=== PATIENT | female | born 1930 | race Caucasian/White ===

== ENCOUNTER 2018-06-27 10:29 | Inpatient (IN) | payer MEDICARE, OTHER ==
[2018-06-27] MEDS ORDERED: Sodium Chloride 0.9% 1,000 ML IV SCH ×3 (11:00→17:10)
[2018-06-27] MEDS ORDERED: Diltiazem 25 MG/5 ML SDV IVPUSH ONE ×2 (11:01→13:24)
--- NOTE | 2018-06-27 11:06 | EDM.PDOC ---
ED HPI GENERAL MEDICAL PROBLEM - General Chief Complaint: Cardiovascular Problem Stated Complaint: [facility] Time Seen by Provider: 06/27/18 10:52 Source of Information: Reports: Patient, RN Notes Reviewed History Limitations: Reports: No Limitations - History of Present Illness INITIAL COMMENTS - FREE TEXT/NARRATIVE: 88-year-old female presents to the emergency department today complaint of palpitations, she has a known history of paroxysmal atrial fibrillation is on anticoagulation of Coumadin. Reported to the Coumadin clinic for an INR check she reported palpitations at that time clinic called the EMS services for transport to the ED for further evaluation. She states she initially had some chest pressure but that now has resolved no shortness of breath she does feel the palpitations it is worse with exertion. She does have a pacemaker she reports that her pacemaker check did admit to bouts of atrial fibrillation throughout the last cycle. - Related Data Allergies Allergy/AdvReac Type Severity Reaction Status Date / Time levofloxacin [From Levaquin] Allergy Rash Verified 06/27/18 10:37 Penicillins Allergy Rash Verified 06/27/18 10:37 propoxyphene napsylate Allergy Rash Verified 06/27/18 10:37 [From Darvocet-N] Home Meds: Home Meds Aspirin [Children's Aspirin] 81 mg PO DAILY 02/14/15 [History] Morphine Sulfate 15 mg PO Q4H PRN 02/14/15 [History] Sertraline [Zoloft] 100 mg PO DAILY 02/14/15 [History] Simvastatin [Zocor] 40 mg PO BEDTIME 02/14/15 [History] Morphine Sulfate [Ms Contin] 15 mg PO Q12HR 11/29/15 [History] Warfarin [Coumadin] 1.5 mg PO ASDIRECTED 11/29/15 [History] amLODIPine [Norvasc] 5 mg PO DAILY 10/20/17 [History] Metoprolol Tartrate [Lopressor] 50 mg PO BID 03/30/18 [History] Acetaminophen [Tylenol Extra Strength] 1,000 mg PO Q4H PRN 06/22/18 [History] Past Medical History Cardiovascular History: Reports: Afib, High Cholesterol, Hypertension Social & Family History - Tobacco Use Smoking Status *Q: Never Smoker - Recreational Drug Use Recreational Drug Use: No ED ROS GENERAL - Review of Systems Review Of Systems: See Below Constitutional: Reports: No Symptoms Respiratory: Reports: Shortness of Breath Cardiovascular: Reports: Chest Pain, Dyspnea on Exertion GI/Abdominal: Reports: No Symptoms : Reports: No Symptoms Musculoskeletal: Reports: No Symptoms ED EXAM, GENERAL - Physical Exam Exam: See Below Exam Limited By: No Limitations General Appearance: Alert, WD/WN, No Apparent Distress Neck: Normal Inspection, Supple, Non-Tender, Full Range of Motion Respiratory/Chest: No Respiratory Distress, Lungs Clear, Normal Breath Sounds, No Accessory Muscle Use, Chest Non-Tender Cardiovascular: Tachycardia GI/Abdominal: Soft, Non-Tender ED CARDIOLOGY PROCEDURES - Cardioversion Time of Cardioversion: 13:27 Indication: Atrial Fibrillation with RVR Patient Counseled: Yes Informed Consent Obtained: Yes Preparation: IV Access, Airway Management Equipment, Supplemental Oxygen, Monitor, Reversal Agents Available Pre-Procedure Sedation: Propofol Cardioversion Energy: Other (200, 250, 300) Mode: Monophasic Successful: No Number of Attempts: Other: (3 attempts) Patient Condition Post Cardioversion: Unchanged Post Cardioversion EKG Reviewed: No Course - Vital Signs Last Recorded V/S: Last Vital Signs Temp 97.3 F 06/28/18 02:50 Pulse 115 H 06/28/18 01:37 Resp 19 06/28/18 06:00 BP 118/58 L 06/28/18 06:00 Pulse Ox 97 06/28/18 06:00 - Orders/Labs/Meds Orders: Active Orders 24 hr Category Date Time Status Cardiac Monitoring [RC] .As Directed Care 06/27/18 11:00 Inactive EKG Documentation Completion [RC] ASDIRECTED Care 06/27/18 11:01 Inactive Chest 1V Frontal [CR] Urgent Exams 06/27/18 15:27 Taken Amiodarone [Cordarone] 450 mg Med 06/27/18 16:45 Active Dextrose 5% in Water 241 ml IV ASDIRECTED EKG 12 Lead [EK] Stat Ther 06/27/18 11:01 Stop Req Medication Orders Acetaminophen (Tylenol) 650 mg PO Q4H PRN PRN Reason: Pain (Mild 1-3)/fever Last Admin: 06/28/18 00:27 Dose: 650 mg Aspirin (Aspirin) 81 mg PO DAILY MUKUL Amiodarone HCl 450 mg/ (Dextrose/Water) 250 mls @ 33.33 mls/hr IV ASDIRECTED MUKUL; Protocol Last Admin: 06/28/18 01:37 Dose: 0.5 mg/min, 16.66 mls/hr Titration: 06/28/18 01:37 Dose: 0.5 mg/min, 16.66 mls/hr Titration: 06/27/18 23:24 Dose: 0.5 mg/min, 16.66 mls/hr Admin: 06/27/18 17:11 Dose: 1 mg/min, 33.33 mls/hr Sodium Chloride (Normal Saline) 1,000 mls @ 50 mls/hr IV ASDIRECTED [facility] Last Admin: 06/27/18 19:55 Dose: 50 mls/hr Magnesium Hydroxide (Milk Of Magnesia) 30 ml PO Q12H PRN PRN Reason: Constipation Melatonin (Melatonin) 9 mg PO BEDTIME PRN PRN Reason: Insomnia Last Admin: 06/27/18 21:35 Dose: 9 mg Metoprolol Tartrate (Lopressor) 50 mg PO BID [facility] Last Admin: 06/27/18 21:29 Dose: 50 mg Morphine Sulfate (Ms Contin) 15 mg PO Q12H [facility] Last Admin: 06/27/18 21:28 Dose: 15 mg Morphine Sulfate (Morphine) 15 mg PO Q4H PRN PRN Reason: Pain Last Admin: 06/28/18 00:27 Dose: 15 mg Ondansetron HCl (Zofran) 4 mg IV Q4H PRN PRN Reason: Nausea/Vomiting Polyethylene Glycol (Miralax) 17 gm PO DAILY PRN PRN Reason: Constipation Senna/Docusate Sodium (Senna Plus) 1 tab PO BID PRN PRN Reason: Constipation Sertraline HCl (Zoloft) 100 mg PO DAILY [facility] Simvastatin (Zocor) 40 mg PO BEDTIME [facility] Last Admin: 06/27/18 21:29 Dose: 40 mg Sodium Chloride (Saline Flush) 10 ml FLUSH ASDIRECTED PRN PRN Reason: Keep Vein Open Warfarin Sodium (Coumadin) 1.5 mg PO DAILY [facility] Labs: Laboratory Tests 06/27/18 06/27/18 06/27/18 Range/Units 11:16 11:16 16:19 WBC 10.3 (4.5-11.0) K/uL RBC 4.58 (3.30-5.50) M/uL Hgb 13.6 D (12.0-15.0) g/dL Hct 43.6 (36.0-48.0) % MCV 95 (80-98) fL MCH 30 (27-31) pg MCHC 31 L (32-36) % Plt Count 213 (150-400) K/uL Neut % (Auto) 79 H (36-66) % Lymph % (Auto) 10 L (24-44) % [place] % (Auto) 10 H (2-6) % Eos % (Auto) 0 L (2-4) % Baso % (Auto) 0 (0-1) % Sodium 141 (140-148) mmol/L Potassium 4.0 (3.6-5.2) mmol/L Chloride 105 (100-108) mmol/L Carbon Dioxide 30 (21-32) mmol/L Anion Gap 6.2 (5.0-14.0) mmol/L BUN 11 (7-18) mg/dL Creatinine 0.7 (0.6-1.0) mg/dL Est Cr Clr Drug Dosing 50.95 mL/min Estimated GFR (MDRD) > 60 (>60) Glucose 111 H (74-106) mg/dL Calcium 8.9 (8.5-10.1) mg/dL Magnesium 1.8 (1.8-2.4) mg/dL Total Bilirubin 0.6 (0.2-1.0) mg/dL AST 13 L (15-37) U/L ALT 14 (12-78) U/L Alkaline Phosphatase 78 (46-116) U/L CK-MB (CK-2) 0.6 (0-3.6) mg/mL Troponin I < 0.017 (0.000-0.056) ng/mL Total Protein 6.5 (6.4-8.2) g/dL Albumin 3.1 L (3.4-5.0) g/dL Globulin 3.4 (2.3-3.5) g/dL Albumin/Globulin Ratio 0.9 L (1.2-2.2) TSH, Ultra Sensitive 1.270 (0.358-3.740) uIU/mL Meds: Medications Generic Name Dose Route Start Last Admin Trade Name Freq PRN Reason Stop Dose Admin Acetaminophen 650 mg 06/27/18 17:10 06/28/18 00:27 Tylenol PO 650 mg Q4H PRN Administration Pain (Mild 1-3)/fever Aspirin 81 mg 06/28/18 09:00 Aspirin PO DAILY [facility] Amiodarone HCl 450 mg/ 250 mls @ 33.33 mls/hr 06/27/18 16:45 06/28/18 01:37 Dextrose/Water IV 0.5 mg/min ASDIRECTED MUKUL 16.66 mls/hr Administration Protocol 1 MG/MIN Sodium Chloride 1,000 mls @ 50 mls/hr 06/27/18 17:10 06/27/18 19:55 Normal Saline IV 50 mls/hr ASDIRECTED [facility] Administration Magnesium Hydroxide 30 ml 06/27/18 17:10 Milk Of Magnesia PO Q12H PRN Constipation Melatonin 9 mg 06/27/18 21:13 06/27/18 21:35 Melatonin PO 9 mg BEDTIME PRN Administration Insomnia Metoprolol Tartrate 50 mg 06/27/18 21:00 06/27/18 21:29 Lopressor PO 50 mg BID [facility] Administration Morphine Sulfate 15 mg 06/27/18 21:00 06/27/18 21:28 Ms Contin PO 15 mg Q12H [facility] Administration Morphine Sulfate 15 mg 06/27/18 17:10 06/28/18 00:27 Morphine PO 15 mg Q4H PRN Administration Pain Ondansetron HCl 4 mg 06/27/18 17:10 Zofran IV Q4H PRN Nausea/Vomiting Polyethylene Glycol 17 gm 06/27/18 17:10 Miralax PO DAILY PRN Constipation Senna/Docusate Sodium 1 tab 06/27/18 17:10 Senna Plus PO BID PRN Constipation Sertraline HCl 100 mg 06/28/18 09:00 Zoloft PO DAILY [facility] Simvastatin 40 mg 06/27/18 21:00 06/27/18 21:29 Zocor PO 40 mg BEDTIME [facility] Administration Sodium Chloride 10 ml 06/27/18 17:10 Saline Flush FLUSH ASDIRECTED PRN Keep Vein Open Warfarin Sodium 1.5 mg 06/28/18 09:00 Coumadin PO DAILY [facility] Discontinued Medications Generic Name Dose Route Start Last Admin Trade Name Freq PRN Reason Stop Dose Admin Diltiazem HCl 20 mg 06/27/18 11:01 06/27/18 11:24 Diltiazem IVPUSH 06/27/18 11:02 20 mg ONETIME ONE Administration Diltiazem HCl 20 mg 06/27/18 13:24 06/27/18 13:40 Diltiazem IVPUSH 06/27/18 13:25 20 mg ONETIME ONE Administration Sodium Chloride 1,000 mls @ 125 mls/hr 06/27/18 11:00 06/27/18 11:29 Normal Saline IV 125 mls/hr ASDIRECTED MUKUL Administration Sodium Chloride 1,000 mls @ 75 mls/hr 06/27/18 12:15 Normal Saline IV ASDIRECTED MUKUL Diltiazem HCl 100 mg/ Sodium 100 mls @ 5 mls/hr 06/27/18 13:45 06/27/18 15:48 Chloride IV 20 mg/hr TITRATE MUKUL 20 mls/hr Titration Protocol 5 MG/HR Amiodarone HCl 150 mg/ 103 mls @ 618 mls/hr 06/27/18 16:45 06/27/18 16:44 Dextrose/Water IV 06/27/18 16:54 618 mls/hr ONETIME ONE Administration Magnesium Sulfate 2 gm/ Premix 50 mls @ 12.5 mls/hr 06/27/18 21:12 06/27/18 21:29 IV 06/28/18 01:11 12.5 mls/hr ONETIME ONE Administration Naloxone HCl Confirm 06/27/18 13:08 Narcan Administered 06/27/18 13:09 Dose 0.4 mg .ROUTE .STK-MED ONE Warfarin Sodium 1 mg 06/27/18 11:00 06/27/18 11:30 Coumadin PO 06/27/18 11:01 1 mg ONETIME ONE Administration Departure - Departure Time of Disposition: 06:57 Disposition: Admitted As Inpatient 67 Condition: Fair Clinical Impression: Atrial fibrillation with RVR - My Orders Last 24 Hours: My Active Orders 06/27/18 11:00 Cardiac Monitoring [RC] .As Directed 06/27/18 11:01 EKG Documentation Completion [RC] ASDIRECTED EKG 12 Lead [EK] Stat 06/27/18 15:27 Chest 1V Frontal [CR] Urgent - Assessment/Plan Last 24 Hours: My Active Orders 06/27/18 11:00 Cardiac Monitoring [RC] .As Directed 06/27/18 11:01 EKG Documentation Completion [RC] ASDIRECTED EKG 12 Lead [EK] Stat 06/27/18 15:27 Chest 1V Frontal [CR] Urgent Plan: Assessment Acuity = acute Site and laterality = atrial fibrillation with rapid ventricular response Etiology = unknown etiology Manifestations = palpitations Location of injury = Home Lab values = CBC, CMP, troponin, magnesium, thyroid all within normal limits EKG demonstrates atrial fibrillation, INR from clinic is 2.15 Plan After unsuccessful cardioversion as well as Cardizem bolus and Cardizem drip called discussed case hospitalist team agreed to come and evaluate the patient emergency department for admission This note was dictated using [employer] voice recognition software please call with any questions on syntax or grammar.
[2018-06-27] MEDS ORDERED: Naloxone 0.4 MG/ML SDV ONE (13:08)
[2018-06-27] MEDS ORDERED: DEXTROSE 5% IV SCH ×2 (13:45)
[2018-06-27] MEDS ORDERED: Diltiazem 100 MG in Sodium Chloride 0.9% 100 ML IV SCH (13:45)
[2018-06-27] MEDS ORDERED: DILTIAZEM IV SCH ×2 (13:45)
[2018-06-27] MEDS ORDERED: WATER IV SCH ×2 (13:45)
[2018-06-27] MEDS ORDERED: Propofol 200 MG/20 ML SDV ONE (14:00)
[2018-06-27] MEDS ORDERED: Amiodarone 150 MG/3 ML SDV IVPUSH ONE (16:23)
[2018-06-27] MEDS ORDERED: Amiodarone 150 MG in Dextrose 5% in Water 100 ML IV ONE ×4 (16:30→16:45)
--- NOTE | 2018-06-27 16:39 | PCM.HP ---
H&P History of Present Illness - General Date of Service: 06/27/18 Admit Problem/Dx: Admission Diagnosis/Problem Admission Diagnosis/Problem Atrial fibrillation Source of Information: Patient, Provider, RN Notes Reviewed History Limitations: Reports: No Limitations - History of Present Illness Initial Comments - Free Text/Narative: Ms. Gr is an 88-year-old woman who was admitted through the emergency department with lightheadedness and weakness secondary to atrial fibrillation with rapid ventricular response. She is status post permanent pacemaker placement for symptomatic bradycardia. She has had previous history of versus small atrial fibrillation and on her last pacemaker check was told that she'd had intermittent episodes of atrial fibrillation with rapid heart rate. Over the past few months she has had intermittent episodes of weakness and lightheadedness that she is not necessarily associated with a rapid heart rate. She went into the clinic today for Coumadin check and reported that she was not feeling well with weakness and lightheadedness. Heart rate was noted to be elevated and she was referred to the emergency department for further evaluation. Laboratory studies are unremarkable, EKG documented atrial fibrillation with rapid ventricular response. She was given a bolus dose of diltiazem with no significant improvement in rate. She was then given IV sedation and cardioversion was attempted 3 times with no successful conversion to sinus rhythm. Since then she has been re-bolused with diltiazem and started on a continuous infusion of diltiazem, despite this heart rates remained in the 130 to 140 range. She denies any symptoms of chest pain or pressure and her troponin level is within normal range. - Related Data Allergies/Adverse Reactions: Allergies Allergy/AdvReac Type Severity Reaction Status Date / Time levofloxacin [From Levaquin] Allergy Rash Verified 06/27/18 10:37 Penicillins Allergy Rash Verified 06/27/18 10:37 propoxyphene napsylate Allergy Rash Verified 06/27/18 10:37 [From Darvocet-N] Home Medications: Home Meds Aspirin [Children's Aspirin] 81 mg PO DAILY 02/14/15 [History] Morphine Sulfate 15 mg PO Q4H PRN 02/14/15 [History] Sertraline [Zoloft] 100 mg PO DAILY 02/14/15 [History] Simvastatin [Zocor] 40 mg PO BEDTIME 02/14/15 [History] Morphine Sulfate [Ms Contin] 15 mg PO Q12HR 11/29/15 [History] Warfarin [Coumadin] 1.5 mg PO ASDIRECTED 11/29/15 [History] amLODIPine [Norvasc] 5 mg PO DAILY 10/20/17 [History] Metoprolol Tartrate [Lopressor] 50 mg PO BID 03/30/18 [History] Acetaminophen [Tylenol Extra Strength] 1,000 mg PO Q4H PRN 06/22/18 [History] Past Medical History HEENT History: Reports: Hard of Hearing Cardiovascular History: Reports: Afib, High Cholesterol, Hypertension Respiratory History: Reports: Bronchitis, Recurrent, Pneumonia, Recurrent Gastrointestinal History: Reports: Diverticulosis Genitourinary History: Reports: Other (See Below) Other Genitourinary History: growth on the end of meatus Musculoskeletal History: Reports: Back Pain, Chronic, Other (See Below) Other Musculoskeletal History: epicdural injections Psychiatric History: Reports: Anxiety, Depression Hematologic History: Reports: Anemia Dermatologic History: Reports: Other (See Below) Other Dermatologic History: neuro dermatitis, shingles - Past Surgical History HEENT Surgical History: Reports: Tonsillectomy Cardiovascular Surgical History: Reports: Carotid Stents, Pacer GI Surgical History: Reports: Appendectomy, Colon Female Surgical History: Reports: Hysterectomy, Salpingo-Oophorectomy Social & Family History - Tobacco Use Smoking Status *Q: Never Smoker - Recreational Drug Use Recreational Drug Use: No H&P Review of Systems - Review of Systems: Review Of Systems: See Below General: Reports: Weakness, Night Sweats. Denies: Fever, Chills HEENT: Reports: No Symptoms Pulmonary: Reports: No Symptoms Cardiovascular: Reports: Palpitations, Lightheadedness. Denies: Chest Pain, Dyspnea on Exertion, Orthopnea, PND, Syncope Gastrointestinal: Reports: No Symptoms Genitourinary: Reports: No Symptoms Musculoskeletal: Reports: No Symptoms Skin: Reports: No Symptoms Psychiatric: Reports: No Symptoms Neurological: Reports: No Symptoms Hematologic/Lymphatic: Reports: No Symptoms Immunologic: Reports: No Symptoms Exam - Exam Exam: See Below - Vital Signs Vital Signs: Last Vital Signs Temp 96.5 F 06/27/18 10:34 Pulse 153 H 06/27/18 16:18 Resp 12 06/27/18 16:18 BP 109/51 L 06/27/18 16:18 Pulse Ox 94 L 06/27/18 16:18 Weight: 200 lb - Exam Quality Assessment: Supplemental Oxygen, DVT Prophylaxis General: Alert, Oriented, Cooperative, Mild Distress HEENT: Conjunctiva Clear, Hearing Intact, Mucosa Moist & [place], Normal Nasal Septum, Posterior Pharynx Clear, Pupils Equal Neck: Supple, Trachea Midline, +2 Carotid Pulse wo Bruit Lungs: Clear to Auscultation, Normal Respiratory Effort Cardiovascular: Normal S1, Normal S2, Irregular Rhythm, Tachycardia. No: Systolic Murmur, Diastolic Murmur GI/Abdominal Exam: Soft, Non-Tender, No Organomegaly, No Distention Back Exam: Normal Inspection, Full Range of Motion Extremities: Non-Tender, No Pedal Edema Skin: Warm, Dry Neurological: Cranial Nerves Intact, Strength Equal Bilateral, Normal Speech, Normal Tone, Sensation Intact. No: Focal Deficit Neuro Extensive - Mental Status: Alert, Oriented x3, Normal Mood/Affect, Normal Cognition, Memory Intact - Patient Data Lab Results Last 24 hrs: Laboratory Results - last 24 hr 06/27/18 06/27/18 Range/Units 11:16 11:16 WBC 10.3 (4.5-11.0) K/uL RBC 4.58 (3.30-5.50) M/uL Hgb 13.6 D (12.0-15.0) g/dL Hct 43.6 (36.0-48.0) % MCV 95 (80-98) fL MCH 30 (27-31) pg MCHC 31 L (32-36) % Plt Count 213 (150-400) K/uL Neut % (Auto) 79 H (36-66) % Lymph % (Auto) 10 L (24-44) % [place] % (Auto) 10 H (2-6) % Eos % (Auto) 0 L (2-4) % Baso % (Auto) 0 (0-1) % Sodium 141 (140-148) mmol/L Potassium 4.0 (3.6-5.2) mmol/L Chloride 105 (100-108) mmol/L Carbon Dioxide 30 (21-32) mmol/L Anion Gap 6.2 (5.0-14.0) mmol/L BUN 11 (7-18) mg/dL Creatinine 0.7 (0.6-1.0) mg/dL Est Cr Clr Drug Dosing 50.95 mL/min Estimated GFR (MDRD) > 60 (>60) Glucose 111 H (74-106) mg/dL Calcium 8.9 (8.5-10.1) mg/dL Total Bilirubin 0.6 (0.2-1.0) mg/dL AST 13 L (15-37) U/L ALT 14 (12-78) U/L Alkaline Phosphatase 78 (46-116) U/L CK-MB (CK-2) 0.6 (0-3.6) mg/mL Troponin I < 0.017 (0.000-0.056) ng/mL Total Protein 6.5 (6.4-8.2) g/dL Albumin 3.1 L (3.4-5.0) g/dL Globulin 3.4 (2.3-3.5) g/dL Albumin/Globulin Ratio 0.9 L (1.2-2.2) Result Diagrams: 06/27/18 11:16 06/27/18 11:16 *Q Meaningful Use (ADM) - VTE *Q VTE Pharmacological Contraindications *Q: High INR Value - VTE Risk Assess *Q Each Risk Factor Represents 1 Point: None, Obesity ( BMI > 25 kg/m2) Total Score 1 Point Risk Factors: 1 Each Risk Factor Represents 2 Points: None Total Score 2 Point Risk Factors: 0 Each Risk Factor Represents 3 Points: Age 75 Years or Greater Total Score 3 Point Risk Factors: 3 Each Risk Factor Represents 5 Points: None Total Score 5 Point Risk Factors: 0 Venous Thromboembolism Risk Factor Score *Q: 4 Problem List Initiated/Reviewed/Updated: Yes Orders Last 24hrs: Active Orders 24 hr Category Date Time Status Patient Status Manage Transfer [TRANSFER] Routine ADT 06/27/18 16:25 Active Cardiac Monitoring [RC] .As Directed Care 06/27/18 11:00 Active EKG Documentation Completion [RC] ASDIRECTED Care 06/27/18 11:01 Active Chest 1V Frontal [CR] Urgent Exams 06/27/18 15:27 Taken MAGNESIUM [CHEM] Stat Lab 06/27/18 16:19 Received TSH ULTRASENSITIVE [CHEM] Stat Lab 06/27/18 16:19 Received Amiodarone [Cordarone] 150 mg Med 06/27/18 16:30 Active Dextrose 5% in Water 100 ml IV .BOLUS Amiodarone [Cordarone] 450 mg Med 06/27/18 16:30 Ordered Dextrose 5% in Water 241 ml IV ASDIRECTED Sodium Chloride 0.9% [Normal Saline] 1,000 ml Med 06/27/18 11:00 Active IV ASDIRECTED Sodium Chloride 0.9% [Normal Saline] 1,000 ml Med 06/27/18 12:15 Active IV ASDIRECTED Resuscitation Status Routine Resus Stat 06/27/18 16:27 Ordered EKG 12 Lead [EK] Stat Ther 06/27/18 11:01 Ordered Medication Orders Sodium Chloride (Normal Saline) 1,000 mls @ 125 mls/hr IV ASDIRECTED MUKUL Last Admin: 06/27/18 11:29 Dose: 125 mls/hr Sodium Chloride (Normal Saline) 1,000 mls @ 75 mls/hr IV ASDIRECTED MUKUL Amiodarone HCl 450 mg/ (Dextrose/Water) 250 mls @ 33.33 mls/hr IV ASDIRECTED MUKUL; Protocol Amiodarone HCl 150 mg/ (Dextrose/Water) 103 mls @ 618 mls/hr IV .BOLUS ONE Stop: 06/27/18 16:39 Assessment/Plan Comment:: ASSESSMENT AND PLAN ATRIAL FIBRILLATION WITH RAPID VENTRICULAR RESPONSE-history of paroxysmal A. fib in the past. This morning experience symptoms of weakness and lightheadedness and was found to be in atrial fibrillation with rapid ventricular response. Attempted cardioversion in the emergency department has been unsuccessful, heart rate has remained elevated despite IV diltiazem. Will admit to ICU for bolus dose and continuous infusion of amiodarone, risks and goals of amiodarone therapy including potential side effects reviewed with the patient and she has given informed consent to proceed. -Admit to ICU for cardiac monitoring -Amiodarone bolus and 24 hour continuous infusion per protocol -TSH in a.m. -Continue oral anticoagulation with warfarin MAINTENANCE ISSUES -DVT prophylaxis; current therapy with warfarin should provide adequate DVT prophylaxis -GI prophylaxis; not indicated -Álvarez catheter; not indicated -Nutrition; 2 g sodium diet -Nicotine dependence; not required CODE STATUS-FULL CODE ADMISSION STATUS-patient will be admitted to inpatient status, expect at least a 2 night hospital stay for evaluation and management of problems as outlined above. At the time of this admission I do not reasonably expected evaluation and management of this problem will require more than a 96 hour hospital stay. DISPOSITION-anticipate discharge to home after the hospital stay. PRIMARY CARE PROVIDER-Dr. Rogel
[2018-06-27] MEDS ORDERED: Sodium Chloride 0.9% 10 ML Syringe FLUSH PRN (17:10)
[2018-06-27] MEDS ORDERED: Magnesium Hydroxide 400 MG/5 ML Susp 30 ML Cup PO PRN (17:10)
[2018-06-27] MEDS ORDERED: Polyethylene Glycol 3350 Powder 17 GM Packet PO PRN (17:10)
[2018-06-27] MEDS ORDERED: Ondansetron 4 MG/2 ML SDV IV PRN (17:10)
[2018-06-27] MEDS ORDERED: Non-Formulary Medication 1 Each (Simvastatin [Zocor] 40 MG) PO SCH (21:00)
[2018-06-27] MEDS ORDERED: Magnesium Sulfate/Water 2 GM in Premix Bag 1 BAG IV ONE (21:12)
[2018-06-27] MEDS ORDERED: Melatonin 3 MG Tab PO PRN (21:13)
[2018-06-27] MEDS: Morphine 15 MG Tab.ER PO SCH (21:28)
[2018-06-27] MEDS: Simvastatin 20 MG Tab PO SCH (21:29)
[2018-06-27] MEDS: Metoprolol Tartrate 50 MG Tab PO SCH (21:29)
[2018-06-28] MEDS: Acetaminophen 325 MG Tab PO PRN ×2 (00:27→10:04)
[2018-06-28] MEDS: Morphine 15 MG Tab PO PRN ×2 (00:27→18:13)
[2018-06-28] MEDS: Metoprolol Tartrate 50 MG Tab PO SCH ×2 (08:06→20:47)
[2018-06-28] MEDS: Sertraline 50 MG Tab PO SCH (08:07)
[2018-06-28] MEDS: Aspirin 81 MG Tab.Chew PO SCH (08:07)
[2018-06-28] MEDS: Morphine 15 MG Tab.ER PO SCH ×2 (08:11→20:48)
--- NOTE | 2018-06-28 08:37 | CR ---
CHEST: Portable CLINICAL HISTORY:Palpitations COMPARISON:2014 FINDINGS: Patient has a permanent cardiac pacer with sequential leads in the right atrium and right ventricle. Prevascular appears normal. There are patchy densities throughout both lung sarmiento. The th donovan are likely chronic. IMPRESSION: Limited study Permanent cardiac pacer Changes of COPD. Two-view chest recommended when patient's condition allows.
[2018-06-28] MEDS ORDERED: Non-Formulary Medication 1 Each (Sertraline [Zoloft] 100 MG) PO SCH (09:00)
--- NOTE | 2018-06-28 10:57 | PCM.PN ---
- General Info Date of Service: 06/28/18 Subjective Update: This patient has improved since admission and did convert to sinus rhythm earlier this morning with continuous infusion of amiodarone. She still feels mildly weak and shaky but denies significant lightheadedness, chest pain, or shortness of breath. Functional Status: Reports: Tolerating Diet - Review of Systems General: Reports: Weakness. Denies: Fever, Chills Pulmonary: Reports: No Symptoms Cardiovascular: Reports: No Symptoms Gastrointestinal: Reports: No Symptoms - Patient Data Vitals - Most Recent: Last Vital Signs Temp 98.6 F 06/28/18 09:00 Pulse 65 06/28/18 10:00 Resp 16 06/28/18 10:00 BP 135/75 06/28/18 10:00 Pulse Ox 99 06/28/18 10:00 Weight - Most Recent: 182 lb 0.006 oz I&O - Last 24 Hours: Intake & Output 06/27/18 06/28/18 06/28/18 22:59 06:59 14:59 Intake Total 240 Output Total 500 875 Balance -260 -875 Lab Results Last 24 Hours: Laboratory Results - last 24 hr 06/27/18 06/27/18 06/27/18 Range/Units 11:16 11:16 16:19 WBC 10.3 (4.5-11.0) K/uL RBC 4.58 (3.30-5.50) M/uL Hgb 13.6 D (12.0-15.0) g/dL Hct 43.6 (36.0-48.0) % MCV 95 (80-98) fL MCH 30 (27-31) pg MCHC 31 L (32-36) % Plt Count 213 (150-400) K/uL Neut % (Auto) 79 H (36-66) % Lymph % (Auto) 10 L (24-44) % Baxter % (Auto) 10 H (2-6) % Eos % (Auto) 0 L (2-4) % Baso % (Auto) 0 (0-1) % PT (9.5-12.0) sec INR (0.80-1.20) Sodium 141 (140-148) mmol/L Potassium 4.0 (3.6-5.2) mmol/L Chloride 105 (100-108) mmol/L Carbon Dioxide 30 (21-32) mmol/L Anion Gap 6.2 (5.0-14.0) mmol/L BUN 11 (7-18) mg/dL Creatinine 0.7 (0.6-1.0) mg/dL Est Cr Clr Drug Dosing 50.95 mL/min Estimated GFR (MDRD) > 60 (>60) Glucose 111 H (74-106) mg/dL Calcium 8.9 (8.5-10.1) mg/dL Magnesium 1.8 (1.8-2.4) mg/dL Total Bilirubin 0.6 (0.2-1.0) mg/dL AST 13 L (15-37) U/L ALT 14 (12-78) U/L Alkaline Phosphatase 78 (46-116) U/L CK-MB (CK-2) 0.6 (0-3.6) mg/mL Troponin I < 0.017 (0.000-0.056) ng/mL Total Protein 6.5 (6.4-8.2) g/dL Albumin 3.1 L (3.4-5.0) g/dL Globulin 3.4 (2.3-3.5) g/dL Albumin/Globulin Ratio 0.9 L (1.2-2.2) TSH, Ultra Sensitive 1.270 (0.358-3.740) uIU/mL 06/28/18 06/28/18 06/28/18 Range/Units 04:45 04:45 04:45 WBC 9.5 (4.5-11.0) K/uL RBC 4.02 (3.30-5.50) M/uL Hgb 12.3 (12.0-15.0) g/dL Hct 38.7 (36.0-48.0) % MCV 96 (80-98) fL MCH 31 (27-31) pg MCHC 32 (32-36) % Plt Count 198 (150-400) K/uL Neut % (Auto) 74 H (36-66) % Lymph % (Auto) 13 L (24-44) % Baxter % (Auto) 13 H (2-6) % Eos % (Auto) 0 L (2-4) % Baso % (Auto) 0 (0-1) % PT 20.3 H (9.5-12.0) sec INR 1.91 H (0.80-1.20) Sodium 143 (140-148) mmol/L Potassium 3.7 (3.6-5.2) mmol/L Chloride 107 (100-108) mmol/L Carbon Dioxide 30 (21-32) mmol/L Anion Gap 6.3 (5.0-14.0) mmol/L BUN 12 (7-18) mg/dL Creatinine 0.6 (0.6-1.0) mg/dL Est Cr Clr Drug Dosing 59.44 mL/min Estimated GFR (MDRD) > 60 (>60) Glucose 113 H (74-106) mg/dL Calcium 7.9 L (8.5-10.1) mg/dL Magnesium 2.1 (1.8-2.4) mg/dL Total Bilirubin (0.2-1.0) mg/dL AST (15-37) U/L ALT (12-78) U/L Alkaline Phosphatase (46-116) U/L CK-MB (CK-2) (0-3.6) mg/mL Troponin I (0.000-0.056) ng/mL Total Protein (6.4-8.2) g/dL Albumin (3.4-5.0) g/dL Globulin (2.3-3.5) g/dL Albumin/Globulin Ratio (1.2-2.2) TSH, Ultra Sensitive (0.358-3.740) uIU/mL Med Orders - Current: Current Medications Acetaminophen (Tylenol) 650 mg PO Q4H PRN PRN Reason: Pain (Mild 1-3)/fever Last Admin: 06/28/18 10:04 Dose: 650 mg Aspirin (Aspirin) 81 mg PO DAILY [facility] Last Admin: 06/28/18 08:07 Dose: 81 mg Amiodarone HCl 450 mg/ (Dextrose/Water) 250 mls @ 33.33 mls/hr IV ASDIRECTED [facility]; Protocol Last Admin: 06/28/18 01:37 Dose: 0.5 mg/min, 16.66 mls/hr Magnesium Hydroxide (Milk Of Magnesia) 30 ml PO Q12H PRN PRN Reason: Constipation Melatonin (Melatonin) 9 mg PO BEDTIME PRN PRN Reason: Insomnia Last Admin: 06/27/18 21:35 Dose: 9 mg Metoprolol Tartrate (Lopressor) 50 mg PO BID [facility] Last Admin: 06/28/18 08:06 Dose: 50 mg Morphine Sulfate (Ms Contin) 15 mg PO Q12H [facility] Last Admin: 06/28/18 08:11 Dose: 15 mg Morphine Sulfate (Morphine) 15 mg PO Q4H PRN PRN Reason: Pain Last Admin: 06/28/18 00:27 Dose: 15 mg Ondansetron HCl (Zofran) 4 mg IV Q4H PRN PRN Reason: Nausea/Vomiting Polyethylene Glycol (Miralax) 17 gm PO DAILY PRN PRN Reason: Constipation Senna/Docusate Sodium (Senna Plus) 1 tab PO BID PRN PRN Reason: Constipation Sertraline HCl (Zoloft) 100 mg PO DAILY [facility] Last Admin: 06/28/18 08:07 Dose: 100 mg Simvastatin (Zocor) 40 mg PO BEDTIME [facility] Last Admin: 06/27/18 21:29 Dose: 40 mg Sodium Chloride (Saline Flush) 10 ml FLUSH ASDIRECTED PRN PRN Reason: Keep Vein Open Warfarin Sodium (Coumadin) 1.5 mg PO DAILY@1300 [facility] Discontinued Medications Diltiazem HCl (Diltiazem) 20 mg IVPUSH ONETIME ONE Stop: 06/27/18 11:02 Last Admin: 06/27/18 11:24 Dose: 20 mg Diltiazem HCl (Diltiazem) 20 mg IVPUSH ONETIME ONE Stop: 06/27/18 13:25 Last Admin: 06/27/18 13:40 Dose: 20 mg Sodium Chloride (Normal Saline) 1,000 mls @ 125 mls/hr IV ASDIRECTED [facility] Last Admin: 06/27/18 11:29 Dose: 125 mls/hr Sodium Chloride (Normal Saline) 1,000 mls @ 75 mls/hr IV ASDIRECTED [facility] Diltiazem HCl 100 mg/ Sodium (Chloride) 100 mls @ 5 mls/hr IV TITRATE [facility]; Protocol Last Titration: 06/27/18 15:48 Dose: 20 mg/hr, 20 mls/hr Amiodarone HCl 150 mg/ (Dextrose/Water) 103 mls @ 618 mls/hr IV ONETIME ONE Stop: 06/27/18 16:54 Last Admin: 06/27/18 16:44 Dose: 618 mls/hr Sodium Chloride (Normal Saline) 1,000 mls @ 50 mls/hr IV ASDIRECTED [facility] Last Admin: 06/27/18 19:55 Dose: 50 mls/hr Magnesium Sulfate 2 gm/ Premix 50 mls @ 12.5 mls/hr IV ONETIME ONE Stop: 06/28/18 01:11 Last Admin: 06/27/18 21:29 Dose: 12.5 mls/hr Naloxone HCl (Narcan) Confirm Administered Dose 0.4 mg .ROUTE .STK-MED ONE Stop: 06/27/18 13:09 Warfarin Sodium (Coumadin) 1 mg PO ONETIME ONE Stop: 06/27/18 11:01 Last Admin: 06/27/18 11:30 Dose: 1 mg - Exam General: Alert, Oriented, No Acute Distress Lungs: Clear to Auscultation, Normal Respiratory Effort Cardiovascular: Regular Rate, Regular Rhythm, No Murmurs GI/Abdominal Exam: Soft, Non-Tender, No Organomegaly, No Distention Extremities: Non-Tender, No Pedal Edema Skin: Warm, Dry, Intact - Problem List Review Problem List Initiated/Reviewed/Updated: Yes - My Orders Last 24 Hours: My Active Orders 06/27/18 16:27 Resuscitation Status Routine 06/27/18 16:45 Amiodarone [Cordarone] 450 mg Dextrose 5% in Water 241 ml IV ASDIRECTED 06/27/18 17:10 Patient Status [ADT] Routine Ambulate [RC] QID Cardiac Monitoring [RC] Q6H Height and Weight [RC] DAILY Intake and Output [RC] QSHIFT Notify Provider Vital Signs [RC] ASDIRECTED Oxygen Therapy [RC] PRN Peripheral IV Care [RC] Q12H Up With Assistance [RC] ASDIRECTED Up to Chair [RC] QID VTE/DVT Education [RC] Per Unit Routine Vital Signs [RC] Q2H Acetaminophen [Tylenol] 650 mg PO Q4H PRN Docusate Sodium/Sennosides [Senna Plus] 1 tab PO BID PRN Magnesium Hydroxide [Milk of Magnesia] 30 ml PO Q12H PRN Morphine 15 mg PO Q4H PRN Ondansetron [Zofran] 4 mg IV Q4H PRN Polyethylene Glycol 3350 [MiraLAX] 17 gm PO DAILY PRN Sodium Chloride 0.9% [Saline Flush] 10 ml FLUSH ASDIRECTED PRN Peripheral IV Insertion Adult [OM.PC] Routine VTE Pharmacological Contraindications [AST] Per Unit Routine 06/27/18 21:00 Metoprolol Tartrate [Lopressor] 50 mg PO BID Morphine [MS Contin] 15 mg PO Q12H Simvastatin [Zocor] 40 mg PO BEDTIME 06/27/18 21:13 Melatonin 9 mg PO BEDTIME PRN 06/27/18 Lunch 2 Gram Sodium Diet [DIET] 06/28/18 05:35 EKG 12 Lead [EK] Routine 06/28/18 06:12 EKG Documentation Completion [RC] ASDIRECTED 06/28/18 09:00 Aspirin 81 mg PO DAILY Sertraline [Zoloft] 100 mg PO DAILY 06/28/18 13:00 Warfarin [Coumadin] 1.5 mg PO DAILY@1300 06/28/18 17:00 Amiodarone [Cordarone] 400 mg PO DAILY 06/29/18 05:00 INR,PT,PROTHROMBIN TIME [COAG] Timed - Plan Plan:: ASSESSMENT AND PLAN ATRIAL FIBRILLATION WITH RAPID VENTRICULAR RESPONSE-converted to sinus rhythm earlier this morning -Complete amiodarone infusion -Amiodarone 400 mg by mouth daily -Continue oral anticoagulation with warfarin MAINTENANCE ISSUES -DVT prophylaxis; current therapy with warfarin should provide adequate DVT prophylaxis -GI prophylaxis; not indicated -Álvarez catheter; not indicated -Nutrition; 2 g sodium diet -Nicotine dependence; not required CODE STATUS-FULL CODE ADMISSION STATUS-patient will be admitted to inpatient status, expect at least a 2 night hospital stay for evaluation and management of problems as outlined above. At the time of this admission I do not reasonably expected evaluation and management of this problem will require more than a 96 hour hospital stay. DISPOSITION-anticipate discharge to home tomorrow PRIMARY CARE PROVIDER-Dr. Rogel
[2018-06-28] MEDS: Amiodarone 200 MG Tab PO SCH (16:01)
[2018-06-28] MEDS: Simvastatin 20 MG Tab PO SCH (20:48)
[2018-06-29] MEDS: Morphine 15 MG Tab PO PRN (03:32)
[2018-06-29] MEDS: Acetaminophen 325 MG Tab PO PRN (03:33)
[2018-06-29] MEDS: Amiodarone 200 MG Tab PO SCH (08:05)
[2018-06-29] MEDS: Metoprolol Tartrate 50 MG Tab PO SCH (08:05)
[2018-06-29] MEDS: Morphine 15 MG Tab.ER PO SCH (08:05)
[2018-06-29] MEDS: Sertraline 50 MG Tab PO SCH (08:05)
[2018-06-29] MEDS: Aspirin 81 MG Tab.Chew PO SCH (08:06)
[2018-06-29 08:16] VITALS: BP 121/71
--- NOTE | 2018-06-29 09:51 | PCM.DCSUM1 ---
Discharge Summary - Hospital Course Brief History: This patient is an 88-year-old woman who is admitted through the emergency department with weakness and lightheadedness secondary to atrial fibrillation with rapid ventricular response. - Discharge Data Discharge Date: 06/29/18 Discharge Disposition: Home, Self-Care 01 Condition: Fair - Discharge Diagnosis/Problem(s) (1) Atrial fibrillation with RVR SNOMED Code(s): 594212483606399 ICD Code: I48.91 - UNSPECIFIED ATRIAL FIBRILLATION Status: Acute Current Visit: Yes (2) Benign essential hypertension SNOMED Code(s): 7834554 ICD Code: I10 - ESSENTIAL (PRIMARY) HYPERTENSION Status: Chronic Current Visit: No (3) Pacemaker SNOMED Code(s): 255384695 ICD Code: Z95.0 - PRESENCE OF CARDIAC PACEMAKER Status: Chronic Current Visit: No - Patient Summary/Data Consults: Consultations 06/28/18 10:57 Consult to Physical Therapy [PT Evaluation and Treatment] [CONS] Routine Please Evaluate and Treat. PT Reason for Consult: Weakness This query below is only for informational purposes and is not editable. Admission Diagnosis/Problem: Atrial fibrillation Hospital Course: Ms. Gr is an 88-year-old woman who was admitted through the emergency department with lightheadedness and weakness secondary to atrial fibrillation with rapid ventricular response. She is status post permanent pacemaker placement for symptomatic bradycardia. She has had previous history of paroxysmal atrial fibrillation and on her last pacemaker check was told that she 'd had intermittent episodes of atrial fibrillation with rapid heart rate. Over the past few months she has had intermittent episodes of weakness and lightheadedness that she is not necessarily associated with a rapid heart rate. She went into the clinic on the day of admission for Coumadin check and reported that she was not feeling well with weakness and lightheadedness. Heart rate was noted to be elevated and she was referred to the emergency department for further evaluation. Laboratory studies are unremarkable, EKG documented atrial fibrillation with rapid ventricular response. She was given a bolus dose of diltiazem with no significant improvement in rate. She was then given IV sedation and cardioversion was attempted 3 times with no successful conversion to sinus rhythm. Since then she has been re-bolused with diltiazem and started on a continuous infusion of diltiazem, despite this heart rates remained in the 130 to 140 range. She denies any symptoms of chest pain or pressure and her troponin level is within normal range. On admission the IV diltiazem was discontinued and she was started on loading protocol for amiodarone. She received a 150 mg bolus dose and then continuous infusion over the next 24 hours per protocol. She was given some IV fluids for hydration. Early in the morning after admission she converted to sinus rhythm and remained in sinus rhythm throughout the duration of her hospital stay. After she had completed the 24 hour infusion of amiodarone she was converted to an oral dose at 400 mg by mouth daily. She tolerated this well and had no evidence of untoward effect from the amiodarone, there was no evidence of QT prolongation. She will be discharged home on amiodarone 400 mg by mouth daily for 3 weeks and then to decrease dose to 200 mg daily thereafter. I did review with her potential side effects of amiodarone therapy. INR will need to be monitored closely because of potential interaction between amiodarone and warfarin. Follow-up INR level will be scheduled in 2 days at the [facility]. Follow-up appointment with Dr. Rogel will be scheduled within one week. Activity will be as tolerated and she will resume her usual diet. - Patient Instructions Diet: Heart Healthy Diet Activity: As Tolerated Other/Special Instructions: Please schedule follow-up INR at the [facility] for July 01. Please schedule follow-up appointment with Dr. Rogel within one week. - Discharge Plan *PRESCRIPTION DRUG MONITORING PROGRAM REVIEWED*: Not Applicable *COPY OF PRESCRIPTION DRUG MONITORING REPORT IN PATIENT CONNOR: Not Applicable Prescriptions/Med Rec: Amiodarone [Cordarone] 200 mg PO DAILY #30 tablet Home Medications: Home Meds Aspirin [Children's Aspirin] 81 mg PO DAILY 02/14/15 [History] Morphine Sulfate 15 mg PO Q4H PRN 02/14/15 [History] Sertraline [Zoloft] 100 mg PO DAILY 02/14/15 [History] Simvastatin [Zocor] 40 mg PO BEDTIME 02/14/15 [History] Morphine Sulfate [Ms Contin] 15 mg PO Q12HR 11/29/15 [History] Warfarin [Coumadin] 1.5 mg PO ASDIRECTED 11/29/15 [History] amLODIPine [Norvasc] 5 mg PO DAILY 10/20/17 [History] Metoprolol Tartrate [Lopressor] 50 mg PO BID 03/30/18 [History] Acetaminophen [Tylenol Extra Strength] 1,000 mg PO Q4H PRN 06/22/18 [History] Amiodarone [Cordarone] 200 mg PO DAILY #30 tablet 06/29/18 [Rx] Referrals: Jose Rogel MD [Primary Care Provider] - - Discharge Summary/Plan Comment DC Time >30 min.: No - Patient Data Vitals - Most Recent: Last Vital Signs Temp 97.6 F 06/29/18 08:00 Pulse 68 06/29/18 08:05 Resp 18 06/29/18 08:00 BP 148/87 H 06/29/18 08:05 Pulse Ox 97 06/29/18 08:00 Weight - Most Recent: 182 lb I&O - Last 24 hours: Intake & Output 06/28/18 06/29/18 06/29/18 22:59 06:59 14:59 Intake Total 420 240 240 Output Total 200 200 Balance 220 40 240 Lab Results - Last 24 hrs: Laboratory Results - last 24 hr 06/29/18 Range/Units 05:58 PT 24.1 H (9.5-12.0) sec INR 2.30 H (0.80-1.20) Med Orders - Current: Current Medications Acetaminophen (Tylenol) 650 mg PO Q4H PRN PRN Reason: Pain (Mild 1-3)/fever Last Admin: 06/29/18 03:33 Dose: 650 mg Amiodarone HCl (Cordarone) 400 mg PO DAILY [facility] Last Admin: 06/29/18 08:05 Dose: 400 mg Aspirin (Aspirin) 81 mg PO DAILY [facility] Last Admin: 06/29/18 08:06 Dose: 81 mg Magnesium Hydroxide (Milk Of Magnesia) 30 ml PO Q12H PRN PRN Reason: Constipation Melatonin (Melatonin) 9 mg PO BEDTIME PRN PRN Reason: Insomnia Last Admin: 06/27/18 21:35 Dose: 9 mg Metoprolol Tartrate (Lopressor) 50 mg PO BID [facility] Last Admin: 06/29/18 08:05 Dose: 50 mg Morphine Sulfate (Ms Contin) 15 mg PO Q12H [facility] Last Admin: 06/29/18 08:05 Dose: 15 mg Morphine Sulfate (Morphine) 15 mg PO Q4H PRN PRN Reason: Pain Last Admin: 06/29/18 03:32 Dose: 15 mg Ondansetron HCl (Zofran) 4 mg IV Q4H PRN PRN Reason: Nausea/Vomiting Polyethylene Glycol (Miralax) 17 gm PO DAILY PRN PRN Reason: Constipation Senna/Docusate Sodium (Senna Plus) 1 tab PO BID PRN PRN Reason: Constipation Sertraline HCl (Zoloft) 100 mg PO DAILY [facility] Last Admin: 06/29/18 08:05 Dose: 100 mg Simvastatin (Zocor) 40 mg PO BEDTIME [facility] Last Admin: 06/28/18 20:48 Dose: 40 mg Sodium Chloride (Saline Flush) 10 ml FLUSH ASDIRECTED PRN PRN Reason: Keep Vein Open Warfarin Sodium (Coumadin) 1.5 mg PO DAILY@1300 [facility] Last Admin: 06/28/18 13:19 Dose: 1.5 mg Discontinued Medications Diltiazem HCl (Diltiazem) 20 mg IVPUSH ONETIME ONE Stop: 06/27/18 11:02 Last Admin: 06/27/18 11:24 Dose: 20 mg Diltiazem HCl (Diltiazem) 20 mg IVPUSH ONETIME ONE Stop: 06/27/18 13:25 Last Admin: 06/27/18 13:40 Dose: 20 mg Sodium Chloride (Normal Saline) 1,000 mls @ 125 mls/hr IV ASDIRECTED [facility] Last Admin: 06/27/18 11:29 Dose: 125 mls/hr Sodium Chloride (Normal Saline) 1,000 mls @ 75 mls/hr IV ASDIRECTED [facility] Diltiazem HCl 100 mg/ Sodium (Chloride) 100 mls @ 5 mls/hr IV TITRATE [facility]; Protocol Last Titration: 06/27/18 15:48 Dose: 20 mg/hr, 20 mls/hr Amiodarone HCl 450 mg/ (Dextrose/Water) 250 mls @ 33.33 mls/hr IV ASDIRECTED [facility]; Protocol Stop: 06/28/18 16:00 Last Admin: 06/28/18 01:37 Dose: 0.5 mg/min, 16.66 mls/hr Amiodarone HCl 150 mg/ (Dextrose/Water) 103 mls @ 618 mls/hr IV ONETIME ONE Stop: 09/17/18 16:54 Last Admin: 06/27/18 16:44 Dose: 618 mls/hr Sodium Chloride (Normal Saline) 1,000 mls @ 50 mls/hr IV ASDIRECTED [facility] Last Admin: 06/27/18 19:55 Dose: 50 mls/hr Magnesium Sulfate 2 gm/ Premix 50 mls @ 12.5 mls/hr IV ONETIME ONE Stop: 06/28/18 01:11 Last Admin: 06/27/18 21:29 Dose: 12.5 mls/hr Naloxone HCl (Narcan) Confirm Administered Dose 0.4 mg .ROUTE .STK-MED ONE Stop: 06/27/18 13:09 Propofol (Diprivan 20 Ml) 200 mg .ROUTE .STK-MED ONE Stop: 06/27/18 14:01 Warfarin Sodium (Coumadin) 1 mg PO ONETIME ONE Stop: 06/27/18 11:01 Last Admin: 06/27/18 11:30 Dose: 1 mg - Exam Quality Assessment: Reports: DVT Prophylaxis General: Reports: Alert, Oriented, Cooperative, No Acute Distress Lungs: Reports: Clear to Auscultation, Normal Respiratory Effort Cardiovascular: Reports: Regular Rate, Regular Rhythm, No Murmurs GI/Abdominal Exam: Soft, Non-Tender, No Organomegaly, No Distention *Q Meaningful Use (DIS) - VTE *Q VTE Pharmacological Contraindications *Q: High INR Value
== END 2018-06-29 11:35 | disposition home or self-care (01) | DRG 310 ==
LOC: JP.ED 10:29 → JP.ICU 16:25
PROVIDERS: ADMIT Hospitalist; ATTEND Hospitalist
PROC: 5A2204Z Restoration of Cardiac Rhythm, Single (ICD-10-PCS; principal; 2018-06-27)
DX: I48.0 Paroxysmal atrial fibrillation (principal); I10 Essential (primary) hypertension; Z79.01 Long term (current) use of anticoagulants; R51 Headache; R42 Dizziness and giddiness; R00.2 Palpitations; Z95.0 Presence of cardiac pacemaker; E78.00 Pure hypercholesterolemia, unspecified; F41.9 Anxiety disorder, unspecified; F32.9 Major depressive disorder, single episode, unspecified; M54.9 Dorsalgia, unspecified; G89.29 Other chronic pain; Z87.01 Personal history of pneumonia (recurrent); H91.90 Unspecified hearing loss, unspecified ear; Z79.82 Long term (current) use of aspirin; Z88.1 Allergy status to other antibiotic agents; Z88.5 Allergy status to narcotic agent; Z88.0 Allergy status to penicillin
CPT/HCPCS: 36415; 71045 ×2; 80053; 82553; 83735; 84443; 84484; 85025; 92960 ×3; 96361; 96365; 96366; 96376; 99285; A9270; J2310; J2704; J3490 ×3; J7030 ×2; 80048; 85610; 93005; 97161-GP; J0282; J3475; J7060

== ENCOUNTER 2018-07-03 14:09 | Inpatient (IN) | payer MEDICARE, OTHER ==
[2018-07-03] MEDS ORDERED: Sodium Chloride 0.9% 10 ML Syringe FLUSH PRN ×2 (14:23→17:04)
--- NOTE | 2018-07-03 14:52 | EDM.PDOC ---
ED HPI GENERAL MEDICAL PROBLEM - General Chief Complaint: Cardiovascular Problem Stated Complaint: MEDICAL Time Seen by Provider: 07/03/18 14:22 Source of Information: Reports: Patient, RN Notes Reviewed History Limitations: Reports: No Limitations - History of Present Illness INITIAL COMMENTS - FREE TEXT/NARRATIVE: 88-year-old female presents to emergency department today with complaint of not feeling well. She has known history of atrial fibrillation with RVR was recently admitted the hospital for this underwent cardioversion 3 unsuccessful was admitted to hospital changed to amiodarone drip were she's converted. Was discharged home on amiodarone has taken a total of 5 doses she returns today stating last night she started feeling poorly with palpitations some chest pressure. - Related Data Allergies Allergy/AdvReac Type Severity Reaction Status Date / Time levofloxacin [From Levaquin] Allergy Rash Verified 06/27/18 10:37 Penicillins Allergy Rash Verified 06/27/18 10:37 propoxyphene napsylate Allergy Rash Verified 06/27/18 10:37 [From Iris-Lj] Home Meds: Home Meds Aspirin [Children's Aspirin] 81 mg PO DAILY 02/14/15 [History] Morphine Sulfate 15 mg PO Q4H PRN 02/14/15 [History] Sertraline [Zoloft] 100 mg PO DAILY 02/14/15 [History] Simvastatin [Zocor] 40 mg PO BEDTIME 02/14/15 [History] Morphine Sulfate [Ms Contin] 15 mg PO Q12HR 11/29/15 [History] Warfarin [Coumadin] 1.5 mg PO ASDIRECTED 11/29/15 [History] amLODIPine [Norvasc] 5 mg PO DAILY 10/20/17 [History] Metoprolol Tartrate [Lopressor] 50 mg PO BID 03/30/18 [History] Acetaminophen [Tylenol Extra Strength] 1,000 mg PO Q4H PRN 06/22/18 [History] Amiodarone [Cordarone] 200 mg PO DAILY #30 tablet 06/29/18 [Rx] Past Medical History HEENT History: Reports: Hard of Hearing Cardiovascular History: Reports: Afib, High Cholesterol, Hypertension Respiratory History: Reports: Bronchitis, Recurrent, Pneumonia, Recurrent Gastrointestinal History: Reports: Diverticulosis Genitourinary History: Reports: Other (See Below) Other Genitourinary History: growth on the end of meatus Musculoskeletal History: Reports: Back Pain, Chronic, Other (See Below) Other Musculoskeletal History: epicdural injections Psychiatric History: Reports: Anxiety, Depression Hematologic History: Reports: Anemia Dermatologic History: Reports: Other (See Below) Other Dermatologic History: neuro dermatitis, shingles - Infectious Disease History Infectious Disease History: Reports: Chicken Pox, Measles, Mumps - Past Surgical History HEENT Surgical History: Reports: Tonsillectomy GI Surgical History: Reports: Appendectomy, Colon Female Surgical History: Reports: Hysterectomy, Salpingo-Oophorectomy Social & Family History - Tobacco Use Smoking Status *Q: Never Smoker - Caffeine Use Caffeine Use: Reports: Tea ED ROS GENERAL - Review of Systems Review Of Systems: See Below Constitutional: Reports: No Symptoms HEENT: Reports: No Symptoms Respiratory: Reports: No Symptoms Cardiovascular: Reports: Chest Pain, Palpitations GI/Abdominal: Reports: No Symptoms : Reports: No Symptoms Musculoskeletal: Reports: No Symptoms Skin: Reports: No Symptoms ED EXAM, GENERAL - Physical Exam Exam: See Below Exam Limited By: No Limitations General Appearance: Alert, WD/WN, No Apparent Distress Respiratory/Chest: No Respiratory Distress, Lungs Clear, Normal Breath Sounds, No Accessory Muscle Use Cardiovascular: Tachycardia GI/Abdominal: Soft, Non-Tender ED CARDIOLOGY PROCEDURES - Cardioversion Time of Cardioversion: 16:04 Indication: Atrial Fibrillation with RVR Patient Counseled: Yes Informed Consent Obtained: Yes Preparation: IV Access, Airway Management Equipment, Supplemental Oxygen, Monitor, Reversal Agents Available Pre-Procedure Sedation: Propofol Cardioversion Energy: 200J Sync Successful: No Number of Attempts: 2 Patient Condition Post Cardioversion: Unchanged Post Cardioversion EKG Reviewed: No Course - Vital Signs Last Recorded V/S: Last Vital Signs Temp Pulse 124 H 07/03/18 15:56 Resp 15 07/03/18 15:56 BP 160/66 H 07/03/18 15:56 Pulse Ox 90 L 07/03/18 15:56 - Orders/Labs/Meds Orders: Active Orders 24 hr Category Date Time Status Cardiac Monitoring [RC] .As Directed Care 07/03/18 14:23 Active EKG Documentation Completion [RC] ASDIRECTED Care 07/03/18 14:24 Active Peripheral IV Care [RC] . DIRECTED Care 07/03/18 14:24 Active TROPONIN I [CHEM] Stat Lab 07/03/18 15:53 Ordered Diltiazem 125 mg Med 07/03/18 16:15 Active Dextrose 5% in Water 100 ml IV TITRATE Sodium Chloride 0.9% [Saline Flush] Med 07/03/18 14:23 Active 10 ml FLUSH ASDIRECTED PRN Peripheral IV Insertion Adult [OM.PC] Stat Oth 07/03/18 14:23 Ordered Saline Lock Insert [OM.PC] Stat Oth 07/03/18 14:23 Ordered EKG 12 Lead [EK] Stat Ther 07/03/18 14:24 Ordered Medication Orders Diltiazem HCl 125 mg/ Dextrose (/Water) 125 mls @ 5 mls/hr IV TITRATE MUKUL; Protocol Sodium Chloride (Saline Flush) 10 ml FLUSH ASDIRECTED PRN PRN Reason: Keep Vein Open Labs: Laboratory Tests 07/03/18 07/03/18 07/03/18 Range/Units 14:41 14:41 14:41 WBC 12.1 H (4.5-11.0) K/uL RBC 3.83 (3.30-5.50) M/uL Hgb 11.6 L (12.0-15.0) g/dL Hct 37.0 (36.0-48.0) % MCV 97 (80-98) fL MCH 30 (27-31) pg MCHC 31 L (32-36) % Plt Count 209 (150-400) K/uL Neut % (Auto) 84 H (36-66) % Lymph % (Auto) 6 L (24-44) % Bartholomew % (Auto) 10 H (2-6) % Eos % (Auto) 0 L (2-4) % Baso % (Auto) 0 (0-1) % PT 27.9 H (9.5-12.0) sec INR 2.68 H (0.80-1.20) Sodium 140 (140-148) mmol/L Potassium 3.9 (3.6-5.2) mmol/L Chloride 102 (100-108) mmol/L Carbon Dioxide 32 (21-32) mmol/L Anion Gap 6.3 (5.0-14.0) mmol/L BUN 10 (7-18) mg/dL Creatinine 0.6 (0.6-1.0) mg/dL Est Cr Clr Drug Dosing 59.44 mL/min Estimated GFR (MDRD) > 60 (>60) Glucose 132 H (74-106) mg/dL Calcium 8.2 L (8.5-10.1) mg/dL Total Bilirubin 1.0 D (0.2-1.0) mg/dL AST 13 L (15-37) U/L ALT 13 (12-78) U/L Alkaline Phosphatase 67 (46-116) U/L Creatine Kinase 19 L (26-192) U/L CK-MB (CK-2) 0.3 (0-3.6) mg/mL Total Protein 5.9 L (6.4-8.2) g/dL Albumin 2.5 L (3.4-5.0) g/dL Globulin 3.4 (2.3-3.5) g/dL Albumin/Globulin Ratio 0.7 L (1.2-2.2) Meds: Medications Generic Name Dose Route Start Last Admin Trade Name Freq PRN Reason Stop Dose Admin Diltiazem HCl 125 mg/ Dextrose 125 mls @ 5 mls/hr 07/03/18 16:15 /Water IV TITRATE MUKUL Protocol 5 MG/HR Sodium Chloride 10 ml 07/03/18 14:23 Saline Flush FLUSH ASDIRECTED PRN Keep Vein Open Discontinued Medications Generic Name Dose Route Start Last Admin Trade Name Freq PRN Reason Stop Dose Admin Diltiazem HCl 20 mg 07/03/18 14:57 07/03/18 15:03 Diltiazem IVPUSH 07/03/18 14:58 20 mg ONETIME ONE Administration Diltiazem HCl 10 mg 07/03/18 16:02 Diltiazem IVPUSH 07/03/18 16:03 ONETIME ONE Propofol Confirm 07/03/18 15:39 Diprivan 20 Ml Administered 07/03/18 15:40 Dose 200 mg .ROUTE .STK-MED ONE Departure - Departure Time of Disposition: 16:07 Disposition: Admitted As Inpatient 67 Condition: Fair Clinical Impression: Atrial fibrillation with RVR Referrals: Jose Rogel MD [Primary Care Provider] - Forms: ED Department Discharge - My Orders Last 24 Hours: My Active Orders 07/03/18 14:23 Cardiac Monitoring [RC] .As Directed Sodium Chloride 0.9% [Saline Flush] 10 ml FLUSH ASDIRECTED PRN Peripheral IV Insertion Adult [OM.PC] Stat Saline Lock Insert [OM.PC] Stat 07/03/18 14:24 EKG Documentation Completion [RC] ASDIRECTED Peripheral IV Care [RC] . DIRECTED EKG 12 Lead [EK] Stat 07/03/18 15:53 TROPONIN I [CHEM] Stat - Assessment/Plan Last 24 Hours: My Active Orders 07/03/18 14:23 Cardiac Monitoring [RC] .As Directed Sodium Chloride 0.9% [Saline Flush] 10 ml FLUSH ASDIRECTED PRN Peripheral IV Insertion Adult [OM.PC] Stat Saline Lock Insert [OM.PC] Stat 07/03/18 14:24 EKG Documentation Completion [RC] ASDIRECTED Peripheral IV Care [RC] . DIRECTED EKG 12 Lead [EK] Stat 07/03/18 15:53 TROPONIN I [CHEM] Stat Plan: Assessment Acuity = acute Site and laterality = atrial fibrillation with rapid ventricular response complicated patient with known history of hypertension and dyslipidemia on anticoagulation Etiology = unknown etiology Manifestations = shortness of breath and weakness Location of injury = Home Lab values = WBC elevated 12.1 consistent with a leukocytosis, hemoglobin low 11.6 consistent normochromic anemia INR therapeutic at 2.68 CK-MB is 0.3 EKG demonstrates atrial fibrillation Plan Called discussed case with hospitalist polymerization oven tender he agreed to come and evaluate the patient emergency department for admission she received 20 mg Cardizem prior to cardioversion without success This note was dictated using [employer] voice recognition software please call with any questions on syntax or grammar.
[2018-07-03] MEDS ORDERED: Diltiazem 25 MG/5 ML SDV IVPUSH ONE ×4 (14:57→19:46)
[2018-07-03] MEDS ORDERED: Propofol 200 MG/20 ML SDV ONE (15:39)
[2018-07-03] MEDS ORDERED: Diltiazem 100 MG AdvVial ONE ×2 (16:17→23:23)
[2018-07-03] MEDS ORDERED: Sodium Chloride 0.9% 100 ML ONE ×2 (16:18→23:24)
--- NOTE | 2018-07-03 16:26 | PCM.HP ---
H&P History of Present Illness - General Date of Service: 07/03/18 Admit Problem/Dx: Admission Diagnosis/Problem Admission Diagnosis/Problem Atrial fibrillation with rapid ventricular response Source of Information: Patient, Family, Old Records, Provider, RN Notes Reviewed History Limitations: Reports: No Limitations - History of Present Illness Initial Comments - Free Text/Narative: Ms. Gr is an 88-year-old woman who is admitted through the emergency department with recurrent atrial fibrillation and rapid ventricular response. She was hospitalized earlier this last week with similar findings and was treated with IV amiodarone infusion, during which she spontaneously converted to sinus rhythm. She was discharged home on oral amiodarone and last night noted recurrent rapid irregular heart rate. Over the last 4 days since discharge she has not felt well and had progressive symptoms of weakness lightheadedness, shakiness, and anorexia. On evaluation in the emergency department today was found to be again in atrial fibrillation with rapid ventricular response. No significant laboratory abnormalities were found to explain the recurrent atrial fibrillation. Electrical cardioversion was performed twice, and was unsuccessful with no conversion to sinus rhythm. We discussed options for management and she will be admitted for rate control. She remains on oral anticoagulation with warfarin and INR today is within therapeutic range. - Related Data Allergies/Adverse Reactions: Allergies Allergy/AdvReac Type Severity Reaction Status Date / Time levofloxacin [From Levaquin] Allergy Rash Verified 06/27/18 10:37 Penicillins Allergy Rash Verified 06/27/18 10:37 propoxyphene napsylate Allergy Rash Verified 06/27/18 10:37 [From Darvocet-N] Home Medications: Home Meds Aspirin [Children's Aspirin] 81 mg PO DAILY 02/14/15 [History] Morphine Sulfate 15 mg PO Q4H PRN 02/14/15 [History] Sertraline [Zoloft] 100 mg PO DAILY 02/14/15 [History] Simvastatin [Zocor] 40 mg PO BEDTIME 02/14/15 [History] Morphine Sulfate [Ms Contin] 15 mg PO Q12HR 11/29/15 [History] Warfarin [Coumadin] 1.5 mg PO ASDIRECTED 11/29/15 [History] amLODIPine [Norvasc] 5 mg PO DAILY 10/20/17 [History] Metoprolol Tartrate [Lopressor] 50 mg PO BID 03/30/18 [History] Acetaminophen [Tylenol Extra Strength] 1,000 mg PO Q4H PRN 06/22/18 [History] Amiodarone [Cordarone] 200 mg PO DAILY #30 tablet 06/29/18 [Rx] Past Medical History HEENT History: Reports: Hard of Hearing Cardiovascular History: Reports: Afib, High Cholesterol, Hypertension Respiratory History: Reports: Bronchitis, Recurrent, Pneumonia, Recurrent Gastrointestinal History: Reports: Diverticulosis Genitourinary History: Reports: Other (See Below) Other Genitourinary History: growth on the end of meatus Musculoskeletal History: Reports: Back Pain, Chronic, Other (See Below) Other Musculoskeletal History: epicdural injections Psychiatric History: Reports: Anxiety, Depression Hematologic History: Reports: Anemia Dermatologic History: Reports: Other (See Below) Other Dermatologic History: neuro dermatitis, shingles - Infectious Disease History Infectious Disease History: Reports: Chicken Pox, Measles, Mumps - Past Surgical History HEENT Surgical History: Reports: Tonsillectomy GI Surgical History: Reports: Appendectomy, Colon Female Surgical History: Reports: Hysterectomy, Salpingo-Oophorectomy Social & Family History - Tobacco Use Smoking Status *Q: Never Smoker - Caffeine Use Caffeine Use: Reports: Tea H&P Review of Systems - Review of Systems: Review Of Systems: See Below General: Reports: Weakness, Decreased Appetite. Denies: Fever, Chills HEENT: Reports: No Symptoms Pulmonary: Reports: No Symptoms Cardiovascular: Reports: Palpitations, Lightheadedness. Denies: Chest Pain, Dyspnea on Exertion, Orthopnea, PND, Edema Gastrointestinal: Reports: No Symptoms Genitourinary: Reports: No Symptoms Musculoskeletal: Reports: No Symptoms Skin: Reports: No Symptoms Psychiatric: Reports: No Symptoms Neurological: Reports: No Symptoms Hematologic/Lymphatic: Reports: No Symptoms Immunologic: Reports: No Symptoms Exam - Exam Exam: See Below - Vital Signs Vital Signs: Last Vital Signs Temp Pulse 124 H 07/03/18 15:56 Resp 15 07/03/18 15:56 BP 160/66 H 07/03/18 15:56 Pulse Ox 90 L 07/03/18 15:56 Weight: 182 lb - Exam Quality Assessment: DVT Prophylaxis General: Alert, Oriented, Cooperative, Mild Distress HEENT: Conjunctiva Clear, Hearing Intact, Mucosa Moist & [place], Normal Nasal Septum, Posterior Pharynx Clear, Pupils Equal Neck: Supple, Trachea Midline, +2 Carotid Pulse wo Bruit Lungs: Clear to Auscultation, Normal Respiratory Effort Cardiovascular: Normal S1, Normal S2, Irregular Rhythm, Tachycardia. No: Systolic Murmur, Diastolic Murmur GI/Abdominal Exam: Soft, Non-Tender, No Organomegaly, No Distention Extremities: Non-Tender, No Pedal Edema Skin: Warm, Dry, Intact Neurological: Cranial Nerves Intact, Strength Equal Bilateral, Normal Speech, Normal Tone, Sensation Intact. No: Focal Deficit Neuro Extensive - Mental Status: Alert, Oriented x3, Normal Mood/Affect, Normal Cognition, Memory Intact - Patient Data Lab Results Last 24 hrs: Laboratory Results - last 24 hr 07/03/18 07/03/18 07/03/18 Range/Units 14:41 14:41 14:41 WBC 12.1 H (4.5-11.0) K/uL RBC 3.83 (3.30-5.50) M/uL Hgb 11.6 L (12.0-15.0) g/dL Hct 37.0 (36.0-48.0) % MCV 97 (80-98) fL MCH 30 (27-31) pg MCHC 31 L (32-36) % Plt Count 209 (150-400) K/uL Neut % (Auto) 84 H (36-66) % Lymph % (Auto) 6 L (24-44) % [place] % (Auto) 10 H (2-6) % Eos % (Auto) 0 L (2-4) % Baso % (Auto) 0 (0-1) % PT 27.9 H (9.5-12.0) sec INR 2.68 H (0.80-1.20) Sodium 140 (140-148) mmol/L Potassium 3.9 (3.6-5.2) mmol/L Chloride 102 (100-108) mmol/L Carbon Dioxide 32 (21-32) mmol/L Anion Gap 6.3 (5.0-14.0) mmol/L BUN 10 (7-18) mg/dL Creatinine 0.6 (0.6-1.0) mg/dL Est Cr Clr Drug Dosing 59.44 mL/min Estimated GFR (MDRD) > 60 (>60) Glucose 132 H (74-106) mg/dL Calcium 8.2 L (8.5-10.1) mg/dL Total Bilirubin 1.0 D (0.2-1.0) mg/dL AST 13 L (15-37) U/L ALT 13 (12-78) U/L Alkaline Phosphatase 67 (46-116) U/L Creatine Kinase 19 L (26-192) U/L CK-MB (CK-2) 0.3 (0-3.6) mg/mL Total Protein 5.9 L (6.4-8.2) g/dL Albumin 2.5 L (3.4-5.0) g/dL Globulin 3.4 (2.3-3.5) g/dL Albumin/Globulin Ratio 0.7 L (1.2-2.2) Result Diagrams: 07/03/18 14:41 07/03/18 14:41 *Q Meaningful Use (ADM) - VTE Risk Assess *Q Each Risk Factor Represents 1 Point: Obesity ( BMI > 25 kg/m2) Total Score 1 Point Risk Factors: 1 Each Risk Factor Represents 2 Points: None Total Score 2 Point Risk Factors: 0 Each Risk Factor Represents 3 Points: Age 75 Years or Greater Total Score 3 Point Risk Factors: 3 Each Risk Factor Represents 5 Points: None Total Score 5 Point Risk Factors: 0 Venous Thromboembolism Risk Factor Score *Q: 4 Problem List Initiated/Reviewed/Updated: Yes Orders Last 24hrs: Active Orders 24 hr Category Date Time Status Patient Status Manage Transfer [TRANSFER] Routine ADT 07/03/18 16:08 Active Cardiac Monitoring [RC] .As Directed Care 07/03/18 14:23 Active EKG Documentation Completion [RC] ASDIRECTED Care 07/03/18 14:24 Active Peripheral IV Care [RC] . DIRECTED Care 07/03/18 14:24 Active TROPONIN I [CHEM] Stat Lab 07/03/18 15:53 Ordered Diltiazem 125 mg Med 07/03/18 16:15 Active Dextrose 5% in Water 100 ml IV TITRATE Sodium Chloride 0.9% [Saline Flush] Med 07/03/18 14:23 Active 10 ml FLUSH ASDIRECTED PRN Peripheral IV Insertion Adult [OM.PC] Stat Oth 07/03/18 14:23 Ordered Saline Lock Insert [OM.PC] Stat Oth 07/03/18 14:23 Ordered Resuscitation Status Routine Resus Stat 07/03/18 16:12 Ordered EKG 12 Lead [EK] Stat Ther 07/03/18 14:24 Ordered Medication Orders Diltiazem HCl 125 mg/ Dextrose (/Water) 125 mls @ 5 mls/hr IV TITRATE MUKUL; Protocol Sodium Chloride (Saline Flush) 10 ml FLUSH ASDIRECTED PRN PRN Reason: Keep Vein Open Assessment/Plan Comment:: ASSESSMENT AND PLAN PAROXYSMAL ATRIAL FIBRILLATION WITH RAPID VENTRICULAR RESPONSE-history of paroxysmal A. fib in the past. Last night experience symptoms of weakness, palpitation, and lightheadedness and was found to be in atrial fibrillation with rapid ventricular response. Recently admitted with similar symptoms and findings during that assessment and evaluation cardioversion was attempted and was unsuccessful. Rate was not well controlled with use of diltiazem IV. She was given continuous infusion of amiodarone and converted spontaneously during the infusion and remained in sinus rhythm through the rest of her hospital stay. After completion of the amiodarone infusion she was transitioned to oral amiodarone. -Admit to ICU for cardiac monitoring -Continuous infusion of IV diltiazem -Echocardiogram in a.m. -Continue current beta criss therapy -Consider use of digoxin if rate control is not achieved with diltiazem -Continue oral anticoagulation with warfarin AMIODARONE INTOLERANCE-agent and family report that she has experienced symptoms of progressive weakness, lightheadedness, shakiness, and anorexia over the past 5 days with initiation of amiodarone therapy. -Discontinue amiodarone MAINTENANCE ISSUES -DVT prophylaxis; current therapy with warfarin should provide adequate DVT prophylaxis -GI prophylaxis; not indicated -Álvarez catheter; not indicated -Nutrition; 2 g sodium diet -Nicotine dependence; not required CODE STATUS-FULL CODE ADMISSION STATUS-patient will be admitted to inpatient status, expect at least a 2 night hospital stay for evaluation and management of problems as outlined above. At the time of this admission I do not reasonably expect that evaluation and management of this problem will require more than a 96 hour hospital stay. DISPOSITION-anticipate discharge to home after the hospital stay. PRIMARY CARE PROVIDER-Dr. Rogel
[2018-07-03] MEDS ORDERED: Polyethylene Glycol 3350 Powder 17 GM Packet PO PRN (17:04)
[2018-07-03] MEDS ORDERED: Ondansetron 4 MG/2 ML SDV IV PRN (17:04)
[2018-07-03] MEDS ORDERED: Magnesium Hydroxide 400 MG/5 ML Susp 30 ML Cup PO PRN (17:04)
[2018-07-03] MEDS: Acetaminophen 325 MG Tab PO PRN ×2 (17:28→21:50)
[2018-07-03] MEDS: Morphine 15 MG Tab.ER PO SCH (21:04)
[2018-07-03] MEDS: Metoprolol Tartrate 50 MG Tab PO SCH (21:05)
[2018-07-03] MEDS ORDERED: Digoxin 500 MCG/2 ML Amp IVPUSH ONE (21:25)
[2018-07-04] MEDS ORDERED: Digoxin 500 MCG/2 ML Amp IVPUSH ONE (01:30)
[2018-07-04] MEDS ORDERED: Diltiazem 100 MG AdvVial ONE (04:59)
[2018-07-04] MEDS ORDERED: Sodium Chloride 0.9% 100 ML ONE (05:00)
[2018-07-04] MEDS ORDERED: Diltiazem 100 MG in Sodium Chloride 0.9% 100 ML IV SCH (07:30)
[2018-07-04] MEDS: Sertraline 50 MG Tab PO SCH (08:49)
[2018-07-04] MEDS: Metoprolol Tartrate 50 MG Tab PO SCH ×2 (08:49→21:03)
[2018-07-04] MEDS: Morphine 15 MG Tab.ER PO SCH ×2 (08:49→21:03)
[2018-07-04] MEDS: Aspirin 81 MG Tab.Chew PO SCH (08:49)
[2018-07-04] MEDS: cefTRIAXone 1 GM in Sodium Chloride 0.9% 50 ML IV SCH (09:30)
--- NOTE | 2018-07-04 10:36 | PCM.PN ---
- General Info Date of Service: 07/04/18 Functional Status: Reports: Pain Controlled, Tolerating Diet - Review of Systems General: Reports: Weakness Cardiovascular: Reports: Palpitations Genitourinary: Reports: Dysuria Systems Review Comment:: There were no acute events overnight. The patient did remain in atrial fibrillation and had a rapid ventricular rate much of the night. She reported some chest tightness last night but does not have that this morning. She did convert to a normal sinus rhythm around 9 AM today. She is complaining of some dysuria and has noticed a pink tinge to her urine. She has not had any fevers. Echocardiogram showed good left ventricular function and only minor valve abnormalities. Study was limited by atrial fibrillation with rapid rate. - Patient Data Vitals - Most Recent: Last Vital Signs Temp 36.4 C 07/04/18 08:00 Pulse 150 H 07/04/18 08:49 Resp 15 07/04/18 10:00 BP 150/69 H 07/04/18 10:00 Pulse Ox 96 07/04/18 10:00 Weight - Most Recent: 82.55 kg I&O - Last 24 Hours: Intake & Output 07/03/18 07/04/18 07/04/18 22:59 06:59 14:59 Intake Total 240 362 240 Output Total 575 950 250 Balance -915 -260 -03 Lab Results Last 24 Hours: Laboratory Results - last 24 hr 07/03/18 07/03/18 07/03/18 Range/Units 14:41 14:41 14:41 WBC 12.1 H (4.5-11.0) K/uL RBC 3.83 (3.30-5.50) M/uL Hgb 11.6 L (12.0-15.0) g/dL Hct 37.0 (36.0-48.0) % MCV 97 (80-98) fL MCH 30 (27-31) pg MCHC 31 L (32-36) % Plt Count 209 (150-400) K/uL Neut % (Auto) 84 H (36-66) % Lymph % (Auto) 6 L (24-44) % Warren % (Auto) 10 H (2-6) % Eos % (Auto) 0 L (2-4) % Baso % (Auto) 0 (0-1) % PT 27.9 H (9.5-12.0) sec INR 2.68 H (0.80-1.20) Sodium 140 (140-148) mmol/L Potassium 3.9 (3.6-5.2) mmol/L Chloride 102 (100-108) mmol/L Carbon Dioxide 32 (21-32) mmol/L Anion Gap 6.3 (5.0-14.0) mmol/L BUN 10 (7-18) mg/dL Creatinine 0.6 (0.6-1.0) mg/dL Est Cr Clr Drug Dosing 59.44 mL/min Estimated GFR (MDRD) > 60 (>60) Glucose 132 H (74-106) mg/dL Calcium 8.2 L (8.5-10.1) mg/dL Magnesium (1.8-2.4) mg/dL Total Bilirubin 1.0 D (0.2-1.0) mg/dL AST 13 L (15-37) U/L ALT 13 (12-78) U/L Alkaline Phosphatase 67 (46-116) U/L Creatine Kinase 19 L (26-192) U/L CK-MB (CK-2) 0.3 (0-3.6) mg/mL Troponin I (0.000-0.056) ng/mL Total Protein 5.9 L (6.4-8.2) g/dL Albumin 2.5 L (3.4-5.0) g/dL Globulin 3.4 (2.3-3.5) g/dL Albumin/Globulin Ratio 0.7 L (1.2-2.2) Digoxin (0.90-2.00) ng/mL 07/03/18 07/04/18 07/04/18 Range/Units 15:53 05:51 05:51 WBC (4.5-11.0) K/uL RBC (3.30-5.50) M/uL Hgb (12.0-15.0) g/dL Hct (36.0-48.0) % MCV (80-98) fL MCH (27-31) pg MCHC (32-36) % Plt Count (150-400) K/uL Neut % (Auto) (36-66) % Lymph % (Auto) (24-44) % Warren % (Auto) (2-6) % Eos % (Auto) (2-4) % Baso % (Auto) (0-1) % PT 28.6 H (9.5-12.0) sec INR 2.75 H (0.80-1.20) Sodium 145 (140-148) mmol/L Potassium 3.6 (3.6-5.2) mmol/L Chloride 107 (100-108) mmol/L Carbon Dioxide 30 (21-32) mmol/L Anion Gap 7.8 (5.0-14.0) mmol/L BUN 9 (7-18) mg/dL Creatinine 0.6 (0.6-1.0) mg/dL Est Cr Clr Drug Dosing 59.44 mL/min Estimated GFR (MDRD) > 60 (>60) Glucose 114 H (74-106) mg/dL Calcium 8.3 L (8.5-10.1) mg/dL Magnesium 1.7 L (1.8-2.4) mg/dL Total Bilirubin (0.2-1.0) mg/dL AST (15-37) U/L ALT (12-78) U/L Alkaline Phosphatase (46-116) U/L Creatine Kinase (26-192) U/L CK-MB (CK-2) (0-3.6) mg/mL Troponin I < 0.017 (0.000-0.056) ng/mL Total Protein (6.4-8.2) g/dL Albumin (3.4-5.0) g/dL Globulin (2.3-3.5) g/dL Albumin/Globulin Ratio (1.2-2.2) Digoxin 1.01 (0.90-2.00) ng/mL Med Orders - Current: Current Medications Acetaminophen (Tylenol) 650 mg PO Q4H PRN PRN Reason: Pain (Mild 1-3)/fever Last Admin: 07/03/18 21:50 Dose: 650 mg Aspirin (Aspirin) 81 mg PO DAILY [facility] Last Admin: 07/04/18 08:49 Dose: 81 mg Diltiazem HCl 125 mg/ Dextrose (/Water) 125 mls @ 5 mls/hr IV TITRATE [facility]; Protocol Stop: 07/04/18 11:00 Last Admin: 07/04/18 05:02 Dose: 15 mg/hr, 15 mls/hr Diltiazem HCl 100 mg/ Sodium (Chloride) 100 mls @ 5 mls/hr IV TITRATE [facility]; Protocol Ceftriaxone Sodium 1 gm/ (Sodium Chloride) 50 mls @ 100 mls/hr IV Q24H [facility] Last Admin: 07/04/18 09:30 Dose: 100 mls/hr Magnesium Hydroxide (Milk Of Magnesia) 30 ml PO Q12H PRN PRN Reason: Constipation Metoprolol Tartrate (Lopressor) 50 mg PO BID [facility] Last Admin: 07/04/18 08:49 Dose: 50 mg Morphine Sulfate (Morphine) 15 mg PO Q4H PRN PRN Reason: Pain Morphine Sulfate (Ms Contin) 15 mg PO Q12H [facility] Last Admin: 07/04/18 08:49 Dose: 15 mg Ondansetron HCl (Zofran) 4 mg IV Q4H PRN PRN Reason: Nausea/Vomiting Polyethylene Glycol (Miralax) 17 gm PO DAILY PRN PRN Reason: Constipation Senna/Docusate Sodium (Senna Plus) 1 tab PO BID PRN PRN Reason: Constipation Sertraline HCl (Zoloft) 100 mg PO DAILY [facility] Last Admin: 07/04/18 08:49 Dose: 100 mg Sodium Chloride (Saline Flush) 10 ml FLUSH ASDIRECTED PRN PRN Reason: Keep Vein Open Warfarin Sodium (Coumadin) 1.5 mg PO DAILY@1300 [facility] Discontinued Medications Digoxin (Lanoxin) 250 mcg IVPUSH ONETIME ONE Stop: 07/03/18 21:26 Last Admin: 07/03/18 21:41 Dose: 250 mcg Digoxin (Lanoxin) 250 mcg IVPUSH ONETIME ONE Stop: 07/04/18 01:31 Last Admin: 07/04/18 01:33 Dose: 250 mcg Diltiazem HCl (Diltiazem) 20 mg IVPUSH ONETIME ONE Stop: 07/03/18 14:58 Last Admin: 07/03/18 15:03 Dose: 20 mg Diltiazem HCl (Diltiazem) 10 mg IVPUSH ONETIME ONE Stop: 07/03/18 16:03 Last Admin: 07/03/18 16:20 Dose: 10 mg Diltiazem HCl (Cardizem) Confirm Administered Dose 100 mg .ROUTE .STK-MED ONE Stop: 07/03/18 16:18 Last Admin: 07/03/18 16:27 Dose: Not Given Diltiazem HCl (Diltiazem) 5 mg IVPUSH ONETIME ONE Stop: 07/03/18 17:47 Last Admin: 07/03/18 18:10 Dose: 5 mg Diltiazem HCl (Diltiazem) 5 mg IVPUSH ONETIME ONE Stop: 07/03/18 19:47 Last Admin: 07/03/18 19:58 Dose: 5 mg Diltiazem HCl (Cardizem) Confirm Administered Dose 100 mg .ROUTE .STK-MED ONE Stop: 07/03/18 23:24 Last Admin: 07/03/18 23:42 Dose: Not Given Diltiazem HCl (Cardizem) Confirm Administered Dose 100 mg .ROUTE .STK-MED ONE Stop: 07/04/18 05:00 Last Admin: 07/04/18 05:05 Dose: Not Given Sodium Chloride (Normal Saline) Confirm Administered Dose 100 mls @ as directed .ROUTE .STK-MED ONE Stop: 07/03/18 16:19 Last Admin: 07/03/18 16:27 Dose: Not Given Sodium Chloride (Normal Saline) Confirm Administered Dose 100 mls @ as directed .ROUTE .STK-MED ONE Stop: 07/03/18 23:25 Last Admin: 07/03/18 23:42 Dose: Not Given Sodium Chloride (Normal Saline) Confirm Administered Dose 100 mls @ as directed .ROUTE .STK-MED ONE Stop: 07/04/18 05:01 Last Admin: 07/04/18 05:06 Dose: Not Given Propofol (Diprivan 20 Ml) Confirm Administered Dose 200 mg .ROUTE .STK-MED ONE Stop: 07/03/18 15:40 Sodium Chloride (Saline Flush) 10 ml FLUSH ASDIRECTED PRN PRN Reason: Keep Vein Open - Exam Quality Assessment: Supplemental Oxygen General: Alert, Oriented, Cooperative, No Acute Distress Lungs: Clear to Auscultation, Normal Respiratory Effort Cardiovascular: Regular Rate, Regular Rhythm, No Murmurs GI/Abdominal Exam: Soft, No Distention Extremities: No Pedal Edema Skin: Warm, Dry Psy/Mental Status: Alert, Normal Affect - Problem List Review Problem List Initiated/Reviewed/Updated: Yes - My Orders Last 24 Hours: My Active Orders 07/04/18 08:56 UA W/MICROSCOPIC [URIN] Routine 07/04/18 09:00 cefTRIAXone [Rocephin] 1 gm Sodium Chloride 0.9% [Normal Saline] 50 ml IV Q24H 07/04/18 10:35 Potassium Chloride [Klor-Con M20] 40 meq PO ONETIME ONE 07/04/18 10:45 Magnesium Sulfate/Water [Magnesium Sulfate 2 GM in Water 50 ML] 2 gm Premix Bag 1 bag IV Q6H 07/05/18 05:00 BASIC METABOLIC PANEL,BMP [CHEM] Timed CBC W/O DIFF,HEMOGRAM [HEME] Timed (1) INR,PT,PROTHROMBIN TIME [COAG] Timed - Plan Plan:: ASSESSMENT AND PLAN PAROXYSMAL ATRIAL FIBRILLATION WITH RAPID VENTRICULAR RESPONSE - difficulty with rate control overnight but she has converted to normal sinus rhythm this morning. 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 Has been tolerating the diltiazem and my plan is to slowly wean this medication off throughout the day while the antibiotics or kicking in. -Continuous infusion of IV diltiazem until this afternoon then transition to oral diltiazem -Plan to discontinue diltiazem in the morning -Continue current beta criss therapy -Continue oral anticoagulation with warfarin Acute cystitis - patient has symptoms and urine strongly suggestive of infection. -Ceftriaxone -Urine culture AMIODARONE INTOLERANCE - agent and family report that she has experienced symptoms of progressive weakness, lightheadedness, shakiness, and anorexia over the past 5 days with initiation of amiodarone therapy. May have been reaction to the infection rather than the medication. -Discontinue amiodarone MAINTENANCE ISSUES -DVT prophylaxis; warfarin -GI prophylaxis; not indicated -Álvarez catheter; not indicated -Nutrition; 2 g sodium diet -Nicotine dependence; not required CODE STATUS - advance directive reviewed and discussed with patient, she wishes to be DO NOT RESUSCITATE and DO NOT INTUBATE DISPOSITION - anticipate discharge to home with home care after the hospital stay. PRIMARY CARE PROVIDER-Dr. Rogel
[2018-07-04] MEDS: Magnesium Sulfate/Water 2 GM in Premix Bag 1 BAG IV SCH ×2 (11:20→16:22)
[2018-07-04] MEDS ORDERED: Potassium Chloride 20 MEQ Tab.ER PO ONE (12:00)
[2018-07-04] MEDS: Diltiazem IR 30 MG Tab PO SCH ×2 (16:24→21:03)
[2018-07-04] MEDS ORDERED: Furosemide 40 MG/4 ML VIAL IVPUSH ONE (19:53)
[2018-07-04] MEDS: Acetaminophen 325 MG Tab PO PRN (21:02)
[2018-07-05] MEDS: Diltiazem IR 30 MG Tab PO SCH ×2 (04:27→17:39)
[2018-07-05] MEDS: Morphine 15 MG Tab PO PRN (04:38)
[2018-07-05] MEDS: Morphine 15 MG Tab.ER PO SCH ×2 (08:28→20:54)
[2018-07-05] MEDS: Metoprolol Tartrate 50 MG Tab PO SCH ×2 (08:28→20:52)
[2018-07-05] MEDS: Aspirin 81 MG Tab.Chew PO SCH (08:28)
[2018-07-05] MEDS: Sertraline 50 MG Tab PO SCH (08:29)
[2018-07-05] MEDS: cefTRIAXone 1 GM in Sodium Chloride 0.9% 50 ML IV SCH (08:29)
--- NOTE | 2018-07-05 10:56 | PCM.PN ---
- General Info Date of Service: 07/05/18 Functional Status: Reports: Pain Controlled, Tolerating Diet - Review of Systems General: Reports: Weakness Pulmonary: Reports: Shortness of Breath Systems Review Comment:: Overnight the patient had difficulty with shortness of breath that started around 8 PM. She received a dose of furosemide with improvement in her respiratory status. She still feels a little short of breath this morning but in general feels a fair amount better. She feels weak. Appetite is not great but seems a little better. She has remained in normal sinus rhythm. Urine culture is growing a gram-negative rods with identification pending. She's not having fevers. Dysuria has improved. - Patient Data Vitals - Most Recent: Last Vital Signs Temp 36.6 C 07/05/18 08:00 Pulse 76 07/05/18 08:28 Resp 12 07/05/18 10:00 BP 173/55 H 07/05/18 10:00 Pulse Ox 93 L 07/05/18 10:00 Weight - Most Recent: 82.55 kg I&O - Last 24 Hours: Intake & Output 07/04/18 07/05/18 07/05/18 22:59 06:59 14:59 Intake Total 685 316 Balance 685 316 Lab Results Last 24 Hours: Laboratory Results - last 24 hr 07/04/18 07/05/18 07/05/18 Range/Units 08:56 04:50 04:50 WBC 11.8 H (4.5-11.0) K/uL RBC 3.89 (3.30-5.50) M/uL Hgb 11.5 L (12.0-15.0) g/dL Hct 37.5 (36.0-48.0) % MCV 96 (80-98) fL MCH 30 (27-31) pg MCHC 31 L (32-36) % Plt Count 240 (150-400) K/uL PT 31.9 H (9.5-12.0) sec INR 3.09 H (0.80-1.20) Sodium (140-148) mmol/L Potassium (3.6-5.2) mmol/L Chloride (100-108) mmol/L Carbon Dioxide (21-32) mmol/L Anion Gap (5.0-14.0) mmol/L BUN (7-18) mg/dL Creatinine (0.6-1.0) mg/dL Est Cr Clr Drug Dosing mL/min Estimated GFR (MDRD) (>60) Glucose (74-106) mg/dL Calcium (8.5-10.1) mg/dL Urine Color Brown Urine Appearance Turbid Urine pH 6.5 (4.5-8.0) Ur Specific [place] 1.010 (1.008-1.030) Urine Protein 100 H (NEGATIVE) mg/dL Urine Glucose (UA) Normal (NEGATIVE) mg/dL Urine Ketones 15 H (NEGATIVE) mg/dL Urine Occult Blood Large (NEGATIVE) Urine Nitrite Positive H (NEGATIVE) Urine Bilirubin Small (NEGATIVE) Urine Urobilinogen 4 (NORMAL) mg/dL Ur Leukocyte Esterase Large (NEGATIVE) Urine RBC 75-100 H (0-5) Urine WBC 50-75 H (0-5) Ur Epithelial Cells Few Amorphous Sediment Not seen Urine Bacteria Moderate Urine Mucus Not seen 07/05/18 Range/Units 04:50 WBC (4.5-11.0) K/uL RBC (3.30-5.50) M/uL Hgb (12.0-15.0) g/dL Hct (36.0-48.0) % MCV (80-98) fL MCH (27-31) pg MCHC (32-36) % Plt Count (150-400) K/uL PT (9.5-12.0) sec INR (0.80-1.20) Sodium 141 (140-148) mmol/L Potassium 4.2 (3.6-5.2) mmol/L Chloride 103 (100-108) mmol/L Carbon Dioxide 33 H (21-32) mmol/L Anion Gap 9.2 (5.0-14.0) mmol/L BUN 9 (7-18) mg/dL Creatinine 0.6 (0.6-1.0) mg/dL Est Cr Clr Drug Dosing 59.34 mL/min Estimated GFR (MDRD) > 60 (>60) Glucose 127 H (74-106) mg/dL Calcium 8.2 L (8.5-10.1) mg/dL Urine Color Urine Appearance Urine pH (4.5-8.0) Ur Specific [place] (1.008-1.030) Urine Protein (NEGATIVE) mg/dL Urine Glucose (UA) (NEGATIVE) mg/dL Urine Ketones (NEGATIVE) mg/dL Urine Occult Blood (NEGATIVE) Urine Nitrite (NEGATIVE) Urine Bilirubin (NEGATIVE) Urine Urobilinogen (NORMAL) mg/dL Ur Leukocyte Esterase (NEGATIVE) Urine RBC (0-5) Urine WBC (0-5) Ur Epithelial Cells Amorphous Sediment Urine Bacteria Urine Mucus Mark Results Last 24 Hours: Microbiology 07/04/18 13:23 Urine Culture - Preliminary Urine, Clean Catch Med Orders - Current: Current Medications Acetaminophen (Tylenol) 650 mg PO Q4H PRN PRN Reason: Pain (Mild 1-3)/fever Last Admin: 07/04/18 21:02 Dose: 650 mg Aspirin (Aspirin) 81 mg PO DAILY [facility] Last Admin: 07/05/18 08:28 Dose: 81 mg Ceftriaxone Sodium 1 gm/ (Sodium Chloride) 50 mls @ 100 mls/hr IV Q24H [facility] Last Admin: 07/05/18 08:29 Dose: 100 mls/hr Magnesium Hydroxide (Milk Of Magnesia) 30 ml PO Q12H PRN PRN Reason: Constipation Metoprolol Tartrate (Lopressor) 50 mg PO BID [facility] Last Admin: 07/05/18 08:28 Dose: 50 mg Morphine Sulfate (Morphine) 15 mg PO Q4H PRN PRN Reason: Pain Last Admin: 07/05/18 04:38 Dose: 15 mg Morphine Sulfate (Ms Contin) 15 mg PO Q12H [facility] Last Admin: 07/05/18 08:28 Dose: 15 mg Ondansetron HCl (Zofran) 4 mg IV Q4H PRN PRN Reason: Nausea/Vomiting Polyethylene Glycol (Miralax) 17 gm PO DAILY PRN PRN Reason: Constipation Senna/Docusate Sodium (Senna Plus) 1 tab PO BID PRN PRN Reason: Constipation Sertraline HCl (Zoloft) 100 mg PO DAILY [facility] Last Admin: 07/05/18 08:29 Dose: 100 mg Sodium Chloride (Saline Flush) 10 ml FLUSH ASDIRECTED PRN PRN Reason: Keep Vein Open Warfarin Sodium (Coumadin) 1.5 mg PO DAILY@1300 [facility] Discontinued Medications Digoxin (Lanoxin) 250 mcg IVPUSH ONETIME ONE Stop: 07/03/18 21:26 Last Admin: 07/03/18 21:41 Dose: 250 mcg Digoxin (Lanoxin) 250 mcg IVPUSH ONETIME ONE Stop: 07/04/18 01:31 Last Admin: 07/04/18 01:33 Dose: 250 mcg Diltiazem HCl (Diltiazem) 20 mg IVPUSH ONETIME ONE Stop: 07/03/18 14:58 Last Admin: 07/03/18 15:03 Dose: 20 mg Diltiazem HCl (Diltiazem) 10 mg IVPUSH ONETIME ONE Stop: 07/03/18 16:03 Last Admin: 07/03/18 16:20 Dose: 10 mg Diltiazem HCl (Cardizem) Confirm Administered Dose 100 mg .ROUTE .STK-MED ONE Stop: 07/03/18 16:18 Last Admin: 07/03/18 16:27 Dose: Not Given Diltiazem HCl (Diltiazem) 5 mg IVPUSH ONETIME ONE Stop: 07/03/18 17:47 Last Admin: 07/03/18 18:10 Dose: 5 mg Diltiazem HCl (Diltiazem) 5 mg IVPUSH ONETIME ONE Stop: 07/03/18 19:47 Last Admin: 07/03/18 19:58 Dose: 5 mg Diltiazem HCl (Cardizem) Confirm Administered Dose 100 mg .ROUTE .STK-MED ONE Stop: 07/03/18 23:24 Last Admin: 07/03/18 23:42 Dose: Not Given Diltiazem HCl (Cardizem) Confirm Administered Dose 100 mg .ROUTE .STK-MED ONE Stop: 07/04/18 05:00 Last Admin: 07/04/18 05:05 Dose: Not Given Diltiazem HCl (Cardizem) 30 mg PO Q6HR [facility] Last Admin: 07/05/18 04:27 Dose: 30 mg Furosemide (Lasix) 40 mg IVPUSH ONETIME ONE Stop: 07/04/18 19:54 Last Admin: 07/04/18 20:14 Dose: 40 mg Diltiazem HCl 125 mg/ Dextrose (/Water) 125 mls @ 5 mls/hr IV TITRATE [facility]; Protocol Stop: 07/04/18 11:00 Last Titration: 07/04/18 18:18 Dose: 0 mg/hr, 0 mls/hr Sodium Chloride (Normal Saline) Confirm Administered Dose 100 mls @ as directed .ROUTE .STK-MED ONE Stop: 07/03/18 16:19 Last Admin: 07/03/18 16:27 Dose: Not Given Sodium Chloride (Normal Saline) Confirm Administered Dose 100 mls @ as directed .ROUTE .STK-MED ONE Stop: 07/03/18 23:25 Last Admin: 07/03/18 23:42 Dose: Not Given Sodium Chloride (Normal Saline) Confirm Administered Dose 100 mls @ as directed .ROUTE .STK-MED ONE Stop: 07/04/18 05:01 Last Admin: 07/04/18 05:06 Dose: Not Given Diltiazem HCl 100 mg/ Sodium (Chloride) 100 mls @ 5 mls/hr IV TITRATE [facility]; Protocol Magnesium Sulfate 2 gm/ Premix 50 mls @ 12.5 mls/hr IV Q6H [facility] Stop: 07/04/18 20:59 Last Admin: 07/04/18 16:22 Dose: 12.5 mls/hr Potassium Chloride (Klor-Con M20) 40 meq PO ONETIME ONE Stop: 07/04/18 12:01 Last Admin: 07/04/18 14:47 Dose: 40 meq Propofol (Diprivan 20 Ml) Confirm Administered Dose 200 mg .ROUTE .STK-MED ONE Stop: 07/03/18 15:40 Sodium Chloride (Saline Flush) 10 ml FLUSH ASDIRECTED PRN PRN Reason: Keep Vein Open Warfarin Sodium (Coumadin) 1.5 mg PO DAILY@1300 [facility] Last Admin: 07/04/18 14:47 Dose: 1.5 mg - Exam Quality Assessment: Supplemental Oxygen General: Alert, Oriented, Cooperative, No Acute Distress Lungs: Normal Respiratory Effort, Crackles (both bases) Cardiovascular: Regular Rate, Regular Rhythm, No Murmurs. No: Gallops GI/Abdominal Exam: Normal Bowel Sounds, Soft, No Distention Extremities: Pedal Edema (trace bilateral ankle edema). No: Increased Warmth Skin: Warm, Dry Psy/Mental Status: Alert, Normal Affect - Problem List Review Problem List Initiated/Reviewed/Updated: Yes - My Orders Last 24 Hours: My Active Orders 07/04/18 13:23 CULTURE URINE [RM] Routine 07/05/18 10:51 Transfer Patient (Change bed) [ADT] Routine 07/05/18 10:54 Vital Signs [RC] Q4H 07/05/18 10:55 Furosemide [Lasix] 40 mg IVPUSH NOW ONE 07/05/18 11:00 Diltiazem [Cardizem CD] 120 mg PO DAILY 07/06/18 05:00 CBC W/O DIFF,HEMOGRAM [HEME] Timed (1) INR,PT,PROTHROMBIN TIME [COAG] Timed 07/06/18 13:00 Warfarin [Coumadin] 1.5 mg PO DAILY@1300 - Plan Plan:: ASSESSMENT AND PLAN PAROXYSMAL ATRIAL FIBRILLATION WITH RAPID VENTRICULAR RESPONSE - still in sinus rhythm. Tolerating transition to oral medications. -Transition to long-acting diltiazem -Continue current beta criss therapy -Continue oral anticoagulation with warfarin Acute on chronic hypoxic respiratory failure - mild volume overload probably related to recent tachycardia. Still some evidence for volume overload today and she would benefit from additional diuresis. I don't expect any issues moving forward as her atrial fibrillation has resolved for now. -Additional dose of furosemide this morning Acute cystitis - urine culture growing gram-negative dana, identification pending. Symptoms improving. -Ceftriaxone -Urine culture MAINTENANCE ISSUES -DVT prophylaxis; warfarin -GI prophylaxis; not indicated -Álvarez catheter; not indicated -Nutrition; 2 g sodium diet -Nicotine dependence; not required CODE STATUS - advance directive reviewed and discussed with patient, she wishes to be DO NOT RESUSCITATE and DO NOT INTUBATE DISPOSITION - anticipate discharge to [facility] for subacute rehabilitation after the hospital stay. Miquel Prabhakar M.D.
[2018-07-05] MEDS ORDERED: Diltiazem 120 MG Cap.CD PO SCH (11:00)
[2018-07-05] MEDS ORDERED: Furosemide 40 MG/4 ML VIAL IVPUSH ONE (11:15)
[2018-07-06] MEDS: Acetaminophen 325 MG Tab PO PRN ×2 (00:01→21:22)
[2018-07-06] MEDS ORDERED: Diltiazem IR 30 MG Tab PO ONE (01:23)
--- NOTE | 2018-07-06 01:28 | PCM.SN ---
- Free Text/Narrative Note: Time: 01:20 call from 2 [facility] S/O: Mrs. Gr got up to go to the bathroom. became short of breath, denies chest pain telemetry shows Afib with rate 104 to 130's, blood pressure 140/80 A: Afib P: order Diltiazem ER 60 mg po now continue Telemetry, monitor for rate reduction continue present plan of care.
[2018-07-06] MEDS: Metoprolol Tartrate 50 MG Tab PO SCH ×3 (05:51→21:23)
[2018-07-06] MEDS: Diltiazem 100 MG in Sodium Chloride 0.9% 100 ML IV SCH ×3 (09:15→22:39)
[2018-07-06] MEDS ORDERED: Diltiazem 25 MG/5 ML SDV IVPUSH ONE (09:30)
[2018-07-06] MEDS: Sertraline 50 MG Tab PO SCH (09:50)
[2018-07-06] MEDS: Aspirin 81 MG Tab.Chew PO SCH (09:50)
[2018-07-06] MEDS ORDERED: Furosemide 40 MG/4 ML VIAL IVPUSH ONE ×2 (10:00→17:00)
[2018-07-06] MEDS: cefTRIAXone 1 GM in Sodium Chloride 0.9% 50 ML IV SCH (10:15)
[2018-07-06] MEDS: Morphine 15 MG Tab.ER PO SCH ×2 (10:15→21:21)
--- NOTE | 2018-07-06 10:25 | CR ---
CHEST: Portal CLINICAL HISTORY:Hypoxia COMPARISON:06/27/2018 FINDINGS: Heart is enlarged. Patient has a permanent cardiac pacer. Pulmonary vascular is normal. Th ere are atherosclerotic changes in the aorta. There is diffuse right upper lobe infiltrate. Impression: New right upper lobe pneumonic infiltrate Cardiomegaly Permanent cardiac pacer Findings were called to the ICU at the time of this dictation at 10:20 AM
[2018-07-06] MEDS: Azithromycin 250 MG Tab PO SCH (11:12)
--- NOTE | 2018-07-06 14:41 | PCM.PN ---
- General Info Date of Service: 07/06/18 Functional Status: Reports: Pain Controlled, Tolerating Diet - Review of Systems General: Reports: Weakness Pulmonary: Reports: Shortness of Breath Cardiovascular: Reports: Palpitations Systems Review Comment:: Overnight the patient went back into atrial fibrillation with a rapid ventricular response. She received a dose of oral diltiazem without improvement and did receive her metoprolol early but did not have significant improvement. When I saw her this morning she is reporting shortness of breath as well as some tightness across her chest and up dictations. She does not report cough and she has not had any fevers. No lower extremity edema. She had been feeling well throughout the day yesterday before onset of symptoms. - Patient Data Vitals - Most Recent: Last Vital Signs Temp 36.1 C 07/06/18 08:30 Pulse 129 H 07/06/18 11:00 Resp 16 07/06/18 11:00 BP 127/74 07/06/18 11:00 Pulse Ox 95 07/06/18 11:00 Weight - Most Recent: 172.4 kg I&O - Last 24 Hours: Intake & Output 07/05/18 07/06/18 07/06/18 22:59 06:59 14:59 Intake Total 90 Balance 90 Lab Results Last 24 Hours: Laboratory Results - last 24 hr 07/06/18 07/06/18 07/06/18 Range/Units 05:41 05:41 08:13 WBC 9.3 (4.5-11.0) K/uL RBC 3.97 (3.30-5.50) M/uL Hgb 11.9 L (12.0-15.0) g/dL Hct 38.4 (36.0-48.0) % MCV 97 (80-98) fL MCH 30 (27-31) pg MCHC 31 L (32-36) % Plt Count 248 (150-400) K/uL PT 23.1 H (9.5-12.0) sec INR 2.20 H (0.80-1.20) Sodium 142 (140-148) mmol/L Potassium 4.1 (3.6-5.2) mmol/L Chloride 105 (100-108) mmol/L Carbon Dioxide 33 H (21-32) mmol/L Anion Gap 8.1 (5.0-14.0) mmol/L BUN 11 (7-18) mg/dL Creatinine 0.6 (0.6-1.0) mg/dL Est Cr Clr Drug Dosing 59.34 mL/min Estimated GFR (MDRD) > 60 (>60) Glucose 113 H (74-106) mg/dL Calcium 8.4 L (8.5-10.1) mg/dL Magnesium 2.2 (1.8-2.4) mg/dL Troponin I (0.000-0.056) ng/mL TSH, Ultra Sensitive 2.330 (0.358-3.740) uIU/mL 07/06/18 Range/Units 08:14 WBC (4.5-11.0) K/uL RBC (3.30-5.50) M/uL Hgb (12.0-15.0) g/dL Hct (36.0-48.0) % MCV (80-98) fL MCH (27-31) pg MCHC (32-36) % Plt Count (150-400) K/uL PT (9.5-12.0) sec INR (0.80-1.20) Sodium (140-148) mmol/L Potassium (3.6-5.2) mmol/L Chloride (100-108) mmol/L Carbon Dioxide (21-32) mmol/L Anion Gap (5.0-14.0) mmol/L BUN (7-18) mg/dL Creatinine (0.6-1.0) mg/dL Est Cr Clr Drug Dosing mL/min Estimated GFR (MDRD) (>60) Glucose (74-106) mg/dL Calcium (8.5-10.1) mg/dL Magnesium (1.8-2.4) mg/dL Troponin I < 0.017 (0.000-0.056) ng/mL TSH, Ultra Sensitive (0.358-3.740) uIU/mL Mark Results Last 24 Hours: Microbiology 07/04/18 13:23 Urine Culture - Final Urine, Clean Catch Escherichia Coli Med Orders - Current: Current Medications Acetaminophen (Tylenol) 650 mg PO Q4H PRN PRN Reason: Pain (Mild 1-3)/fever Last Admin: 07/06/18 00:01 Dose: 650 mg Aspirin (Aspirin) 81 mg PO DAILY [facility] Last Admin: 07/06/18 09:50 Dose: 81 mg Azithromycin (Zithromax) 500 mg PO DAILY [facility] Last Admin: 07/06/18 11:12 Dose: 500 mg Ceftriaxone Sodium 1 gm/ (Sodium Chloride) 50 mls @ 100 mls/hr IV Q24H [facility] Last Admin: 07/06/18 10:15 Dose: 100 mls/hr Diltiazem HCl 100 mg/ Sodium (Chloride) 100 mls @ 5 mls/hr IV TITRATE [facility]; Protocol Last Titration: 07/06/18 11:49 Dose: 15 mg/hr, 15 mls/hr Magnesium Hydroxide (Milk Of Magnesia) 30 ml PO Q12H PRN PRN Reason: Constipation Metoprolol Tartrate (Lopressor) 50 mg PO BID [facility] Last Admin: 07/06/18 10:47 Dose: Not Given Morphine Sulfate (Morphine) 15 mg PO Q4H PRN PRN Reason: Pain Last Admin: 07/05/18 04:38 Dose: 15 mg Morphine Sulfate (Ms Contin) 15 mg PO Q12H [facility] Last Admin: 07/06/18 10:15 Dose: 15 mg Ondansetron HCl (Zofran) 4 mg IV Q4H PRN PRN Reason: Nausea/Vomiting Polyethylene Glycol (Miralax) 17 gm PO DAILY PRN PRN Reason: Constipation Senna/Docusate Sodium (Senna Plus) 1 tab PO BID PRN PRN Reason: Constipation Sertraline HCl (Zoloft) 100 mg PO DAILY [facility] Last Admin: 07/06/18 09:50 Dose: 100 mg Sodium Chloride (Saline Flush) 10 ml FLUSH ASDIRECTED PRN PRN Reason: Keep Vein Open Warfarin Sodium (Coumadin) 1.5 mg PO DAILY@1300 [facility] Last Admin: 07/06/18 13:55 Dose: 1.5 mg Discontinued Medications Digoxin (Lanoxin) 250 mcg IVPUSH ONETIME ONE Stop: 07/03/18 21:26 Last Admin: 07/03/18 21:41 Dose: 250 mcg Digoxin (Lanoxin) 250 mcg IVPUSH ONETIME ONE Stop: 07/04/18 01:31 Last Admin: 07/04/18 01:33 Dose: 250 mcg Diltiazem HCl (Diltiazem) 20 mg IVPUSH ONETIME ONE Stop: 07/03/18 14:58 Last Admin: 07/03/18 15:03 Dose: 20 mg Diltiazem HCl (Diltiazem) 10 mg IVPUSH ONETIME ONE Stop: 07/03/18 16:03 Last Admin: 07/03/18 16:20 Dose: 10 mg Diltiazem HCl (Cardizem) Confirm Administered Dose 100 mg .ROUTE .STK-MED ONE Stop: 07/03/18 16:18 Last Admin: 07/03/18 16:27 Dose: Not Given Diltiazem HCl (Diltiazem) 5 mg IVPUSH ONETIME ONE Stop: 07/03/18 17:47 Last Admin: 07/03/18 18:10 Dose: 5 mg Diltiazem HCl (Diltiazem) 5 mg IVPUSH ONETIME ONE Stop: 07/03/18 19:47 Last Admin: 07/03/18 19:58 Dose: 5 mg Diltiazem HCl (Cardizem) Confirm Administered Dose 100 mg .ROUTE .STK-MED ONE Stop: 07/03/18 23:24 Last Admin: 07/03/18 23:42 Dose: Not Given Diltiazem HCl (Cardizem) Confirm Administered Dose 100 mg .ROUTE .STK-MED ONE Stop: 07/04/18 05:00 Last Admin: 07/04/18 05:05 Dose: Not Given Diltiazem HCl (Cardizem) 30 mg PO Q6HR [facility] Last Admin: 07/05/18 17:39 Dose: Not Given Diltiazem HCl (Cardizem Cd) 120 mg PO DAILY [facility] Last Admin: 07/05/18 11:13 Dose: 120 mg Diltiazem HCl (Cardizem) 60 mg PO ONETIME ONE Stop: 07/06/18 01:24 Last Admin: 07/06/18 01:36 Dose: 60 mg Diltiazem HCl (Diltiazem) 20 mg IVPUSH ONETIME ONE Stop: 07/06/18 09:31 Last Admin: 07/06/18 10:04 Dose: 20 mg Furosemide (Lasix) 40 mg IVPUSH ONETIME ONE Stop: 07/04/18 19:54 Last Admin: 07/04/18 20:14 Dose: 40 mg Furosemide (Lasix) 40 mg IVPUSH NOW ONE Stop: 07/05/18 11:16 Last Admin: 07/05/18 11:15 Dose: 40 mg Furosemide (Lasix) 40 mg IVPUSH ONETIME ONE Stop: 07/06/18 10:01 Last Admin: 07/06/18 10:10 Dose: 40 mg Diltiazem HCl 125 mg/ Dextrose (/Water) 125 mls @ 5 mls/hr IV TITRATE [facility]; Protocol Stop: 07/04/18 11:00 Last Titration: 07/04/18 18:18 Dose: 0 mg/hr, 0 mls/hr Sodium Chloride (Normal Saline) Confirm Administered Dose 100 mls @ as directed .ROUTE .STK-MED ONE Stop: 07/03/18 16:19 Last Admin: 07/03/18 16:27 Dose: Not Given Sodium Chloride (Normal Saline) Confirm Administered Dose 100 mls @ as directed .ROUTE .STK-MED ONE Stop: 07/03/18 23:25 Last Admin: 07/03/18 23:42 Dose: Not Given Sodium Chloride (Normal Saline) Confirm Administered Dose 100 mls @ as directed .ROUTE .ST-MED ONE Stop: 07/04/18 05:01 Last Admin: 07/04/18 05:06 Dose: Not Given Diltiazem HCl 100 mg/ Sodium (Chloride) 100 mls @ 5 mls/hr IV TITRATE [facility]; Protocol Magnesium Sulfate 2 gm/ Premix 50 mls @ 12.5 mls/hr IV Q6H [facility] Stop: 07/04/18 20:59 Last Admin: 07/04/18 16:22 Dose: 12.5 mls/hr Potassium Chloride (Klor-Con M20) 40 meq PO ONETIME ONE Stop: 07/04/18 12:01 Last Admin: 07/04/18 14:47 Dose: 40 meq Propofol (Diprivan 20 Ml) Confirm Administered Dose 200 mg .ROUTE .STK-MED ONE Stop: 07/03/18 15:40 Sodium Chloride (Saline Flush) 10 ml FLUSH ASDIRECTED PRN PRN Reason: Keep Vein Open Warfarin Sodium (Coumadin) 1.5 mg PO DAILY@1300 [facility] Last Admin: 07/04/18 14:47 Dose: 1.5 mg - Exam Quality Assessment: Supplemental Oxygen General: Alert, Oriented, Cooperative, No Acute Distress Lungs: Normal Respiratory Effort, Crackles (Both lung bases) Cardiovascular: Irregular Rhythm, Tachycardia GI/Abdominal Exam: Soft, No Distention Extremities: No Pedal Edema Skin: Warm, Dry Psy/Mental Status: Alert, Normal Affect - Problem List Review Problem List Initiated/Reviewed/Updated: Yes - My Orders Last 24 Hours: My Active Orders 07/06/18 08:12 Transfer Patient (Change bed) [ADT] Routine 07/06/18 08:15 Diltiazem [Cardizem] 100 mg Sodium Chloride 0.9% [Normal Saline] 100 ml IV TITRATE 07/06/18 10:30 Azithromycin [Zithromax] 500 mg PO DAILY 07/06/18 13:00 Warfarin [Coumadin] 1.5 mg PO DAILY@1300 07/07/18 05:00 BASIC METABOLIC PANEL,BMP [CHEM] Timed CBC W/O DIFF,HEMOGRAM [HEME] Timed (1) INR,PT,PROTHROMBIN TIME [COAG] Timed - Plan Plan:: ASSESSMENT AND PLAN PAROXYSMAL ATRIAL FIBRILLATION WITH RAPID VENTRICULAR RESPONSE - patient went back and atrial fibrillation overnight. Bedside examination and bedside ultrasound suggest volume overload. Chest x-ray seems most suggestive of volume overload though the radiologist thought there was a superimposed pneumonia. Patient has not been coughing and has not had fevers and night have a low suspicion for pneumonia. Her INR is therapeutic. -Transfer to the intensive care unit -Cardiac monitoring -Diltiazem infusion -Continue current beta criss therapy -Continue oral anticoagulation with warfarin Acute on chronic hypoxic respiratory failure - mild volume overload +/- pneumonia contributing to additional hypoxia beyond baseline. -Additional dose of furosemide this morning Acute cystitis - urine culture grew pansensitive Escherichia coli. -Ceftriaxone -Urine culture MAINTENANCE ISSUES -DVT prophylaxis; warfarin -GI prophylaxis; not indicated -Álvarez catheter; not indicated -Nutrition; 2 g sodium diet -Nicotine dependence; not required CODE STATUS - advance directive reviewed and discussed with patient, she wishes to be DO NOT RESUSCITATE and DO NOT INTUBATE DISPOSITION - [facility] after the hospital stay. Miquel Prabhakar M.D.
[2018-07-07] MEDS: Diltiazem 100 MG in Sodium Chloride 0.9% 100 ML IV SCH (04:19)
--- NOTE | 2018-07-07 09:01 | PCM.PN ---
- General Info Date of Service: 07/07/18 Subjective Update: There were no acute events overnight. Patient did remain in atrial fibrillation much of the night but did convert to sinus rhythm this morning. She feels better today with less shortness of breath and improved energy. She thinks her strength is a little better today as well. No complaints of chest pain. She has not had any fevers. Functional Status: Reports: Pain Controlled, Tolerating Diet - Review of Systems General: Reports: Weakness Pulmonary: Denies: Shortness of Breath Cardiovascular: Denies: Chest Pain - Patient Data Vitals - Most Recent: Last Vital Signs Temp 36.0 C 07/07/18 08:00 Pulse 61 07/07/18 08:52 Resp 16 07/07/18 08:52 BP 128/60 07/07/18 08:52 Pulse Ox 94 L 07/07/18 08:52 Weight - Most Recent: 172.4 kg I&O - Last 24 Hours: Intake & Output 07/06/18 07/07/18 07/07/18 22:59 06:59 14:59 Intake Total 446 145 Balance 446 145 Lab Results Last 24 Hours: Laboratory Results - last 24 hr 07/07/18 07/07/18 07/07/18 Range/Units 05:10 05:10 05:10 WBC 11.1 H (4.5-11.0) K/uL RBC 4.15 (3.30-5.50) M/uL Hgb 12.0 (12.0-15.0) g/dL Hct 40.1 (36.0-48.0) % MCV 97 (80-98) fL MCH 29 (27-31) pg MCHC 30 L (32-36) % Plt Count 274 (150-400) K/uL PT 22.1 H (9.5-12.0) sec INR 2.09 H (0.80-1.20) Sodium 142 (140-148) mmol/L Potassium 3.9 (3.6-5.2) mmol/L Chloride 105 (100-108) mmol/L Carbon Dioxide 31 (21-32) mmol/L Anion Gap 6.2 (5.0-14.0) mmol/L BUN 20 H D (7-18) mg/dL Creatinine 0.7 (0.6-1.0) mg/dL Est Cr Clr Drug Dosing 50.87 mL/min Estimated GFR (MDRD) > 60 (>60) Glucose 120 H (74-106) mg/dL Calcium 8.3 L (8.5-10.1) mg/dL Mark Results Last 24 Hours: Microbiology 07/04/18 13:23 Urine Culture - Final Urine, Clean Catch Escherichia Coli Med Orders - Current: Current Medications Acetaminophen (Tylenol) 650 mg PO Q4H PRN PRN Reason: Pain (Mild 1-3)/fever Last Admin: 07/06/18 21:22 Dose: 650 mg Aspirin (Aspirin) 81 mg PO DAILY [facility] Last Admin: 07/06/18 09:50 Dose: 81 mg Azithromycin (Zithromax) 500 mg PO DAILY [facility] Last Admin: 07/06/18 11:12 Dose: 500 mg Diltiazem HCl (Cardizem) 60 mg PO Q6HR [facility] Ceftriaxone Sodium 1 gm/ (Sodium Chloride) 50 mls @ 100 mls/hr IV Q24H [facility] Last Admin: 07/06/18 10:15 Dose: 100 mls/hr Diltiazem HCl 100 mg/ Sodium (Chloride) 100 mls @ 5 mls/hr IV TITRATE [facility]; Protocol Stop: 07/07/18 11:00 Last Titration: 07/07/18 06:54 Dose: 10 mg/hr, 10 mls/hr Magnesium Hydroxide (Milk Of Magnesia) 30 ml PO Q12H PRN PRN Reason: Constipation Metoprolol Tartrate (Lopressor) 50 mg PO BID [facility] Last Admin: 07/06/18 21:23 Dose: 50 mg Morphine Sulfate (Morphine) 15 mg PO Q4H PRN PRN Reason: Pain Last Admin: 07/05/18 04:38 Dose: 15 mg Morphine Sulfate (Ms Contin) 15 mg PO Q12H [facility] Last Admin: 07/06/18 21:21 Dose: 15 mg Ondansetron HCl (Zofran) 4 mg IV Q4H PRN PRN Reason: Nausea/Vomiting Polyethylene Glycol (Miralax) 17 gm PO DAILY PRN PRN Reason: Constipation Senna/Docusate Sodium (Senna Plus) 1 tab PO BID PRN PRN Reason: Constipation Sertraline HCl (Zoloft) 100 mg PO DAILY [facility] Last Admin: 07/06/18 09:50 Dose: 100 mg Sodium Chloride (Saline Flush) 10 ml FLUSH ASDIRECTED PRN PRN Reason: Keep Vein Open Warfarin Sodium (Coumadin) 1.5 mg PO DAILY@1300 [facility] Last Admin: 07/06/18 13:55 Dose: 1.5 mg Discontinued Medications Digoxin (Lanoxin) 250 mcg IVPUSH ONETIME ONE Stop: 07/03/18 21:26 Last Admin: 07/03/18 21:41 Dose: 250 mcg Digoxin (Lanoxin) 250 mcg IVPUSH ONETIME ONE Stop: 07/04/18 01:31 Last Admin: 07/04/18 01:33 Dose: 250 mcg Diltiazem HCl (Diltiazem) 20 mg IVPUSH ONETIME ONE Stop: 07/03/18 14:58 Last Admin: 07/03/18 15:03 Dose: 20 mg Diltiazem HCl (Diltiazem) 10 mg IVPUSH ONETIME ONE Stop: 07/03/18 16:03 Last Admin: 07/03/18 16:20 Dose: 10 mg Diltiazem HCl (Cardizem) Confirm Administered Dose 100 mg .ROUTE .STK-MED ONE Stop: 07/03/18 16:18 Last Admin: 07/03/18 16:27 Dose: Not Given Diltiazem HCl (Diltiazem) 5 mg IVPUSH ONETIME ONE Stop: 07/03/18 17:47 Last Admin: 07/03/18 18:10 Dose: 5 mg Diltiazem HCl (Diltiazem) 5 mg IVPUSH ONETIME ONE Stop: 07/03/18 19:47 Last Admin: 07/03/18 19:58 Dose: 5 mg Diltiazem HCl (Cardizem) Confirm Administered Dose 100 mg .ROUTE .STK-MED ONE Stop: 07/03/18 23:24 Last Admin: 07/03/18 23:42 Dose: Not Given Diltiazem HCl (Cardizem) Confirm Administered Dose 100 mg .ROUTE .STK-MED ONE Stop: 07/04/18 05:00 Last Admin: 07/04/18 05:05 Dose: Not Given Diltiazem HCl (Cardizem) 30 mg PO Q6HR [facility] Last Admin: 07/05/18 17:39 Dose: Not Given Diltiazem HCl (Cardizem Cd) 120 mg PO DAILY [facility] Last Admin: 07/05/18 11:13 Dose: 120 mg Diltiazem HCl (Cardizem) 60 mg PO ONETIME ONE Stop: 07/06/18 01:24 Last Admin: 07/06/18 01:36 Dose: 60 mg Diltiazem HCl (Diltiazem) 20 mg IVPUSH ONETIME ONE Stop: 07/06/18 09:31 Last Admin: 07/06/18 10:04 Dose: 20 mg Furosemide (Lasix) 40 mg IVPUSH ONETIME ONE Stop: 07/04/18 19:54 Last Admin: 07/04/18 20:14 Dose: 40 mg Furosemide (Lasix) 40 mg IVPUSH NOW ONE Stop: 07/05/18 11:16 Last Admin: 07/05/18 11:15 Dose: 40 mg Furosemide (Lasix) 40 mg IVPUSH ONETIME ONE Stop: 07/06/18 10:01 Last Admin: 07/06/18 10:10 Dose: 40 mg Furosemide (Lasix) 40 mg IVPUSH ONETIME ONE Stop: 07/06/18 17:01 Last Admin: 07/06/18 17:30 Dose: 40 mg Diltiazem HCl 125 mg/ Dextrose (/Water) 125 mls @ 5 mls/hr IV TITRATE [facility]; Protocol Stop: 07/04/18 11:00 Last Titration: 07/04/18 18:18 Dose: 0 mg/hr, 0 mls/hr Sodium Chloride (Normal Saline) Confirm Administered Dose 100 mls @ as directed .ROUTE .STK-MED ONE Stop: 07/03/18 16:19 Last Admin: 07/03/18 16:27 Dose: Not Given Sodium Chloride (Normal Saline) Confirm Administered Dose 100 mls @ as directed .ROUTE .STK-MED ONE Stop: 07/03/18 23:25 Last Admin: 07/03/18 23:42 Dose: Not Given Sodium Chloride (Normal Saline) Confirm Administered Dose 100 mls @ as directed .ROUTE .STK-MED ONE Stop: 07/04/18 05:01 Last Admin: 07/04/18 05:06 Dose: Not Given Diltiazem HCl 100 mg/ Sodium (Chloride) 100 mls @ 5 mls/hr IV TITRATE [facility]; Protocol Magnesium Sulfate 2 gm/ Premix 50 mls @ 12.5 mls/hr IV Q6H [facility] Stop: 07/04/18 20:59 Last Admin: 07/04/18 16:22 Dose: 12.5 mls/hr Potassium Chloride (Klor-Con M20) 40 meq PO ONETIME ONE Stop: 07/04/18 12:01 Last Admin: 07/04/18 14:47 Dose: 40 meq Propofol (Diprivan 20 Ml) Confirm Administered Dose 200 mg .ROUTE .STK-MED ONE Stop: 07/03/18 15:40 Sodium Chloride (Saline Flush) 10 ml FLUSH ASDIRECTED PRN PRN Reason: Keep Vein Open Warfarin Sodium (Coumadin) 1.5 mg PO DAILY@1300 [facility] Last Admin: 07/04/18 14:47 Dose: 1.5 mg - Exam Quality Assessment: Supplemental Oxygen General: Alert, Oriented, Cooperative, No Acute Distress Lungs: Normal Respiratory Effort, Crackles (few left lung base) Cardiovascular: Regular Rate, Regular Rhythm, No Murmurs GI/Abdominal Exam: Soft, No Distention Extremities: No Pedal Edema. No: Increased Warmth Skin: Warm, Dry Psy/Mental Status: Alert, Normal Affect - Problem List Review Problem List Initiated/Reviewed/Updated: Yes - My Orders Last 24 Hours: My Active Orders 07/06/18 08:12 Transfer Patient (Change bed) [ADT] Routine 07/06/18 08:15 Diltiazem [Cardizem] 100 mg Sodium Chloride 0.9% [Normal Saline] 100 ml IV TITRATE 07/06/18 10:30 Azithromycin [Zithromax] 500 mg PO DAILY 07/06/18 13:00 Warfarin [Coumadin] 1.5 mg PO DAILY@1300 07/07/18 07:00 EKG 12 Lead [EK] Routine 07/07/18 10:00 Diltiazem IR [Cardizem] 60 mg PO Q6HR 07/08/18 05:00 BASIC METABOLIC PANEL,BMP [CHEM] Timed CBC W/O DIFF,HEMOGRAM [HEME] Timed (1) INR,PT,PROTHROMBIN TIME [COAG] Timed - Plan Plan:: ASSESSMENT AND PLAN PAROXYSMAL ATRIAL FIBRILLATION WITH RAPID VENTRICULAR RESPONSE - patient now back in sinus rhythm, suspect volume and infection is the likely stage driver's for the arrhythmia. -Cardiac monitoring -Transition to short acting diltiazem and then long-acting tonight if she tolerates it -Continue current beta criss therapy -Continue oral anticoagulation with warfarin Acute on chronic hypoxic respiratory failure - mild volume overload +/- pneumonia contributing to additional hypoxia beyond baseline but she is nearly back to her baseline supplemental oxygen requirement. Volume status nearing euvolemic at this time. -Additional dose of furosemide this morning Acute cystitis - urine culture grew pansensitive Escherichia coli. -Ceftriaxone today, transition to oral medications tomorrow -Urine culture MAINTENANCE ISSUES -DVT prophylaxis; warfarin -GI prophylaxis; not indicated -Álvarez catheter; not indicated -Nutrition; 2 g sodium diet -Nicotine dependence; not required CODE STATUS - advance directive reviewed and discussed with patient, she wishes to be DO NOT RESUSCITATE and DO NOT INTUBATE DISPOSITION - anticipate discharge to [facility] for subacute rehabilitation after the hospital stay, likely tomorrow if stable overnight Miquel Prabhakar M.D.
[2018-07-07] MEDS: Metoprolol Tartrate 50 MG Tab PO SCH ×2 (09:12→21:03)
[2018-07-07] MEDS: Azithromycin 250 MG Tab PO SCH (09:13)
[2018-07-07] MEDS: Sertraline 50 MG Tab PO SCH (09:14)
[2018-07-07] MEDS: Aspirin 81 MG Tab.Chew PO SCH (09:14)
[2018-07-07] MEDS: Morphine 15 MG Tab.ER PO SCH ×2 (09:17→21:03)
[2018-07-07] MEDS: cefTRIAXone 1 GM in Sodium Chloride 0.9% 50 ML IV SCH (09:21)
[2018-07-07] MEDS ORDERED: Furosemide 40 MG/4 ML VIAL IVPUSH ONE (09:30)
[2018-07-07] MEDS: Diltiazem IR 30 MG Tab PO SCH ×3 (09:55→21:03)
[2018-07-07] MEDS: Acetaminophen 325 MG Tab PO PRN (21:03)
[2018-07-08] MEDS: Morphine 15 MG Tab PO PRN (00:58)
[2018-07-08] MEDS: Diltiazem IR 30 MG Tab PO SCH (03:53)
[2018-07-08] MEDS: Aspirin 81 MG Tab.Chew PO SCH (08:51)
[2018-07-08] MEDS: Morphine 15 MG Tab.ER PO SCH (08:51)
[2018-07-08] MEDS: Metoprolol Tartrate 50 MG Tab PO SCH (08:51)
[2018-07-08] MEDS: Sertraline 50 MG Tab PO SCH (08:55)
[2018-07-08] MEDS: Azithromycin 250 MG Tab PO SCH (08:55)
[2018-07-08] MEDS ORDERED: Cefdinir 300 MG Cap PO SCH (09:00)
--- NOTE | 2018-07-08 09:14 | PCM.DCSUM1 ---
Discharge Summary - Hospital Course Brief History: -year-old female with recent admission for paroxysmal atrial fibrillation who presented with weakness, chest tightness and palpitations. She was admitted for management of recurrent atrial fibrillation with a rapid ventricular [id number] Diagnosis: Stroke: No - Discharge Data Discharge Date: 07/08/18 Discharge Disposition: DC/Tfer to SNF 03 Condition: Good - Discharge Diagnosis/Problem(s) (1) Atrial fibrillation with RVR SNOMED Code(s): 516850792840782 ICD Code: I48.91 - UNSPECIFIED ATRIAL FIBRILLATION Status: Acute Current Visit: Yes (2) Pneumonia SNOMED Code(s): 534676232 ICD Code: J18.9 - PNEUMONIA, UNSPECIFIED ORGANISM Status: Acute Current Visit: Yes Qualifiers: Pneumonia type: due to unspecified organism Laterality: right Lung location: unspecified part of lung Qualified Code(s): J18.9 - Pneumonia, unspecified organism (3) Acute cystitis with positive culture SNOMED Code(s): 175105843 ICD Code: N30.00 - ACUTE CYSTITIS WITHOUT HEMATURIA Status: Acute Current Visit: Yes (4) CKD (chronic kidney disease), stage III SNOMED Code(s): 021342802 ICD Code: N18.3 - CHRONIC KIDNEY DISEASE, STAGE 3 (MODERATE) Status: Chronic Current Visit: Yes (5) Dependence on nocturnal oxygen therapy SNOMED Code(s): 97921015809365 ICD Code: Z99.81 - DEPENDENCE ON SUPPLEMENTAL OXYGEN Status: Chronic Current Visit: No - Patient Summary/Data Consults: Consultations 07/05/18 10:56 PT Evaluation and Treatment [CONS] Routine Please Evaluate and Treat. PT Reason for Consult: Strengthening This query below is only for informational purposes and is not editable. Admission Diagnosis/Problem: Atrial fibrillation with rapid ventricular response Hospital Course: Calli presented to the emergency room with weakness, chest tightness and palpitations. Workup in the emergency room was suggestive of recurrent atrial fibrillation with a rapid ventricular response. There was some concern that she may be experiencing an adverse reaction to amiodarone so this was discontinued. She was started on a diltiazem infusion and admitted to the intensive care unit. Overnight there was not much improvement in the way of her heart rate and she remained significantly tachycardic. We did complete an echocardiogram on the day of admission that showed good left ventricular function but some diastolic dysfunction. No major valve abnormalities were noted. The morning after admission she was reporting dysuria so we collected a urine sample that was suggestive of infection. A culture was set up an empiric ceftriaxone was initiated. Around this time she converted to normal sinus rhythm. We slowed the diltiazem infusion and then transitioned to oral diltiazem. She tolerated this well overnight and was transitioned to long-acting diltiazem the next morning. She was transferred to the second floor because she had improved and had remained stable for approximately 24 hours. Unfortunately the night that she transferred to the second floor she went back and atrial fibrillation with a rapid ventricular response. Several attempts to manage this with oral medications were entertained but she remained in atrial fibrillation. The next morning she was transferred back to the intensive care unit and started on a diltiazem infusion again. We did repeat a chest x-ray which was suggestive of some mild volume overload as was her examination. The chest x-ray also suggested a possible right upper lobe pneumonia. This was not impressive infiltrate and I think it was more fluid than infection because she was not having any fevers. We did add azithromycin empirically to the ceftriaxone. Diuresis was provided over the next 2 days. The morning after she was transferred to the intensive care unit she did convert back into a normal sinus rhythm. She has remained there throughout the remainder of the hospital stay. We did transition her from IV to short acting oral diltiazem and then to long- acting again. She remains on antibiotics for the possible pneumonia as well as urinary tract infection that was noted at the time of admission. She will need 5 additional days of antibiotic therapy with cefdinir and 2 additional days of azithromycin. I have chosen to discontinue her amlodipine and start her on diltiazem so we have better atrial fibrillation coverage. Her blood pressure has been very well controlled. Kidney function has been stable. At this point she is safe for outpatient management but does need some rehabilitation and [facility] - Patient Instructions Diet: Regular Diet as Tolerated Activity: As Tolerated Showering/Bathing: May Shower Notify Provider of: Fever, Increased Pain, Nausea and/or Vomiting Other/Special Instructions: 1. You were in the hospital for management of atrial fibrillation with a rapid ventricular response. I suspect the abnormal heart rhythm was caused by a combination of a urinary tract infection and a right lung pneumonia. Your heart has returned to a normal rhythm utilizing diltiazem. I recommend that we continue this medication on an outpatient basis. This medication will replace your amlodipine (stopped taking). Regarding the infections, I recommend 2 additional daily doses azithromycin with your next dose being tomorrow morning. I also recommend 11 additional doses of cefdinir taken twice daily with your next dose due tonight. 2. Code status - DNR/DNI. 3. Referral to physical and occupational therapy for strengthening with generalized weakness resulting from acute infections. 4. INR per Coumadin clinic. 5. Oxygen at 2-3 L/min to keep saturations between 90 and 96%. 6. Seek medical attention if you have fever greater than 101, severe shortness of breath or chest pain. - Discharge Plan *PRESCRIPTION DRUG MONITORING PROGRAM REVIEWED*: Yes *COPY OF PRESCRIPTION DRUG MONITORING REPORT IN PATIENT CONNOR: Yes Prescriptions/Med Rec: Acetaminophen [Tylenol] 650 mg PO Q4H PRN #200 tablet PRN Reason: Pain (Mild 1-3)/fever Azithromycin 500 mg PO DAILY #2 tablet Cefdinir [Omnicef] 300 mg PO BID #11 cap Diltiazem HCl [Diltiazem 24Hr Cd] 240 mg PO DAILY #30 cap.er.24h Morphine [MS Contin] 15 mg PO Q12H #60 tab.er Morphine Sulfate 15 mg PO Q4H PRN #90 tablet PRN Reason: Pain Home Medications: Home Meds Aspirin [Children's Aspirin] 81 mg PO DAILY 02/14/15 [History] Sertraline [Zoloft] 100 mg PO DAILY 02/14/15 [History] Simvastatin [Zocor] 40 mg PO BEDTIME 02/14/15 [History] Warfarin [Coumadin] 1.5 mg PO ASDIRECTED 11/29/15 [History] Metoprolol Tartrate [Lopressor] 50 mg PO BID 03/30/18 [History] Acetaminophen [Tylenol] 650 mg PO Q4H PRN #200 tablet 07/08/18 [Rx] Azithromycin 500 mg PO DAILY #2 tablet 07/08/18 [Rx] Cefdinir [Omnicef] 300 mg PO BID #11 cap 07/08/18 [Rx] Diltiazem HCl [Diltiazem 24Hr Cd] 240 mg PO DAILY #30 cap.er.24h 07/08/18 [Rx] Morphine Sulfate 15 mg PO Q4H PRN #90 tablet 07/08/18 [Rx] Morphine [MS Contin] 15 mg PO Q12H #60 tab.er 07/08/18 [Rx] Patient Handouts: Community-Acquired Pneumonia, Adult, Cefdinir capsules Referrals: Jose Rogel MD [Primary Care Provider] - (1-2 weeks - f/u hospital stay for UTI, PNA and afib) - Discharge Summary/Plan Comment DC Time >30 min.: Yes (45 - new [facility] discharge ) - Patient Data Vitals - Most Recent: Last Vital Signs Temp 36.6 C 07/08/18 09:00 Pulse 88 07/08/18 09:00 Resp 16 07/08/18 09:00 BP 146/66 H 07/08/18 09:00 Pulse Ox 92 L 07/08/18 09:00 Weight - Most Recent: 172.4 kg I&O - Last 24 hours: Intake & Output 07/07/18 07/08/18 07/08/18 22:59 06:59 14:59 Intake Total 570 300 Balance 570 300 Lab Results - Last 24 hrs: Laboratory Results - last 24 hr 07/08/18 07/08/18 07/08/18 Range/Units 05:48 05:48 05:48 WBC 8.4 (4.5-11.0) K/uL RBC 3.74 (3.30-5.50) M/uL Hgb 11.0 L (12.0-15.0) g/dL Hct 36.2 (36.0-48.0) % MCV 97 (80-98) fL MCH 29 (27-31) pg MCHC 30 L (32-36) % Plt Count 254 (150-400) K/uL PT 27.5 H (9.5-12.0) sec INR 2.64 H (0.80-1.20) Sodium 142 (140-148) mmol/L Potassium 4.0 (3.6-5.2) mmol/L Chloride 103 (100-108) mmol/L Carbon Dioxide 34 H (21-32) mmol/L Anion Gap 9.0 (5.0-14.0) mmol/L BUN 21 H (7-18) mg/dL Creatinine 0.7 (0.6-1.0) mg/dL Est Cr Clr Drug Dosing 50.87 mL/min Estimated GFR (MDRD) > 60 (>60) Glucose 112 H (74-106) mg/dL Calcium 8.1 L (8.5-10.1) mg/dL Med Orders - Current: Current Medications Acetaminophen (Tylenol) 650 mg PO Q4H PRN PRN Reason: Pain (Mild 1-3)/fever Last Admin: 07/07/18 21:03 Dose: 650 mg Aspirin (Aspirin) 81 mg PO DAILY [facility] Last Admin: 07/08/18 08:51 Dose: 81 mg Azithromycin (Zithromax) 500 mg PO DAILY [facility] Last Admin: 07/08/18 08:55 Dose: 500 mg Cefdinir (Omnicef) 300 mg PO BID [facility] Last Admin: 07/08/18 08:55 Dose: 300 mg Diltiazem HCl (Cardizem Cd) 240 mg PO ONETIME ONE Stop: 07/08/18 09:16 Magnesium Hydroxide (Milk Of Magnesia) 30 ml PO Q12H PRN PRN Reason: Constipation Metoprolol Tartrate (Lopressor) 50 mg PO BID [facility] Last Admin: 07/08/18 08:51 Dose: 50 mg Morphine Sulfate (Morphine) 15 mg PO Q4H PRN PRN Reason: Pain Last Admin: 07/08/18 00:58 Dose: 15 mg Morphine Sulfate (Ms Contin) 15 mg PO Q12H [facility] Last Admin: 07/08/18 08:51 Dose: 15 mg Ondansetron HCl (Zofran) 4 mg IV Q4H PRN PRN Reason: Nausea/Vomiting Polyethylene Glycol (Miralax) 17 gm PO DAILY PRN PRN Reason: Constipation Senna/Docusate Sodium (Senna Plus) 1 tab PO BID PRN PRN Reason: Constipation Last Admin: 07/08/18 08:55 Dose: 1 tab Sertraline HCl (Zoloft) 100 mg PO DAILY [facility] Last Admin: 07/08/18 08:55 Dose: 100 mg Sodium Chloride (Saline Flush) 10 ml FLUSH ASDIRECTED PRN PRN Reason: Keep Vein Open Warfarin Sodium (Coumadin) 1.5 mg PO DAILY@1300 [facility] Last Admin: 07/07/18 13:07 Dose: 1.5 mg Discontinued Medications Digoxin (Lanoxin) 250 mcg IVPUSH ONETIME ONE Stop: 07/03/18 21:26 Last Admin: 07/03/18 21:41 Dose: 250 mcg Digoxin (Lanoxin) 250 mcg IVPUSH ONETIME ONE Stop: 07/04/18 01:31 Last Admin: 07/04/18 01:33 Dose: 250 mcg Diltiazem HCl (Diltiazem) 20 mg IVPUSH ONETIME ONE Stop: 07/03/18 14:58 Last Admin: 07/03/18 15:03 Dose: 20 mg Diltiazem HCl (Diltiazem) 10 mg IVPUSH ONETIME ONE Stop: 07/03/18 16:03 Last Admin: 07/03/18 16:20 Dose: 10 mg Diltiazem HCl (Cardizem) Confirm Administered Dose 100 mg .ROUTE .STK-MED ONE Stop: 07/03/18 16:18 Last Admin: 07/03/18 16:27 Dose: Not Given Diltiazem HCl (Diltiazem) 5 mg IVPUSH ONETIME ONE Stop: 07/03/18 17:47 Last Admin: 07/03/18 18:10 Dose: 5 mg Diltiazem HCl (Diltiazem) 5 mg IVPUSH ONETIME ONE Stop: 07/03/18 19:47 Last Admin: 07/03/18 19:58 Dose: 5 mg Diltiazem HCl (Cardizem) Confirm Administered Dose 100 mg .ROUTE .STK-MED ONE Stop: 07/03/18 23:24 Last Admin: 07/03/18 23:42 Dose: Not Given Diltiazem HCl (Cardizem) Confirm Administered Dose 100 mg .ROUTE .STK-MED ONE Stop: 07/04/18 05:00 Last Admin: 07/04/18 05:05 Dose: Not Given Diltiazem HCl (Cardizem) 30 mg PO Q6HR [facility] Last Admin: 07/05/18 17:39 Dose: Not Given Diltiazem HCl (Cardizem Cd) 120 mg PO DAILY [facility] Last Admin: 07/05/18 11:13 Dose: 120 mg Diltiazem HCl (Cardizem) 60 mg PO ONETIME ONE Stop: 07/06/18 01:24 Last Admin: 07/06/18 01:36 Dose: 60 mg Diltiazem HCl (Diltiazem) 20 mg IVPUSH ONETIME ONE Stop: 07/06/18 09:31 Last Admin: 07/06/18 10:04 Dose: 20 mg Diltiazem HCl (Cardizem) 60 mg PO Q6HR [facility] Last Admin: 07/08/18 03:53 Dose: 60 mg Furosemide (Lasix) 40 mg IVPUSH ONETIME ONE Stop: 07/04/18 19:54 Last Admin: 07/04/18 20:14 Dose: 40 mg Furosemide (Lasix) 40 mg IVPUSH NOW ONE Stop: 07/05/18 11:16 Last Admin: 07/05/18 11:15 Dose: 40 mg Furosemide (Lasix) 40 mg IVPUSH ONETIME ONE Stop: 07/06/18 10:01 Last Admin: 07/06/18 10:10 Dose: 40 mg Furosemide (Lasix) 40 mg IVPUSH ONETIME ONE Stop: 07/06/18 17:01 Last Admin: 07/06/18 17:30 Dose: 40 mg Furosemide (Lasix) 40 mg IVPUSH ONETIME ONE Stop: 07/07/18 09:31 Last Admin: 07/07/18 09:55 Dose: 40 mg Diltiazem HCl 125 mg/ Dextrose (/Water) 125 mls @ 5 mls/hr IV TITRATE [facility]; Protocol Stop: 07/04/18 11:00 Last Titration: 07/04/18 18:18 Dose: 0 mg/hr, 0 mls/hr Sodium Chloride (Normal Saline) Confirm Administered Dose 100 mls @ as directed .ROUTE .ST-MED ONE Stop: 07/03/18 16:19 Last Admin: 07/03/18 16:27 Dose: Not Given Sodium Chloride (Normal Saline) Confirm Administered Dose 100 mls @ as directed .ROUTE .STK-MED ONE Stop: 07/03/18 23:25 Last Admin: 07/03/18 23:42 Dose: Not Given Sodium Chloride (Normal Saline) Confirm Administered Dose 100 mls @ as directed .ROUTE .STK-MED ONE Stop: 07/04/18 05:01 Last Admin: 07/04/18 05:06 Dose: Not Given Diltiazem HCl 100 mg/ Sodium (Chloride) 100 mls @ 5 mls/hr IV TITRATE M[facility]; Protocol Ceftriaxone Sodium 1 gm/ (Sodium Chloride) 50 mls @ 100 mls/hr IV Q24H [facility] Last Admin: 07/07/18 09:21 Dose: 100 mls/hr Magnesium Sulfate 2 gm/ Premix 50 mls @ 12.5 mls/hr IV Q6H [facility] Stop: 07/04/18 20:59 Last Admin: 07/04/18 16:22 Dose: 12.5 mls/hr Diltiazem HCl 100 mg/ Sodium (Chloride) 100 mls @ 5 mls/hr IV TITRATE [facility]; Protocol Stop: 07/07/18 11:00 Last Titration: 07/07/18 06:54 Dose: 10 mg/hr, 10 mls/hr Potassium Chloride (Klor-Con M20) 40 meq PO ONETIME ONE Stop: 07/04/18 12:01 Last Admin: 07/04/18 14:47 Dose: 40 meq Propofol (Diprivan 20 Ml) Confirm Administered Dose 200 mg .ROUTE .STK-MED ONE Stop: 07/03/18 15:40 Sodium Chloride (Saline Flush) 10 ml FLUSH ASDIRECTED PRN PRN Reason: Keep Vein Open Warfarin Sodium (Coumadin) 1.5 mg PO DAILY@1300 [facility] Last Admin: 07/04/18 14:47 Dose: 1.5 mg - Exam Quality Assessment: Reports: Supplemental Oxygen General: Reports: Alert, Oriented, Cooperative, No Acute Distress Lungs: Reports: Normal Respiratory Effort, Crackles (rare right lung base) Cardiovascular: Reports: Regular Rate, Regular Rhythm, No Murmurs GI/Abdominal Exam: Soft, No Distention Extremities: No Pedal Edema Skin: Reports: Warm, Dry Psy/Mental Status: Reports: Alert, Normal Affect *Q Meaningful Use (DIS) - VTE *Q VTE Pharmacological Contraindications *Q: High INR Value
[2018-07-08] MEDS ORDERED: Diltiazem 120 MG Cap.CD PO ONE (09:15)
[2018-07-08 10:14] VITALS: BP 131/53
== END 2018-07-08 10:20 | DRG 308 ==
LOC: JP.ED 14:09 → JP.ICU 16:08 → JP.MS 07-05 16:44 → JP.ICU 07-06 08:30
PROVIDERS: ADMIT Hospitalist; ATTEND Internal Medicine
PROC: 5A2204Z Restoration of Cardiac Rhythm, Single (ICD-10-PCS; principal; 2018-07-03)
DX: I48.0 Paroxysmal atrial fibrillation (principal); J18.9 Pneumonia, unspecified organism; R00.2 Palpitations; R42 Dizziness and giddiness; N30.00 Acute cystitis without hematuria; Z79.01 Long term (current) use of anticoagulants; Z66 Do not resuscitate; B96.20 Unspecified Escherichia coli [E. coli] as the cause of diseases classified elsewhere; N18.3 Chronic kidney disease, stage 3 (moderate); Z99.81 Dependence on supplemental oxygen; E87.70 Fluid overload, unspecified; E78.5 Hyperlipidemia, unspecified; F32.9 Major depressive disorder, single episode, unspecified; F41.9 Anxiety disorder, unspecified; M54.9 Dorsalgia, unspecified; G89.29 Other chronic pain; Z87.01 Personal history of pneumonia (recurrent); H91.90 Unspecified hearing loss, unspecified ear; Z88.1 Allergy status to other antibiotic agents; Z88.5 Allergy status to narcotic agent; Z88.0 Allergy status to penicillin; Z79.82 Long term (current) use of aspirin; T46.2X5A Adverse effect of other antidysrhythmic drugs, initial encounter; Y92.230 Patient room in hospital as the place of occurrence of the external cause
CPT/HCPCS: 36415; 80053; 82550; 82553 ×2; 84484; 85025; 85610; 92960 ×2; 93005; 96374; 99285 ×2; J2704; J3490; 71045; 71045-26; 80048; 80162; 81001; 83735; 84443; 85027; 87086; 87088; 87186; 93306; 96376; 97110-GP; 97116-GP; 97162-GP; 97535-GP; A9270-GY; J0696; J1160; J1940; J3475; J7030; J7050; J7060

== ENCOUNTER 2019-11-19 19:50 | Inpatient (IN) | payer MEDICARE, OTHER ==
[2019-11-19] MEDS ORDERED: Lactated Ringers 1,000 ML IV ONE (20:47)
[2019-11-19] MEDS ORDERED: Metoclopramide 10 MG/2 ML SDV IVPUSH ONE (20:48)
--- NOTE | 2019-11-19 20:52 | EDM.PDOC ---
ED HPI GENERAL MEDICAL PROBLEM - General Chief Complaint: General Stated Complaint: MEDICAL VIA [facility] Time Seen by Provider: 11/19/19 20:40 Source of Information: Reports: Patient, Old Records History Limitations: Reports: No Limitations - History of Present Illness INITIAL COMMENTS - FREE TEXT/NARRATIVE: 89 yo female resident of a local assisted living facility presents with weakness , anorexia, a cough, and some minimal wheezing. Was seen in the clinic at the onset of these sx's and was dx with bronchitis and given a z-pack. - Related Data Allergies Allergy/AdvReac Type Severity Reaction Status Date / Time amiodarone Allergy Cannot Verified 11/19/19 21:20 Remember levofloxacin [From Levaquin] Allergy Rash Verified 11/19/19 21:20 Penicillins Allergy Rash Verified 11/19/19 21:20 propoxyphene napsylate Allergy Rash Verified 11/19/19 21:20 [From Darvocet-N] Home Meds: Home Meds Aspirin [Children's Aspirin] 81 mg PO DAILY 02/14/15 [History] Metoprolol Tartrate [Lopressor] 50 mg PO BID 03/30/18 [History] Diltiazem HCl [Diltiazem 24Hr Cd] 240 mg PO DAILY #30 cap.er.24h 07/08/18 [Rx] Albuterol [Proventil HFA] 2 puff INH Q4H PRN #1 inhaler 09/09/18 [Rx] Magnesium Oxide 400 mg PO BID #60 tablet 09/09/18 [Rx] Potassium Chloride [Klor-Con M20] 20 meq PO DAILY #30 tab.er 09/09/18 [Rx] Sotalol [Betapace] 80 mg PO BID #60 tablet 09/09/18 [Rx] Sertraline [Zoloft] 100 mg PO DAILY 10/11/18 [History] Acetaminophen [Tylenol Extra Strength] 1,000 mg PO TID #180 tablet 10/14/18 [Rx] Furosemide [Lasix] 40 mg PO BIDDIURETIC #60 tablet 10/14/18 [Rx] LORazepam [Ativan] 0.5 mg PO Q6H PRN #90 tablet 10/14/18 [Rx] Morphine Sulfate 15 mg PO Q4H PRN #90 tablet 10/14/18 [Rx] Warfarin [Coumadin] 1 mg PO ASDIRECTED 12/07/18 [History] Warfarin [Coumadin] 1.5 mg PO MOWEFR 12/07/18 [History] Morphine [MS Contin] 15 mg PO BID 11/19/19 [History] Past Medical History HEENT History: Reports: Hard of Hearing Cardiovascular History: Reports: Afib, CAD, High Cholesterol, Hypertension, Pacemaker Respiratory History: Reports: Bronchitis, Recurrent, Pneumonia, Recurrent, Sleep Apnea, Other (See Below) Other Respiratory History: wears O2 2 L [employer] at night but was told recently that needs to wear it 03/05; had sleep study and was told she stopped breathing alot but doesn't have sleep apnea, just to wear O2 Gastrointestinal History: Reports: Diverticulosis Genitourinary History: Reports: Other (See Below) Other Genitourinary History: growth on the end of meatus Musculoskeletal History: Reports: Back Pain, Chronic, Other (See Below) Other Musculoskeletal History: epicdural injections Psychiatric History: Reports: Anxiety, Depression Hematologic History: Reports: Anemia Dermatologic History: Reports: Other (See Below) Other Dermatologic History: neuro dermatitis, shingles - Infectious Disease History Infectious Disease History: Reports: Chicken Pox, Measles, Mumps - Past Surgical History Head Surgeries/Procedures: Reports: None HEENT Surgical History: Reports: Tonsillectomy Cardiovascular Surgical History: Reports: Coronary Artery Stent Respiratory Surgical History: Reports: None GI Surgical History: Reports: Appendectomy, Colon Female Surgical History: Reports: Hysterectomy, Salpingo-Oophorectomy Musculoskeletal Surgical History: Reports: None Social & Family History - Family History Family Medical History: Noncontributory - Tobacco Use Smoking Status *Q: Never Smoker - Caffeine Use Caffeine Use: Reports: Tea ED ROS GENERAL - Review of Systems Review Of Systems: See Below Constitutional: Reports: Malaise, Weakness. Denies: Fever, Chills, Diaphoresis HEENT: Reports: No Symptoms Respiratory: Reports: Shortness of Breath, Cough. Denies: Pleuritic Chest Pain , Hemoptysis Cardiovascular: Reports: No Symptoms GI/Abdominal: Reports: Anorexia, Decreased Appetite : Reports: Incontinence (chronic) Musculoskeletal: Reports: No Symptoms Skin: Reports: No Symptoms Neurological: Reports: No Symptoms Psychiatric: Reports: No Symptoms ED EXAM, GENERAL - Physical Exam Exam: See Below Exam Limited By: No Limitations General Appearance: Alert, WD/WN, No Apparent Distress Eye Exam: Bilateral Eye: Normal Inspection Ears: Normal External Exam, Normal Canal, Hearing Grossly Normal, Normal TMs Ear Exam: Bilateral Ear: Auricle Normal, Canal Normal, TM normal Nose: Normal Inspection, No Blood Throat/Mouth: Normal Inspection, Normal Lips, Normal Oropharynx, Normal Voice, No Airway Compromise Head: Atraumatic, Normocephalic Neck: Normal Inspection Respiratory/Chest: No Respiratory Distress, Decreased Breath Sounds, Rhonchi. No: Crackles, Rales, Wheezing, Accessory Muscle Use, Retractions Cardiovascular: Regular Rate, Rhythm, No Edema GI/Abdominal: Normal Bowel Sounds, Soft, Non-Tender, No Distention Back Exam: Normal Inspection. No: CVA Tenderness (R), CVA Tenderness (L) Extremities: Normal Inspection, Normal Range of Motion, Non-Tender, No Pedal Edema Neurological: Alert, Oriented, CN II-XII Intact, Normal Cognition, No Motor/ Sensory Deficits Psychiatric: Normal Affect, Normal Mood Skin Exam: Warm, Dry, Intact, Normal Color, No Rash Course - Vital Signs Text/Narrative:: Dr. Rogel called @ 2200h Last Recorded V/S: Last Vital Signs Temp 36.8 C 11/19/19 20:23 Pulse 59 L 11/19/19 20:32 Resp 16 11/19/19 20:23 BP 153/62 H 11/19/19 20:32 Pulse Ox 95 11/19/19 20:32 - Orders/Labs/Meds Orders: Active Orders 24 hr Category Date Time Status CULTURE BLOOD [BC] Stat Lab 11/19/19 21:49 Ordered CULTURE BLOOD [BC] Stat Lab 11/19/19 21:50 Ordered Sodium Chloride 0.9% [Normal Saline] 1,000 ml Med 11/19/19 22:15 Active IV ASDIRECTED cefTRIAXone [Rocephin] 1 gm Med 11/19/19 22:02 Active Sodium Chloride 0.9% [Normal Saline] 50 ml IV ONETIME Medication Orders Ceftriaxone Sodium 1 gm/ (Sodium Chloride) 50 mls @ 100 mls/hr IV ONETIME ONE Stop: 11/19/19 22:31 Sodium Chloride (Normal Saline) 1,000 mls @ 125 mls/hr IV ASDIRECTED MUKUL Labs: Laboratory Tests 02/09/20 02/09/20 02/09/20 Range/Units 21:07 21:07 21:07 WBC 18.7 H (4.5-11.0) K/uL RBC 3.97 (3.30-5.50) M/uL Hgb 11.1 L (12.0-15.0) g/dL Hct 36.7 (36.0-48.0) % MCV 92 (80-98) fL MCH 28 (27-31) pg MCHC 30 L (32-36) % Plt Count 166 (150-400) K/uL PT 72.9 H (9.5-12.0) sec INR 7.57 H* D (0.80-1.20) Sodium 139 L (140-148) mmol/L Potassium 4.0 (3.6-5.2) mmol/L Chloride 99 L (100-108) mmol/L Carbon Dioxide 35 H (21-32) mmol/L Anion Gap 9.0 (5.0-14.0) mmol/L BUN 10 (7-18) mg/dL Creatinine 0.6 (0.6-1.0) mg/dL Est Cr Clr Drug Dosing 58.32 mL/min Estimated GFR (MDRD) > 60 (>60) Glucose 131 H (74-106) mg/dL Calcium 8.6 (8.5-10.1) mg/dL Total Bilirubin 0.6 (0.2-1.0) mg/dL AST 15 (15-37) U/L ALT 19 (12-78) U/L Alkaline Phosphatase 72 (46-116) U/L Troponin I < 0.017 (0.000-0.056) ng/mL Total Protein 6.6 (6.4-8.2) g/dL Albumin 2.5 L (3.4-5.0) g/dL Globulin 4.1 H (2.3-3.5) g/dL Albumin/Globulin Ratio 0.6 L (1.2-2.2) Urine Color (YELLOW) Urine Appearance (CLEAR) Urine pH (5.0-8.0) Ur Specific [place] (1.008-1.030) Urine Protein (NEGATIVE) mg/dL Urine Glucose (UA) (NEGATIVE) mg/dL Urine Ketones (NEGATIVE) mg/dL Urine Occult Blood (NEGATIVE) Urine Nitrite (NEGATIVE) Urine Bilirubin (NEGATIVE) Urine Urobilinogen (0.2-1.0) EU/dL Ur Leukocyte Esterase (NEGATIVE) Urine RBC (0-5) Urine WBC (0-5) Ur Epithelial Cells Amorphous Sediment Urine Bacteria Urine Mucus 11/19/19 Range/Units 21:22 WBC (4.5-11.0) K/uL RBC (3.30-5.50) M/uL Hgb (12.0-15.0) g/dL Hct (36.0-48.0) % MCV (80-98) fL MCH (27-31) pg MCHC (32-36) % Plt Count (150-400) K/uL PT (9.5-12.0) sec INR (0.80-1.20) Sodium (140-148) mmol/L Potassium (3.6-5.2) mmol/L Chloride (100-108) mmol/L Carbon Dioxide (21-32) mmol/L Anion Gap (5.0-14.0) mmol/L BUN (7-18) mg/dL Creatinine (0.6-1.0) mg/dL Est Cr Clr Drug Dosing mL/min Estimated GFR (MDRD) (>60) Glucose (74-106) mg/dL Calcium (8.5-10.1) mg/dL Total Bilirubin (0.2-1.0) mg/dL AST (15-37) U/L ALT (12-78) U/L Alkaline Phosphatase (46-116) U/L Troponin I (0.000-0.056) ng/mL Total Protein (6.4-8.2) g/dL Albumin (3.4-5.0) g/dL Globulin (2.3-3.5) g/dL Albumin/Globulin Ratio (1.2-2.2) Urine Color Yellow (YELLOW) Urine Appearance Clear (CLEAR) Urine pH 7.0 (5.0-8.0) Ur Specific [place] 1.020 (1.008-1.030) Urine Protein 30 H (NEGATIVE) mg/dL Urine Glucose (UA) Negative (NEGATIVE) mg/dL Urine Ketones Negative (NEGATIVE) mg/dL Urine Occult Blood Trace-intact H (NEGATIVE) Urine Nitrite Negative (NEGATIVE) Urine Bilirubin Negative (NEGATIVE) Urine Urobilinogen 0.2 (0.2-1.0) EU/dL Ur Leukocyte Esterase Negative (NEGATIVE) Urine RBC 5-10 H (0-5) Urine WBC Not seen (0-5) Ur Epithelial Cells Rare Amorphous Sediment Not seen Urine Bacteria Few Urine Mucus Not seen Meds: Medications Generic Name Dose Route Start Last Admin Trade Name Freq PRN Reason Stop Dose Admin Ceftriaxone Sodium 1 gm/ 50 mls @ 100 mls/hr 11/19/19 22:02 Sodium Chloride IV 11/19/19 22:31 ONETIME ONE Sodium Chloride 1,000 mls @ 125 mls/hr 11/19/19 22:15 Normal Saline IV ASDIRECTED MUKUL Discontinued Medications Generic Name Dose Route Start Last Admin Trade Name Freq PRN Reason Stop Dose Admin Lactated Ringer's 1,000 mls @ 1,000 mls/hr 11/19/19 20:47 11/19/19 21:08 Ringers, Lactated IV 11/19/19 21:46 1,000 mls/hr BOLUS ONE Administration Lactated Ringer's 1,000 mls @ 125 mls/hr 11/19/19 22:00 Ringers, Lactated IV ASDIRECTED [facility] Metoclopramide HCl 5 mg 11/19/19 20:48 11/19/19 21:07 Reglan IVPUSH 11/19/19 20:49 5 mg ONETIME ONE Administration Departure - Departure Time of Disposition: 22:15 Disposition: Admitted As Inpatient 67 Condition: Fair Clinical Impression: Supratherapeutic INR, Anorexia, Weakness Pneumonia Qualifiers: Pneumonia type: due to unspecified organism Laterality: left Lung location: lower lobe of lung Qualified Code(s): J18.9 - Pneumonia, unspecified organism - Discharge Information *PRESCRIPTION DRUG MONITORING PROGRAM REVIEWED*: No *COPY OF PRESCRIPTION DRUG MONITORING REPORT IN PATIENT CONNOR: No Referrals: PCP,None [Primary Care Provider] - Forms: ED Department Discharge Sepsis Event Note - Evaluation Sepsis Screening Result: No Definite Risk - Focused Exam Vital Signs: Vital Signs Temp Pulse Resp BP Pulse Ox 11/19/19 20:32 59 L 153/62 H 95 11/19/19 20:23 36.8 C 62 16 179/58 H 94 L 11/19/19 19:55 36.8 C 62 16 179/58 H 94 L Date Exam was Performed: 11/19/19 Time Exam was Performed: 22:06 - My Orders Last 24 Hours: My Active Orders 11/19/19 21:49 CULTURE BLOOD [BC] Stat 11/19/19 21:50 CULTURE BLOOD [BC] Stat 11/19/19 22:02 cefTRIAXone [Rocephin] 1 gm Sodium Chloride 0.9% [Normal Saline] 50 ml IV ONETIME 11/19/19 22:15 Sodium Chloride 0.9% [Normal Saline] 1,000 ml IV ASDIRECTED - Assessment/Plan Last 24 Hours: My Active Orders 11/19/19 21:49 CULTURE BLOOD [BC] Stat 11/19/19 21:50 CULTURE BLOOD [BC] Stat 11/19/19 22:02 cefTRIAXone [Rocephin] 1 gm Sodium Chloride 0.9% [Normal Saline] 50 ml IV ONETIME 11/19/19 22:15 Sodium Chloride 0.9% [Normal Saline] 1,000 ml IV ASDIRECTED
[2019-11-19] MEDS ORDERED: Lactated Ringers 1,000 ML IV SCH (22:00)
[2019-11-19] MEDS ORDERED: cefTRIAXone 1 GM in Sodium Chloride 0.9% 50 ML IV ONE (22:02)
--- NOTE | 2019-11-19 22:06 | CRLCR ---
Indication: Cough. Elevated white blood cells. Technique: PA and lateral views the chest. Comparison: August 25, 2019. Findings: Heart is enlarged. A left lower lobe infiltrate is identified. Small left pleural effusions identified. A left-sided pacemaker is identified. The right lung is clear. No pneumothorax is identified. Impression: Left lower lobe infiltrate. Small left pleural effusion. Cardiomegaly. Dictated by Alysia Dukes MD @ Nov 19 2019 10:04PM Signed by Dr. Alysia Dukes @ Nov 19 2019 10:05PM
[2019-11-19] MEDS ORDERED: Sodium Chloride 0.9% 1,000 ML IV SCH (22:15)
[2019-11-20] MEDS: Albuterol/Ipratropium 3.0-0.5 MG/3 ML Neb Soln NEB PRN ×3 (00:20→18:48)
[2019-11-20] MEDS: LORazepam 0.5 MG Tab PO PRN ×2 (00:33→17:27)
[2019-11-20] MEDS ORDERED: Vancomycin 1 GM SDV IV SCH (01:00)
--- NOTE | 2019-11-20 02:46 | HP ---
IDENTIFYING DATA: Calli Gr is an 89-year-old single female from [facility] in [place]. CHIEF COMPLAINT: Short of breath and cough. HISTORY OF PRESENT ILLNESS: Adult female has a 1- to 2-week history of congestion, cough, malaise, and increasing dyspnea with minimal exertion. She was seen in the clinic approximately 1-1/2 weeks ago and provided azithromycin for presumptive bronchitic illness. Symptoms have progressed with cough, pleuritic pain, and tenacious yellow sputum production. She has had no definitive fever. No hemoptysis noted. She has no history of tobacco use or chronic obstructive pulmonary disease. Pneumococcal and influenza vaccines are current and up to date. ADDITIONAL HEALTH PROBLEMS: Include chronic atrial fibrillation with anticoagulant therapy, coronary artery disease, cardiac dysrhythmia with pacemaker implant, hyperlipidemia, and hypertension. She does have a history of recurrent hypoxia with use of oxygen by nasal cannula at 2 L/min. Recently, she has used her oxygen continuously at 2 to 3 L/min for reasons of increasing dyspnea. HABITS: Nonsmoker. No alcohol use. Minimal caffeine intake. Meals are provided in the dining area at the assisted care facility. SOCIAL HISTORY: With advancing age and failing health, she transitioned from her independent residence to assisted care apartment dwelling in 2019. Home care does provide assistance with housekeeping and meal preparation. She has limited contact with her daughters currently residing in [place]. FAMILY HISTORY: Unable to obtain. REVIEW OF SYSTEMS: NEUROLOGIC: No history of strokes, seizures, or focal weakness. She does wear glasses. No hearing loss. CARDIAC: History of coronary artery disease with previous coronary artery stenting accompanied by chronic atrial fibrillation, hypertension, and hyperlipidemia. No history of congenital heart disease. RESPIRATORY: No history of asthma, emphysema, or tuberculosis. Recent persistent bronchitic symptoms noted by the patient's report. GASTROINTESTINAL: No chronic dyspepsia, nausea, emesis, hepatitis, melena, or hematochezia. GENITOURINARY: Developing incontinence with generalized weakness. No dysuria or hematuria. MUSCULOSKELETAL: Chronic arthralgias involving the knees bilaterally. She ambulates with use of a walker. She has had no recent falls. PHYSICAL EXAMINATION: APPEARANCE: That of an elderly female in moderate respiratory distress secondary to acute respiratory infection. VITAL SIGNS: On admission, temperature 36.8 degrees centigrade, pulse 59, respiratory rate 16, blood pressure 153/62, pulse oximetry 95% with supplemental oxygen at 3 L/min. HEENT: Hearing is grossly intact. Extraocular eye movements are intact. No facial asymmetry. Speech is clear. Oral mucosa is moist. NECK: Brisk carotid pulses. Expiratory rhonchi are heard. No JVD. No nuchal rigidity. LUNGS: Prominent bilateral expiratory rhonchi. Inspiratory rales in the lower lungs. Labored respiratory effort. HEART: Regular without murmurs, gallops, or rubs. Pacemaker in place over the left anterior shoulder. ABDOMEN: Soft, nontender, nondistended. Active sounds. No organomegaly. Good femoral pulses. EXTREMITIES: Cool to touch. Diminished turgor. Palpable pulses at posterior tibial and dorsal pedal areas. No cyanosis. No open or ischemic skin changes. LABORATORY DATA: On admission, WBC elevated at 18.7, hemoglobin 11.1, platelet count 166,000. Protime on Coumadin anticoagulant therapy is elevated at 72.9 with INR supratherapeutic at 7.6, sodium 139, potassium 4, BUN 10, creatinine 0.6, GFR greater than 60, glucose 131, calcium 8.6, alkaline phosphatase 72, AST 15. Troponin less than 0.017. Urinalysis: Specific gravity 1.020, positive proteinuria, negative glucose and ketones, negative nitrites and leukocyte esterase, 5-10 rbc's, no wbc's, few bacteria. Blood cultures x2 obtained. IMPRESSION: 1. Acute pneumonia with left lower lobe infiltrate reported on chest x-ray. 2. History of coronary artery disease with congestive heart failure. 3. History of cardiac dysrhythmia status post pacemaker implant, chronic atrial fibrillation, with anticoagulant therapy. 4. Chronic recurrent hypoxia secondary to above. 5. Hypertension. 6. Hyperlipidemia. 7. Degenerative arthritis of lower extremities. PLAN: The patient will be admitted to Med-Surg for supportive cares including oxygen for noted hypoxia, nebulizer bronchodilator therapies, and antibiotic therapy. She has recognized history of allergies to levofloxacin and penicillin. Has tolerated cephalosporin. Therefore, we will continue with Rocephin antibiotic therapy and vancomycin to be managed by Pharmacy with determination of dosing schedule. Blood cultures are pending. Provide assistance with activity. Offer 2 g sodium diet. The patient does note that she does not desire ventilatory support in the event of progressive respiratory failure. We will continue to provide oxygen by nasal cannula and mask if needed for respiratory support. Haja Rogel MD /[id number]
[2019-11-20] MEDS ORDERED: Acetaminophen Soln 650 MG/20.3 ML UD Cup PO ONE (05:13)
[2019-11-20] MEDS ORDERED: Acetaminophen 325 MG Tab PO ONE (05:24)
--- NOTE | 2019-11-20 07:07 | PN ---
DATE OF SERVICE: 11/20/2019 SUBJECTIVE: Elderly female, residing at [facility], has noted history of chronic ischemic heart disease with accompanying congestive heart failure, hypertension, and widespread degenerative arthritis with ambulatory impairment, requiring use of a walker. She has had a recent history of bronchitic symptoms with cough and congestion and worsening respiratory symptoms over the weekend with malaise, shortness of breath, purulent sputum production, and anorexia. She was admitted in the late evening hours yesterday with pneumonia with radiographic findings and accompanying elevated WBC. She reports with initiation of IV antibiotic therapy, increase in oxygen supplementation and administration of DuoNeb nebulizer, she feels better this morning. She continues to have congestion as well as a weak cough, though dyspneic symptoms have subsided. She is currently on supplemental oxygen at 5 L/minute. OBJECTIVE: VITAL SIGNS: Temperature 37.3, respiratory rate now 24 with O2 sats of 92% on 5 L by nasal cannula, pulse rate 74, blood pressure 160/78. NECK: Brisk carotid pulses. No bruits. No stridor. LUNGS: Expiratory rhonchi bilaterally, though lung sounds have shown interval clearing. HEART: Regular without murmurs or gallops. ABDOMEN: Soft and nontender. No organomegaly. EXTREMITIES: Skin remains cool to touch. Diminished turgor with IVs running daily. LABORATORY DATA: Pro-Time and INR this morning are pending. IMPRESSION AND PLANS: 1. Left lower lobe pneumonia by radiographic studies. We will continue with broad- spectrum antibiotics with IV Rocephin and vancomycin. Blood cultures have been ordered. Maintain on increased flow rate of oxygen at 5 L/minute, weaning when beginning to show improvement with baseline oxygen flow rate for underlying congestive heart failure and hypoxia typically at 2 L/minute. Followup labs including daily Pro- Time, INRs have been requested. INR was supratherapeutic on arrival with Coumadin anticoagulant therapy for underlying atrial fibrillation, currently held. 2. Coronary artery disease, congestive heart failure. No clinical signs of decompensation at the current time. 3. Hypertension, currently stable. No change in therapy with home maintenance medications having been ordered. 4. Degenerative arthritis of lower extremities. She is on a longstanding regimen of long- acting and intermediate morphine products. Additionally, we will provide supplementation with acetaminophen on a p.r.n. basis. Allow activities as tolerated with standby assistance. 2 g sodium diet is ordered. Haja Rogel MD /[id number]
[2019-11-20] MEDS ORDERED: Phytonadione 5 MG Tab PO ONE (08:29)
[2019-11-20] MEDS: Furosemide 40 MG Tab PO SCH ×2 (08:49→16:33)
[2019-11-20] MEDS: Sotalol 80 MG Tab PO SCH ×2 (08:49→21:15)
[2019-11-20] MEDS: Diltiazem 120 MG Cap.CD PO SCH (08:50)
[2019-11-20] MEDS: Metoprolol Tartrate 50 MG Tab PO SCH ×2 (08:50→21:14)
[2019-11-20] MEDS: Aspirin 81 MG Tab.EC PO SCH (08:50)
[2019-11-20] MEDS: Sertraline 50 MG Tab PO SCH (08:51)
[2019-11-20] MEDS: Magnesium Oxide 400 MG Tab PO SCH ×2 (08:51→21:15)
[2019-11-20] MEDS: Acetaminophen 500 MG Tab PO SCH ×3 (08:51→21:03)
[2019-11-20] MEDS: Morphine 15 MG Tab.ER PO SCH ×2 (08:57→21:15)
[2019-11-20] MEDS ORDERED: Potassium Chloride 20 MEQ Tab.ER PO SCH (09:00)
[2019-11-20] MEDS: Doxycycline 100 MG in Sodium Chloride 0.9% 100 ML IV SCH ×2 (09:21→21:40)
[2019-11-20] MEDS: Sodium Chloride 0.9% 1,000 ML IV SCH (11:14)
[2019-11-20] MEDS: guaiFENesin/Dextromethorphan 100-10 MG/5 ML Soln 10 ML Cup PO SCH ×3 (16:33→21:03)
[2019-11-20] MEDS ORDERED: Metoprolol Tartrate 25 MG Tab PO ONE (17:05)
[2019-11-20] MEDS ORDERED: Digoxin 500 MCG/2 ML Amp IVPUSH ONE (17:05)
[2019-11-20] MEDS ORDERED: Magnesium Sulfate/Water 2 GM in Premix Bag 1 BAG IV ONE (18:53)
[2019-11-20] MEDS: Diltiazem 100 MG in Sodium Chloride 0.9% 100 ML IV SCH (20:15)
[2019-11-20] MEDS ORDERED: Sodium Chloride 0.9% 500 ML IV ONE (20:35)
[2019-11-20] MEDS ORDERED: cefTRIAXone 1 GM Vial IV SCH (21:00)
[2019-11-20] MEDS ORDERED: cefTRIAXone 1 GM Vial IM SCH (21:00)
[2019-11-20] MEDS: cefTRIAXone 1 GM in Sodium Chloride 0.9% 50 ML IV SCH (22:31)
[2019-11-20] MEDS: Morphine 15 MG Tab PO PRN (22:57)
[2019-11-21] MEDS: Albuterol/Ipratropium 3.0-0.5 MG/3 ML Neb Soln NEB PRN ×3 (00:12→21:01)
[2019-11-21] MEDS: Diltiazem 100 MG in Sodium Chloride 0.9% 100 ML IV SCH ×2 (02:03→08:14)
[2019-11-21] MEDS: Sodium Chloride 0.9% 1,000 ML IV SCH (08:05)
[2019-11-21] MEDS: LORazepam 0.5 MG Tab PO PRN ×3 (08:12→21:01)
[2019-11-21] MEDS ORDERED: Digoxin 500 MCG/2 ML Amp IVPUSH ONE (08:52)
--- NOTE | 2019-11-21 08:56 | PCM.PN ---
- General Info Date of Service: 11/21/19 Subjective Update: Patient was in atrial fibrillation yesterday afternoon and overnight. She had a rapid ventricular response. This did not respond to increased metoprolol or IV digoxin. The patient was transferred to the intensive care unit and started on IV diltiazem. She remained in atrial fibrillation overnight with a rapid rate and only a slight improvement. This morning she converted back to a regular paced rhythm with a rate in the 60s. She feels a little better today but is still very weak. Appetite is still reduced but a little better. No fevers overnight. Occasional cough. She did have mild blood streaking in her sputum. INR is down to 1.6 today. Functional Status: Reports: Pain Controlled, Tolerating Diet - Review of Systems General: Reports: Weakness. Denies: Fever Pulmonary: Reports: Shortness of Breath, Cough - Patient Data Vitals - Most Recent: Last Vital Signs Temp 36.4 C 11/21/19 08:00 Pulse 132 H 11/21/19 08:00 Resp 19 11/21/19 08:00 BP 114/69 11/21/19 08:00 Pulse Ox 92 L 11/21/19 08:00 Weight - Most Recent: 70.851 kg I&O - Last 24 Hours: Intake & Output 11/20/19 11/21/19 11/21/19 22:59 06:59 14:59 Intake Total 596 Balance 596 Lab Results Last 24 Hours: Laboratory Results - last 24 hr 11/20/19 11/21/19 11/21/19 Range/Units 06:00 05:30 05:30 WBC 16.8 H (4.5-11.0) K/uL RBC 3.64 (3.30-5.50) M/uL Hgb 10.7 L (12.0-15.0) g/dL Hct 34.0 L (36.0-48.0) % MCV 93 (80-98) fL MCH 29 (27-31) pg MCHC 32 (32-36) % Plt Count 135 L (150-400) K/uL PT (9.5-12.0) sec INR (0.80-1.20) Sodium 142 (140-148) mmol/L Potassium 3.4 L (3.6-5.2) mmol/L Chloride 104 (100-108) mmol/L Carbon Dioxide 30 (21-32) mmol/L Anion Gap 11.4 (5.0-14.0) mmol/L BUN 7 (7-18) mg/dL Creatinine 0.5 L (0.6-1.0) mg/dL Est Cr Clr Drug Dosing 67.65 mL/min Estimated GFR (MDRD) > 60 (>60) Glucose 117 H (74-106) mg/dL Calcium 8.1 L (8.5-10.1) mg/dL Magnesium 1.8 (1.8-2.4) mg/dL 11/21/19 Range/Units 05:30 WBC (4.5-11.0) K/uL RBC (3.30-5.50) M/uL Hgb (12.0-15.0) g/dL Hct (36.0-48.0) % MCV (80-98) fL MCH (27-31) pg MCHC (32-36) % Plt Count (150-400) K/uL PT 17.4 H (9.5-12.0) sec INR 1.66 H D (0.80-1.20) Sodium (140-148) mmol/L Potassium (3.6-5.2) mmol/L Chloride (100-108) mmol/L Carbon Dioxide (21-32) mmol/L Anion Gap (5.0-14.0) mmol/L BUN (7-18) mg/dL Creatinine (0.6-1.0) mg/dL Est Cr Clr Drug Dosing mL/min Estimated GFR (MDRD) (>60) Glucose (74-106) mg/dL Calcium (8.5-10.1) mg/dL Magnesium (1.8-2.4) mg/dL Mark Results Last 24 Hours: Microbiology 11/19/19 22:05 Aerobic Blood Culture - Preliminary Blood - Arm, Right NO GROWTH AFTER 1 DAY Anaerobic Blood Culture - Preliminary NO GROWTH AFTER 1 DAY 11/19/19 21:55 Aerobic Blood Culture - Preliminary Blood - Arm, Right NO GROWTH AFTER 1 DAY Anaerobic Blood Culture - Preliminary NO GROWTH AFTER 1 DAY Med Orders - Current: Current Medications Acetaminophen (Tylenol Extra Strength) 1,000 mg PO TID [facility] Last Admin: 11/20/19 21:03 Dose: Not Given Albuterol/Ipratropium (Duoneb 3.0-0.5 Mg/3 Ml) 3 ml NEB Q4H PRN PRN Reason: Dyspnea Last Admin: 11/21/19 00:12 Dose: 3 ml Aspirin (Halfprin) 81 mg PO DAILY [facility] Last Admin: 11/20/19 08:50 Dose: 81 mg Benzonatate (Tessalon Perles) 100 mg PO TID PRN PRN Reason: Cough Digoxin (Lanoxin) 125 mcg IVPUSH ONETIME ONE Stop: 11/21/19 08:53 Diltiazem HCl (Cardizem Cd) 240 mg PO DAILY [facility] Last Admin: 11/20/19 08:50 Dose: 240 mg Furosemide (Lasix) 40 mg PO BIDDIURETIC [facility] Last Admin: 11/20/19 16:33 Dose: 40 mg Guaifenesin/Dextromethorphan (Robitussin Dm) 10 ml PO TID [facility] Last Admin: 11/20/19 21:03 Dose: Not Given Ceftriaxone Sodium 1 gm/ (Sodium Chloride) 50 mls @ 100 mls/hr IV Q24H [facility] Last Admin: 11/20/19 22:31 Dose: 100 mls/hr Sodium Chloride (Normal Saline) 1,000 mls @ 0 mls/hr IV ASDIRECTED [facility] Last Admin: 11/21/19 08:05 Dose: 25 mls/hr Doxycycline Hyclate 100 mg/ (Sodium Chloride) 100 mls @ 100 mls/hr IV Q12H [facility] Last Admin: 11/20/19 21:40 Dose: 100 mls/hr Diltiazem HCl 100 mg/ Sodium (Chloride) 100 mls @ 5 mls/hr IV TITRATE [facility]; Protocol Last Admin: 11/21/19 08:14 Dose: 15 mg/hr, 15 mls/hr Lorazepam (Ativan) 0.5 mg PO Q6H PRN PRN Reason: Anxiety Last Admin: 11/21/19 08:12 Dose: 0.5 mg Magnesium Oxide (Magnesium Oxide) 400 mg PO BID [facility] Last Admin: 11/20/19 21:15 Dose: 400 mg Metoprolol Tartrate (Lopressor) 50 mg PO BID [facility] Last Admin: 11/20/19 21:14 Dose: 50 mg Morphine Sulfate (Ms Contin) 15 mg PO BID [facility] Last Admin: 11/20/19 21:15 Dose: 15 mg Morphine Sulfate (Morphine) 15 mg PO Q4H PRN PRN Reason: Pain Last Admin: 11/20/19 22:57 Dose: 15 mg Potassium Chloride (Klor-Con M20) 40 meq PO ONETIME ONE Stop: 11/21/19 17:01 Potassium Chloride (Klor-Con M20) 40 meq PO DAILY [facility] Sertraline HCl (Zoloft) 100 mg PO DAILY [facility] Last Admin: 11/20/19 08:51 Dose: 100 mg Sotalol HCl (Betapace) 80 mg PO BID [facility] Last Admin: 11/20/19 21:15 Dose: 80 mg Warfarin Sodium (Coumadin) 2.5 mg PO ONETIME ONE Stop: 11/21/19 13:01 Discontinued Medications Acetaminophen (Tylenol) 650 mg PO ONETIME ONE Stop: 11/20/19 05:25 Last Admin: 11/20/19 05:37 Dose: 650 mg Ceftriaxone Sodium (Rocephin) 1 gm IM Q24H [facility] Digoxin (Lanoxin) 125 mcg IVPUSH ONETIME ONE Stop: 11/20/19 17:06 Last Admin: 11/20/19 17:14 Dose: 125 mcg Lactated Ringer's (Ringers, Lactated) 1,000 mls @ 1,000 mls/hr IV BOLUS ONE Stop: 11/19/19 21:46 Last Admin: 11/19/19 21:08 Dose: 1,000 mls/hr Lactated Ringer's (Ringers, Lactated) 1,000 mls @ 125 mls/hr IV ASDIRECTED [facility] Ceftriaxone Sodium 1 gm/ (Sodium Chloride) 50 mls @ 100 mls/hr IV ONETIME ONE Stop: 11/19/19 22:31 Last Admin: 11/19/19 22:21 Dose: 100 mls/hr Sodium Chloride (Normal Saline) 1,000 mls @ 125 mls/hr IV ASDIRECTED [facility] Last Admin: 11/19/19 22:21 Dose: 125 mls/hr Vancomycin HCl 1 gm/ Sodium (Chloride) 250 mls @ 166.667 mls/hr IV Q24H [facility] Last Admin: 11/20/19 02:01 Dose: 166.667 mls/hr Magnesium Sulfate 2 gm/ Premix 50 mls @ 12.5 mls/hr IV ONETIME ONE Stop: 11/20/19 22:52 Last Admin: 11/20/19 22:46 Dose: 12.5 mls/hr Sodium Chloride (Normal Saline) 500 mls @ 500 mls/hr IV .BOLUS ONE Stop: 11/20/19 21:34 Last Admin: 11/20/19 20:35 Dose: 500 mls/hr Metoclopramide HCl (Reglan) 5 mg IVPUSH ONETIME ONE Stop: 11/19/19 20:49 Last Admin: 11/19/19 21:07 Dose: 5 mg Metoprolol Tartrate (Lopressor) 25 mg PO ONETIME ONE Stop: 11/20/19 17:06 Last Admin: 11/20/19 17:18 Dose: 25 mg Phytonadione (Aquamephyton) 10 mg SUBCUT ONETIME ONE Stop: 11/20/19 08:31 Last Admin: 11/20/19 08:06 Dose: 10 mg Potassium Chloride (Klor-Con M20) 20 meq PO DAILY [facility] Last Admin: 11/20/19 08:50 Dose: 20 meq Vancomycin HCl (Vancomycin) 1 gm IV .PHARMACY TO DOSE [facility] Stop: 11/20/19 01:01 - Exam Quality Assessment: Supplemental Oxygen General: Alert, Oriented, Cooperative, No Acute Distress Neck: Supple, No JVD Lungs: Normal Respiratory Effort, Decreased Breath Sounds (left lung base). No : Crackles, Wheezing Cardiovascular: Irregular Rhythm, Tachycardia GI/Abdominal Exam: Normal Bowel Sounds, Soft, No Distention Extremities: No Pedal Edema. No: Increased Warmth Skin: Warm, Dry Psy/Mental Status: Alert, Normal Affect Sepsis Event Note - Evaluation Sepsis Screening Result: Severe Sepsis Risk - Focused Exam Vital Signs: Vital Signs Temp Pulse Pulse Resp BP BP Pulse Ox 11/21/19 08:00 36.4 C 132 H 19 114/69 92 L 11/21/19 07:00 141 H 22 H 130/63 92 L 11/21/19 06:00 134 H 18 121/63 90 L 11/21/19 05:00 121 H 21 H 126/61 95 11/21/19 04:00 35.4 C 132 H 23 H 108/49 L 95 11/21/19 03:00 130 H 20 112/56 L 93 L 11/21/19 02:00 117 H 22 H 120/49 L 92 L 11/21/19 01:00 122 H 25 H 128/47 L 89 L 11/21/19 00:00 36.8 C 114 H 24 H 146/81 H 93 L 11/20/19 23:00 101 H 22 H 139/61 91 L 11/20/19 22:00 131 H 26 H 139/69 95 11/20/19 21:15 145 H 137/65 11/20/19 21:14 145 H 137/65 11/20/19 21:13 137/65 11/20/19 21:00 144 H 27 H 159/68 H 93 L Date Exam was Performed: 11/21/19 Time Exam was Performed: 13:07 - Problem List Review Problem List Initiated/Reviewed/Updated: Yes - My Orders Last 24 Hours: My Active Orders 11/20/19 09:00 Doxycycline [Vibramycin] 100 mg Sodium Chloride 0.9% [Normal Saline] 100 ml IV Q12H 11/20/19 12:51 Benzonatate [Tessalon Perles] 100 mg PO TID PRN RT Acapella [RESPCARE] Routine 11/20/19 14:00 Dextromethorphan/guaiFENesin [Robitussin DM] 10 ml PO TID 11/20/19 16:49 Telemetry Monitoring [Cardiac Monitoring] [RC] Q6H 11/20/19 17:57 Transfer Patient (Change bed) [ADT] Routine 11/20/19 18:00 Diltiazem [Cardizem] 100 mg Sodium Chloride 0.9% [Normal Saline] 100 ml IV TITRATE 11/21/19 08:52 Digoxin [Lanoxin] 125 mcg IVPUSH ONETIME ONE 11/21/19 08:54 Antiembolic Devices [RC] .Routine SCD [Sequential Compression Device] [OM.PC] Routine 11/21/19 09:00 Potassium Chloride [Klor-Con M20] 40 meq PO DAILY 11/21/19 13:00 Warfarin [Coumadin] 2.5 mg PO ONETIME ONE 11/21/19 17:00 Potassium Chloride [Klor-Con M20] 40 meq PO ONETIME ONE 11/22/19 05:00 BASIC METABOLIC PANEL,BMP [CHEM] Timed CBC W/O DIFF,HEMOGRAM [HEME] Timed (1) MAGNESIUM [CHEM] Timed - Plan Plan:: ASSESSMENT AND PLAN - Left lower lobe pneumonia-complicated by acute respiratory failure with hypoxia. Seems to be slowly improving. Cultures are negative so far. Supplemental oxygen requirement is decreasing. No fevers. -Continue doxycycline and ceftriaxone -supplemental oxygen as needed -Continue scheduled Robitussin and as needed Tessalon -Follow-up cultures Paroxysmal atrial fibrillation with rapid ventricular response-likely related to the pneumonia. Difficulty with rate control overnight but now back into a regular paced rhythm. -Optimize electrolytes -Continue beta-criss, sotalol and diltiazem -Cardiac monitoring -discontinued diltiazem infusion Congestive heart failure-stable so far with no evidence for exacerbation. Stage III chronic kidney disease-kidney function stable. Maintenance issues - - DVT prophylaxis -warfarin and mechanical - GI prophylaxis -not indicated - Nutrition -regular Disposition -I would anticipate discharge to a shelter facility for subacute rehab after the hospital stay Miquel Prabhakar M.D.
[2019-11-21] MEDS: Morphine 15 MG Tab.ER PO SCH ×2 (09:17→21:30)
[2019-11-21] MEDS: Acetaminophen 500 MG Tab PO SCH ×2 (09:21→09:48)
[2019-11-21] MEDS: guaiFENesin/Dextromethorphan 100-10 MG/5 ML Soln 10 ML Cup PO SCH ×4 (09:21→21:07)
[2019-11-21] MEDS: Sertraline 50 MG Tab PO SCH (09:22)
[2019-11-21] MEDS: Sotalol 80 MG Tab PO SCH ×2 (09:22→21:05)
[2019-11-21] MEDS: Furosemide 40 MG Tab PO SCH (09:23)
[2019-11-21] MEDS: Diltiazem 120 MG Cap.CD PO SCH (09:23)
[2019-11-21] MEDS: Aspirin 81 MG Tab.EC PO SCH (09:24)
[2019-11-21] MEDS: Metoprolol Tartrate 50 MG Tab PO SCH ×2 (09:24→21:06)
[2019-11-21] MEDS: Magnesium Oxide 400 MG Tab PO SCH ×2 (09:24→21:05)
[2019-11-21] MEDS: Potassium Chloride 20 MEQ Tab.ER PO SCH (09:29)
[2019-11-21] MEDS: Doxycycline 100 MG in Sodium Chloride 0.9% 100 ML IV SCH ×2 (09:33→21:46)
[2019-11-21] MEDS ORDERED: Warfarin 2.5 MG Tab PO ONE (13:00)
[2019-11-21] MEDS: Acetaminophen Soln 650 MG/20.3 ML UD Cup PO SCH ×2 (14:19→21:07)
[2019-11-21] MEDS ORDERED: Potassium Chloride 20 MEQ Tab.ER PO ONE (17:00)
[2019-11-21] MEDS: Benzonatate 100 MG Cap PO PRN (21:01)
[2019-11-21] MEDS: cefTRIAXone 1 GM in Sodium Chloride 0.9% 50 ML IV SCH ×2 (21:04→21:08)
[2019-11-22] MEDS: LORazepam 0.5 MG Tab PO PRN ×3 (04:22→19:59)
[2019-11-22] MEDS: Albuterol/Ipratropium 3.0-0.5 MG/3 ML Neb Soln NEB PRN ×5 (04:22→22:51)
[2019-11-22] MEDS: Morphine 15 MG Tab PO PRN ×2 (06:47→19:58)
[2019-11-22] MEDS ORDERED: Triamcinolone Acetonide 40 MG/ML 1 ML MDV ONE (08:26)
[2019-11-22] MEDS ORDERED: Bupivacaine 0.5% 30 ML SDV ONE (08:26)
[2019-11-22] MEDS: Morphine 15 MG Tab.ER PO SCH ×2 (08:33→20:00)
[2019-11-22] MEDS: Aspirin 81 MG Tab.EC PO SCH (08:33)
[2019-11-22] MEDS: Furosemide 40 MG Tab PO SCH ×2 (08:33→13:39)
[2019-11-22] MEDS: Magnesium Oxide 400 MG Tab PO SCH ×2 (08:34→20:00)
[2019-11-22] MEDS: Sertraline 50 MG Tab PO SCH (08:34)
[2019-11-22] MEDS: Diltiazem 120 MG Cap.CD PO SCH (08:34)
[2019-11-22] MEDS: Potassium Chloride 20 MEQ Tab.ER PO SCH (08:34)
[2019-11-22] MEDS: Metoprolol Tartrate 50 MG Tab PO SCH ×2 (08:35→20:03)
[2019-11-22] MEDS: Sotalol 80 MG Tab PO SCH ×2 (08:35→20:01)
[2019-11-22] MEDS: Doxycycline 100 MG in Sodium Chloride 0.9% 100 ML IV SCH (08:40)
[2019-11-22] MEDS: Acetaminophen Soln 650 MG/20.3 ML UD Cup PO SCH ×3 (08:43→20:04)
[2019-11-22] MEDS: guaiFENesin/Dextromethorphan 100-10 MG/5 ML Soln 10 ML Cup PO SCH ×3 (08:45→20:03)
--- NOTE | 2019-11-22 09:10 | PCM.PN ---
- General Info Date of Service: 11/22/19 Subjective Update: No acute events overnight. She has remained in sinus rhythm. She has a loose cough. Shortness of breath is a little better. Still very weak and fatigued. Appetite is slightly better. No fevers. Blood cultures are negative so far. Arthritis pain has been controlled. Potassium normal today. Functional Status: Reports: Pain Controlled, Tolerating Diet - Review of Systems General: Reports: Weakness. Denies: Fever Pulmonary: Reports: Shortness of Breath, Cough - Patient Data Vitals - Most Recent: Last Vital Signs Temp 36.0 C L 11/22/19 04:00 Pulse 62 11/22/19 08:35 Resp 19 11/22/19 06:00 BP 145/52 H 11/22/19 08:35 Pulse Ox 93 L 11/22/19 06:00 Weight - Most Recent: 70.851 kg I&O - Last 24 Hours: Intake & Output 11/21/19 11/22/19 11/22/19 22:59 06:59 14:59 Intake Total 1960 599 Balance 1960 599 Lab Results Last 24 Hours: Laboratory Results - last 24 hr 11/22/19 11/22/19 Range/Units 04:20 04:20 WBC 11.0 (4.5-11.0) K/uL RBC 3.63 (3.30-5.50) M/uL Hgb 10.2 L (12.0-15.0) g/dL Hct 34.7 L (36.0-48.0) % MCV 96 (80-98) fL MCH 28 (27-31) pg MCHC 29 L (32-36) % Plt Count 125 L (150-400) K/uL Sodium 144 (140-148) mmol/L Potassium 5.0 (3.6-5.2) mmol/L Chloride 109 H (100-108) mmol/L Carbon Dioxide 29 (21-32) mmol/L Anion Gap 11.0 (5.0-14.0) mmol/L BUN 14 D (7-18) mg/dL Creatinine 0.7 (0.6-1.0) mg/dL Est Cr Clr Drug Dosing 48.32 mL/min Estimated GFR (MDRD) > 60 (>60) Glucose 135 H (74-106) mg/dL Calcium 8.5 (8.5-10.1) mg/dL Magnesium 2.1 (1.8-2.4) mg/dL Mark Results Last 24 Hours: Microbiology 11/19/19 22:05 Aerobic Blood Culture - Preliminary Blood - Arm, Right NO GROWTH AFTER 2 DAYS Anaerobic Blood Culture - Preliminary NO GROWTH AFTER 2 DAYS 11/19/19 21:55 Aerobic Blood Culture - Preliminary Blood - Arm, Right NO GROWTH AFTER 2 DAYS Anaerobic Blood Culture - Preliminary NO GROWTH AFTER 2 DAYS Med Orders - Current: Current Medications Acetaminophen (Tylenol) 960 mg PO TID [facility] Last Admin: 11/22/19 08:43 Dose: 960 mg Albuterol/Ipratropium (Duoneb 3.0-0.5 Mg/3 Ml) 3 ml NEB Q4H PRN PRN Reason: Dyspnea Last Admin: 11/22/19 04:22 Dose: 3 ml Aspirin (Halfprin) 81 mg PO DAILY [facility] Last Admin: 11/22/19 08:33 Dose: 81 mg Benzonatate (Tessalon Perles) 100 mg PO TID PRN PRN Reason: Cough Last Admin: 11/21/19 21:01 Dose: 100 mg Diltiazem HCl (Cardizem Cd) 240 mg PO DAILY [facility] Last Admin: 11/22/19 08:34 Dose: 240 mg Furosemide (Lasix) 40 mg PO BIDDIURETIC [facility] Last Admin: 11/22/19 08:33 Dose: 40 mg Guaifenesin/Dextromethorphan (Robitussin Dm) 10 ml PO TID [facility] Last Admin: 11/22/19 08:45 Dose: 10 ml Ceftriaxone Sodium 1 gm/ (Sodium Chloride) 50 mls @ 100 mls/hr IV Q24H [facility] Last Admin: 11/21/19 21:04 Dose: 100 mls/hr Doxycycline Hyclate 100 mg/ (Sodium Chloride) 100 mls @ 100 mls/hr IV Q12H [facility] Stop: 11/22/19 11:00 Last Admin: 11/22/19 08:40 Dose: 100 mls/hr Lorazepam (Ativan) 0.5 mg PO Q6H PRN PRN Reason: Anxiety Last Admin: 11/22/19 04:22 Dose: 0.5 mg Magnesium Oxide (Magnesium Oxide) 400 mg PO BID [facility] Last Admin: 11/22/19 08:34 Dose: 400 mg Metoprolol Tartrate (Lopressor) 50 mg PO BID [facility] Last Admin: 11/22/19 08:35 Dose: 50 mg Morphine Sulfate (Ms Contin) 15 mg PO BID [facility] Last Admin: 11/22/19 08:33 Dose: 15 mg Morphine Sulfate (Morphine) 15 mg PO Q4H PRN PRN Reason: Pain Last Admin: 11/22/19 06:47 Dose: 15 mg Potassium Chloride (Klor-Con M20) 40 meq PO DAILY [facility] Last Admin: 11/22/19 08:34 Dose: 40 meq Sertraline HCl (Zoloft) 100 mg PO DAILY [facility] Last Admin: 11/22/19 08:34 Dose: 100 mg Sotalol HCl (Betapace) 80 mg PO BID [facility] Last Admin: 11/22/19 08:35 Dose: 80 mg Discontinued Medications Acetaminophen (Tylenol Extra Strength) 1,000 mg PO TID [facility] Last Admin: 11/21/19 09:48 Dose: Not Given Acetaminophen (Tylenol) 650 mg PO ONETIME ONE Stop: 11/20/19 05:25 Last Admin: 11/20/19 05:37 Dose: 650 mg Bupivacaine HCl (Marcaine 0.5%) Confirm Administered Dose 30 ml .ROUTE .STK-MED ONE Stop: 11/22/19 08:27 Ceftriaxone Sodium (Rocephin) 1 gm IM Q24H [facility] Digoxin (Lanoxin) 125 mcg IVPUSH ONETIME ONE Stop: 11/20/19 17:06 Last Admin: 11/20/19 17:14 Dose: 125 mcg Digoxin (Lanoxin) 125 mcg IVPUSH ONETIME ONE Stop: 11/21/19 08:53 Lactated Ringer's (Ringers, Lactated) 1,000 mls @ 1,000 mls/hr IV BOLUS ONE Stop: 11/19/19 21:46 Last Admin: 11/19/19 21:08 Dose: 1,000 mls/hr Lactated Ringer's (Ringers, Lactated) 1,000 mls @ 125 mls/hr IV ASDIRECTED [facility] Ceftriaxone Sodium 1 gm/ (Sodium Chloride) 50 mls @ 100 mls/hr IV ONETIME ONE Stop: 11/19/19 22:31 Last Admin: 11/19/19 22:21 Dose: 100 mls/hr Sodium Chloride (Normal Saline) 1,000 mls @ 125 mls/hr IV ASDIRECTED [facility] Last Admin: 11/19/19 22:21 Dose: 125 mls/hr Vancomycin HCl 1 gm/ Sodium (Chloride) 250 mls @ 166.667 mls/hr IV Q24H [facility] Last Admin: 11/20/19 02:01 Dose: 166.667 mls/hr Sodium Chloride (Normal Saline) 1,000 mls @ 0 mls/hr IV ASDIRECTED [facility] Last Admin: 11/21/19 08:05 Dose: 25 mls/hr Diltiazem HCl 100 mg/ Sodium (Chloride) 100 mls @ 5 mls/hr IV TITRATE [facility]; Protocol Last Titration: 11/21/19 09:55 Dose: 5 mg/hr, 5 mls/hr Magnesium Sulfate 2 gm/ Premix 50 mls @ 12.5 mls/hr IV ONETIME ONE Stop: 11/20/19 22:52 Last Admin: 11/20/19 22:46 Dose: 12.5 mls/hr Sodium Chloride (Normal Saline) 500 mls @ 500 mls/hr IV .BOLUS ONE Stop: 11/20/19 21:34 Last Admin: 11/20/19 20:35 Dose: 500 mls/hr Metoclopramide HCl (Reglan) 5 mg IVPUSH ONETIME ONE Stop: 11/19/19 20:49 Last Admin: 11/19/19 21:07 Dose: 5 mg Metoprolol Tartrate (Lopressor) 25 mg PO ONETIME ONE Stop: 11/20/19 17:06 Last Admin: 11/20/19 17:18 Dose: 25 mg Phytonadione (Aquamephyton) 10 mg SUBCUT ONETIME ONE Stop: 11/20/19 08:31 Last Admin: 11/20/19 08:06 Dose: 10 mg Potassium Chloride (Klor-Con M20) 20 meq PO DAILY [facility] Last Admin: 11/20/19 08:50 Dose: 20 meq Potassium Chloride (Klor-Con M20) 40 meq PO ONETIME ONE Stop: 11/21/19 17:01 Last Admin: 11/21/19 17:15 Dose: 40 meq Triamcinolone Acetonide (Kenalog-40) Confirm Administered Dose 40 mg .ROUTE .STK -MED ONE Stop: 11/22/19 08:27 Vancomycin HCl (Vancomycin) 1 gm IV .PHARMACY TO DOSE [facility] Stop: 11/20/19 01:01 Warfarin Sodium (Coumadin) 2.5 mg PO ONETIME ONE Stop: 11/21/19 13:01 Last Admin: 11/21/19 13:01 Dose: 2.5 mg - Exam Quality Assessment: Supplemental Oxygen General: Alert, Oriented, Cooperative, No Acute Distress Neck: No JVD Lungs: Normal Respiratory Effort, Crackles (few left lung base). No: Wheezing Cardiovascular: Regular Rate, Regular Rhythm GI/Abdominal Exam: Soft, No Distention Extremities: No Pedal Edema. No: Increased Warmth Skin: Warm, Dry Psy/Mental Status: Alert, Normal Affect Sepsis Event Note - Evaluation Sepsis Screening Result: No Definite Risk - Focused Exam Vital Signs: Vital Signs Temp Pulse Pulse Resp BP BP Pulse Ox 11/22/19 08:35 62 145/52 H 11/22/19 08:34 62 145/52 H 11/22/19 06:00 60 19 122/47 L 93 L 11/22/19 04:00 36.0 C L 60 19 123/46 L 94 L 11/22/19 02:00 60 19 115/47 L 98 11/22/19 00:00 36.2 C 60 20 122/43 L 96 11/21/19 22:00 60 20 138/44 L 94 L Date Exam was Performed: 11/22/19 Time Exam was Performed: 12:58 - Problem List Review Problem List Initiated/Reviewed/Updated: Yes - My Orders Last 24 Hours: My Active Orders 11/21/19 08:54 Antiembolic Devices [RC] .Routine SCD [Sequential Compression Device] [OM.PC] Routine 11/21/19 09:00 Potassium Chloride [Klor-Con M20] 40 meq PO DAILY 11/21/19 14:00 Acetaminophen [Tylenol] 960 mg PO TID 11/22/19 09:08 Transfer Patient (Change bed) [ADT] Routine Cardiac Monitoring Discontinue [RC] Click to Edit INR,PT,PROTHROMBIN TIME [COAG] Urgent 11/22/19 09:09 PT Evaluation and Treatment [CONS] Routine 11/22/19 13:00 Warfarin [Coumadin] 2 mg PO ONETIME ONE 11/22/19 21:00 Doxycycline [Vibramycin] 100 mg PO Q12H 11/23/19 05:00 BASIC METABOLIC PANEL,BMP [CHEM] Timed CBC W/O DIFF,HEMOGRAM [HEME] Timed (1) INR,PT,PROTHROMBIN TIME [COAG] Timed - Plan Plan:: ASSESSMENT AND PLAN - Left lower lobe pneumonia-complicated by acute respiratory failure with hypoxia. Slowly improving and she is only requiring 2 L of supplemental oxygen at this time. Cultures negative so far. Weak and fatigue but otherwise improving. -Continue doxycycline and ceftriaxone -supplemental oxygen as needed -Continue scheduled Robitussin and as needed Tessalon -Follow-up cultures Paroxysmal atrial fibrillation with rapid ventricular response-she has remained in sinus rhythm for the past 24 hours. -Continue beta-criss, sotalol and diltiazem -Discontinue cardiac monitoring Congestive heart failure-stable so far with no evidence for exacerbation. Stage III chronic kidney disease-kidney function stable. Maintenance issues - - DVT prophylaxis -warfarin and mechanical until INR therapeutic - GI prophylaxis -not indicated - Nutrition -regular Disposition -I would anticipate discharge to a retirement facility for subacute rehab after the hospital stay Miquel Prabhakar M.D.
[2019-11-22] MEDS: Benzonatate 100 MG Cap PO PRN (19:58)
[2019-11-22] MEDS: Doxycycline 100 MG Cap PO SCH (20:00)
[2019-11-22] MEDS: cefTRIAXone 1 GM in Sodium Chloride 0.9% 50 ML IV SCH (20:01)
[2019-11-23] MEDS: Albuterol/Ipratropium 3.0-0.5 MG/3 ML Neb Soln NEB PRN ×2 (04:42→11:05)
[2019-11-23] MEDS: LORazepam 0.5 MG Tab PO PRN ×3 (05:01→20:53)
[2019-11-23] MEDS: Furosemide 40 MG Tab PO SCH ×2 (08:19→14:06)
[2019-11-23] MEDS: Sotalol 80 MG Tab PO SCH ×2 (08:20→20:54)
[2019-11-23] MEDS: Diltiazem 120 MG Cap.CD PO SCH (08:21)
[2019-11-23] MEDS: Aspirin 81 MG Tab.EC PO SCH (08:22)
[2019-11-23] MEDS: Metoprolol Tartrate 50 MG Tab PO SCH ×2 (08:23→20:54)
[2019-11-23] MEDS: Potassium Chloride 20 MEQ Tab.ER PO SCH (08:23)
[2019-11-23] MEDS: Doxycycline 100 MG Cap PO SCH ×2 (08:24→20:56)
[2019-11-23] MEDS: Magnesium Oxide 400 MG Tab PO SCH ×2 (08:24→20:55)
[2019-11-23] MEDS: guaiFENesin/Dextromethorphan 100-10 MG/5 ML Soln 10 ML Cup PO SCH ×3 (08:24→20:53)
[2019-11-23] MEDS: Sertraline 50 MG Tab PO SCH (08:25)
[2019-11-23] MEDS: Morphine 15 MG Tab.ER PO SCH ×2 (08:28→20:53)
[2019-11-23] MEDS: Acetaminophen Soln 650 MG/20.3 ML UD Cup PO SCH ×4 (08:29→20:53)
--- NOTE | 2019-11-23 11:29 | PCM.PN ---
- General Info Date of Service: 11/23/19 Subjective Update: This morning the patient reported that she was not feeling well and had this sense that something was not going right. She felt a little more short of breath but was not having chest pain. She continues to require supplemental oxygen and is currently on 2-1/2 L/min. She feels very weak and fatigued. She did not feel like participating with physical therapy. Early this afternoon she became quite anxious and was noted to be in atrial fibrillation with a rapid ventricular response. She was transferred to the intensive care unit for diltiazem infusion and additional treatment. Functional Status: Reports: Pain Controlled, Tolerating Diet - Review of Systems General: Reports: Weakness. Denies: Fever Pulmonary: Reports: Shortness of Breath - Patient Data Vitals - Most Recent: Last Vital Signs Temp 36.4 C 11/23/19 10:38 Pulse 76 11/23/19 10:38 Resp 18 11/23/19 06:58 BP 164/91 H 11/23/19 10:38 Pulse Ox 92 L 11/23/19 10:38 Weight - Most Recent: 79 kg I&O - Last 24 Hours: Intake & Output 11/22/19 11/23/19 11/23/19 22:59 06:59 14:59 Intake Total 391 955 Balance 391 955 Lab Results Last 24 Hours: Laboratory Results - last 24 hr 11/23/19 11/23/19 11/23/19 Range/Units 05:22 05:22 05:22 WBC 13.7 H (4.5-11.0) K/uL RBC 3.82 (3.30-5.50) M/uL Hgb 11.0 L (12.0-15.0) g/dL Hct 36.6 (36.0-48.0) % MCV 96 (80-98) fL MCH 29 (27-31) pg MCHC 30 L (32-36) % Plt Count 135 L (150-400) K/uL PT 37.7 H (9.5-12.0) sec INR 3.76 H D (0.80-1.20) Sodium 143 (140-148) mmol/L Potassium 4.4 (3.6-5.2) mmol/L Chloride 107 (100-108) mmol/L Carbon Dioxide 31 (21-32) mmol/L Anion Gap 4.9 L (5.0-14.0) mmol/L BUN 13 (7-18) mg/dL Creatinine 0.6 (0.6-1.0) mg/dL Est Cr Clr Drug Dosing 55.97 mL/min Estimated GFR (MDRD) > 60 (>60) Glucose 119 H (74-106) mg/dL Calcium 8.5 (8.5-10.1) mg/dL Mark Results Last 24 Hours: Microbiology 11/19/19 22:05 Aerobic Blood Culture - Preliminary Blood - Arm, Right NO GROWTH AFTER 3 DAYS Anaerobic Blood Culture - Preliminary NO GROWTH AFTER 3 DAYS 11/19/19 21:55 Aerobic Blood Culture - Preliminary Blood - Arm, Right NO GROWTH AFTER 3 DAYS Anaerobic Blood Culture - Preliminary NO GROWTH AFTER 3 DAYS Med Orders - Current: Current Medications Acetaminophen (Tylenol) 960 mg PO TID [facility] Last Admin: 11/23/19 08:29 Dose: Not Given Albuterol/Ipratropium (Duoneb 3.0-0.5 Mg/3 Ml) 3 ml NEB QID [facility] Aspirin (Halfprin) 81 mg PO DAILY [facility] Last Admin: 11/23/19 08:22 Dose: 81 mg Benzonatate (Tessalon Perles) 100 mg PO TID PRN PRN Reason: Cough Last Admin: 11/22/19 19:58 Dose: 100 mg Diltiazem HCl (Cardizem Cd) 240 mg PO DAILY [facility] Last Admin: 11/23/19 08:21 Dose: 240 mg Doxycycline Hyclate (Vibramycin) 100 mg PO Q12H [facility] Last Admin: 11/23/19 08:24 Dose: 100 mg Furosemide (Lasix) 40 mg PO BIDDIURETIC [facility] Last Admin: 11/23/19 08:19 Dose: 40 mg Guaifenesin/Dextromethorphan (Robitussin Dm) 10 ml PO TID [facility] Last Admin: 11/23/19 08:24 Dose: 10 ml Ceftriaxone Sodium 1 gm/ (Sodium Chloride) 50 mls @ 100 mls/hr IV Q24H [facility] Last Admin: 11/22/19 20:01 Dose: 100 mls/hr Lorazepam (Ativan) 0.5 mg PO Q4H PRN PRN Reason: Anxiety Last Admin: 11/23/19 05:01 Dose: 0.5 mg Magnesium Oxide (Magnesium Oxide) 400 mg PO BID [facility] Last Admin: 11/23/19 08:24 Dose: 400 mg Metoprolol Tartrate (Lopressor) 50 mg PO BID [facility] Last Admin: 11/23/19 08:23 Dose: 50 mg Morphine Sulfate (Ms Contin) 15 mg PO BID [facility] Last Admin: 11/23/19 08:28 Dose: 15 mg Morphine Sulfate (Morphine) 15 mg PO Q4H PRN PRN Reason: Pain Last Admin: 11/22/19 06:47 Dose: 15 mg Potassium Chloride (Klor-Con M20) 40 meq PO DAILY [facility] Last Admin: 11/23/19 08:23 Dose: 40 meq Sertraline HCl (Zoloft) 100 mg PO DAILY [facility] Last Admin: 11/23/19 08:25 Dose: 100 mg Sotalol HCl (Betapace) 80 mg PO BID [facility] Last Admin: 11/23/19 08:20 Dose: 80 mg Discontinued Medications Acetaminophen (Tylenol Extra Strength) 1,000 mg PO TID [facility] Last Admin: 11/21/19 09:48 Dose: Not Given Acetaminophen (Tylenol) 650 mg PO ONETIME ONE Stop: 11/20/19 05:25 Last Admin: 11/20/19 05:37 Dose: 650 mg Albuterol/Ipratropium (Duoneb 3.0-0.5 Mg/3 Ml) 3 ml NEB Q4H PRN PRN Reason: Dyspnea Last Admin: 11/23/19 11:05 Dose: 3 ml Bupivacaine HCl (Marcaine 0.5%) Confirm Administered Dose 30 ml .ROUTE .STK-MED ONE Stop: 11/22/19 08:27 Ceftriaxone Sodium (Rocephin) 1 gm IM Q24H [facility] Digoxin (Lanoxin) 125 mcg IVPUSH ONETIME ONE Stop: 11/20/19 17:06 Last Admin: 11/20/19 17:14 Dose: 125 mcg Digoxin (Lanoxin) 125 mcg IVPUSH ONETIME ONE Stop: 11/21/19 08:53 Lactated Ringer's (Ringers, Lactated) 1,000 mls @ 1,000 mls/hr IV BOLUS ONE Stop: 11/19/19 21:46 Last Admin: 11/19/19 21:08 Dose: 1,000 mls/hr Lactated Ringer's (Ringers, Lactated) 1,000 mls @ 125 mls/hr IV ASDIRECTED [facility] Ceftriaxone Sodium 1 gm/ (Sodium Chloride) 50 mls @ 100 mls/hr IV ONETIME ONE Stop: 11/19/19 22:31 Last Admin: 11/19/19 22:21 Dose: 100 mls/hr Sodium Chloride (Normal Saline) 1,000 mls @ 125 mls/hr IV ASDIRECTED [facility] Last Admin: 11/19/19 22:21 Dose: 125 mls/hr Vancomycin HCl 1 gm/ Sodium (Chloride) 250 mls @ 166.667 mls/hr IV Q24H [facility] Last Admin: 11/20/19 02:01 Dose: 166.667 mls/hr Sodium Chloride (Normal Saline) 1,000 mls @ 0 mls/hr IV ASDIRECTED [facility] Last Admin: 11/21/19 08:05 Dose: 25 mls/hr Doxycycline Hyclate 100 mg/ (Sodium Chloride) 100 mls @ 100 mls/hr IV Q12H [facility] Stop: 11/22/19 11:00 Last Admin: 11/22/19 08:40 Dose: 100 mls/hr Diltiazem HCl 100 mg/ Sodium (Chloride) 100 mls @ 5 mls/hr IV TITRATE [facility]; Protocol Last Titration: 11/21/19 09:55 Dose: 5 mg/hr, 5 mls/hr Magnesium Sulfate 2 gm/ Premix 50 mls @ 12.5 mls/hr IV ONETIME ONE Stop: 11/20/19 22:52 Last Admin: 11/20/19 22:46 Dose: 12.5 mls/hr Sodium Chloride (Normal Saline) 500 mls @ 500 mls/hr IV .BOLUS ONE Stop: 11/20/19 21:34 Last Admin: 11/20/19 20:35 Dose: 500 mls/hr Lorazepam (Ativan) 0.5 mg PO Q6H PRN PRN Reason: Anxiety Last Admin: 11/22/19 04:22 Dose: 0.5 mg Metoclopramide HCl (Reglan) 5 mg IVPUSH ONETIME ONE Stop: 11/19/19 20:49 Last Admin: 11/19/19 21:07 Dose: 5 mg Metoprolol Tartrate (Lopressor) 25 mg PO ONETIME ONE Stop: 11/20/19 17:06 Last Admin: 11/20/19 17:18 Dose: 25 mg Phytonadione (Aquamephyton) 10 mg SUBCUT ONETIME ONE Stop: 11/20/19 08:31 Last Admin: 11/20/19 08:06 Dose: 10 mg Potassium Chloride (Klor-Con M20) 20 meq PO DAILY [facility] Last Admin: 11/20/19 08:50 Dose: 20 meq Potassium Chloride (Klor-Con M20) 40 meq PO ONETIME ONE Stop: 11/21/19 17:01 Last Admin: 11/21/19 17:15 Dose: 40 meq Triamcinolone Acetonide (Kenalog-40) Confirm Administered Dose 40 mg .ROUTE .STK -MED ONE Stop: 11/22/19 08:27 Vancomycin HCl (Vancomycin) 1 gm IV .PHARMACY TO DOSE [facility] Stop: 11/20/19 01:01 Warfarin Sodium (Coumadin) 2.5 mg PO ONETIME ONE Stop: 11/21/19 13:01 Last Admin: 11/21/19 13:01 Dose: 2.5 mg Warfarin Sodium (Coumadin) 2 mg PO ONETIME ONE Stop: 11/22/19 13:01 Warfarin Sodium (Coumadin) 4 mg PO ONETIME ONE Stop: 11/22/19 13:01 Last Admin: 11/22/19 13:40 Dose: 4 mg - Exam Quality Assessment: Supplemental Oxygen General: Alert, Oriented, Cooperative, No Acute Distress Neck: Supple, No JVD Lungs: No: Normal Respiratory Effort (mild increase in work of breathing ) Cardiovascular: Regular Rate, Regular Rhythm GI/Abdominal Exam: Soft, No Distention Extremities: No Pedal Edema. No: Increased Warmth Skin: Warm, Dry Psy/Mental Status: Alert, Normal Affect Sepsis Event Note - Evaluation Sepsis Screening Result: No Definite Risk - Focused Exam Vital Signs: Vital Signs Temp Pulse Pulse Resp BP BP Pulse Ox 11/23/19 10:38 36.4 C 76 164/91 H 92 L 11/23/19 08:23 76 184/58 H 11/23/19 08:21 76 184/58 H 11/23/19 08:20 76 184/58 H 11/23/19 06:58 35.7 C L 76 18 184/58 H 93 L 11/23/19 03:00 35.2 C L 68 18 174/58 H 93 L Date Exam was Performed: 11/23/19 Time Exam was Performed: 15:50 - Problem List Review Problem List Initiated/Reviewed/Updated: Yes - My Orders Last 24 Hours: My Active Orders 11/22/19 21:00 Doxycycline [Vibramycin] 100 mg PO Q12H 11/23/19 11:26 CXR [Chest 1V Frontal] [CR] Routine 11/23/19 11:30 Albuterol/Ipratropium [DuoNeb 3.0-0.5 MG/3 ML] 3 ml NEB QID 11/24/19 05:00 CBC W/O DIFF,HEMOGRAM [HEME] Timed (1) INR,PT,PROTHROMBIN TIME [COAG] Timed - Plan Plan:: ASSESSMENT AND PLAN - Left lower lobe pneumonia-complicated by acute respiratory failure with hypoxia. Stable over the past 24 hours. No fevers. Still requiring supplemental oxygen. Extremely weak and no appetite. Cultures negative. Repeat chest x-ray today appeared to show improvement in the pneumonia. -Continue doxycycline and ceftriaxone -supplemental oxygen as needed -Continue scheduled Robitussin and as needed Tessalon -Follow-up cultures Paroxysmal atrial fibrillation with rapid ventricular response-she is back in A. fib with a rapid ventricular response as of this afternoon. -One-time dose of digoxin now, consider repeating later -Diltiazem infusion -Continue beta-criss, sotalol and diltiazem -cardiac monitoring -Hold warfarin with slightly supratherapeutic INR Congestive heart failure-stable so far with no evidence for exacerbation. Stage III chronic kidney disease-kidney function stable. Maintenance issues - - DVT prophylaxis -warfarin - GI prophylaxis -not indicated - Nutrition -regular Disposition -I would anticipate discharge to a [facility] facility for subacute rehab after the hospital stay Miquel Prabhakar M.D.
[2019-11-23] MEDS: Albuterol/Ipratropium 3.0-0.5 MG/3 ML Neb Soln NEB SCH ×3 (11:31→20:55)
[2019-11-23] MEDS ORDERED: Digoxin 500 MCG/2 ML Amp IVPUSH ONE ×2 (14:00→16:38)
[2019-11-23] MEDS: Diltiazem 100 MG in Sodium Chloride 0.9% 100 ML IV SCH ×2 (14:00→21:07)
[2019-11-23] MEDS ORDERED: Diltiazem 25 MG/5 ML SDV IVPUSH ONE ×2 (14:00→15:45)
[2019-11-23] MEDS ORDERED: Furosemide 40 MG/4 ML VIAL IVPUSH ONE (16:55)
[2019-11-23] MEDS ORDERED: LORazepam 2 MG/ML SDV IVPUSH PRN (17:35)
[2019-11-23] MEDS ORDERED: Metoprolol Tartrate 5 MG/5 ML SDV IVPUSH ONE (17:44)
[2019-11-23] MEDS: cefTRIAXone 1 GM in Sodium Chloride 0.9% 50 ML IV SCH (20:55)
[2019-11-24] MEDS: Levalbuterol HCl 1.25 MG/3 ML Neb NEB SCH ×3 (00:30→14:33)
[2019-11-24] MEDS: Diltiazem 100 MG in Sodium Chloride 0.9% 100 ML IV SCH ×2 (02:31→15:34)
[2019-11-24] MEDS: Albuterol/Ipratropium 3.0-0.5 MG/3 ML Neb Soln NEB SCH (07:01)
[2019-11-24] MEDS: LORazepam 0.5 MG Tab PO PRN ×3 (07:50→20:17)
[2019-11-24] MEDS: Furosemide 40 MG Tab PO SCH ×2 (08:03→13:46)
[2019-11-24] MEDS: Sotalol 80 MG Tab PO SCH ×2 (08:04→20:16)
[2019-11-24] MEDS: Diltiazem 120 MG Cap.CD PO SCH (08:06)
[2019-11-24] MEDS: Aspirin 81 MG Tab.EC PO SCH (08:06)
[2019-11-24] MEDS: Potassium Chloride 20 MEQ Tab.ER PO SCH (08:07)
[2019-11-24] MEDS: Metoprolol Tartrate 50 MG Tab PO SCH (08:08)
[2019-11-24] MEDS: Magnesium Oxide 400 MG Tab PO SCH ×2 (08:08→20:18)
[2019-11-24] MEDS: Sertraline 50 MG Tab PO SCH (08:09)
[2019-11-24] MEDS: Doxycycline 100 MG Cap PO SCH ×2 (08:09→20:17)
[2019-11-24] MEDS: guaiFENesin/Dextromethorphan 100-10 MG/5 ML Soln 10 ML Cup PO SCH ×3 (08:09→20:18)
[2019-11-24] MEDS: Acetaminophen Soln 650 MG/20.3 ML UD Cup PO SCH (08:10)
[2019-11-24] MEDS: Morphine 15 MG Tab.ER PO SCH ×2 (08:12→20:17)
[2019-11-24] MEDS ORDERED: Levalbuterol HCl 1.25 MG/3 ML Neb NEB PRN (09:25)
--- NOTE | 2019-11-24 09:28 | PCM.PN ---
- General Info Date of Service: 11/24/19 Subjective Update: No acute events overnight but no significant improvement with the diltiazem infusion. She had remained tachycardic though slightly better. She feels very short of breath. She is tired and weak. Continues to be very frustrated with lack of progression. Did not improve much with diuresis yesterday. She has not had any fevers. Supplemental oxygen requirement is slightly higher today. Still has a loose cough. Not much of an appetite. Cultures have all been negative. Functional Status: Reports: Pain Controlled - Review of Systems General: Reports: Weakness. Denies: Fever Pulmonary: Reports: Shortness of Breath - Patient Data Vitals - Most Recent: Last Vital Signs Temp 36.2 C 11/24/19 07:00 Pulse 112 H 11/24/19 09:00 Resp 19 11/24/19 09:00 BP 123/62 11/24/19 09:00 Pulse Ox 93 L 11/24/19 09:00 Weight - Most Recent: 79 kg I&O - Last 24 Hours: Intake & Output 11/23/19 11/24/19 11/24/19 22:59 06:59 14:59 Intake Total 119 Output Total 1175 Balance -1056 Lab Results Last 24 Hours: Laboratory Results - last 24 hr 11/24/19 11/24/19 Range/Units 04:04 04:04 WBC 13.8 H (4.5-11.0) K/uL RBC 3.58 (3.30-5.50) M/uL Hgb 10.1 L (12.0-15.0) g/dL Hct 33.8 L (36.0-48.0) % MCV 94 (80-98) fL MCH 28 (27-31) pg MCHC 30 L (32-36) % Plt Count 131 L (150-400) K/uL PT 22.0 H (9.5-12.0) sec INR 2.13 H (0.80-1.20) Mark Results Last 24 Hours: Microbiology 11/19/19 21:55 Aerobic Blood Culture - Preliminary Blood - Arm, Right NO GROWTH AFTER 4 DAYS Anaerobic Blood Culture - Preliminary NO GROWTH AFTER 4 DAYS 11/19/19 22:05 Aerobic Blood Culture - Preliminary Blood - Arm, Right NO GROWTH AFTER 4 DAYS Anaerobic Blood Culture - Preliminary NO GROWTH AFTER 4 DAYS Med Orders - Current: Current Medications Aspirin (Halfprin) 81 mg PO DAILY [facility] Last Admin: 11/24/19 08:06 Dose: 81 mg Benzonatate (Tessalon Perles) 100 mg PO TID PRN PRN Reason: Cough Last Admin: 11/22/19 19:58 Dose: 100 mg Diltiazem HCl (Cardizem Cd) 240 mg PO DAILY [facility] Last Admin: 11/24/19 08:06 Dose: 240 mg Doxycycline Hyclate (Vibramycin) 100 mg PO Q12H [facility] Last Admin: 11/24/19 08:09 Dose: 100 mg Furosemide (Lasix) 40 mg PO BIDDIURETIC [facility] Last Admin: 11/24/19 08:03 Dose: 40 mg Guaifenesin/Dextromethorphan (Robitussin Dm) 10 ml PO TID [facility] Last Admin: 11/24/19 08:09 Dose: 10 ml Diltiazem HCl 100 mg/ Sodium (Chloride) 100 mls @ 5 mls/hr IV TITRATE [facility]; Protocol Last Titration: 11/24/19 09:00 Dose: Infused Lorazepam (Ativan) 0.5 mg PO Q4H PRN PRN Reason: Anxiety Last Admin: 11/24/19 07:50 Dose: 0.5 mg Lorazepam (Ativan) 0.5 mg IVPUSH Q4H PRN PRN Reason: Anxiety Last Admin: 11/23/19 17:45 Dose: 0.5 mg Magnesium Oxide (Magnesium Oxide) 400 mg PO BID [facility] Last Admin: 11/24/19 08:08 Dose: 400 mg Metoprolol Tartrate (Lopressor) 50 mg PO BID [facility] Last Admin: 11/24/19 08:08 Dose: 50 mg Morphine Sulfate (Ms Contin) 15 mg PO BID [facility] Last Admin: 11/24/19 08:12 Dose: 15 mg Morphine Sulfate (Morphine) 15 mg PO Q4H PRN PRN Reason: Pain Last Admin: 11/22/19 06:47 Dose: 15 mg Potassium Chloride (Klor-Con M20) 40 meq PO DAILY [facility] Last Admin: 11/24/19 08:07 Dose: 40 meq Sertraline HCl (Zoloft) 100 mg PO DAILY [facility] Last Admin: 11/24/19 08:09 Dose: 100 mg Sotalol HCl (Betapace) 80 mg PO BID [facility] Last Admin: 11/24/19 08:04 Dose: 80 mg Discontinued Medications Acetaminophen (Tylenol Extra Strength) 1,000 mg PO TID [facility] Last Admin: 11/21/19 09:48 Dose: Not Given Acetaminophen (Tylenol) 650 mg PO ONETIME ONE Stop: 11/20/19 05:25 Last Admin: 11/20/19 05:37 Dose: 650 mg Acetaminophen (Tylenol) 960 mg PO TID [facility] Last Admin: 11/24/19 08:10 Dose: Not Given Albuterol/Ipratropium (Duoneb 3.0-0.5 Mg/3 Ml) 3 ml NEB Q4H PRN PRN Reason: Dyspnea Last Admin: 11/23/19 11:05 Dose: 3 ml Albuterol/Ipratropium (Duoneb 3.0-0.5 Mg/3 Ml) 3 ml NEB QIDRT [facility] Last Admin: 11/24/19 07:01 Dose: 3 ml Bupivacaine HCl (Marcaine 0.5%) Confirm Administered Dose 30 ml .ROUTE .STK-MED ONE Stop: 11/22/19 08:27 Ceftriaxone Sodium (Rocephin) 1 gm IM Q24H [facility] Digoxin (Lanoxin) 125 mcg IVPUSH ONETIME ONE Stop: 11/20/19 17:06 Last Admin: 11/20/19 17:14 Dose: 125 mcg Digoxin (Lanoxin) 125 mcg IVPUSH ONETIME ONE Stop: 11/21/19 08:53 Digoxin (Lanoxin) 125 mcg IVPUSH ONETIME ONE Stop: 11/23/19 14:01 Last Admin: 11/23/19 14:01 Dose: 125 mcg Digoxin (Lanoxin) 125 mcg IVPUSH ONETIME ONE Stop: 11/23/19 16:39 Last Admin: 11/23/19 16:55 Dose: 125 mcg Diltiazem HCl (Diltiazem) 15 mg IVPUSH ONETIME ONE Stop: 11/23/19 14:01 Last Admin: 11/23/19 13:53 Dose: 15 mg Diltiazem HCl (Diltiazem) 5 mg IVPUSH ONETIME ONE Stop: 11/23/19 15:46 Last Admin: 11/23/19 15:43 Dose: 5 mg Furosemide (Lasix) 40 mg IVPUSH ONETIME ONE Stop: 11/23/19 16:56 Last Admin: 11/23/19 16:50 Dose: 40 mg Lactated Ringer's (Ringers, Lactated) 1,000 mls @ 1,000 mls/hr IV BOLUS ONE Stop: 11/19/19 21:46 Last Admin: 11/19/19 21:08 Dose: 1,000 mls/hr Lactated Ringer's (Ringers, Lactated) 1,000 mls @ 125 mls/hr IV ASDIRECTED [facility] Ceftriaxone Sodium 1 gm/ (Sodium Chloride) 50 mls @ 100 mls/hr IV ONETIME ONE Stop: 11/19/19 22:31 Last Admin: 11/19/19 22:21 Dose: 100 mls/hr Sodium Chloride (Normal Saline) 1,000 mls @ 125 mls/hr IV ASDIRECTED [facility] Last Admin: 11/19/19 22:21 Dose: 125 mls/hr Vancomycin HCl 1 gm/ Sodium (Chloride) 250 mls @ 166.667 mls/hr IV Q24H [facility] Last Admin: 11/20/19 02:01 Dose: 166.667 mls/hr Ceftriaxone Sodium 1 gm/ (Sodium Chloride) 50 mls @ 100 mls/hr IV Q24H [facility] Last Admin: 11/23/19 20:55 Dose: 100 mls/hr Sodium Chloride (Normal Saline) 1,000 mls @ 0 mls/hr IV ASDIRECTED [facility] Last Admin: 11/21/19 08:05 Dose: 25 mls/hr Doxycycline Hyclate 100 mg/ (Sodium Chloride) 100 mls @ 100 mls/hr IV Q12H [facility] Stop: 11/22/19 11:00 Last Admin: 11/22/19 08:40 Dose: 100 mls/hr Diltiazem HCl 100 mg/ Sodium (Chloride) 100 mls @ 5 mls/hr IV TITRATE [facility]; Protocol Last Titration: 11/21/19 09:55 Dose: 5 mg/hr, 5 mls/hr Magnesium Sulfate 2 gm/ Premix 50 mls @ 12.5 mls/hr IV ONETIME ONE Stop: 11/20/19 22:52 Last Admin: 11/20/19 22:46 Dose: 12.5 mls/hr Sodium Chloride (Normal Saline) 500 mls @ 500 mls/hr IV .BOLUS ONE Stop: 11/20/19 21:34 Last Admin: 11/20/19 20:35 Dose: 500 mls/hr Lorazepam (Ativan) 0.5 mg PO Q6H PRN PRN Reason: Anxiety Last Admin: 11/22/19 04:22 Dose: 0.5 mg Metoclopramide HCl (Reglan) 5 mg IVPUSH ONETIME ONE Stop: 11/19/19 20:49 Last Admin: 11/19/19 21:07 Dose: 5 mg Metoprolol Tartrate (Lopressor) 25 mg PO ONETIME ONE Stop: 11/20/19 17:06 Last Admin: 11/20/19 17:18 Dose: 25 mg Metoprolol Tartrate (Lopressor) 5 mg IVPUSH ONETIME ONE Stop: 11/23/19 17:45 Last Admin: 11/23/19 18:04 Dose: 5 mg Phytonadione (Aquamephyton) 10 mg SUBCUT ONETIME ONE Stop: 11/20/19 08:31 Last Admin: 11/20/19 08:06 Dose: 10 mg Potassium Chloride (Klor-Con M20) 20 meq PO DAILY [facility] Last Admin: 11/20/19 08:50 Dose: 20 meq Potassium Chloride (Klor-Con M20) 40 meq PO ONETIME ONE Stop: 11/21/19 17:01 Last Admin: 11/21/19 17:15 Dose: 40 meq Triamcinolone Acetonide (Kenalog-40) Confirm Administered Dose 40 mg .ROUTE .STK -MED ONE Stop: 11/22/19 08:27 Vancomycin HCl (Vancomycin) 1 gm IV .PHARMACY TO DOSE [facility] Stop: 11/20/19 01:01 Warfarin Sodium (Coumadin) 2.5 mg PO ONETIME ONE Stop: 11/21/19 13:01 Last Admin: 11/21/19 13:01 Dose: 2.5 mg Warfarin Sodium (Coumadin) 2 mg PO ONETIME ONE Stop: 11/22/19 13:01 Warfarin Sodium (Coumadin) 4 mg PO ONETIME ONE Stop: 11/22/19 13:01 Last Admin: 11/22/19 13:40 Dose: 4 mg - Exam Quality Assessment: Supplemental Oxygen General: Alert, Oriented, Cooperative, No Acute Distress Lungs: Normal Respiratory Effort, Crackles (left lung base (mod) and mild right lower lung ). No: Wheezing Cardiovascular: Irregular Rhythm, Tachycardia GI/Abdominal Exam: Soft, No Distention Extremities: No Pedal Edema. No: Increased Warmth Skin: Warm, Dry Psy/Mental Status: Alert, Normal Affect Sepsis Event Note - Evaluation Sepsis Screening Result: Severe Sepsis Risk - Focused Exam Vital Signs: Vital Signs Temp Pulse Pulse Resp BP BP Pulse Ox 11/24/19 09:00 112 H 19 123/62 93 L 11/24/19 08:08 147 H 132/54 L 11/24/19 08:06 143 H 132/54 L 11/24/19 08:04 157 H 133/54 L 11/24/19 08:00 125 H 21 H 132/62 92 L 11/24/19 07:02 147 H 11/24/19 07:00 36.2 C 132 H 14 124/59 L 93 L 11/24/19 06:00 132 H 20 104/57 L 95 11/24/19 05:00 131 H 20 110/57 L 95 11/24/19 04:00 121 H 16 120/76 95 11/24/19 03:00 124 H 18 103/54 L 95 11/24/19 02:00 124 H 20 89/63 L 95 11/24/19 01:00 113 H 16 104/56 L 92 L 11/24/19 00:00 36.7 C 121 H 19 88/53 L 94 L 11/23/19 23:00 128 H 18 93/52 L 97 11/23/19 22:00 20 119/66 93 L Date Exam was Performed: 11/24/19 Time Exam was Performed: 14:25 - Problem List Review Problem List Initiated/Reviewed/Updated: Yes - My Orders Last 24 Hours: My Active Orders 11/23/19 11:26 CXR [Chest 1V Frontal] [CR] Routine 11/23/19 13:05 Telemetry Monitoring [Cardiac Monitoring] [RC] Q6H 11/23/19 13:39 Transfer Patient (Change bed) [ADT] Routine 11/23/19 13:45 Diltiazem [Cardizem] 100 mg Sodium Chloride 0.9% [Normal Saline] 100 ml IV TITRATE 11/23/19 16:38 Urinary Catheter Assessment [RC] ASDIRECTED 11/23/19 16:45 Insert Álvarez Catheter [Insert Urinary Catheter] [OM.PC] Q24H 11/23/19 17:35 LORazepam [Ativan] 0.5 mg IVPUSH Q4H PRN 11/24/19 09:23 Metoprolol Tartrate [Lopressor] 25 mg PO ONETIME ONE 11/24/19 09:25 levalbuterol HCL [Xopenex] 1.25 mg NEB Q2H PRN 11/24/19 09:26 RT Aerosol Therapy [RC] ASDIRECTED 11/24/19 09:30 Cefepime [Maxipime] 1 gm Sodium Chloride 0.9% [Normal Saline] 50 ml IV Q8H 11/24/19 11:00 levalbuterol HCL [Xopenex] 1.25 mg NEB QIDRT 11/24/19 13:00 Warfarin [Coumadin] 1 mg PO DAILY@1300 11/24/19 14:00 Acetaminophen [Tylenol] 650 mg PO TID 11/25/19 05:00 BASIC METABOLIC PANEL,BMP [CHEM] Timed CBC W/O DIFF,HEMOGRAM [HEME] Timed (1) INR,PT,PROTHROMBIN TIME [COAG] Timed - Plan Plan:: ASSESSMENT AND PLAN - Left lower lobe pneumonia-complicated by acute respiratory failure with hypoxia. Slightly worse over the past 24 hours. Supplemental oxygen requirement increasing. Cough is a little bit worse and she is more short of breath. Possibly a component of fluid overload. Unable to use a azithromycin because of medication interactions and unable to use levofloxacin because of allergies so I will continue the doxycycline for some atypical coverage. Family was updated this afternoon and will be coming to visit tomorrow. -Continue doxycycline and start cefepime -Extra dose of furosemide this afternoon -Scheduled and as needed nebulizers -supplemental oxygen as needed -Continue scheduled Robitussin and as needed Tessalon -Follow-up cultures Paroxysmal atrial fibrillation with rapid ventricular response-she is back in A. fib with a rapid ventricular response and has been difficult to rate control though we did do better with the metoprolol then with the diltiazem infusion. -Extra dose of metoprolol this afternoon -Start long-acting metoprolol at increased dose this evening -Wean diltiazem infusion -Continue sotalol and diltiazem -cardiac monitoring -Restart warfarin with lower dose Congestive heart failure-possible mild volume overload in the setting of pneumonia and increased right-sided pressures. -Extra dose of Lasix this afternoon Stage III chronic kidney disease-kidney function stable. Maintenance issues - - DVT prophylaxis -warfarin - GI prophylaxis -not indicated - Nutrition -regular Disposition -I would anticipate discharge to a halfway facility for subacute rehab after the hospital stay Miquel Prabhakar M.D.
[2019-11-24] MEDS ORDERED: Metoprolol Tartrate 25 MG Tab PO ONE (09:50)
[2019-11-24] MEDS: Cefepime 1 GM in Sodium Chloride 0.9% 50 ML IV SCH ×2 (10:02→17:30)
--- NOTE | 2019-11-24 10:06 | CR ---
CHEST: Portable 11/23/2019 at 11:38 AM CLINICAL HISTORY:Shortness of breath COMPARISON:11/19/2019 FINDINGS: There is less than optimal inspiration. Heart is enlarged. Pulmonary vascularity remains cephalized. There is generalized interstitial prominence. The there appears to be some increasing opacification in the left lower lobe. This may represent some pneumonic infiltrate or atelectasis Impression: Cardiomegaly with vascular congestion and interstitial prominence similar to prior study suggesting some underlying CHF Increasing density in the retrocardiac region may represent atelectasis or pneumonic infiltrate.
[2019-11-24] MEDS: Acetaminophen 325 MG Tab PO SCH ×2 (13:47→20:18)
[2019-11-24] MEDS ORDERED: Furosemide 40 MG/4 ML VIAL IVPUSH ONE (14:15)
[2019-11-24] MEDS ORDERED: Metoprolol Tartrate 50 MG Tab PO ONE (15:00)
[2019-11-24] MEDS: Metoprolol Succinate 50 MG Tab.ER PO SCH (20:16)
[2019-11-24] MEDS: Benzonatate 100 MG Cap PO PRN (20:18)
[2019-11-25] MEDS: LORazepam 0.5 MG Tab PO PRN ×2 (00:21→21:15)
[2019-11-25] MEDS: Morphine 15 MG Tab PO PRN (00:21)
[2019-11-25] MEDS: Cefepime 1 GM in Sodium Chloride 0.9% 50 ML IV SCH ×3 (01:28→17:20)
[2019-11-25] MEDS: Diltiazem 100 MG in Sodium Chloride 0.9% 100 ML IV SCH (02:26)
[2019-11-25] MEDS: Levalbuterol HCl 1.25 MG/3 ML Neb NEB SCH ×4 (06:59→20:21)
[2019-11-25] MEDS: Sotalol 80 MG Tab PO SCH ×2 (09:13→20:21)
[2019-11-25] MEDS: Furosemide 40 MG Tab PO SCH (09:13)
[2019-11-25] MEDS: Morphine 15 MG Tab.ER PO SCH ×2 (09:13→20:21)
[2019-11-25] MEDS: Sertraline 50 MG Tab PO SCH (09:13)
[2019-11-25] MEDS: Aspirin 81 MG Tab.EC PO SCH (09:13)
[2019-11-25] MEDS: Potassium Chloride 20 MEQ Tab.ER PO SCH (09:13)
[2019-11-25] MEDS: Doxycycline 100 MG Cap PO SCH ×2 (09:13→20:22)
[2019-11-25] MEDS: guaiFENesin/Dextromethorphan 100-10 MG/5 ML Soln 10 ML Cup PO SCH ×3 (09:13→20:20)
[2019-11-25] MEDS: Magnesium Oxide 400 MG Tab PO SCH ×2 (09:14→20:21)
[2019-11-25] MEDS: Acetaminophen 325 MG Tab PO SCH ×3 (09:14→20:22)
[2019-11-25] MEDS: Diltiazem 120 MG Cap.CD PO SCH (09:14)
[2019-11-25] MEDS: Metoprolol Succinate 50 MG Tab.ER PO SCH ×2 (09:57→20:21)
[2019-11-25] MEDS ORDERED: Diltiazem 120 MG Cap.CD PO ONE (10:10)
--- NOTE | 2019-11-25 10:21 | PCM.PN ---
- General Info Date of Service: 11/25/19 Subjective Update: No acute events overnight. She is now back in sinus rhythm as of this morning. Blood pressures have been stable. Still requiring a fair amount of supplemental oxygen but stable compared to yesterday. No fevers overnight. Patient remains extremely weak. She has a loose cough. She did have a bowel movement last night. Appetite still not very good. Functional Status: Reports: Pain Controlled, Tolerating Diet - Review of Systems General: Reports: Weakness Pulmonary: Reports: Shortness of Breath - Patient Data Vitals - Most Recent: Last Vital Signs Temp 36.1 C 11/25/19 07:00 Pulse 60 11/25/19 10:15 Resp 14 11/25/19 10:00 BP 150/70 H 11/25/19 10:15 Pulse Ox 93 L 11/25/19 10:00 Weight - Most Recent: 79 kg I&O - Last 24 Hours: Intake & Output 11/24/19 11/25/19 11/25/19 22:59 06:59 14:59 Intake Total 206 168 Output Total 1250 Balance -1044 168 Lab Results Last 24 Hours: Laboratory Results - last 24 hr 11/25/19 11/25/19 11/25/19 Range/Units 05:50 05:50 05:50 WBC 13.1 H (4.5-11.0) K/uL RBC 3.55 (3.30-5.50) M/uL Hgb 10.2 L (12.0-15.0) g/dL Hct 33.7 L (36.0-48.0) % MCV 95 (80-98) fL MCH 29 (27-31) pg MCHC 30 L (32-36) % Plt Count 124 L (150-400) K/uL PT 15.2 H (9.5-12.0) sec INR 1.44 H (0.80-1.20) Sodium 144 (140-148) mmol/L Potassium 3.7 (3.6-5.2) mmol/L Chloride 106 (100-108) mmol/L Carbon Dioxide 36 H (21-32) mmol/L Anion Gap 5.7 (5.0-14.0) mmol/L BUN 16 (7-18) mg/dL Creatinine 0.7 (0.6-1.0) mg/dL Est Cr Clr Drug Dosing 47.97 mL/min Estimated GFR (MDRD) > 60 (>60) Glucose 121 H (74-106) mg/dL Calcium 8.3 L (8.5-10.1) mg/dL Mark Results Last 24 Hours: Microbiology 11/19/19 21:55 Aerobic Blood Culture - Final Blood - Arm, Right NO GROWTH AFTER 5 DAYS Anaerobic Blood Culture - Final NO GROWTH AFTER 5 DAYS 11/19/19 22:05 Aerobic Blood Culture - Final Blood - Arm, Right NO GROWTH AFTER 5 DAYS Anaerobic Blood Culture - Final NO GROWTH AFTER 5 DAYS Med Orders - Current: Current Medications Acetaminophen (Tylenol) 650 mg PO TID [facility] Last Admin: 11/25/19 09:14 Dose: 650 mg Aspirin (Halfprin) 81 mg PO DAILY [facility] Last Admin: 11/25/19 09:13 Dose: 81 mg Benzonatate (Tessalon Perles) 100 mg PO TID PRN PRN Reason: Cough Last Admin: 11/24/19 20:18 Dose: 100 mg Diltiazem HCl (Cardizem Cd) 360 mg PO DAILY [facility] Doxycycline Hyclate (Vibramycin) 100 mg PO Q12H [facility] Last Admin: 11/25/19 09:13 Dose: 100 mg Furosemide (Lasix) 40 mg PO BIDDIURETIC [facility] Last Admin: 11/25/19 09:13 Dose: 40 mg Furosemide (Lasix) 40 mg IVPUSH ONETIME ONE Stop: 11/25/19 16:01 Guaifenesin/Dextromethorphan (Robitussin Dm) 10 ml PO TID [facility] Last Admin: 11/25/19 09:13 Dose: 10 ml Cefepime HCl 1 gm/ Sodium (Chloride) 50 mls @ 100 mls/hr IV Q8H [facility] Last Admin: 11/25/19 01:28 Dose: 100 mls/hr Levalbuterol HCl (Xopenex) 1.25 mg NEB QIDRT [facility] Last Admin: 11/25/19 06:59 Dose: 1.25 mg Levalbuterol HCl (Xopenex) 1.25 mg NEB Q2H PRN PRN Reason: shortness of breath/wheezing Lorazepam (Ativan) 0.5 mg PO Q4H PRN PRN Reason: Anxiety Last Admin: 11/25/19 00:21 Dose: 0.5 mg Lorazepam (Ativan) 0.5 mg IVPUSH Q4H PRN PRN Reason: Anxiety Last Admin: 11/23/19 17:45 Dose: 0.5 mg Magnesium Oxide (Magnesium Oxide) 400 mg PO BID [facility] Last Admin: 11/25/19 09:14 Dose: 400 mg Metoprolol Succinate (Toprol Xl) 100 mg PO BID [facility] Last Admin: 11/25/19 09:57 Dose: 100 mg Morphine Sulfate (Ms Contin) 15 mg PO BID [facility] Last Admin: 11/25/19 09:13 Dose: 15 mg Morphine Sulfate (Morphine) 15 mg PO Q4H PRN PRN Reason: Pain Last Admin: 11/25/19 00:21 Dose: 15 mg Potassium Chloride (Klor-Con M20) 40 meq PO DAILY [facility] Last Admin: 11/25/19 09:13 Dose: 40 meq Sertraline HCl (Zoloft) 100 mg PO DAILY [facility] Last Admin: 11/25/19 09:13 Dose: 100 mg Sotalol HCl (Betapace) 80 mg PO BID [facility] Last Admin: 11/25/19 09:13 Dose: 80 mg Warfarin Sodium (Coumadin) 2 mg PO DAILY@1300 [facility] Discontinued Medications Acetaminophen (Tylenol Extra Strength) 1,000 mg PO TID [facility] Last Admin: 11/21/19 09:48 Dose: Not Given Acetaminophen (Tylenol) 650 mg PO ONETIME ONE Stop: 11/20/19 05:25 Last Admin: 11/20/19 05:37 Dose: 650 mg Acetaminophen (Tylenol) 960 mg PO TID [facility] Last Admin: 11/24/19 08:10 Dose: Not Given Albuterol/Ipratropium (Duoneb 3.0-0.5 Mg/3 Ml) 3 ml NEB Q4H PRN PRN Reason: Dyspnea Last Admin: 11/23/19 11:05 Dose: 3 ml Albuterol/Ipratropium (Duoneb 3.0-0.5 Mg/3 Ml) 3 ml NEB QIDRT [facility] Last Admin: 11/24/19 07:01 Dose: 3 ml Bupivacaine HCl (Marcaine 0.5%) Confirm Administered Dose 30 ml .ROUTE .STK-MED ONE Stop: 11/22/19 08:27 Ceftriaxone Sodium (Rocephin) 1 gm IM Q24H [facility] Digoxin (Lanoxin) 125 mcg IVPUSH ONETIME ONE Stop: 11/20/19 17:06 Last Admin: 11/20/19 17:14 Dose: 125 mcg Digoxin (Lanoxin) 125 mcg IVPUSH ONETIME ONE Stop: 11/21/19 08:53 Digoxin (Lanoxin) 125 mcg IVPUSH ONETIME ONE Stop: 11/23/19 14:01 Last Admin: 11/23/19 14:01 Dose: 125 mcg Digoxin (Lanoxin) 125 mcg IVPUSH ONETIME ONE Stop: 11/23/19 16:39 Last Admin: 11/23/19 16:55 Dose: 125 mcg Diltiazem HCl (Cardizem Cd) 240 mg PO DAILY [facility] Last Admin: 11/25/19 09:14 Dose: 240 mg Diltiazem HCl (Diltiazem) 15 mg IVPUSH ONETIME ONE Stop: 11/23/19 14:01 Last Admin: 11/23/19 13:53 Dose: 15 mg Diltiazem HCl (Diltiazem) 5 mg IVPUSH ONETIME ONE Stop: 11/23/19 15:46 Last Admin: 11/23/19 15:43 Dose: 5 mg Diltiazem HCl (Cardizem Cd) 120 mg PO ONETIME ONE Stop: 11/25/19 10:11 Last Admin: 11/25/19 10:15 Dose: 120 mg Furosemide (Lasix) 40 mg IVPUSH ONETIME ONE Stop: 11/23/19 16:56 Last Admin: 11/23/19 16:50 Dose: 40 mg Furosemide (Lasix) 40 mg IVPUSH ONETIME ONE Stop: 11/24/19 14:16 Last Admin: 11/24/19 14:23 Dose: 40 mg Lactated Ringer's (Ringers, Lactated) 1,000 mls @ 1,000 mls/hr IV BOLUS ONE Stop: 11/19/19 21:46 Last Admin: 11/19/19 21:08 Dose: 1,000 mls/hr Lactated Ringer's (Ringers, Lactated) 1,000 mls @ 125 mls/hr IV ASDIRECTED [facility] Ceftriaxone Sodium 1 gm/ (Sodium Chloride) 50 mls @ 100 mls/hr IV ONETIME ONE Stop: 11/19/19 22:31 Last Admin: 11/19/19 22:21 Dose: 100 mls/hr Sodium Chloride (Normal Saline) 1,000 mls @ 125 mls/hr IV ASDIRECTED [facility] Last Admin: 11/19/19 22:21 Dose: 125 mls/hr Vancomycin HCl 1 gm/ Sodium (Chloride) 250 mls @ 166.667 mls/hr IV Q24H [facility] Last Admin: 11/20/19 02:01 Dose: 166.667 mls/hr Ceftriaxone Sodium 1 gm/ (Sodium Chloride) 50 mls @ 100 mls/hr IV Q24H [facility] Last Admin: 11/23/19 20:55 Dose: 100 mls/hr Sodium Chloride (Normal Saline) 1,000 mls @ 0 mls/hr IV ASDIRECTED [facility] Last Admin: 11/21/19 08:05 Dose: 25 mls/hr Doxycycline Hyclate 100 mg/ (Sodium Chloride) 100 mls @ 100 mls/hr IV Q12H [facility] Stop: 11/22/19 11:00 Last Admin: 11/22/19 08:40 Dose: 100 mls/hr Diltiazem HCl 100 mg/ Sodium (Chloride) 100 mls @ 5 mls/hr IV TITRATE [facility]; Protocol Last Titration: 11/21/19 09:55 Dose: 5 mg/hr, 5 mls/hr Magnesium Sulfate 2 gm/ Premix 50 mls @ 12.5 mls/hr IV ONETIME ONE Stop: 11/20/19 22:52 Last Admin: 11/20/19 22:46 Dose: 12.5 mls/hr Sodium Chloride (Normal Saline) 500 mls @ 500 mls/hr IV .BOLUS ONE Stop: 11/20/19 21:34 Last Admin: 11/20/19 20:35 Dose: 500 mls/hr Diltiazem HCl 100 mg/ Sodium (Chloride) 100 mls @ 5 mls/hr IV TITRATE [facility]; Protocol Last Titration: 11/25/19 09:54 Dose: 0 mg/hr, 0 mls/hr Lorazepam (Ativan) 0.5 mg PO Q6H PRN PRN Reason: Anxiety Last Admin: 11/22/19 04:22 Dose: 0.5 mg Metoclopramide HCl (Reglan) 5 mg IVPUSH ONETIME ONE Stop: 11/19/19 20:49 Last Admin: 02/09/20 21:07 Dose: 5 mg Metoprolol Tartrate (Lopressor) 50 mg PO BID [facility] Last Admin: 11/24/19 08:08 Dose: 50 mg Metoprolol Tartrate (Lopressor) 25 mg PO ONETIME ONE Stop: 11/20/19 17:06 Last Admin: 11/20/19 17:18 Dose: 25 mg Metoprolol Tartrate (Lopressor) 5 mg IVPUSH ONETIME ONE Stop: 11/23/19 17:45 Last Admin: 11/23/19 18:04 Dose: 5 mg Metoprolol Tartrate (Lopressor) 25 mg PO ONETIME ONE Stop: 11/24/19 09:51 Last Admin: 11/24/19 10:02 Dose: 25 mg Metoprolol Tartrate (Lopressor) 50 mg PO ONETIME ONE Stop: 11/24/19 15:01 Last Admin: 11/24/19 15:00 Dose: 50 mg Phytonadione (Aquamephyton) 10 mg SUBCUT ONETIME ONE Stop: 11/20/19 08:31 Last Admin: 11/20/19 08:06 Dose: 10 mg Potassium Chloride (Klor-Con M20) 20 meq PO DAILY [facility] Last Admin: 11/20/19 08:50 Dose: 20 meq Potassium Chloride (Klor-Con M20) 40 meq PO ONETIME ONE Stop: 11/21/19 17:01 Last Admin: 11/21/19 17:15 Dose: 40 meq Triamcinolone Acetonide (Kenalog-40) Confirm Administered Dose 40 mg .ROUTE .STK -MED ONE Stop: 11/22/19 08:27 Vancomycin HCl (Vancomycin) 1 gm IV .PHARMACY TO DOSE [facility] Stop: 11/20/19 01:01 Warfarin Sodium (Coumadin) 2.5 mg PO ONETIME ONE Stop: 11/21/19 13:01 Last Admin: 11/21/19 13:01 Dose: 2.5 mg Warfarin Sodium (Coumadin) 4 mg PO ONETIME ONE Stop: 11/22/19 13:01 Last Admin: 11/22/19 13:40 Dose: 4 mg Warfarin Sodium (Coumadin) 1 mg PO DAILY@1300 [facility] Last Admin: 11/24/19 13:45 Dose: 1 mg - Exam Quality Assessment: Supplemental Oxygen General: Alert, Oriented, Cooperative, No Acute Distress Lungs: Normal Respiratory Effort, Crackles (left lung base) Cardiovascular: Regular Rate, Regular Rhythm, No Murmurs GI/Abdominal Exam: Soft, No Distention Extremities: No Pedal Edema. No: Increased Warmth Skin: Warm, Dry Psy/Mental Status: Alert, Normal Affect Sepsis Event Note - Evaluation Sepsis Screening Result: No Definite Risk - Focused Exam Vital Signs: Vital Signs Temp Pulse Pulse Resp BP BP Pulse Ox 11/25/19 10:15 60 150/70 H 11/25/19 10:00 14 150/70 H 93 L 11/25/19 09:57 60 134/51 L 11/25/19 09:14 60 131/50 L 11/25/19 09:13 60 131/50 L 11/25/19 09:00 20 134/51 L 99 11/25/19 08:00 17 131/50 L 100 11/25/19 07:00 36.1 C 60 23 H 126/51 L 99 11/25/19 06:59 60 11/25/19 05:00 18 111/56 L 98 11/25/19 04:00 17 118/59 L 97 11/25/19 03:00 20 130/79 99 11/25/19 02:00 20 119/74 97 11/25/19 01:00 36.2 C 22 H 116/73 99 11/25/19 00:00 15 118/64 99 11/24/19 23:00 24 H 110/61 98 Date Exam was Performed: 11/25/19 Time Exam was Performed: 12:44 - Problem List Review Problem List Initiated/Reviewed/Updated: Yes - My Orders Last 24 Hours: My Active Orders 11/24/19 09:25 levalbuterol HCL [Xopenex] 1.25 mg NEB Q2H PRN 11/24/19 09:26 RT Aerosol Therapy [RC] ASDIRECTED 11/24/19 10:00 Cefepime [Maxipime] 1 gm Sodium Chloride 0.9% [Normal Saline] 50 ml IV Q8H 11/24/19 11:00 levalbuterol HCL [Xopenex] 1.25 mg NEB QIDRT 11/24/19 14:00 Acetaminophen [Tylenol] 650 mg PO TID 11/24/19 21:00 Metoprolol Succinate [Toprol XL] 100 mg PO BID 11/25/19 13:00 Warfarin [Coumadin] 2 mg PO DAILY@1300 11/25/19 16:00 Furosemide [Lasix] 40 mg IVPUSH ONETIME ONE 11/26/19 05:00 BASIC METABOLIC PANEL,BMP [CHEM] Timed CBC W/O DIFF,HEMOGRAM [HEME] Timed (1) INR,PT,PROTHROMBIN TIME [COAG] Timed 11/26/19 09:00 Diltiazem [Cardizem CD] 360 mg PO DAILY - Plan Plan:: ASSESSMENT AND PLAN - Left lower lobe pneumonia-complicated by acute respiratory failure with hypoxia. Stable to slightly improved over the past 24 hours. Lungs are sounding better. Cultures have all been negative. Still mild volume overload. -Continue doxycycline and cefepime -Extra dose of furosemide again this afternoon -Scheduled and as needed nebulizers -supplemental oxygen as needed -Continue scheduled Robitussin and as needed Tessalon -Follow-up cultures Paroxysmal atrial fibrillation with rapid ventricular response-she is now back in sinus rhythm. -Continue long-acting metoprolol with increased doses -Discontinue diltiazem infusion -Continue sotalol and diltiazem (dose increased to 360 mg) -cardiac monitoring -Continue warfarin Congestive heart failure-possible mild volume overload in the setting of pneumonia and increased right-sided pressures. -Extra dose of Lasix this afternoon Stage III chronic kidney disease-kidney function stable. Maintenance issues - - DVT prophylaxis -warfarin - GI prophylaxis -not indicated - Nutrition -regular Disposition -I would anticipate discharge to a senior care facility for subacute rehab after the hospital stay Miquel Prabhakar M.D.
[2019-11-25] MEDS ORDERED: Furosemide 40 MG/4 ML VIAL IVPUSH ONE (16:00)
[2019-11-26] MEDS: Cefepime 1 GM in Sodium Chloride 0.9% 50 ML IV SCH ×3 (01:40→17:59)
[2019-11-26] MEDS: LORazepam 0.5 MG Tab PO PRN ×2 (01:46→21:08)
[2019-11-26] MEDS: Levalbuterol HCl 1.25 MG/3 ML Neb NEB SCH ×4 (07:00→21:10)
--- NOTE | 2019-11-26 09:38 | PCM.PN ---
- General Info Date of Service: 11/26/19 Subjective Update: There were no acute events overnight. She has remained in sinus rhythm. Cough is a little better. Still short of breath but this is a little better. Extremely weak and has not been out of bed. She is not having any fevers. Her mood seems to be improving now that her daughters are here. Kidney function stable. She did have a bowel movement. Functional Status: Reports: Pain Controlled, Tolerating Diet - Review of Systems General: Reports: Weakness. Denies: Fever - Patient Data Vitals - Most Recent: Last Vital Signs Temp 36 C L 11/26/19 06:00 Pulse 60 11/26/19 06:00 Resp 16 11/26/19 06:00 BP 131/56 L 11/26/19 06:00 Pulse Ox 97 11/26/19 06:00 Weight - Most Recent: 79 kg I&O - Last 24 Hours: Intake & Output 11/25/19 11/26/19 11/26/19 22:59 06:59 14:59 Intake Total 135 50 Output Total 450 1000 Balance -315 -950 Lab Results Last 24 Hours: Laboratory Results - last 24 hr 11/26/19 11/26/19 11/26/19 Range/Units 06:01 06:01 06:01 WBC 11.4 H (4.5-11.0) K/uL RBC 3.48 (3.30-5.50) M/uL Hgb 10.0 L (12.0-15.0) g/dL Hct 33.2 L (36.0-48.0) % MCV 95 (80-98) fL MCH 29 (27-31) pg MCHC 30 L (32-36) % Plt Count 125 L (150-400) K/uL PT 14.7 H (9.5-12.0) sec INR 1.39 H (0.80-1.20) Sodium 144 (140-148) mmol/L Potassium 4.2 (3.6-5.2) mmol/L Chloride 105 (100-108) mmol/L Carbon Dioxide 39 H (21-32) mmol/L Anion Gap 4.2 L (5.0-14.0) mmol/L BUN 17 (7-18) mg/dL Creatinine 0.6 (0.6-1.0) mg/dL Est Cr Clr Drug Dosing 55.97 mL/min Estimated GFR (MDRD) > 60 (>60) Glucose 119 H (74-106) mg/dL Calcium 8.3 L (8.5-10.1) mg/dL Med Orders - Current: Current Medications Acetaminophen (Tylenol) 650 mg PO TID [facility] Last Admin: 11/25/19 20:22 Dose: 650 mg Aspirin (Halfprin) 81 mg PO DAILY [facility] Last Admin: 11/25/19 09:13 Dose: 81 mg Benzonatate (Tessalon Perles) 100 mg PO TID PRN PRN Reason: Cough Last Admin: 11/24/19 20:18 Dose: 100 mg Diltiazem HCl (Cardizem Cd) 360 mg PO DAILY [facility] Doxycycline Hyclate (Vibramycin) 100 mg PO Q12H [facility] Last Admin: 11/25/19 20:22 Dose: 100 mg Furosemide (Lasix) 40 mg PO BIDDIURETIC [facility] Last Admin: 11/25/19 09:13 Dose: 40 mg Guaifenesin/Dextromethorphan (Robitussin Dm) 10 ml PO TID [facility] Last Admin: 11/25/19 20:20 Dose: 10 ml Cefepime HCl 1 gm/ Sodium (Chloride) 50 mls @ 100 mls/hr IV Q8H [facility] Last Admin: 11/26/19 01:40 Dose: 100 mls/hr Levalbuterol HCl (Xopenex) 1.25 mg NEB QIDRT [facility] Last Admin: 11/26/19 07:00 Dose: 1.25 mg Levalbuterol HCl (Xopenex) 1.25 mg NEB Q2H PRN PRN Reason: shortness of breath/wheezing Lorazepam (Ativan) 0.5 mg PO Q4H PRN PRN Reason: Anxiety Last Admin: 11/26/19 01:46 Dose: 0.5 mg Lorazepam (Ativan) 0.5 mg IVPUSH Q4H PRN PRN Reason: Anxiety Last Admin: 11/23/19 17:45 Dose: 0.5 mg Magnesium Oxide (Magnesium Oxide) 400 mg PO BID [facility] Last Admin: 11/25/19 20:21 Dose: 400 mg Metoprolol Succinate (Toprol Xl) 100 mg PO BID [facility] Last Admin: 11/25/19 20:21 Dose: 100 mg Morphine Sulfate (Ms Contin) 15 mg PO BID [facility] Last Admin: 11/25/19 20:21 Dose: 15 mg Morphine Sulfate (Morphine) 15 mg PO Q4H PRN PRN Reason: Pain Last Admin: 11/25/19 00:21 Dose: 15 mg Potassium Chloride (Klor-Con M20) 40 meq PO DAILY [facility] Last Admin: 11/25/19 09:13 Dose: 40 meq Sertraline HCl (Zoloft) 100 mg PO DAILY [facility] Last Admin: 11/25/19 09:13 Dose: 100 mg Sotalol HCl (Betapace) 80 mg PO BID [facility] Last Admin: 11/25/19 20:21 Dose: 80 mg Warfarin Sodium (Coumadin) 4 mg PO ONETIME ONE Stop: 11/26/19 13:01 Discontinued Medications Acetaminophen (Tylenol Extra Strength) 1,000 mg PO TID [facility] Last Admin: 11/21/19 09:48 Dose: Not Given Acetaminophen (Tylenol) 650 mg PO ONETIME ONE Stop: 11/20/19 05:25 Last Admin: 11/20/19 05:37 Dose: 650 mg Acetaminophen (Tylenol) 960 mg PO TID [facility] Last Admin: 11/24/19 08:10 Dose: Not Given Albuterol/Ipratropium (Duoneb 3.0-0.5 Mg/3 Ml) 3 ml NEB Q4H PRN PRN Reason: Dyspnea Last Admin: 11/23/19 11:05 Dose: 3 ml Albuterol/Ipratropium (Duoneb 3.0-0.5 Mg/3 Ml) 3 ml NEB QIDRT [facility] Last Admin: 11/24/19 07:01 Dose: 3 ml Bupivacaine HCl (Marcaine 0.5%) Confirm Administered Dose 30 ml .ROUTE .STK-MED ONE Stop: 11/22/19 08:27 Ceftriaxone Sodium (Rocephin) 1 gm IM Q24H [facility] Digoxin (Lanoxin) 125 mcg IVPUSH ONETIME ONE Stop: 11/20/19 17:06 Last Admin: 11/20/19 17:14 Dose: 125 mcg Digoxin (Lanoxin) 125 mcg IVPUSH ONETIME ONE Stop: 11/21/19 08:53 Digoxin (Lanoxin) 125 mcg IVPUSH ONETIME ONE Stop: 11/23/19 14:01 Last Admin: 11/23/19 14:01 Dose: 125 mcg Digoxin (Lanoxin) 125 mcg IVPUSH ONETIME ONE Stop: 11/23/19 16:39 Last Admin: 11/23/19 16:55 Dose: 125 mcg Diltiazem HCl (Cardizem Cd) 240 mg PO DAILY [facility] Last Admin: 11/25/19 09:14 Dose: 240 mg Diltiazem HCl (Diltiazem) 15 mg IVPUSH ONETIME ONE Stop: 11/23/19 14:01 Last Admin: 11/23/19 13:53 Dose: 15 mg Diltiazem HCl (Diltiazem) 5 mg IVPUSH ONETIME ONE Stop: 11/23/19 15:46 Last Admin: 11/23/19 15:43 Dose: 5 mg Diltiazem HCl (Cardizem Cd) 120 mg PO ONETIME ONE Stop: 11/25/19 10:11 Last Admin: 11/25/19 10:15 Dose: 120 mg Furosemide (Lasix) 40 mg IVPUSH ONETIME ONE Stop: 11/23/19 16:56 Last Admin: 11/23/19 16:50 Dose: 40 mg Furosemide (Lasix) 40 mg IVPUSH ONETIME ONE Stop: 11/24/19 14:16 Last Admin: 11/24/19 14:23 Dose: 40 mg Furosemide (Lasix) 40 mg IVPUSH ONETIME ONE Stop: 11/25/19 16:01 Last Admin: 11/25/19 17:20 Dose: 40 mg Lactated Ringer's (Ringers, Lactated) 1,000 mls @ 1,000 mls/hr IV BOLUS ONE Stop: 11/19/19 21:46 Last Admin: 11/19/19 21:08 Dose: 1,000 mls/hr Lactated Ringer's (Ringers, Lactated) 1,000 mls @ 125 mls/hr IV ASDIRECTED [facility] Ceftriaxone Sodium 1 gm/ (Sodium Chloride) 50 mls @ 100 mls/hr IV ONETIME ONE Stop: 11/19/19 22:31 Last Admin: 11/19/19 22:21 Dose: 100 mls/hr Sodium Chloride (Normal Saline) 1,000 mls @ 125 mls/hr IV ASDIRECTED [facility] Last Admin: 11/19/19 22:21 Dose: 125 mls/hr Vancomycin HCl 1 gm/ Sodium (Chloride) 250 mls @ 166.667 mls/hr IV Q24H [facility] Last Admin: 11/20/19 02:01 Dose: 166.667 mls/hr Ceftriaxone Sodium 1 gm/ (Sodium Chloride) 50 mls @ 100 mls/hr IV Q24H [facility] Last Admin: 11/23/19 20:55 Dose: 100 mls/hr Sodium Chloride (Normal Saline) 1,000 mls @ 0 mls/hr IV ASDIRECTED [facility] Last Admin: 11/21/19 08:05 Dose: 25 mls/hr Doxycycline Hyclate 100 mg/ (Sodium Chloride) 100 mls @ 100 mls/hr IV Q12H [facility] Stop: 11/22/19 11:00 Last Admin: 11/22/19 08:40 Dose: 100 mls/hr Diltiazem HCl 100 mg/ Sodium (Chloride) 100 mls @ 5 mls/hr IV TITRATE [facility]; Protocol Last Titration: 11/21/19 09:55 Dose: 5 mg/hr, 5 mls/hr Magnesium Sulfate 2 gm/ Premix 50 mls @ 12.5 mls/hr IV ONETIME ONE Stop: 11/20/19 22:52 Last Admin: 11/20/19 22:46 Dose: 12.5 mls/hr Sodium Chloride (Normal Saline) 500 mls @ 500 mls/hr IV .BOLUS ONE Stop: 11/20/19 21:34 Last Admin: 11/20/19 20:35 Dose: 500 mls/hr Diltiazem HCl 100 mg/ Sodium (Chloride) 100 mls @ 5 mls/hr IV TITRATE [facility]; Protocol Last Titration: 11/25/19 09:54 Dose: 0 mg/hr, 0 mls/hr Lorazepam (Ativan) 0.5 mg PO Q6H PRN PRN Reason: Anxiety Last Admin: 11/22/19 04:22 Dose: 0.5 mg Metoclopramide HCl (Reglan) 5 mg IVPUSH ONETIME ONE Stop: 11/19/19 20:49 Last Admin: 11/19/19 21:07 Dose: 5 mg Metoprolol Tartrate (Lopressor) 50 mg PO BID [facility] Last Admin: 11/24/19 08:08 Dose: 50 mg Metoprolol Tartrate (Lopressor) 25 mg PO ONETIME ONE Stop: 11/20/19 17:06 Last Admin: 11/20/19 17:18 Dose: 25 mg Metoprolol Tartrate (Lopressor) 5 mg IVPUSH ONETIME ONE Stop: 11/23/19 17:45 Last Admin: 11/23/19 18:04 Dose: 5 mg Metoprolol Tartrate (Lopressor) 25 mg PO ONETIME ONE Stop: 11/24/19 09:51 Last Admin: 11/24/19 10:02 Dose: 25 mg Metoprolol Tartrate (Lopressor) 50 mg PO ONETIME ONE Stop: 11/24/19 15:01 Last Admin: 11/24/19 15:00 Dose: 50 mg Phytonadione (Aquamephyton) 10 mg SUBCUT ONETIME ONE Stop: 11/20/19 08:31 Last Admin: 11/20/19 08:06 Dose: 10 mg Potassium Chloride (Klor-Con M20) 20 meq PO DAILY [facility] Last Admin: 11/20/19 08:50 Dose: 20 meq Potassium Chloride (Klor-Con M20) 40 meq PO ONETIME ONE Stop: 11/21/19 17:01 Last Admin: 11/21/19 17:15 Dose: 40 meq Triamcinolone Acetonide (Kenalog-40) Confirm Administered Dose 40 mg .ROUTE .STK -MED ONE Stop: 11/22/19 08:27 Vancomycin HCl (Vancomycin) 1 gm IV .PHARMACY TO DOSE [facility] Stop: 11/20/19 01:01 Warfarin Sodium (Coumadin) 2.5 mg PO ONETIME ONE Stop: 11/21/19 13:01 Last Admin: 11/21/19 13:01 Dose: 2.5 mg Warfarin Sodium (Coumadin) 4 mg PO ONETIME ONE Stop: 11/22/19 13:01 Last Admin: 11/22/19 13:40 Dose: 4 mg Warfarin Sodium (Coumadin) 1 mg PO DAILY@1300 [facility] Last Admin: 11/24/19 13:45 Dose: 1 mg Warfarin Sodium (Coumadin) 2 mg PO DAILY@1300 [facility] Last Admin: 11/25/19 13:13 Dose: 2 mg - Exam Quality Assessment: Supplemental Oxygen General: Alert, Oriented, Cooperative, No Acute Distress Lungs: Normal Respiratory Effort, Crackles (rare left lung base ). No: Wheezing Cardiovascular: Regular Rate, Regular Rhythm, No Murmurs GI/Abdominal Exam: Soft, No Distention Extremities: No Pedal Edema. No: Increased Warmth Skin: Warm, Dry Psy/Mental Status: Alert, Normal Affect Sepsis Event Note - Evaluation Sepsis Screening Result: No Definite Risk - Focused Exam Vital Signs: Vital Signs Temp Pulse Resp BP Pulse Ox 11/26/19 06:00 36 C L 60 16 131/56 L 97 11/26/19 04:00 60 16 119/51 L 97 11/26/19 02:00 36 C L 60 16 105/50 L 96 11/26/19 00:00 60 16 135/64 98 11/25/19 22:00 60 17 129/67 98 Date Exam was Performed: 11/26/19 Time Exam was Performed: 12:43 - Problem List Review Problem List Initiated/Reviewed/Updated: Yes - My Orders Last 24 Hours: My Active Orders 11/26/19 09:00 Diltiazem [Cardizem CD] 360 mg PO DAILY 11/26/19 09:37 Transfer Patient (Change bed) [ADT] Routine Discontinue Telemetry Monitoring [Cardiac Monitoring Discontinue] [RC] Click to Edit 11/26/19 13:00 Warfarin [Coumadin] 4 mg PO ONETIME ONE 11/26/19 16:45 Insert Álvarez Catheter [Insert Urinary Catheter] [OM.PC] Q24H 11/27/19 05:00 BASIC METABOLIC PANEL,BMP [CHEM] Timed CBC W/O DIFF,HEMOGRAM [HEME] Timed (1) INR,PT,PROTHROMBIN TIME [COAG] Timed - Plan Plan:: ASSESSMENT AND PLAN - Left lower lobe pneumonia-complicated by acute respiratory failure with hypoxia. Slowly improving. Cultures negative. Volume status appropriate today. -Continue doxycycline and cefepime -Continue twice daily furosemide -Scheduled and as needed nebulizers -supplemental oxygen as needed -Continue scheduled Robitussin and as needed Tessalon -Follow-up cultures Paroxysmal atrial fibrillation with rapid ventricular response-she has remained in sinus rhythm. -Continue long-acting metoprolol (new medication) -Continue sotalol and diltiazem (dose increased to 360 mg) -Discontinue cardiac monitoring -Continue warfarin Congestive heart failure-volume status appropriate today. -Continue medical management Stage III chronic kidney disease-kidney function stable. Maintenance issues - - DVT prophylaxis -warfarin - GI prophylaxis -not indicated - Nutrition -regular with supplements Disposition -I would [facility] ([facility]) after the hospital stay. She is stable and safe for transfer out of the intensive care unit today. Miquel Prabhakar M.D.
[2019-11-26] MEDS: Sotalol 80 MG Tab PO SCH ×2 (10:01→21:21)
[2019-11-26] MEDS: Metoprolol Succinate 50 MG Tab.ER PO SCH ×2 (10:02→21:18)
[2019-11-26] MEDS: guaiFENesin/Dextromethorphan 100-10 MG/5 ML Soln 10 ML Cup PO SCH ×3 (10:02→21:15)
[2019-11-26] MEDS: Sertraline 50 MG Tab PO SCH (10:02)
[2019-11-26] MEDS: Potassium Chloride 20 MEQ Tab.ER PO SCH (10:03)
[2019-11-26] MEDS: Aspirin 81 MG Tab.EC PO SCH (10:03)
[2019-11-26] MEDS: Furosemide 40 MG Tab PO SCH ×2 (10:04→13:34)
[2019-11-26] MEDS: Diltiazem 120 MG Cap.CD PO SCH (10:04)
[2019-11-26] MEDS: Acetaminophen 325 MG Tab PO SCH ×3 (10:05→21:14)
[2019-11-26] MEDS: Doxycycline 100 MG Cap PO SCH ×2 (10:05→21:18)
[2019-11-26] MEDS: Magnesium Oxide 400 MG Tab PO SCH ×2 (10:07→21:15)
[2019-11-26] MEDS: Morphine 15 MG Tab.ER PO SCH ×2 (10:08→21:13)
[2019-11-27] MEDS: Cefepime 1 GM in Sodium Chloride 0.9% 50 ML IV SCH ×3 (01:20→17:42)
[2019-11-27] MEDS: Levalbuterol HCl 1.25 MG/3 ML Neb NEB SCH ×4 (07:30→21:18)
[2019-11-27] MEDS: Furosemide 40 MG Tab PO SCH ×2 (07:57→15:55)
[2019-11-27] MEDS: Potassium Chloride 20 MEQ Tab.ER PO SCH (09:22)
[2019-11-27] MEDS: Metoprolol Succinate 50 MG Tab.ER PO SCH ×2 (09:22→21:24)
[2019-11-27] MEDS: Diltiazem 120 MG Cap.CD PO SCH (09:22)
[2019-11-27] MEDS: Magnesium Oxide 400 MG Tab PO SCH ×2 (09:23→21:19)
[2019-11-27] MEDS: guaiFENesin/Dextromethorphan 100-10 MG/5 ML Soln 10 ML Cup PO SCH (09:23)
[2019-11-27] MEDS: Aspirin 81 MG Tab.EC PO SCH (09:23)
[2019-11-27] MEDS: Sertraline 50 MG Tab PO SCH (09:23)
[2019-11-27] MEDS: Acetaminophen 325 MG Tab PO SCH ×3 (09:23→21:24)
[2019-11-27] MEDS: Doxycycline 100 MG Cap PO SCH ×2 (09:24→21:25)
[2019-11-27] MEDS: Sotalol 80 MG Tab PO SCH ×2 (09:29→21:19)
[2019-11-27] MEDS: Morphine 15 MG Tab.ER PO SCH ×2 (09:30→21:23)
[2019-11-27] MEDS ORDERED: guaiFENesin/Dextromethorphan 100-10 MG/5 ML Soln 10 ML Cup PO PRN (10:40)
--- NOTE | 2019-11-27 10:43 | PCM.PN ---
- General Info Date of Service: 11/27/19 Subjective Update: There were no acute events overnight. Patient did not sleep well in her new room but not for any particular reason. She feels weak but otherwise feels okay. She is not coughing hardly at all. No complaints of chest pain or abdominal pain. She is on 3 L of supplemental oxygen. Appetite slowly improving. She was able to transfer with assistance from the bed to the commode this morning. Álvarez catheter has been removed. Functional Status: Reports: Pain Controlled, Tolerating Diet - Patient Data Vitals - Most Recent: Last Vital Signs Temp 35.8 C L 11/27/19 07:53 Pulse 66 11/27/19 09:29 Resp 16 11/27/19 07:53 BP 133/68 11/27/19 09:29 Pulse Ox 94 L 11/27/19 07:53 Weight - Most Recent: 79 kg I&O - Last 24 Hours: Intake & Output 11/26/19 11/27/19 11/27/19 22:59 06:59 14:59 Intake Total 470 110 Output Total 600 400 Balance -130 -290 Lab Results Last 24 Hours: Laboratory Results - last 24 hr 11/27/19 11/27/19 11/27/19 Range/Units 04:10 04:10 04:10 WBC 9.5 (4.5-11.0) K/uL RBC 3.49 (3.30-5.50) M/uL Hgb 9.7 L (12.0-15.0) g/dL Hct 33.5 L (36.0-48.0) % MCV 96 (80-98) fL MCH 28 (27-31) pg MCHC 29 L (32-36) % Plt Count 132 L (150-400) K/uL PT 19.3 H (9.5-12.0) sec INR 1.85 H (0.80-1.20) Sodium 145 (140-148) mmol/L Potassium 4.0 (3.6-5.2) mmol/L Chloride 105 (100-108) mmol/L Carbon Dioxide 38 H (21-32) mmol/L Anion Gap 6.0 (5.0-14.0) mmol/L BUN 15 (7-18) mg/dL Creatinine 0.6 (0.6-1.0) mg/dL Est Cr Clr Drug Dosing 55.97 mL/min Estimated GFR (MDRD) > 60 (>60) Glucose 129 H (74-106) mg/dL Calcium 7.9 L (8.5-10.1) mg/dL Med Orders - Current: Current Medications Acetaminophen (Tylenol) 650 mg PO TID [facility] Last Admin: 11/27/19 09:23 Dose: 650 mg Aspirin (Halfprin) 81 mg PO DAILY [facility] Last Admin: 11/27/19 09:23 Dose: 81 mg Benzonatate (Tessalon Perles) 100 mg PO TID PRN PRN Reason: Cough Last Admin: 11/24/19 20:18 Dose: 100 mg Diltiazem HCl (Cardizem Cd) 360 mg PO DAILY [facility] Last Admin: 11/27/19 09:22 Dose: 360 mg Doxycycline Hyclate (Vibramycin) 100 mg PO Q12H [facility] Last Admin: 11/27/19 09:24 Dose: 100 mg Furosemide (Lasix) 40 mg PO BIDDIURETIC [facility] Last Admin: 11/27/19 07:57 Dose: 40 mg Guaifenesin/Dextromethorphan (Robitussin Dm) 10 ml PO QID PRN PRN Reason: Cough Cefepime HCl 1 gm/ Sodium (Chloride) 50 mls @ 100 mls/hr IV Q8H [facility] Last Admin: 11/27/19 10:14 Dose: 100 mls/hr Levalbuterol HCl (Xopenex) 1.25 mg NEB QIDRT [facility] Last Admin: 11/27/19 07:30 Dose: 1.25 mg Levalbuterol HCl (Xopenex) 1.25 mg NEB Q2H PRN PRN Reason: shortness of breath/wheezing Lorazepam (Ativan) 0.5 mg PO Q4H PRN PRN Reason: Anxiety Last Admin: 11/26/19 21:08 Dose: 0.5 mg Lorazepam (Ativan) 0.5 mg IVPUSH Q4H PRN PRN Reason: Anxiety Last Admin: 11/23/19 17:45 Dose: 0.5 mg Magnesium Oxide (Magnesium Oxide) 400 mg PO BID [facility] Last Admin: 11/27/19 09:23 Dose: 400 mg Metoprolol Succinate (Toprol Xl) 100 mg PO BID [facility] Last Admin: 02/17/20 09:22 Dose: 100 mg Morphine Sulfate (Ms Contin) 15 mg PO BID [facility] Last Admin: 11/27/19 09:30 Dose: 15 mg Morphine Sulfate (Morphine) 15 mg PO Q4H PRN PRN Reason: Pain Last Admin: 11/25/19 00:21 Dose: 15 mg Potassium Chloride (Klor-Con M20) 40 meq PO DAILY [facility] Last Admin: 11/27/19 09:22 Dose: 40 meq Sertraline HCl (Zoloft) 100 mg PO DAILY [facility] Last Admin: 11/27/19 09:23 Dose: 100 mg Sotalol HCl (Betapace) 80 mg PO BID [facility] Last Admin: 11/27/19 09:29 Dose: 80 mg Warfarin Sodium (Coumadin) 1.5 mg PO ONETIME ONE Stop: 11/27/19 13:01 Discontinued Medications Acetaminophen (Tylenol Extra Strength) 1,000 mg PO TID [facility] Last Admin: 11/21/19 09:48 Dose: Not Given Acetaminophen (Tylenol) 650 mg PO ONETIME ONE Stop: 11/20/19 05:25 Last Admin: 11/20/19 05:37 Dose: 650 mg Acetaminophen (Tylenol) 960 mg PO TID [facility] Last Admin: 11/24/19 08:10 Dose: Not Given Albuterol/Ipratropium (Duoneb 3.0-0.5 Mg/3 Ml) 3 ml NEB Q4H PRN PRN Reason: Dyspnea Last Admin: 11/23/19 11:05 Dose: 3 ml Albuterol/Ipratropium (Duoneb 3.0-0.5 Mg/3 Ml) 3 ml NEB QIDRT [facility] Last Admin: 11/24/19 07:01 Dose: 3 ml Bupivacaine HCl (Marcaine 0.5%) Confirm Administered Dose 30 ml .ROUTE .STK-MED ONE Stop: 11/22/19 08:27 Ceftriaxone Sodium (Rocephin) 1 gm IM Q24H [facility] Digoxin (Lanoxin) 125 mcg IVPUSH ONETIME ONE Stop: 11/20/19 17:06 Last Admin: 11/20/19 17:14 Dose: 125 mcg Digoxin (Lanoxin) 125 mcg IVPUSH ONETIME ONE Stop: 11/21/19 08:53 Digoxin (Lanoxin) 125 mcg IVPUSH ONETIME ONE Stop: 11/23/19 14:01 Last Admin: 11/23/19 14:01 Dose: 125 mcg Digoxin (Lanoxin) 125 mcg IVPUSH ONETIME ONE Stop: 11/23/19 16:39 Last Admin: 11/23/19 16:55 Dose: 125 mcg Diltiazem HCl (Cardizem Cd) 240 mg PO DAILY [facility] Last Admin: 11/25/19 09:14 Dose: 240 mg Diltiazem HCl (Diltiazem) 15 mg IVPUSH ONETIME ONE Stop: 11/23/19 14:01 Last Admin: 11/23/19 13:53 Dose: 15 mg Diltiazem HCl (Diltiazem) 5 mg IVPUSH ONETIME ONE Stop: 11/23/19 15:46 Last Admin: 11/23/19 15:43 Dose: 5 mg Diltiazem HCl (Cardizem Cd) 120 mg PO ONETIME ONE Stop: 11/25/19 10:11 Last Admin: 11/25/19 10:15 Dose: 120 mg Furosemide (Lasix) 40 mg IVPUSH ONETIME ONE Stop: 11/23/19 16:56 Last Admin: 11/23/19 16:50 Dose: 40 mg Furosemide (Lasix) 40 mg IVPUSH ONETIME ONE Stop: 11/24/19 14:16 Last Admin: 11/24/19 14:23 Dose: 40 mg Furosemide (Lasix) 40 mg IVPUSH ONETIME ONE Stop: 11/25/19 16:01 Last Admin: 11/25/19 17:20 Dose: 40 mg Guaifenesin/Dextromethorphan (Robitussin Dm) 10 ml PO TID [facility] Last Admin: 11/27/19 09:23 Dose: 10 ml Lactated Ringer's (Ringers, Lactated) 1,000 mls @ 1,000 mls/hr IV BOLUS ONE Stop: 11/19/19 21:46 Last Admin: 11/19/19 21:08 Dose: 1,000 mls/hr Lactated Ringer's (Ringers, Lactated) 1,000 mls @ 125 mls/hr IV ASDIRECTED [facility] Ceftriaxone Sodium 1 gm/ (Sodium Chloride) 50 mls @ 100 mls/hr IV ONETIME ONE Stop: 11/19/19 22:31 Last Admin: 11/19/19 22:21 Dose: 100 mls/hr Sodium Chloride (Normal Saline) 1,000 mls @ 125 mls/hr IV ASDIRECTED [facility] Last Admin: 11/19/19 22:21 Dose: 125 mls/hr Vancomycin HCl 1 gm/ Sodium (Chloride) 250 mls @ 166.667 mls/hr IV Q24H [facility] Last Admin: 11/20/19 02:01 Dose: 166.667 mls/hr Ceftriaxone Sodium 1 gm/ (Sodium Chloride) 50 mls @ 100 mls/hr IV Q24H [facility] Last Admin: 11/23/19 20:55 Dose: 100 mls/hr Sodium Chloride (Normal Saline) 1,000 mls @ 0 mls/hr IV ASDIRECTED [facility] Last Admin: 11/21/19 08:05 Dose: 25 mls/hr Doxycycline Hyclate 100 mg/ (Sodium Chloride) 100 mls @ 100 mls/hr IV Q12H [facility] Stop: 11/22/19 11:00 Last Admin: 11/22/19 08:40 Dose: 100 mls/hr Diltiazem HCl 100 mg/ Sodium (Chloride) 100 mls @ 5 mls/hr IV TITRATE [facility]; Protocol Last Titration: 11/21/19 09:55 Dose: 5 mg/hr, 5 mls/hr Magnesium Sulfate 2 gm/ Premix 50 mls @ 12.5 mls/hr IV ONETIME ONE Stop: 11/20/19 22:52 Last Admin: 11/20/19 22:46 Dose: 12.5 mls/hr Sodium Chloride (Normal Saline) 500 mls @ 500 mls/hr IV .BOLUS ONE Stop: 11/20/19 21:34 Last Admin: 11/20/19 20:35 Dose: 500 mls/hr Diltiazem HCl 100 mg/ Sodium (Chloride) 100 mls @ 5 mls/hr IV TITRATE [facility]; Protocol Last Titration: 11/25/19 09:54 Dose: 0 mg/hr, 0 mls/hr Lorazepam (Ativan) 0.5 mg PO Q6H PRN PRN Reason: Anxiety Last Admin: 11/22/19 04:22 Dose: 0.5 mg Metoclopramide HCl (Reglan) 5 mg IVPUSH ONETIME ONE Stop: 11/19/19 20:49 Last Admin: 11/19/19 21:07 Dose: 5 mg Metoprolol Tartrate (Lopressor) 50 mg PO BID [facility] Last Admin: 11/24/19 08:08 Dose: 50 mg Metoprolol Tartrate (Lopressor) 25 mg PO ONETIME ONE Stop: 11/20/19 17:06 Last Admin: 11/20/19 17:18 Dose: 25 mg Metoprolol Tartrate (Lopressor) 5 mg IVPUSH ONETIME ONE Stop: 11/23/19 17:45 Last Admin: 11/23/19 18:04 Dose: 5 mg Metoprolol Tartrate (Lopressor) 25 mg PO ONETIME ONE Stop: 11/24/19 09:51 Last Admin: 11/24/19 10:02 Dose: 25 mg Metoprolol Tartrate (Lopressor) 50 mg PO ONETIME ONE Stop: 11/24/19 15:01 Last Admin: 11/24/19 15:00 Dose: 50 mg Phytonadione (Aquamephyton) 10 mg SUBCUT ONETIME ONE Stop: 11/20/19 08:31 Last Admin: 11/20/19 08:06 Dose: 10 mg Potassium Chloride (Klor-Con M20) 20 meq PO DAILY [facility] Last Admin: 11/20/19 08:50 Dose: 20 meq Potassium Chloride (Klor-Con M20) 40 meq PO ONETIME ONE Stop: 11/21/19 17:01 Last Admin: 11/21/19 17:15 Dose: 40 meq Triamcinolone Acetonide (Kenalog-40) Confirm Administered Dose 40 mg .ROUTE .STK -MED ONE Stop: 11/22/19 08:27 Vancomycin HCl (Vancomycin) 1 gm IV .PHARMACY TO DOSE [facility] Stop: 11/20/19 01:01 Warfarin Sodium (Coumadin) 2.5 mg PO ONETIME ONE Stop: 11/21/19 13:01 Last Admin: 11/21/19 13:01 Dose: 2.5 mg Warfarin Sodium (Coumadin) 4 mg PO ONETIME ONE Stop: 11/22/19 13:01 Last Admin: 11/22/19 13:40 Dose: 4 mg Warfarin Sodium (Coumadin) 1 mg PO DAILY@1300 [facility] Last Admin: 11/24/19 13:45 Dose: 1 mg Warfarin Sodium (Coumadin) 2 mg PO DAILY@1300 [facility] Last Admin: 11/25/19 13:13 Dose: 2 mg Warfarin Sodium (Coumadin) 4 mg PO ONETIME ONE Stop: 11/26/19 13:01 Last Admin: 11/26/19 13:34 Dose: 4 mg - Exam Quality Assessment: Supplemental Oxygen General: Alert, Oriented, Cooperative, No Acute Distress Lungs: Clear to Auscultation, Normal Respiratory Effort, Crackles (Rare left lung base) Cardiovascular: Regular Rate, Regular Rhythm, No Murmurs GI/Abdominal Exam: Soft, No Distention Extremities: No Pedal Edema. No: Increased Warmth Skin: Warm, Dry Psy/Mental Status: Alert, Normal Affect Sepsis Event Note - Evaluation Sepsis Screening Result: No Definite Risk - Focused Exam Vital Signs: Vital Signs Temp Pulse Pulse Resp BP BP Pulse Ox 11/27/19 09:29 66 133/68 11/27/19 09:22 66 133/68 11/27/19 07:53 35.8 C L 60 16 133/68 94 L 11/27/19 07:30 72 11/27/19 03:00 35.3 C L 61 16 135/56 L 95 11/26/19 23:00 35.9 C L 105 H 16 123/44 L 94 L Date Exam was Performed: 11/27/19 Time Exam was Performed: 10:40 - Problem List Review Problem List Initiated/Reviewed/Updated: Yes - My Orders Last 24 Hours: My Active Orders 11/27/19 09:21 DC Álvarez Catheter [Urinary Catheter Removal] [RC] Per Unit Routine 11/27/19 10:40 Dextromethorphan/guaiFENesin [Robitussin DM] 10 ml PO QID PRN 11/27/19 13:00 Warfarin [Coumadin] 1.5 mg PO ONETIME ONE 11/28/19 05:00 BASIC METABOLIC PANEL,BMP [CHEM] Timed CBC W/O DIFF,HEMOGRAM [HEME] Timed (1) INR,PT,PROTHROMBIN TIME [COAG] Timed - Plan Plan:: ASSESSMENT AND PLAN - Left lower lobe pneumonia-complicated by acute respiratory failure with hypoxia. Slowly improving but still quite weak. Cultures negative. Volume status appropriate again today. -Continue doxycycline and cefepime -Continue twice daily furosemide -Scheduled and as needed nebulizers -supplemental oxygen as needed -Physical therapy for weakness Paroxysmal atrial fibrillation with rapid ventricular response-she has remained in sinus rhythm. INR slightly subtherapeutic. -Continue long-acting metoprolol (new medication) -Continue sotalol and diltiazem (dose increased to 360 mg) -Continue warfarin (1.5 mg today) Congestive heart failure-well compensated. -Continue medical management Stage III chronic kidney disease-kidney function stable. Maintenance issues - - DVT prophylaxis -warfarin - GI prophylaxis -not indicated - Nutrition -regular with supplements Disposition -I would anticipate discharge to a halfway facility for subacute rehab ([facility]) after the hospital stay, hopefully in the next day or 2 Miquel Prabhakar M.D.
[2019-11-27] MEDS: LORazepam 0.5 MG Tab PO PRN (15:56)
[2019-11-28] MEDS: Cefepime 1 GM in Sodium Chloride 0.9% 50 ML IV SCH (02:59)
[2019-11-28] MEDS: Levalbuterol HCl 1.25 MG/3 ML Neb NEB SCH ×2 (07:11→11:18)
[2019-11-28] MEDS: Furosemide 40 MG Tab PO SCH (08:32)
[2019-11-28] MEDS: Sertraline 50 MG Tab PO SCH (08:43)
[2019-11-28] MEDS: Magnesium Oxide 400 MG Tab PO SCH (08:44)
[2019-11-28] MEDS: Morphine 15 MG Tab.ER PO SCH (08:44)
[2019-11-28] MEDS: Sotalol 80 MG Tab PO SCH (08:44)
[2019-11-28] MEDS: Aspirin 81 MG Tab.EC PO SCH (08:44)
[2019-11-28] MEDS: Acetaminophen 325 MG Tab PO SCH (08:45)
[2019-11-28] MEDS: Metoprolol Succinate 50 MG Tab.ER PO SCH (08:45)
[2019-11-28] MEDS: Diltiazem 120 MG Cap.CD PO SCH (08:46)
[2019-11-28] MEDS: Potassium Chloride 20 MEQ Tab.ER PO SCH (08:46)
[2019-11-28] MEDS: Doxycycline 100 MG Cap PO SCH (08:46)
[2019-11-28] MEDS ORDERED: Lactobacillus Rhamnosus GG (Probiotic) Cap PO SCH (09:45)
[2019-11-28] MEDS ORDERED: Cefdinir 300 MG Cap PO SCH (09:45)
[2019-11-28 11:28] VITALS: BP 134/56; PULSE 61
--- NOTE | 2019-11-28 12:25 | PCM.DCSUM1 ---
Discharge Summary - Hospital Course Brief History: Ms. Gr is an 89-year-old woman who was admitted through the emergency department with weakness, shortness of breath, and cough, secondary to left lung pneumonia. - Discharge Data Discharge Date: 11/28/19 Discharge Disposition: DC/Tfer to SNF 03 Condition: Stable - Referral to Home Health Primary Care Physician: PCP None - Discharge Diagnosis/Problem(s) (1) Diastolic CHF SNOMED Code(s): 157977996, 075589577 ICD Code: I50.30 - UNSPECIFIED DIASTOLIC (CONGESTIVE) HEART FAILURE Status : Acute Current Visit: Yes (2) Pneumonia SNOMED Code(s): 262684693 ICD Code: J18.9 - PNEUMONIA, UNSPECIFIED ORGANISM Status: Acute Current Visit: Yes Qualifiers: Pneumonia type: due to unspecified organism Laterality: left Lung location: lower lobe of lung Qualified Code(s): J18.9 - Pneumonia, unspecified organism (3) Weakness SNOMED Code(s): 68261935 ICD Code: R53.1 - WEAKNESS Status: Acute Current Visit: Yes (4) Chronic lung disease SNOMED Code(s): 236640132 ICD Code: J98.4 - OTHER DISORDERS OF LUNG Status: Chronic Current Visit: No (5) CKD (chronic kidney disease), stage III SNOMED Code(s): 937242786 ICD Code: N18.3 - CHRONIC KIDNEY DISEASE, STAGE 3 (MODERATE) Status: Chronic Current Visit: No - Patient Summary/Data Consults: Consultations 11/27/19 11:39 PT Evaluation and Treatment [CONS] Routine Please Evaluate and Treat. PT Reason for Consult: Strengthening This query below is only for informational purposes and is not editable. Admission Diagnosis/Problem: Pneumonia Hospital Course: Ms. Gr is an 89-year-old woman who was admitted through the emergency department with weakness, shortness of breath, cough, secondary to left lung pneumonia. Had not felt well over the past 2 weeks with shortness of breath and cough. In addition she reports that she has felt like she was slowly losing ground as far as overall strength and health over the past several months. She had been seen in the clinic and started on a outpatient course of azithromycin. Despite this symptoms progressed and she presented to the emergency department for further evaluation and management. She has a known history of coronary artery disease as well as underlying diastolic congestive heart failure. She is on warfarin because of underlying atrial fibrillation and was found to be supratherapeutic in the emergency department with significant elevation of INR. Chest x-ray showed evidence of a left lung infiltrate and white blood cell count was elevated. Blood cultures were obtained in the emergency department and she was given IV fluids overnight for hydration as well as started on IV antibiotic therapy, with ceftriaxone and doxycycline. Is in atrial fibrillation with rapid ventricular response in the emergency department and was admitted to the ICU and placed on IV diltiazem. She converted to sinus rhythm the following morning but did go back into atrial fibrillation 1 more time during hospitalization. She did not appear to be improving as far as her pneumonia so antibiotic therapy was switched from ceftriaxone to cefepime, after that she is slowly improved. At baseline she does require continuous supplemental oxygen, on admission was noted to be hypoxic but had returned to baseline by the time of discharge. [facility] with an additional 3 days of oral antibiotic therapy with cefdinir and doxycycline. She is extremely weak and will receive restorative physical therapy and Occupational Therapy. It is her strong feeling that she has been progressively losing ground and is nearing end-of- life. We discussed possible hospice consult and she would like to see them for an informational visit, this will be arranged as an outpatient at the [facility]. Activity will be as tolerated and she will remain on a low-sodium diet. Follow-up INR level will be obtained in 2 days. - Patient Instructions Diet: Low Sodium Activity: As Tolerated - Discharge Plan *PRESCRIPTION DRUG MONITORING PROGRAM REVIEWED*: No *COPY OF PRESCRIPTION DRUG MONITORING REPORT IN PATIENT CONNOR: No Prescriptions/Med Rec: Cefdinir [Omnicef] 300 mg PO BID #6 cap Doxycycline [Vibramycin] 100 mg PO Q12H #6 cap Lactobacillus Rhamnosus GG [Culturelle] 1 cap PO BID #60 cap Home Medications: Home Meds Aspirin [Children's Aspirin] 81 mg PO DAILY 02/14/15 [History] Metoprolol Tartrate [Lopressor] 50 mg PO BID 03/30/18 [History] Diltiazem HCl [Diltiazem 24Hr Cd] 240 mg PO DAILY #30 cap.er.24h 07/08/18 [Rx] Albuterol [Proventil HFA] 2 puff INH Q4H PRN #1 inhaler 09/09/18 [Rx] Magnesium Oxide 400 mg PO BID #60 tablet 09/09/18 [Rx] Potassium Chloride [Klor-Con M20] 20 meq PO DAILY #30 tab.er 09/09/18 [Rx] Sotalol [Betapace] 80 mg PO BID #60 tablet 09/09/18 [Rx] Sertraline [Zoloft] 100 mg PO DAILY 10/11/18 [History] Acetaminophen [Tylenol Extra Strength] 1,000 mg PO TID #180 tablet 10/14/18 [Rx] Furosemide [Lasix] 40 mg PO BIDDIURETIC #60 tablet 10/14/18 [Rx] LORazepam [Ativan] 0.5 mg PO Q6H PRN #90 tablet 10/14/18 [Rx] Morphine Sulfate 15 mg PO Q4H PRN #90 tablet 10/14/18 [Rx] Warfarin [Coumadin] 1.5 mg PO MOWEFR 12/07/18 [History] Morphine [MS Contin] 15 mg PO BID 11/19/19 [History] Cefdinir [Omnicef] 300 mg PO BID #6 cap 11/28/19 [Rx] Doxycycline [Vibramycin] 100 mg PO Q12H #6 cap 11/28/19 [Rx] Lactobacillus Rhamnosus GG [Culturelle] 1 cap PO BID #60 cap 11/28/19 [Rx] Warfarin [Coumadin] 1 mg PO ASDIRECTED #100 11/28/19 [Rx] Oxygen Therapy Mode: Nasal Cannula Oxygen Flow Rate (L/min): 2 Maintain SpO2% greater than: 90 - Discharge Summary/Plan Comment DC Time >30 min.: No - Patient Data Vitals - Most Recent: Last Vital Signs Temp 95.5 F L 11/28/19 11:25 Pulse 61 11/28/19 11:25 Resp 16 11/28/19 11:25 BP 134/56 L 11/28/19 11:25 Pulse Ox 92 L 11/28/19 11:25 Weight - Most Recent: 174 lb 2.643 oz I&O - Last 24 hours: Intake & Output 11/27/19 11/28/19 11/28/19 22:59 06:59 14:59 Intake Total 170 200 360 Balance 170 200 360 Lab Results - Last 24 hrs: Laboratory Results - last 24 hr 11/28/19 11/28/19 11/28/19 Range/Units 05:38 05:38 05:38 WBC 8.8 (4.5-11.0) K/uL RBC 3.43 (3.30-5.50) M/uL Hgb 9.6 L (12.0-15.0) g/dL Hct 33.0 L (36.0-48.0) % MCV 96 (80-98) fL MCH 28 (27-31) pg MCHC 29 L (32-36) % Plt Count 126 L (150-400) K/uL PT 23.4 H (9.5-12.0) sec INR 2.27 H (0.80-1.20) Sodium 145 (140-148) mmol/L Potassium 3.8 (3.6-5.2) mmol/L Chloride 103 (100-108) mmol/L Carbon Dioxide 39 H (21-32) mmol/L Anion Gap 6.8 (5.0-14.0) mmol/L BUN 14 (7-18) mg/dL Creatinine 0.6 (0.6-1.0) mg/dL Est Cr Clr Drug Dosing 55.97 mL/min Estimated GFR (MDRD) > 60 (>60) Glucose 144 H (74-106) mg/dL Calcium 8.2 L (8.5-10.1) mg/dL Med Orders - Current: Current Medications Acetaminophen (Tylenol) 650 mg PO TID [facility] Last Admin: 11/28/19 08:45 Dose: 650 mg Aspirin (Halfprin) 81 mg PO DAILY [facility] Last Admin: 11/28/19 08:44 Dose: 81 mg Benzonatate (Tessalon Perles) 100 mg PO TID PRN PRN Reason: Cough Last Admin: 11/24/19 20:18 Dose: 100 mg Cefdinir (Omnicef) 300 mg PO BID [facility] Last Admin: 11/28/19 10:10 Dose: 300 mg Diltiazem HCl (Cardizem Cd) 360 mg PO DAILY [facility] Last Admin: 11/28/19 08:46 Dose: 360 mg Doxycycline Hyclate (Vibramycin) 100 mg PO Q12H [facility] Last Admin: 11/28/19 08:46 Dose: 100 mg Furosemide (Lasix) 40 mg PO BIDDIURETIC [facility] Last Admin: 11/28/19 08:32 Dose: 40 mg Guaifenesin/Dextromethorphan (Robitussin Dm) 10 ml PO QID PRN PRN Reason: Cough Lactobacillus Rhamnosus (Culturelle) 1 cap PO BID [facility] Last Admin: 11/28/19 10:10 Dose: 1 cap Levalbuterol HCl (Xopenex) 1.25 mg NEB QIDRT [facility] Last Admin: 11/28/19 11:18 Dose: Not Given Levalbuterol HCl (Xopenex) 1.25 mg NEB Q2H PRN PRN Reason: shortness of breath/wheezing Lorazepam (Ativan) 0.5 mg PO Q4H PRN PRN Reason: Anxiety Last Admin: 11/27/19 15:56 Dose: 0.5 mg Lorazepam (Ativan) 0.5 mg IVPUSH Q4H PRN PRN Reason: Anxiety Last Admin: 11/23/19 17:45 Dose: 0.5 mg Magnesium Oxide (Magnesium Oxide) 400 mg PO BID [facility] Last Admin: 11/28/19 08:44 Dose: 400 mg Metoprolol Succinate (Toprol Xl) 100 mg PO BID [facility] Last Admin: 11/28/19 08:45 Dose: 100 mg Morphine Sulfate (Ms Contin) 15 mg PO BID [facility] Last Admin: 11/28/19 08:44 Dose: 15 mg Morphine Sulfate (Morphine) 15 mg PO Q4H PRN PRN Reason: Pain Last Admin: 11/25/19 00:21 Dose: 15 mg Potassium Chloride (Klor-Con M20) 40 meq PO DAILY [facility] Last Admin: 11/28/19 08:46 Dose: 40 meq Sertraline HCl (Zoloft) 100 mg PO DAILY [facility] Last Admin: 11/28/19 08:43 Dose: 100 mg Sotalol HCl (Betapace) 80 mg PO BID [facility] Last Admin: 11/28/19 08:44 Dose: 80 mg Discontinued Medications Acetaminophen (Tylenol Extra Strength) 1,000 mg PO TID [facility] Last Admin: 11/21/19 09:48 Dose: Not Given Acetaminophen (Tylenol) 650 mg PO ONETIME ONE Stop: 11/20/19 05:25 Last Admin: 11/20/19 05:37 Dose: 650 mg Acetaminophen (Tylenol) 960 mg PO TID [facility] Last Admin: 11/24/19 08:10 Dose: Not Given Albuterol/Ipratropium (Duoneb 3.0-0.5 Mg/3 Ml) 3 ml NEB Q4H PRN PRN Reason: Dyspnea Last Admin: 11/23/19 11:05 Dose: 3 ml Albuterol/Ipratropium (Duoneb 3.0-0.5 Mg/3 Ml) 3 ml NEB QIDRT [facility] Last Admin: 11/24/19 07:01 Dose: 3 ml Bupivacaine HCl (Marcaine 0.5%) Confirm Administered Dose 30 ml .ROUTE .STK-MED ONE Stop: 11/22/19 08:27 Ceftriaxone Sodium (Rocephin) 1 gm IM Q24H [facility] Digoxin (Lanoxin) 125 mcg IVPUSH ONETIME ONE Stop: 11/20/19 17:06 Last Admin: 11/20/19 17:14 Dose: 125 mcg Digoxin (Lanoxin) 125 mcg IVPUSH ONETIME ONE Stop: 11/21/19 08:53 Digoxin (Lanoxin) 125 mcg IVPUSH ONETIME ONE Stop: 11/23/19 14:01 Last Admin: 11/23/19 14:01 Dose: 125 mcg Digoxin (Lanoxin) 125 mcg IVPUSH ONETIME ONE Stop: 11/23/19 16:39 Last Admin: 11/23/19 16:55 Dose: 125 mcg Diltiazem HCl (Cardizem Cd) 240 mg PO DAILY [facility] Last Admin: 11/25/19 09:14 Dose: 240 mg Diltiazem HCl (Diltiazem) 15 mg IVPUSH ONETIME ONE Stop: 11/23/19 14:01 Last Admin: 11/23/19 13:53 Dose: 15 mg Diltiazem HCl (Diltiazem) 5 mg IVPUSH ONETIME ONE Stop: 11/23/19 15:46 Last Admin: 11/23/19 15:43 Dose: 5 mg Diltiazem HCl (Cardizem Cd) 120 mg PO ONETIME ONE Stop: 11/25/19 10:11 Last Admin: 11/25/19 10:15 Dose: 120 mg Furosemide (Lasix) 40 mg IVPUSH ONETIME ONE Stop: 11/23/19 16:56 Last Admin: 11/23/19 16:50 Dose: 40 mg Furosemide (Lasix) 40 mg IVPUSH ONETIME ONE Stop: 11/24/19 14:16 Last Admin: 11/24/19 14:23 Dose: 40 mg Furosemide (Lasix) 40 mg IVPUSH ONETIME ONE Stop: 11/25/19 16:01 Last Admin: 11/25/19 17:20 Dose: 40 mg Guaifenesin/Dextromethorphan (Robitussin Dm) 10 ml PO TID [facility] Last Admin: 11/27/19 09:23 Dose: 10 ml Lactated Ringer's (Ringers, Lactated) 1,000 mls @ 1,000 mls/hr IV BOLUS ONE Stop: 11/19/19 21:46 Last Admin: 11/19/19 21:08 Dose: 1,000 mls/hr Lactated Ringer's (Ringers, Lactated) 1,000 mls @ 125 mls/hr IV ASDIRECTED [facility] Ceftriaxone Sodium 1 gm/ (Sodium Chloride) 50 mls @ 100 mls/hr IV ONETIME ONE Stop: 11/19/19 22:31 Last Admin: 11/19/19 22:21 Dose: 100 mls/hr Sodium Chloride (Normal Saline) 1,000 mls @ 125 mls/hr IV ASDIRECTED [facility] Last Admin: 11/19/19 22:21 Dose: 125 mls/hr Vancomycin HCl 1 gm/ Sodium (Chloride) 250 mls @ 166.667 mls/hr IV Q24H [facility] Last Admin: 11/20/19 02:01 Dose: 166.667 mls/hr Ceftriaxone Sodium 1 gm/ (Sodium Chloride) 50 mls @ 100 mls/hr IV Q24H [facility] Last Admin: 11/23/19 20:55 Dose: 100 mls/hr Sodium Chloride (Normal Saline) 1,000 mls @ 0 mls/hr IV ASDIRECTED [facility] Last Admin: 11/21/19 08:05 Dose: 25 mls/hr Doxycycline Hyclate 100 mg/ (Sodium Chloride) 100 mls @ 100 mls/hr IV Q12H [facility] Stop: 11/22/19 11:00 Last Admin: 11/22/19 08:40 Dose: 100 mls/hr Diltiazem HCl 100 mg/ Sodium (Chloride) 100 mls @ 5 mls/hr IV TITRATE [facility]; Protocol Last Titration: 11/21/19 09:55 Dose: 5 mg/hr, 5 mls/hr Magnesium Sulfate 2 gm/ Premix 50 mls @ 12.5 mls/hr IV ONETIME ONE Stop: 11/20/19 22:52 Last Admin: 11/20/19 22:46 Dose: 12.5 mls/hr Sodium Chloride (Normal Saline) 500 mls @ 500 mls/hr IV .BOLUS ONE Stop: 11/20/19 21:34 Last Admin: 11/20/19 20:35 Dose: 500 mls/hr Diltiazem HCl 100 mg/ Sodium (Chloride) 100 mls @ 5 mls/hr IV TITRATE [facility]; Protocol Last Titration: 11/25/19 09:54 Dose: 0 mg/hr, 0 mls/hr Cefepime HCl 1 gm/ Sodium (Chloride) 50 mls @ 100 mls/hr IV Q8H [facility] Last Admin: 11/28/19 02:59 Dose: Not Given Lorazepam (Ativan) 0.5 mg PO Q6H PRN PRN Reason: Anxiety Last Admin: 11/22/19 04:22 Dose: 0.5 mg Metoclopramide HCl (Reglan) 5 mg IVPUSH ONETIME ONE Stop: 11/19/19 20:49 Last Admin: 11/19/19 21:07 Dose: 5 mg Metoprolol Tartrate (Lopressor) 50 mg PO BID [facility] Last Admin: 11/24/19 08:08 Dose: 50 mg Metoprolol Tartrate (Lopressor) 25 mg PO ONETIME ONE Stop: 11/20/19 17:06 Last Admin: 11/20/19 17:18 Dose: 25 mg Metoprolol Tartrate (Lopressor) 5 mg IVPUSH ONETIME ONE Stop: 11/23/19 17:45 Last Admin: 11/23/19 18:04 Dose: 5 mg Metoprolol Tartrate (Lopressor) 25 mg PO ONETIME ONE Stop: 11/24/19 09:51 Last Admin: 11/24/19 10:02 Dose: 25 mg Metoprolol Tartrate (Lopressor) 50 mg PO ONETIME ONE Stop: 11/24/19 15:01 Last Admin: 11/24/19 15:00 Dose: 50 mg Phytonadione (Aquamephyton) 10 mg SUBCUT ONETIME ONE Stop: 11/20/19 08:31 Last Admin: 11/20/19 08:06 Dose: 10 mg Potassium Chloride (Klor-Con M20) 20 meq PO DAILY [facility] Last Admin: 11/20/19 08:50 Dose: 20 meq Potassium Chloride (Klor-Con M20) 40 meq PO ONETIME ONE Stop: 11/21/19 17:01 Last Admin: 11/21/19 17:15 Dose: 40 meq Triamcinolone Acetonide (Kenalog-40) Confirm Administered Dose 40 mg .ROUTE .STK -MED ONE Stop: 11/22/19 08:27 Vancomycin HCl (Vancomycin) 1 gm IV .PHARMACY TO DOSE [facility] Stop: 11/20/19 01:01 Warfarin Sodium (Coumadin) 2.5 mg PO ONETIME ONE Stop: 11/21/19 13:01 Last Admin: 11/21/19 13:01 Dose: 2.5 mg Warfarin Sodium (Coumadin) 4 mg PO ONETIME ONE Stop: 11/22/19 13:01 Last Admin: 11/22/19 13:40 Dose: 4 mg Warfarin Sodium (Coumadin) 1 mg PO DAILY@1300 [facility] Last Admin: 11/24/19 13:45 Dose: 1 mg Warfarin Sodium (Coumadin) 2 mg PO DAILY@1300 [facility] Last Admin: 11/25/19 13:13 Dose: 2 mg Warfarin Sodium (Coumadin) 4 mg PO ONETIME ONE Stop: 11/26/19 13:01 Last Admin: 11/26/19 13:34 Dose: 4 mg Warfarin Sodium (Coumadin) 1.5 mg PO ONETIME ONE Stop: 11/27/19 13:01 Last Admin: 11/27/19 14:16 Dose: 1.5 mg - Exam Quality Assessment: Reports: DVT Prophylaxis General: Reports: Alert, Oriented, Cooperative, Mild Distress Lungs: Reports: Decreased Breath Sounds. Denies: Rales, Rhonchi, Rub, Wheezing Cardiovascular: Reports: Regular Rate, No Murmurs, Irregular Rhythm GI/Abdominal Exam: Soft, Non-Tender, No Organomegaly, No Distention Extremities: Non-Tender, No Pedal Edema
== END 2019-11-28 13:40 | DRG 193 ==
LOC: JP.ED 19:50 → JP.MS 23:23 → JP.ICU 11-20 08:15 → JP.MS 11-22 14:02 → JP.ICU 11-23 13:39 → JP.MS 11-26 14:09
PROVIDERS: ADMIT Family Medicine; ATTEND Internal Medicine
DX: J18.9 Pneumonia, unspecified organism (principal); R53.1 Weakness; R63.0 Anorexia; D68.9 Coagulation defect, unspecified; J96.01 Acute respiratory failure with hypoxia; I48.91 Unspecified atrial fibrillation; I48.20 Chronic atrial fibrillation, unspecified; I10 Essential (primary) hypertension; E78.00 Pure hypercholesterolemia, unspecified; I13.0 Hypertensive heart and chronic kidney disease with heart failure and stage 1 through stage 4 chronic kidney disease, or unspecified chronic kidney disease; I50.30 Unspecified diastolic (congestive) heart failure; I25.10 Atherosclerotic heart disease of native coronary artery without angina pectoris; I48.0 Paroxysmal atrial fibrillation; N18.3 Chronic kidney disease, stage 3 (moderate); R79.1 Abnormal coagulation profile; D64.9 Anemia, unspecified; Z87.01 Personal history of pneumonia (recurrent); G47.30 Sleep apnea, unspecified; E78.5 Hyperlipidemia, unspecified; H91.90 Unspecified hearing loss, unspecified ear; M54.9 Dorsalgia, unspecified; G89.29 Other chronic pain; F41.9 Anxiety disorder, unspecified; Z95.5 Presence of coronary angioplasty implant and graft; F32.9 Major depressive disorder, single episode, unspecified; M19.91 Primary osteoarthritis, unspecified site; Z88.0 Allergy status to penicillin; Z88.1 Allergy status to other antibiotic agents; Z88.8 Allergy status to other drugs, medicaments and biological substances; Z79.82 Long term (current) use of aspirin; Z79.51 Long term (current) use of inhaled steroids; Z79.899 Other long term (current) drug therapy; Z90.89 Acquired absence of other organs; Z90.49 Acquired absence of other specified parts of digestive tract; Z90.710 Acquired absence of both cervix and uterus; Z90.721 Acquired absence of ovaries, unilateral; Z90.79 Acquired absence of other genital organ(s); Z79.01 Long term (current) use of anticoagulants; Z95.0 Presence of cardiac pacemaker
CPT/HCPCS: 36415; 71046; 80053; 81001; 84484; 85027; 85610; 87040 ×2; 96361; 96365; 96375; 99284; 99285; J0696; J2765; J7030; J7050; J7120; 51702; 71045; 71045-26; 80048; 83605; 83735; 94640; 94667; 94668; 97162-GP; 97530-GP; A9270-GY; J0692; J1160; J1940; J2060; J3301; J3370; J3430; J3475; J3490; J7040; J7612-GY; J7620-GY

== ENCOUNTER 2019-12-20 09:32 | Inpatient (IN) | payer MEDICARE, OTHER ==
[2019-12-20] MEDS ORDERED: Sodium Chloride 0.9% 10 ML Syringe FLUSH PRN (09:34)
--- NOTE | 2019-12-20 09:40 | EDM.PDOC ---
ED HPI GENERAL MEDICAL PROBLEM - General Chief Complaint: Respiratory Problem Stated Complaint: MEDICAL VIA [facility] Time Seen by Provider: 12/20/19 09:35 Source of Information: Reports: Patient, EMS, Old Records, RN History Limitations: Reports: No Limitations - History of Present Illness INITIAL COMMENTS - FREE TEXT/NARRATIVE: 89 yo female [facility] patient has been ill since Wednesday. Is being tx'd for her respiratory sx's with Tamiflu and not getting better. It sounds like she was dx with flu based on sx's and was not tested. Calli thinks she has been running a fever and feels like she has some wheezing and chest tightness. Didn't take her morning meds due to nausea, vomiting. Onset: Gradual Onset Date: 12/18/19 Duration: Day(s):, Getting Worse Location: Reports: Chest Quality: Reports: Other (tightness) Severity: Moderate Improves with: Reports: None Worsens with: Reports: Other (time) Context: Reports: Other (See HPI) Associated Symptoms: Reports: Cough, Fever/Chills, Malaise, Shortness of Breath , Weakness. Denies: Nausea/Vomiting Treatments FOLLOW UP MANAGER: Reports: Other (see below) (Tamiflu) Generalized Pain Score (Numeric/FACES): 9 - Related Data Allergies Allergy/AdvReac Type Severity Reaction Status Date / Time amiodarone Allergy Cannot Verified 11/19/19 21:20 Remember levofloxacin [From Levaquin] Allergy Rash Verified 11/19/19 21:20 Penicillins Allergy Rash Verified 11/19/19 21:20 propoxyphene napsylate Allergy Rash Verified 11/19/19 21:20 [From Darvocet-N] Home Meds: Home Meds Aspirin [Children's Aspirin] 81 mg PO DAILY 02/14/15 [History] Metoprolol Tartrate [Lopressor] 50 mg PO BID 03/30/18 [History] Diltiazem HCl [Diltiazem 24Hr Cd] 240 mg PO DAILY #30 cap.er.24h 07/08/18 [Rx] Albuterol [Proventil HFA] 2 puff INH Q4H PRN #1 inhaler 09/09/18 [Rx] Magnesium Oxide 400 mg PO BID #60 tablet 09/09/18 [Rx] Potassium Chloride [Klor-Con M20] 20 meq PO DAILY #30 tab.er 09/09/18 [Rx] Sotalol [Betapace] 80 mg PO BID #60 tablet 09/09/18 [Rx] Sertraline [Zoloft] 100 mg PO DAILY 10/11/18 [History] Acetaminophen [Tylenol Extra Strength] 1,000 mg PO TID #180 tablet 10/14/18 [Rx] Furosemide [Lasix] 40 mg PO BIDDIURETIC #60 tablet 10/14/18 [Rx] LORazepam [Ativan] 0.5 mg PO Q6H PRN #90 tablet 10/14/18 [Rx] Morphine Sulfate 15 mg PO Q4H PRN #90 tablet 10/14/18 [Rx] Warfarin [Coumadin] 1.5 mg PO MOWEFR 12/07/18 [History] Morphine [MS Contin] 15 mg PO BID 11/19/19 [History] Cefdinir [Omnicef] 300 mg PO BID #6 cap 11/28/19 [Rx] Doxycycline [Vibramycin] 100 mg PO Q12H #6 cap 11/28/19 [Rx] Lactobacillus Rhamnosus GG [Culturelle] 1 cap PO BID #60 cap 11/28/19 [Rx] Warfarin [Coumadin] 1 mg PO ASDIRECTED #100 11/28/19 [Rx] Past Medical History HEENT History: Reports: Hard of Hearing Cardiovascular History: Reports: Afib, CAD, High Cholesterol, Hypertension, Pacemaker Respiratory History: Reports: Bronchitis, Recurrent, Pneumonia, Recurrent, Sleep Apnea, Other (See Below) Other Respiratory History: 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 but was told recently that needs to wear it 03/05; had sleep study and was told she stopped breathing alot but doesn't have sleep apnea, just to wear O2 Gastrointestinal History: Reports: Diverticulosis Genitourinary History: Reports: Other (See Below) Other Genitourinary History: growth on the end of meatus Musculoskeletal History: Reports: Back Pain, Chronic, Other (See Below) Other Musculoskeletal History: epicdural injections Psychiatric History: Reports: Anxiety, Depression Hematologic History: Reports: Anemia Dermatologic History: Reports: Other (See Below) Other Dermatologic History: neuro dermatitis, shingles - Infectious Disease History Infectious Disease History: Reports: Chicken Pox, Measles, Mumps - Past Surgical History Head Surgeries/Procedures: Reports: None HEENT Surgical History: Reports: Tonsillectomy Cardiovascular Surgical History: Reports: Coronary Artery Stent Respiratory Surgical History: Reports: None GI Surgical History: Reports: Appendectomy, Colon Female Surgical History: Reports: Hysterectomy, Salpingo-Oophorectomy Musculoskeletal Surgical History: Reports: None Social & Family History - Family History Family Medical History: Noncontributory - Caffeine Use Caffeine Use: Reports: Tea ED ROS GENERAL - Review of Systems Review Of Systems: See Below Constitutional: Reports: Fever, Chills, Malaise, Weakness HEENT: Reports: No Symptoms Respiratory: Reports: Shortness of Breath, Wheezing, Cough. Denies: Pleuritic Chest Pain, Sputum, Hemoptysis Cardiovascular: Reports: No Symptoms GI/Abdominal: Reports: No Symptoms : Reports: No Symptoms Musculoskeletal: Reports: No Symptoms Skin: Reports: No Symptoms Neurological: Reports: No Symptoms ED EXAM, GENERAL - Physical Exam Exam: See Below Exam Limited By: No Limitations General Appearance: Alert, WD/WN, Mild Distress Eye Exam: Bilateral Eye: Normal Inspection, Other (pale conjunctivas) Ears: Normal External Exam, Normal Canal, Hearing Grossly Normal, Normal TMs Ear Exam: Bilateral Ear: Auricle Normal, Canal Normal, TM normal Nose: Normal Inspection, No Blood Throat/Mouth: Normal Inspection, Normal Lips, Normal Oropharynx, Normal Voice, No Airway Compromise Head: Atraumatic, Normocephalic Neck: Normal Inspection Respiratory/Chest: No Respiratory Distress, No Accessory Muscle Use, Decreased Breath Sounds, Rales. No: Respiratory Distress, Wheezing Cardiovascular: Regular Rate, Rhythm, No Edema GI/Abdominal: Normal Bowel Sounds, Soft, Non-Tender, No Distention Back Exam: Normal Inspection. No: CVA Tenderness (R), CVA Tenderness (L) Extremities: Normal Inspection, Normal Range of Motion, Non-Tender, No Pedal Edema Neurological: Alert, Oriented, CN II-XII Intact, Normal Cognition, No Motor/ Sensory Deficits Psychiatric: Normal Affect, Normal Mood Skin Exam: Warm, Dry, Intact, Normal Color, No Rash Course - Vital Signs Text/Narrative:: Dr. Prabhakar called @ 1032h Last Recorded V/S: Last Vital Signs Temp 36.4 C 12/20/19 09:40 Pulse 149 H 12/20/19 10:16 Resp 18 12/20/19 09:40 BP 141/87 H 12/20/19 10:16 Pulse Ox 95 12/20/19 09:40 - Orders/Labs/Meds Orders: Active Orders 24 hr Category Date Time Status Chest 1V Frontal [CR] Stat Exams 12/20/19 09:33 Taken UA W/MICROSCOPIC [URIN] Stat Lab 12/20/19 09:34 Ordered Furosemide [Lasix] Med 12/20/19 10:31 Once 40 mg IVPUSH ONETIME ONE Sodium Chloride 0.9% [Saline Flush] Med 12/20/19 09:34 Active 10 ml FLUSH ASDIRECTED PRN Isolation [COMM] Routine Oth 12/20/19 09:38 Ordered Saline Lock Insert [OM.PC] Routine Oth 12/20/19 09:34 Ordered Medication Orders Furosemide (Lasix) 40 mg IVPUSH ONETIME ONE Stop: 12/20/19 10:32 Sodium Chloride (Saline Flush) 10 ml FLUSH ASDIRECTED PRN PRN Reason: Keep Vein Open Last Admin: 12/20/19 10:16 Dose: 10 ml Labs: Laboratory Tests 12/20/19 12/20/19 12/20/19 Range/Units 09:51 09:51 10:05 WBC 13.9 H (4.5-11.0) K/uL RBC 3.88 (3.30-5.50) M/uL Hgb 11.2 L (12.0-15.0) g/dL Hct 37.3 (36.0-48.0) % MCV 96 (80-98) fL MCH 29 (27-31) pg MCHC 30 L (32-36) % Plt Count 196 (150-400) K/uL PT 17.0 H (9.5-12.0) sec INR 1.62 H (0.80-1.20) Sodium 137 L (140-148) mmol/L Potassium 3.6 (3.6-5.2) mmol/L Chloride 101 (100-108) mmol/L Carbon Dioxide 28 (21-32) mmol/L Anion Gap 11.6 (5.0-14.0) mmol/L BUN 10 (7-18) mg/dL Creatinine 0.5 L (0.6-1.0) mg/dL Est Cr Clr Drug Dosing 69.98 mL/min Estimated GFR (MDRD) > 60 (>60) Glucose 133 H (74-106) mg/dL Calcium 8.6 (8.5-10.1) mg/dL Troponin I < 0.017 (0.000-0.056) ng/mL NT-Pro-B Natriuret Pep 4404 H (5-450) pg/mL Meds: Medications Generic Name Dose Route Start Last Admin Trade Name Freq PRN Reason Stop Dose Admin Furosemide 40 mg 12/20/19 10:31 Lasix IVPUSH 12/20/19 10:32 ONETIME ONE Sodium Chloride 10 ml 12/20/19 09:34 12/20/19 10:16 Saline Flush FLUSH 10 ml ASDIRECTED PRN Administration Keep Vein Open Discontinued Medications Generic Name Dose Route Start Last Admin Trade Name Freq PRN Reason Stop Dose Admin Metoprolol Tartrate 50 mg 12/20/19 10:06 12/20/19 10:16 Lopressor PO 12/20/19 10:07 50 mg ONETIME ONE Administration Ondansetron HCl 4 mg 12/20/19 10:05 12/20/19 10:15 Zofran IVPUSH 12/20/19 10:06 4 mg ONETIME ONE Administration - Radiology Interpretation Free Text/Narrative:: CXR-pulmonary edema Departure - Departure Time of Disposition: 10:45 Disposition: Admitted As Inpatient 66 Condition: Fair Clinical Impression: Pulmonary edema Qualifiers: Chronicity: acute Qualified Code(s): J81.0 - Acute pulmonary edema Nausea and vomiting Qualifiers: Vomiting type: unspecified Vomiting Intractability: non-intractable Qualified Code(s): R11.2 - Nausea with vomiting, unspecified - Discharge Information *PRESCRIPTION DRUG MONITORING PROGRAM REVIEWED*: Not Applicable *COPY OF PRESCRIPTION DRUG MONITORING REPORT IN PATIENT CONNOR: Not Applicable Referrals: PCP,None [Primary Care Provider] - Forms: ED Department Discharge Sepsis Event Note - Focused Exam Vital Signs: Vital Signs Temp Pulse Pulse Resp BP BP Pulse Ox 12/20/19 10:16 149 H 141/87 H 12/20/19 09:40 36.4 C 126 H 18 136/89 95 12/20/19 09:33 36.4 C 89 18 136/89 95 Date Exam was Performed: 12/20/19 Time Exam was Performed: 10:31 - My Orders Last 24 Hours: My Active Orders 12/20/19 09:33 Chest 1V Frontal [CR] Stat 12/20/19 09:34 UA W/MICROSCOPIC [URIN] Stat Sodium Chloride 0.9% [Saline Flush] 10 ml FLUSH ASDIRECTED PRN Saline Lock Insert [OM.PC] Routine 12/20/19 09:38 Isolation [COMM] Routine 12/20/19 10:31 Furosemide [Lasix] 40 mg IVPUSH ONETIME ONE - Assessment/Plan Last 24 Hours: My Active Orders 12/20/19 09:33 Chest 1V Frontal [CR] Stat 12/20/19 09:34 UA W/MICROSCOPIC [URIN] Stat Sodium Chloride 0.9% [Saline Flush] 10 ml FLUSH ASDIRECTED PRN Saline Lock Insert [OM.PC] Routine 12/20/19 09:38 Isolation [COMM] Routine 12/20/19 10:31 Furosemide [Lasix] 40 mg IVPUSH ONETIME ONE
[2019-12-20] MEDS ORDERED: Ondansetron 4 MG/2 ML SDV IVPUSH ONE (10:05)
[2019-12-20] MEDS ORDERED: Metoprolol Tartrate 50 MG Tab PO ONE ×2 (10:06→13:00)
[2019-12-20] MEDS ORDERED: Furosemide 40 MG/4 ML VIAL IVPUSH ONE ×2 (10:31→18:45)
[2019-12-20] MEDS ORDERED: Diltiazem 120 MG Cap.CD PO ONE (10:36)
--- NOTE | 2019-12-20 10:44 | CR ---
CHEST: Portable 12/20/2019 at 1024 CLINICAL HISTORY:SOB COMPARISON:11/23/2019 FINDINGS: Heart is enlarged. There are diffuse bilateral pulmonary infiltrates. Suggestive of pulmonary edema. Patient has a permanent cardiac pacer. Impression: Diffuse bilateral pulmonary infiltrates suggests pulmonary edema from CHF. Diffuse pneumonia is not excluded Cardiomegaly Permanent cardiac pacer.
[2019-12-20] MEDS ORDERED: Sotalol 80 MG Tab PO SCH (10:45)
--- NOTE | 2019-12-20 11:31 | PCM.HP.2 ---
H&P History of Present Illness - General Date of Service: 12/20/19 Admit Problem/Dx: Admission Diagnosis/Problem Admission Diagnosis/Problem Systolic CHF with reduced left ventricular function, NYHA class 2 Source of Information: Patient, Provider History Limitations: Reports: No Limitations - History of Present Illness Initial Comments - Free Text/Narative: CC: I don't feel very good HPI: Calli presents to the emergency room today with 2 days of progressive shortness of breath and increasing weakness. She had been at the assisted working on rehabilitation after a recent pneumonia and things were going okay up until about 3 days ago. Since that time she has had a decline. She has progressive shortness of breath and has noticed some wheezing. She reports orthopnea. She feels that her chest is tight and it is hard to take a deep breath but does not endorse actual chest pain. She has been having difficulty completing physical therapy because of dyspnea and fatigue. Her appetite has been decreasing. Energy levels have been decreasing. She reports some diffuse arthralgias but no myalgias. She does report subjective fevers but has not measured any fevers. No change in bowel habits and no bladder symptoms that she is aware of. No lower extremity edema. She was started on Tamiflu a couple of days ago empirically though she was never tested. Work-up in the emergency room revealed Atrial fibrillation with a rapid ventricular response. Chest x-ray and examination both consistent with congestive heart failure. She has received diltiazem, metoprolol and IV furosemide. She will be admitted to the intensive care unit for further management. Generalized Pain Score (Numeric/FACES): 9 - Related Data Allergies/Adverse Reactions: Allergies Allergy/AdvReac Type Severity Reaction Status Date / Time amiodarone Allergy Cannot Verified 11/19/19 21:20 Remember levofloxacin [From Levaquin] Allergy Rash Verified 11/19/19 21:20 Penicillins Allergy Rash Verified 11/19/19 21:20 propoxyphene napsylate Allergy Rash Verified 11/19/19 21:20 [From Darvocet-N] Home Medications: Home Meds Aspirin [Children's Aspirin] 81 mg PO DAILY 02/14/15 [History] Metoprolol Tartrate [Lopressor] 50 mg PO BID 03/30/18 [History] Diltiazem HCl [Diltiazem 24Hr Cd] 240 mg PO DAILY #30 cap.er.24h 07/08/18 [Rx] Albuterol [Proventil HFA] 2 puff INH Q4H PRN #1 inhaler 09/09/18 [Rx] Magnesium Oxide 400 mg PO BID #60 tablet 09/09/18 [Rx] Potassium Chloride [Klor-Con M20] 20 meq PO DAILY #30 tab.er 09/09/18 [Rx] Sotalol [Betapace] 80 mg PO BID #60 tablet 09/09/18 [Rx] Sertraline [Zoloft] 100 mg PO DAILY 10/11/18 [History] Acetaminophen [Tylenol Extra Strength] 1,000 mg PO TID #180 tablet 10/14/18 [Rx] Furosemide [Lasix] 40 mg PO BIDDIURETIC #60 tablet 10/14/18 [Rx] LORazepam [Ativan] 0.5 mg PO Q6H PRN #90 tablet 10/14/18 [Rx] Morphine Sulfate 15 mg PO Q4H PRN #90 tablet 10/14/18 [Rx] Warfarin [Coumadin] 1.5 mg PO MOWEFR 12/07/18 [History] Morphine [MS Contin] 15 mg PO BID 11/19/19 [History] Lactobacillus Rhamnosus GG [Culturelle] 1 cap PO BID #60 cap 11/28/19 [Rx] Warfarin [Coumadin] 1 mg PO ASDIRECTED #100 11/28/19 [Rx] Past Medical History HEENT History: Reports: Hard of Hearing Cardiovascular History: Reports: Afib, CAD, High Cholesterol, Hypertension, Pacemaker Respiratory History: Reports: Bronchitis, Recurrent, Pneumonia, Recurrent, Sleep Apnea, Other (See Below) Other Respiratory History: 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 but was told recently that needs to wear it 03/05; had sleep study and was told she stopped breathing alot but doesn't have sleep apnea, just to wear O2 Gastrointestinal History: Reports: Diverticulosis Genitourinary History: Reports: Other (See Below) Other Genitourinary History: growth on the end of meatus Musculoskeletal History: Reports: Back Pain, Chronic, Other (See Below) Other Musculoskeletal History: epicdural injections Psychiatric History: Reports: Anxiety, Depression Hematologic History: Reports: Anemia Dermatologic History: Reports: Other (See Below) Other Dermatologic History: neuro dermatitis, shingles - Infectious Disease History Infectious Disease History: Reports: Chicken Pox, Measles, Mumps - Past Surgical History Head Surgeries/Procedures: Reports: None HEENT Surgical History: Reports: Tonsillectomy Cardiovascular Surgical History: Reports: Coronary Artery Stent Respiratory Surgical History: Reports: None GI Surgical History: Reports: Appendectomy, Colon Female Surgical History: Reports: Hysterectomy, Salpingo-Oophorectomy Musculoskeletal Surgical History: Reports: None Social & Family History - Family History Family Medical History: Noncontributory - Tobacco Use Smoking Status *Q: Former Smoker Used Tobacco, but Quit: Yes Month/Year Tobacco Last Used: 1969 - Caffeine Use Caffeine Use: Reports: Tea - Alcohol Use Alcohol Use History: No - Recreational Drug Use Recreational Drug Use: No H&P Review of Systems - Review of Systems: Review Of Systems: See Below Free Text/Narrative: A complete 12 point review of systems was obtained. Pertinent positives and negatives are noted in the history of present illness. All other systems were reviewed and were negative except as noted. Exam - Exam Exam: See Below - Vital Signs Vital Signs: Last Vital Signs Temp 36.4 C 12/20/19 09:40 Pulse 143 H 12/20/19 10:51 Resp 18 12/20/19 09:40 BP 141/87 H 12/20/19 10:51 Pulse Ox 95 12/20/19 09:40 Weight: 74.843 kg - Exam Quality Assessment: Supplemental Oxygen General: Alert, Oriented, Cooperative, Mild Distress HEENT: Conjunctiva Clear, Mucosa Moist & [place]. No: Scleral Icterus Neck: Supple, Trachea Midline, JVD. No: Lymphadenopathy Lungs: Crackles (both bases L>R and both mid lung areas), Wheezing (mild end exp diffuse). No: Normal Respiratory Effort (increased work of breathing ) Cardiovascular: Irregular Rhythm, Tachycardia, Systolic Murmur GI/Abdominal Exam: Normal Bowel Sounds, Soft, No Distention, Tender (mild LUQ) Extremities: No Pedal Edema. No: Increased Warmth Peripheral Pulses: 2+: Dorsalis Pedis (L), Dorsalis Pedis (R) Skin: Warm, Dry Neuro Extensive - Mental Status: Alert, Oriented x3, Nl Response to Commands Neuro Extensive - Motor, Sensory, Reflexes: No: Dysarthria, Abnormal Motor, Tremor Psychiatric: Alert, Normal Affect - Patient Data Lab Results Last 24 hrs: Laboratory Results - last 24 hr 12/20/19 12/20/19 12/20/19 Range/Units 09:51 09:51 10:05 WBC 13.9 H (4.5-11.0) K/uL RBC 3.88 (3.30-5.50) M/uL Hgb 11.2 L (12.0-15.0) g/dL Hct 37.3 (36.0-48.0) % MCV 96 (80-98) fL MCH 29 (27-31) pg MCHC 30 L (32-36) % Plt Count 196 (150-400) K/uL PT 17.0 H (9.5-12.0) sec INR 1.62 H (0.80-1.20) Sodium 137 L (140-148) mmol/L Potassium 3.6 (3.6-5.2) mmol/L Chloride 101 (100-108) mmol/L Carbon Dioxide 28 (21-32) mmol/L Anion Gap 11.6 (5.0-14.0) mmol/L BUN 10 (7-18) mg/dL Creatinine 0.5 L (0.6-1.0) mg/dL Est Cr Clr Drug Dosing 69.98 mL/min Estimated GFR (MDRD) > 60 (>60) Glucose 133 H (74-106) mg/dL Calcium 8.6 (8.5-10.1) mg/dL Troponin I < 0.017 (0.000-0.056) ng/mL NT-Pro-B Natriuret Pep 4404 H (5-450) pg/mL Result Diagrams: 12/20/19 09:51 12/20/19 09:51 Mark Results Last 24 hrs: Microbiology 12/20/19 10:03 Influenza Type A Antigen Screen - Final Nasal, Unspecified NEGATIVE INFLUENZA A VIRUS AG REFERENCE RANGE: NEGATIVE Influenza Type B Antigen Screen - Final NEGATIVE INFLUENZA B VIRUS AG REFERENCE RANGE: NEGATIVE Imaging Impressions Last 24 hrs: CXR-image personally reviewed-cephalization with pulmonary edema and pulm vasc congestion. Mild cardiomegally. Effusion vs infiltrate left lower lung. Dual chamber pacemaker. Sepsis Event Note - Evaluation Sepsis Screening Result: No Definite Risk - Focused Exam Vital Signs: Vital Signs Temp Pulse Pulse Resp BP BP Pulse Ox 12/20/19 10:51 143 H 141/87 H 12/20/19 10:16 149 H 141/87 H 12/20/19 09:40 36.4 C 126 H 18 136/89 95 12/20/19 09:33 36.4 C 89 18 136/89 95 Date Exam was Performed: 12/20/19 Time Exam was Performed: 12:11 *Q Meaningful Use (ADM) - VTE Risk Assess *Q Each Risk Factor Represents 1 Point: Obesity ( BMI > 25 kg/m2), Congestive heart failure (CHF) Total Score 1 Point Risk Factors: 2 Each Risk Factor Represents 2 Points: None Total Score 2 Point Risk Factors: 0 Each Risk Factor Represents 3 Points: Age 75 Years or Greater Total Score 3 Point Risk Factors: 3 Each Risk Factor Represents 5 Points: None Total Score 5 Point Risk Factors: 0 Venous Thromboembolism Risk Factor Score *Q: 5 - Problem List (1) Acute on chronic systolic (congestive) heart failure SNOMED Code(s): 763063701, 083845443 ICD Code: I50.23 - ACUTE ON CHRONIC SYSTOLIC (CONGESTIVE) HEART FAILURE Status: Acute Current Visit: Yes (2) Atrial fibrillation with rapid ventricular response SNOMED Code(s): 974878991386668 ICD Code: I48.91 - UNSPECIFIED ATRIAL FIBRILLATION Status: Acute Current Visit: Yes (3) CAD (coronary artery disease) SNOMED Code(s): 44684726 ICD Code: I25.10 - ATHSCL HEART DISEASE OF [place] CORONARY ARTERY W/O ANG PCTRS Status: Chronic Current Visit: No Qualifiers: Coronary Disease-Associated Artery/Lesion type: [place] artery [place] vs. transplanted heart: [place] heart Associated angina: without angina Qualified Code(s): I25.10 - Atherosclerotic heart disease of [place] coronary artery without angina pectoris (4) Pacemaker SNOMED Code(s): 154346885 ICD Code: Z95.0 - PRESENCE OF CARDIAC PACEMAKER Status: Chronic Current Visit: No Problem List Initiated/Reviewed/Updated: Yes Orders Last 24hrs: Active Orders 24 hr Category Date Time Status Patient Status Manage Transfer [TRANSFER] Routine ADT 12/20/19 11:17 Ordered Insert Álvarez Catheter [Insert Urinary Catheter] [OM.PC] Care 12/20/19 11:15 Ordered Q24H Urinary Catheter Assessment [RC] ASDIRECTED Care 12/20/19 11:12 Active UA W/MICROSCOPIC [URIN] Stat Lab 12/20/19 09:34 Ordered Sodium Chloride 0.9% [Saline Flush] Med 12/20/19 09:34 Active 10 ml FLUSH ASDIRECTED PRN Sotalol [Betapace] Med 12/20/19 10:45 Active 80 mg PO BID Isolation [COMM] Routine Oth 12/20/19 09:38 Ordered Saline Lock Insert [OM.PC] Routine Oth 12/20/19 09:34 Ordered Resuscitation Status Routine Resus Stat 12/20/19 11:20 Ordered Medication Orders Sodium Chloride (Saline Flush) 10 ml FLUSH ASDIRECTED PRN PRN Reason: Keep Vein Open Last Admin: 12/20/19 10:16 Dose: 10 ml Sotalol HCl (Betapace) 80 mg PO BID MUKUL Last Admin: 12/20/19 10:51 Dose: 80 mg Assessment/Plan Comment:: ASSESSMENT AND PLAN - Acute on chronic systolic congestive heart failure-complicated by multiple valvular abnormalities as well as acute on chronic respiratory failure with hypoxia. Exact trigger for the exacerbation is not entirely clear though I suspect atrial fibrillation may be a big waste collection driver at this time. Still waiting to see if she has a urinary tract infection. She has received furosemide in the emergency room. -Second dose of furosemide in 8 hours -Álvarez catheter for strict intake and output monitoring -Medical management including beta-criss -Daily weights -Supplement oxygen as needed -Echocardiogram tomorrow Atrial fibrillation with rapid ventricular response-difficult to control in the past though it has previously responded fairly well to beta-criss. -Continue sotalol -Increase metoprolol dosing to 100 mg and change to extended release metoprolol succinate -Cardiac monitoring -Continue diltiazem -Continue warfarin for anticoagulation Status post pacemaker placement- Maintenance issues - - DVT prophylaxis -warfarin - GI prophylaxis -not indicated - Nutrition -low-sodium - Álvarez catheter -placed for strict intake and output monitoring CODE STATUS -DNR/DNI Admission justification -this patient will be admitted for inpatient services and is medically appropriate meeting medical necessity for inpatient admission as outlined in my documentation. I reasonably expect the patient will require inpatient services that span a period time over 2 midnights. I reasonably expect this patient to be discharged or transferred within 96 hours [facility]. Disposition -I would anticipate discharge back to the assisted if she survives the hospital stay Primary care physician - Dr Juan F Prabhakar M.D. - Mortality Measure Prognosis:: Poor
[2019-12-20] MEDS ORDERED: Morphine 15 MG Tab PO PRN (12:06)
[2019-12-20] MEDS ORDERED: Ondansetron 4 MG Tab.DIS PO PRN (12:06)
[2019-12-20] MEDS ORDERED: Ondansetron 4 MG/2 ML SDV IV PRN (12:06)
[2019-12-20] MEDS ORDERED: Magnesium Hydroxide 400 MG/5 ML Susp 30 ML Cup PO PRN (12:06)
[2019-12-20] MEDS ORDERED: LORazepam 0.5 MG Tab PO PRN (12:06)
[2019-12-20] MEDS ORDERED: LORazepam 2 MG/ML SDV IVPUSH PRN (12:06)
[2019-12-20] MEDS: Acetaminophen 500 MG Tab PO SCH ×2 (15:43→20:49)
[2019-12-20] MEDS ORDERED: Potassium Chloride 20 MEQ Tab.ER PO ONE (17:00)
[2019-12-20] MEDS: Metoprolol Succinate 50 MG Tab.ER PO SCH (20:41)
[2019-12-20] MEDS: Lactobacillus Rhamnosus GG (Probiotic) Cap PO SCH (20:44)
[2019-12-20] MEDS: Sotalol 80 MG Tab PO SCH (20:44)
[2019-12-20] MEDS: Melatonin 3 MG Tab PO SCH (21:44)
[2019-12-20] MEDS: Morphine 15 MG Tab.ER PO SCH (21:45)
[2019-12-21] MEDS: Aspirin 81 MG Tab.Chew PO SCH (08:11)
[2019-12-21] MEDS: Sotalol 80 MG Tab PO SCH ×2 (08:11→21:22)
[2019-12-21] MEDS: Lactobacillus Rhamnosus GG (Probiotic) Cap PO SCH ×2 (08:14→21:24)
[2019-12-21] MEDS: Potassium Chloride 20 MEQ Tab.ER PO SCH (08:15)
[2019-12-21] MEDS: Acetaminophen 500 MG Tab PO SCH ×3 (08:16→21:00)
[2019-12-21] MEDS: Sertraline 50 MG Tab PO SCH (08:19)
[2019-12-21] MEDS: Morphine 15 MG Tab.ER PO SCH ×2 (08:24→22:04)
[2019-12-21] MEDS ORDERED: Diltiazem 25 MG/5 ML SDV IVPUSH ONE (08:28)
[2019-12-21] MEDS: Metoprolol Succinate 50 MG Tab.ER PO SCH ×2 (08:29→21:21)
[2019-12-21] MEDS ORDERED: Furosemide 40 MG/4 ML VIAL IVPUSH ONE (08:29)
[2019-12-21] MEDS ORDERED: Non-Formulary Medication 1 Each (Sertraline [Zoloft] 100 MG) PO SCH (09:00)
[2019-12-21] MEDS ORDERED: Diltiazem 120 MG Cap.CD PO SCH (09:00)
[2019-12-21] MEDS ORDERED: Non-Formulary Medication 1 Each (Diltiazem Hcl [Diltiazem 24hr Cd] 240 MG) PO SCH (09:00)
[2019-12-21] MEDS: Diltiazem 100 MG in Sodium Chloride 0.9% 100 ML IV SCH (09:34)
--- NOTE | 2019-12-21 12:12 | PCM.PN ---
- General Info Date of Service: 12/21/19 Subjective Update: Ms. Gr admitted through the emergency department yesterday with increased shortness of breath and hypoxia secondary to pulmonary edema and diastolic congestive heart failure exacerbation. She has had previous episodes of CHF exacerbation requiring more intensive management. Echocardiogram obtained today shows preserved left ventricular systolic function, moderate to severe MR and TR, moderate AI. She has improved from admission with less shortness of breath and is requiring less supplemental oxygen. She is interested in discussing palliative care, specifically hospice admission. Atrial fibrillation remains with rapid ventricular response although improved with IV diltiazem. Functional Status: Reports: Tolerating Diet, Urinating - Review of Systems General: Reports: Weakness, Fatigue. Denies: Fever, Chills Pulmonary: Reports: Shortness of Breath. Denies: Pleuritic Chest Pain, Cough, Sputum, Hemoptysis, Wheezing Cardiovascular: Reports: Dyspnea on Exertion. Denies: Chest Pain, Palpitations , Orthopnea, PND, Edema, Lightheadedness Gastrointestinal: Reports: No Symptoms - Patient Data Vitals - Most Recent: Last Vital Signs Temp 96.8 F L 12/21/19 04:00 Pulse 126 H 12/21/19 09:53 Resp 22 H 12/21/19 09:00 BP 138/80 12/21/19 09:00 Pulse Ox 92 L 12/21/19 09:00 Weight - Most Recent: 170 lb I&O - Last 24 Hours: Intake & Output 12/20/19 12/21/19 12/21/19 22:59 06:59 14:59 Intake Total 2400 Output Total 600 325 Balance 1800 -325 Lab Results Last 24 Hours: Laboratory Results - last 24 hr 12/20/19 12/21/19 12/21/19 Range/Units 09:34 06:06 06:06 WBC 9.3 (4.5-11.0) K/uL RBC 3.41 (3.30-5.50) M/uL Hgb 9.8 L (12.0-15.0) g/dL Hct 33.6 L (36.0-48.0) % MCV 99 H (80-98) fL MCH 29 (27-31) pg MCHC 29 L (32-36) % Plt Count 190 (150-400) K/uL PT 22.2 H (9.5-12.0) sec INR 2.15 H (0.80-1.20) Sodium (140-148) mmol/L Potassium (3.6-5.2) mmol/L Chloride (100-108) mmol/L Carbon Dioxide (21-32) mmol/L Anion Gap (5.0-14.0) mmol/L BUN (7-18) mg/dL Creatinine (0.6-1.0) mg/dL Est Cr Clr Drug Dosing mL/min Estimated GFR (MDRD) (>60) Glucose (74-106) mg/dL Calcium (8.5-10.1) mg/dL Magnesium (1.8-2.4) mg/dL Urine Color Yellow (YELLOW) Urine Appearance Slightly cloudy A (CLEAR) Urine pH 7.0 (5.0-8.0) Ur Specific [place] 1.020 (1.008-1.030) Urine Protein Negative (NEGATIVE) mg/dL Urine Glucose (UA) Negative (NEGATIVE) mg/dL Urine Ketones 15 H (NEGATIVE) mg/dL Urine Occult Blood Moderate H (NEGATIVE) Urine Nitrite Negative (NEGATIVE) Urine Bilirubin Negative (NEGATIVE) Urine Urobilinogen 0.2 (0.2-1.0) EU/dL Ur Leukocyte Esterase Negative (NEGATIVE) Urine RBC 10-20 H (0-5) Urine WBC Not seen (0-5) Ur Epithelial Cells Not seen Amorphous Sediment Few Urine Bacteria Few Urine Mucus Not seen 12/21/19 Range/Units 06:06 WBC (4.5-11.0) K/uL RBC (3.30-5.50) M/uL Hgb (12.0-15.0) g/dL Hct (36.0-48.0) % MCV (80-98) fL MCH (27-31) pg MCHC (32-36) % Plt Count (150-400) K/uL PT (9.5-12.0) sec INR (0.80-1.20) Sodium 142 (140-148) mmol/L Potassium 4.3 (3.6-5.2) mmol/L Chloride 105 (100-108) mmol/L Carbon Dioxide 32 (21-32) mmol/L Anion Gap 5.0 (5.0-14.0) mmol/L BUN 18 D (7-18) mg/dL Creatinine 0.7 (0.6-1.0) mg/dL Est Cr Clr Drug Dosing 47.97 mL/min Estimated GFR (MDRD) > 60 (>60) Glucose 114 H (74-106) mg/dL Calcium 8.6 (8.5-10.1) mg/dL Magnesium 2.0 (1.8-2.4) mg/dL Urine Color (YELLOW) Urine Appearance (CLEAR) Urine pH (5.0-8.0) Ur Specific [place] (1.008-1.030) Urine Protein (NEGATIVE) mg/dL Urine Glucose (UA) (NEGATIVE) mg/dL Urine Ketones (NEGATIVE) mg/dL Urine Occult Blood (NEGATIVE) Urine Nitrite (NEGATIVE) Urine Bilirubin (NEGATIVE) Urine Urobilinogen (0.2-1.0) EU/dL Ur Leukocyte Esterase (NEGATIVE) Urine RBC (0-5) Urine WBC (0-5) Ur Epithelial Cells Amorphous Sediment Urine Bacteria Urine Mucus Mark Results Last 24 Hours: Microbiology 12/20/19 10:03 Influenza Type A Antigen Screen - Final Nasal, Unspecified NEGATIVE INFLUENZA A VIRUS AG REFERENCE RANGE: NEGATIVE Influenza Type B Antigen Screen - Final NEGATIVE INFLUENZA B VIRUS AG REFERENCE RANGE: NEGATIVE Med Orders - Current: Current Medications Acetaminophen (Tylenol Extra Strength) 1,000 mg PO TID [facility] Last Admin: 12/21/19 08:16 Dose: 1,000 mg Albuterol (Proventil Neb Soln) 2.5 mg NEB Q4H PRN PRN Reason: Shortness Of Breath/wheezing Aspirin (Aspirin) 81 mg PO DAILY [facility] Last Admin: 12/21/19 08:11 Dose: 81 mg Bumetanide (Bumex) 2 mg IVPUSH ONETIME ONE Stop: 12/21/19 20:01 Diltiazem HCl 100 mg/ Sodium (Chloride) 100 mls @ 5 mls/hr IV TITRATE [facility]; Protocol Last Admin: 12/21/19 09:34 Dose: 5 mg/hr, 5 mls/hr Lactobacillus Rhamnosus (Culturelle) 1 cap PO BID [facility] Last Admin: 12/21/19 08:14 Dose: 1 cap Lorazepam (Ativan) 0.5 mg PO Q4H PRN PRN Reason: Anxiety Last Admin: 12/20/19 21:47 Dose: 0.5 mg Lorazepam (Ativan) 0.5 mg IVPUSH Q4H PRN PRN Reason: Nausea/Vomiting Magnesium Hydroxide (Milk Of Magnesia) 30 ml PO Q12H PRN PRN Reason: Constipation Melatonin (Melatonin) 9 mg PO BEDTIME [facility] Last Admin: 12/20/19 21:44 Dose: 9 mg Metoprolol Succinate (Toprol Xl) 100 mg PO BID [facility] Last Admin: 12/21/19 08:29 Dose: 100 mg Morphine Sulfate (Ms Contin) 15 mg PO BID [facility] Last Admin: 12/21/19 08:24 Dose: 15 mg Morphine Sulfate (Morphine) 15 mg PO Q4H PRN PRN Reason: Pain Last Admin: 12/20/19 12:22 Dose: 15 mg Ondansetron HCl (Zofran Odt) 4 mg PO Q6H PRN PRN Reason: Nausea able to take PO Ondansetron HCl (Zofran) 4 mg IV Q6H PRN PRN Reason: Nausea/Vomiting Potassium Chloride (Klor-Con M20) 40 meq PO DAILY [facility] Last Admin: 12/21/19 08:15 Dose: 40 meq Senna/Docusate Sodium (Senna Plus) 1 tab PO BID PRN PRN Reason: Constipation Sertraline HCl (Zoloft) 100 mg PO DAILY [facility] Last Admin: 12/21/19 08:19 Dose: 100 mg Sodium Chloride (Saline Flush) 10 ml FLUSH ASDIRECTED PRN PRN Reason: Keep Vein Open Last Admin: 12/20/19 10:16 Dose: 10 ml Sotalol HCl (Betapace) 80 mg PO BID [facility] Last Admin: 12/21/19 08:11 Dose: 80 mg Warfarin Sodium (Coumadin) 1 mg PO SuTuThSa@1300 [facility] Warfarin Sodium (Coumadin) 1.5 mg PO MoWeFr@1300 [facility] Discontinued Medications Diltiazem HCl (Cardizem Cd) 240 mg PO ONETIME ONE Stop: 12/20/19 10:37 Last Admin: 12/20/19 10:51 Dose: 240 mg Diltiazem HCl (Cardizem Cd) 240 mg PO DAILY [facility] Last Admin: 12/21/19 08:12 Dose: 240 mg Diltiazem HCl (Diltiazem) 10 mg IVPUSH ONETIME ONE Stop: 12/21/19 08:29 Last Admin: 12/21/19 09:29 Dose: 10 mg Furosemide (Lasix) 40 mg IVPUSH ONETIME ONE Stop: 12/20/19 10:32 Last Admin: 12/20/19 10:39 Dose: 40 mg Furosemide (Lasix) 40 mg IVPUSH ONETIME ONE Stop: 12/20/19 18:46 Last Admin: 12/20/19 18:12 Dose: 40 mg Furosemide (Lasix) 40 mg IVPUSH NOW ONE Stop: 12/21/19 08:30 Last Admin: 12/21/19 09:32 Dose: 40 mg Metoprolol Tartrate (Lopressor) 50 mg PO ONETIME ONE Stop: 12/20/19 10:07 Last Admin: 12/20/19 10:16 Dose: 50 mg Metoprolol Tartrate (Lopressor) 50 mg PO ONETIME ONE Stop: 12/20/19 13:01 Last Admin: 12/20/19 13:19 Dose: Not Given Ondansetron HCl (Zofran) 4 mg IVPUSH ONETIME ONE Stop: 12/20/19 10:06 Last Admin: 12/20/19 10:15 Dose: 4 mg Potassium Chloride (Klor-Con M20) 40 meq PO ONETIME ONE Stop: 12/20/19 17:01 Last Admin: 12/20/19 17:02 Dose: 40 meq Sotalol HCl (Betapace) 80 mg PO BID [facility] Last Admin: 12/20/19 10:51 Dose: 80 mg Warfarin Sodium (Coumadin) 1.5 mg PO ONETIME ONE Stop: 12/20/19 10:38 Last Admin: 12/20/19 10:52 Dose: 1.5 mg - Exam Quality Assessment: Supplemental Oxygen, Urine Catheter, DVT Prophylaxis General: Alert, Oriented, Cooperative, Mild Distress Lungs: Normal Respiratory Effort, Decreased Breath Sounds, Rales. No: Rhonchi, Rub, Stridor, Wheezing Cardiovascular: Irregular Rhythm, Tachycardia, Murmurs GI/Abdominal Exam: Soft, Non-Tender, No Organomegaly, No Distention Extremities: Non-Tender, No Pedal Edema Sepsis Event Note - Evaluation Sepsis Screening Result: No Definite Risk - Focused Exam Vital Signs: Vital Signs Temp Pulse Pulse Resp BP BP Pulse Ox 12/21/19 09:53 126 H 12/21/19 09:00 145 H 22 H 138/80 92 L 12/21/19 08:29 133 H 118/61 12/21/19 08:12 142 H 118/61 12/21/19 08:11 139 H 118/61 12/21/19 07:00 143 H 25 H 98/43 L 93 L 12/21/19 06:00 120 H 20 111/64 94 L 12/21/19 05:00 122 H 24 H 92/42 L 93 L 12/21/19 04:00 96.8 F L 125 H 23 H 88/47 L 92 L 12/21/19 03:00 129 H 20 116/61 92 L 12/21/19 02:00 122 H 23 H 114/51 L 12/21/19 01:00 104 H 22 H 92/44 L 92 L Date Exam was Performed: 12/21/19 Time Exam was Performed: 12:05 - Problem List Review Problem List Initiated/Reviewed/Updated: Yes - My Orders Last 24 Hours: My Active Orders 12/21/19 08:30 Diltiazem [Cardizem] 100 mg Sodium Chloride 0.9% [Normal Saline] 100 ml IV TITRATE 12/21/19 12:05 LORazepam [Ativan] 0.5 mg PO Q2H PRN Morphine 15 mg PO Q2H PRN 12/21/19 20:00 Bumetanide [Bumex] 2 mg IVPUSH ONETIME ONE 12/22/19 05:00 BASIC METABOLIC PANEL,BMP [CHEM] Timed CBC WITH AUTO DIFF [HEME] Timed INR,PT,PROTHROMBIN TIME [COAG] Timed - Plan Plan:: ASSESSMENT AND PLAN - Acute on chronic systolic congestive heart failure-complicated by multiple valvular abnormalities as well as acute on chronic respiratory failure with hypoxia. 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 -Furosemide 40 mg IV twice daily today, reassess in a.m. -Álvarez catheter for strict intake and output monitoring -Medical management including beta-criss -Daily weights -Supplement oxygen as needed Atrial fibrillation with rapid ventricular response-difficult to control in the past though it has previously responded fairly well to beta-criss. -Continue sotalol -Increase metoprolol dosing to 100 mg and change to extended release metoprolol succinate -Cardiac monitoring -Diltiazem continuous infusion IV -Continue warfarin for anticoagulation Status post pacemaker placement Palliative care-only wants to consider de-escalation of medical management and possible hospice admission -New morphine and lorazepam as needed for comfort -Hospice consult Maintenance issues - - DVT prophylaxis -warfarin - GI prophylaxis -not indicated - Nutrition -low-sodium - Álvarez catheter -placed for strict intake and output monitoring CODE STATUS -DNR/DNI Admission justification -this patient will be admitted for inpatient services and is medically appropriate meeting medical necessity for inpatient admission as outlined in my documentation. I reasonably expect the patient will require inpatient services that span a period time over 2 midnights. I reasonably expect this patient to be discharged or transferred within 96 hours after admission to the [facility]. Disposition -I would anticipate discharge back to the intermediate if she survives the hospital stay Primary care physician - Dr Rogel
[2019-12-21] MEDS ORDERED: Bumetanide 1 MG/4 ML MDV IVPUSH ONE (20:00)
[2019-12-21] MEDS: Morphine 15 MG Tab PO PRN (20:31)
[2019-12-21] MEDS: LORazepam 0.5 MG Tab PO PRN (22:04)
[2019-12-21] MEDS: Melatonin 3 MG Tab PO SCH (22:07)
[2019-12-21] MEDS: Albuterol 0.083% 2.5 MG/3 ML Neb Soln NEB PRN (22:08)
[2019-12-22] MEDS: Diltiazem 100 MG in Sodium Chloride 0.9% 100 ML IV SCH (02:31)
[2019-12-22] MEDS: Diltiazem 120 MG Cap.CD PO SCH (09:46)
[2019-12-22] MEDS: Sotalol 80 MG Tab PO SCH ×2 (09:47→20:54)
[2019-12-22] MEDS: Sertraline 50 MG Tab PO SCH (09:47)
[2019-12-22] MEDS: Lactobacillus Rhamnosus GG (Probiotic) Cap PO SCH ×2 (09:48→20:54)
[2019-12-22] MEDS: Aspirin 81 MG Tab.Chew PO SCH (09:49)
[2019-12-22] MEDS: Metoprolol Succinate 50 MG Tab.ER PO SCH ×2 (09:49→20:54)
[2019-12-22] MEDS: Acetaminophen 500 MG Tab PO SCH ×3 (09:49→20:53)
[2019-12-22] MEDS: Potassium Chloride 20 MEQ Tab.ER PO SCH (09:49)
[2019-12-22] MEDS: Morphine 15 MG Tab.ER PO SCH ×2 (09:50→20:54)
--- NOTE | 2019-12-22 10:01 | PCM.PN ---
- General Info Date of Service: 12/22/19 Subjective Update: There were no acute events overnight. She is in a paced rhythm with a rate in the 60s this morning. Shortness of breath is improved. Decent response to diuresis. Still feels weak and tired. Shortness of breath is better. Still has some mild tightness in her chest but this is better. Appetite is acceptable but not great. Patient seems to be very interested in hospice but is scared to make the decision to transition to hospice. Vital signs have otherwise been stable on the diltiazem infusion. Kidney function stable. Functional Status: Reports: Pain Controlled, Tolerating Diet - Review of Systems General: Reports: Weakness. Denies: Fever Pulmonary: Reports: Shortness of Breath - Patient Data Vitals - Most Recent: Last Vital Signs Temp 96.6 C H 12/22/19 04:00 Pulse 60 12/22/19 09:49 Resp 25 H 12/22/19 09:00 BP 121/49 L 12/22/19 09:49 Pulse Ox 94 L 12/22/19 09:00 Weight - Most Recent: 77.111 kg I&O - Last 24 Hours: Intake & Output 12/21/19 12/22/19 12/22/19 22:59 06:59 14:59 Intake Total 1340 250 Output Total 350 Balance 990 250 Lab Results Last 24 Hours: Laboratory Results - last 24 hr 12/22/19 12/22/19 12/22/19 Range/Units 05:47 05:47 05:47 WBC 6.8 (4.5-11.0) K/uL RBC 3.26 L (3.30-5.50) M/uL Hgb 9.4 L (12.0-15.0) g/dL Hct 32.5 L (36.0-48.0) % MCV 100 H (80-98) fL MCH 29 (27-31) pg MCHC 29 L (32-36) % Plt Count 222 (150-400) K/uL Neut % (Auto) 70 H (36-66) % Lymph % (Auto) 19 L (24-44) % [place] % (Auto) 10 H (2-6) % Eos % (Auto) 1 L (2-4) % Baso % (Auto) 0 (0-1) % PT 21.0 H (9.5-12.0) sec INR 2.02 H (0.80-1.20) Sodium 141 (140-148) mmol/L Potassium 4.6 (3.6-5.2) mmol/L Chloride 104 (100-108) mmol/L Carbon Dioxide 31 (21-32) mmol/L Anion Gap 5.8 (5.0-14.0) mmol/L BUN 20 H (7-18) mg/dL Creatinine 0.6 (0.6-1.0) mg/dL Est Cr Clr Drug Dosing 55.97 mL/min Estimated GFR (MDRD) > 60 (>60) Glucose 116 H (74-106) mg/dL Calcium 8.3 L (8.5-10.1) mg/dL Mark Results Last 24 Hours: Microbiology 12/20/19 14:42 Urine Culture - Preliminary Urine, Catheterized NO GROWTH AFTER 1 DAY Med Orders - Current: Current Medications Acetaminophen (Tylenol Extra Strength) 1,000 mg PO TID [facility] Last Admin: 12/22/19 09:49 Dose: 1,000 mg Albuterol (Proventil Neb Soln) 2.5 mg NEB Q4H PRN PRN Reason: Shortness Of Breath/wheezing Last Admin: 12/21/19 22:08 Dose: 2.5 mg Aspirin (Aspirin) 81 mg PO DAILY [facility] Last Admin: 12/22/19 09:49 Dose: 81 mg Diltiazem HCl (Cardizem Cd) 240 mg PO DAILY [facility] Last Admin: 12/22/19 09:46 Dose: 240 mg Diltiazem HCl 100 mg/ Sodium (Chloride) 100 mls @ 5 mls/hr IV TITRATE [facility]; Protocol Last Admin: 12/22/19 02:31 Dose: 10 mg/hr, 10 mls/hr Lactobacillus Rhamnosus (Culturelle) 1 cap PO BID [facility] Last Admin: 12/22/19 09:48 Dose: 1 cap Lorazepam (Ativan) 0.5 mg IVPUSH Q4H PRN PRN Reason: Nausea/Vomiting Lorazepam (Ativan) 0.5 mg PO Q2H PRN PRN Reason: Anxiety Last Admin: 12/21/19 22:04 Dose: 0.5 mg Magnesium Hydroxide (Milk Of Magnesia) 30 ml PO Q12H PRN PRN Reason: Constipation Melatonin (Melatonin) 9 mg PO BEDTIME [facility] Last Admin: 12/21/19 22:07 Dose: 9 mg Metoprolol Succinate (Toprol Xl) 100 mg PO BID [facility] Last Admin: 12/22/19 09:49 Dose: 100 mg Morphine Sulfate (Ms Contin) 15 mg PO BID [facility] Last Admin: 12/22/19 09:50 Dose: 15 mg Morphine Sulfate (Morphine) 15 mg PO Q2H PRN PRN Reason: Pain Last Admin: 12/21/19 20:31 Dose: 15 mg Ondansetron HCl (Zofran Odt) 4 mg PO Q6H PRN PRN Reason: Nausea able to take PO Ondansetron HCl (Zofran) 4 mg IV Q6H PRN PRN Reason: Nausea/Vomiting Potassium Chloride (Klor-Con M20) 40 meq PO DAILY [facility] Last Admin: 12/22/19 09:49 Dose: 40 meq Senna/Docusate Sodium (Senna Plus) 1 tab PO BID PRN PRN Reason: Constipation Sertraline HCl (Zoloft) 100 mg PO DAILY [facility] Last Admin: 12/22/19 09:47 Dose: 100 mg Sodium Chloride (Saline Flush) 10 ml FLUSH ASDIRECTED PRN PRN Reason: Keep Vein Open Last Admin: 12/20/19 10:16 Dose: 10 ml Sotalol HCl (Betapace) 80 mg PO BID [facility] Last Admin: 12/22/19 09:47 Dose: 80 mg Warfarin Sodium (Coumadin) 1 mg PO SuTuThSa@1300 [facility] Last Admin: 12/21/19 13:36 Dose: 1 mg Warfarin Sodium (Coumadin) 1.5 mg PO MoWeFr@1300 [facility] Discontinued Medications Bumetanide (Bumex) 2 mg IVPUSH ONETIME ONE Stop: 12/21/19 20:01 Last Admin: 12/21/19 21:00 Dose: 2 mg Diltiazem HCl (Cardizem Cd) 240 mg PO ONETIME ONE Stop: 12/20/19 10:37 Last Admin: 12/20/19 10:51 Dose: 240 mg Diltiazem HCl (Cardizem Cd) 240 mg PO DAILY [facility] Last Admin: 12/21/19 08:12 Dose: 240 mg Diltiazem HCl (Diltiazem) 10 mg IVPUSH ONETIME ONE Stop: 12/21/19 08:29 Last Admin: 12/21/19 09:29 Dose: 10 mg Furosemide (Lasix) 40 mg IVPUSH ONETIME ONE Stop: 12/20/19 10:32 Last Admin: 12/20/19 10:39 Dose: 40 mg Furosemide (Lasix) 40 mg IVPUSH ONETIME ONE Stop: 12/20/19 18:46 Last Admin: 12/20/19 18:12 Dose: 40 mg Furosemide (Lasix) 40 mg IVPUSH NOW ONE Stop: 12/21/19 08:30 Last Admin: 12/21/19 09:32 Dose: 40 mg Lorazepam (Ativan) 0.5 mg PO Q4H PRN PRN Reason: Anxiety Last Admin: 12/20/19 21:47 Dose: 0.5 mg Metoprolol Tartrate (Lopressor) 50 mg PO ONETIME ONE Stop: 12/20/19 10:07 Last Admin: 12/20/19 10:16 Dose: 50 mg Metoprolol Tartrate (Lopressor) 50 mg PO ONETIME ONE Stop: 12/20/19 13:01 Last Admin: 12/20/19 13:19 Dose: Not Given Morphine Sulfate (Morphine) 15 mg PO Q4H PRN PRN Reason: Pain Last Admin: 12/20/19 12:22 Dose: 15 mg Ondansetron HCl (Zofran) 4 mg IVPUSH ONETIME ONE Stop: 12/20/19 10:06 Last Admin: 12/20/19 10:15 Dose: 4 mg Potassium Chloride (Klor-Con M20) 40 meq PO ONETIME ONE Stop: 12/20/19 17:01 Last Admin: 12/20/19 17:02 Dose: 40 meq Sotalol HCl (Betapace) 80 mg PO BID [facility] Last Admin: 12/20/19 10:51 Dose: 80 mg Warfarin Sodium (Coumadin) 1.5 mg PO ONETIME ONE Stop: 12/20/19 10:38 Last Admin: 12/20/19 10:52 Dose: 1.5 mg - Exam Quality Assessment: Supplemental Oxygen General: Alert, Oriented, Cooperative, No Acute Distress Lungs: Normal Respiratory Effort, Crackles (both bases) Cardiovascular: Regular Rate, Regular Rhythm, Murmurs GI/Abdominal Exam: Soft, No Distention Extremities: No Pedal Edema. No: Increased Warmth Skin: Warm, Dry Psy/Mental Status: Alert, Normal Affect Sepsis Event Note - Evaluation Sepsis Screening Result: No Definite Risk - Focused Exam Vital Signs: Vital Signs Temp Pulse Pulse Resp BP BP Pulse Ox 12/22/19 09:49 60 121/49 L 12/22/19 09:47 60 121/49 L 12/22/19 09:46 60 121/49 L 12/22/19 09:00 60 25 H 121/49 L 94 L 12/22/19 08:00 60 18 109/45 L 94 L 12/22/19 07:50 93 L 12/22/19 07:00 60 15 113/48 L 95 12/22/19 06:00 60 18 119/54 L 93 L 12/22/19 05:00 60 20 112/50 L 95 12/22/19 04:00 96.6 C H 60 19 118/40 L 94 L 12/22/19 03:00 60 18 114/51 L 93 L 12/22/19 01:56 60 14 110/46 L 91 L 12/22/19 01:00 60 16 110/46 L 92 L 12/22/19 00:00 36.3 C 60 18 115/47 L 91 L 12/21/19 23:00 60 20 118/44 L 93 L Date Exam was Performed: 12/22/19 Time Exam was Performed: 12:08 - Problem List & Annotations (1) Acute on chronic systolic (congestive) heart failure SNOMED Code(s): 745084189, 405426385 Code(s): I50.23 - ACUTE ON CHRONIC SYSTOLIC (CONGESTIVE) HEART FAILURE Status: Acute Current Visit: Yes (2) Atrial fibrillation with rapid ventricular response SNOMED Code(s): 377105088261564 Code(s): I48.91 - UNSPECIFIED ATRIAL FIBRILLATION Status: Acute Current Visit: Yes (3) CAD (coronary artery disease) SNOMED Code(s): 92570086 Code(s): I25.10 - ATHSCL HEART DISEASE OF [place] CORONARY ARTERY W/O ANG PCTRS Status: Chronic Current Visit: No Qualifiers: Coronary Disease-Associated Artery/Lesion type: [place] artery [place] vs. transplanted heart: [place] heart Associated angina: without angina Qualified Code(s): I25.10 - Atherosclerotic heart disease of [place] coronary artery without angina pectoris (4) Pacemaker SNOMED Code(s): 508598653 Code(s): Z95.0 - PRESENCE OF CARDIAC PACEMAKER Status: Chronic Current Visit: No - Problem List Review Problem List Initiated/Reviewed/Updated: Yes - My Orders Last 24 Hours: My Active Orders 12/21/19 13:00 Warfarin [Coumadin] 1 mg PO SuTuThSa@1300 12/22/19 09:30 Diltiazem [Cardizem CD] 240 mg PO DAILY 12/22/19 10:00 Bumetanide [Bumex] 2 mg IVPUSH Q12H 12/22/19 11:15 Insert Álvarez Catheter [Insert Urinary Catheter] [OM.PC] Q24H 12/22/19 13:00 Warfarin [Coumadin] 1.5 mg PO MoWeFr@1300 12/23/19 05:00 BASIC METABOLIC PANEL,BMP [CHEM] Timed INR,PT,PROTHROMBIN TIME [COAG] Timed - Plan Plan:: ASSESSMENT AND PLAN - Acute on chronic systolic congestive heart failure-complicated by multiple valvular abnormalities as well as acute on chronic respiratory failure with hypoxia. Probable trigger was uncontrolled atrial fibrillation. Echocardiogram yesterday did show improvement in her ejection fraction to low normal. She has only mild remaining evidence for volume overload today. -Bumetanide twice today -I anticipate transition to p.o. diuretics tomorrow -Álvarez catheter for strict intake and output monitoring today, remove in the morning -Medical management including beta-criss -Daily weights -Supplement oxygen as needed Atrial fibrillation with rapid ventricular response-responded well to diltiazem infusion overnight. -Continue sotalol -Increase metoprolol dosing to 100 mg and change to extended release metoprolol succinate -Cardiac monitoring -Discontinue diltiazem infusion, transition to p.o. -Continue warfarin for anticoagulation Status post pacemaker placement Palliative care-only wants to consider de-escalation of medical management and possible hospice admission -Continue morphine and lorazepam as needed for comfort -Hospice consult Maintenance issues - - DVT prophylaxis -warfarin - GI prophylaxis -not indicated - Nutrition -low-sodium - Álvarez catheter -placed for strict intake and output monitoring Disposition -I would anticipate discharge back to the custodial once she has made the transition from IV to p.o. diuretics and remains stable on p.o. diuretics Miquel Prabhakar MD
[2019-12-22] MEDS: Bumetanide 1 MG/4 ML MDV IVPUSH SCH ×2 (10:27→21:49)
[2019-12-22] MEDS: Albuterol 0.083% 2.5 MG/3 ML Neb Soln NEB PRN (15:55)
[2019-12-22] MEDS: LORazepam 0.5 MG Tab PO PRN (20:01)
[2019-12-22] MEDS: Morphine 15 MG Tab PO PRN ×2 (20:01→23:46)
[2019-12-22] MEDS: Melatonin 3 MG Tab PO SCH (20:53)
[2019-12-23] MEDS: Albuterol 0.083% 2.5 MG/3 ML Neb Soln NEB PRN (03:36)
[2019-12-23] MEDS: Metoprolol Succinate 50 MG Tab.ER PO SCH ×2 (09:27→21:42)
[2019-12-23] MEDS: Aspirin 81 MG Tab.Chew PO SCH (09:27)
[2019-12-23] MEDS: Sotalol 80 MG Tab PO SCH ×2 (09:28→21:42)
[2019-12-23] MEDS: Sertraline 50 MG Tab PO SCH (09:28)
[2019-12-23] MEDS: Diltiazem 120 MG Cap.CD PO SCH (09:29)
[2019-12-23] MEDS: Lactobacillus Rhamnosus GG (Probiotic) Cap PO SCH ×2 (09:29→21:39)
[2019-12-23] MEDS: Potassium Chloride 20 MEQ Tab.ER PO SCH (09:30)
[2019-12-23] MEDS: Acetaminophen 500 MG Tab PO SCH ×3 (09:30→21:39)
[2019-12-23] MEDS: Morphine 15 MG Tab.ER PO SCH ×2 (09:33→21:37)
--- NOTE | 2019-12-23 10:08 | PCM.PN ---
- General Info Date of Service: 12/23/19 Subjective Update: There were no acute events overnight. Atrial fibrillation has remained very well controlled with heart rates in the 60s. Good response to diuresis with the bumetanide yesterday. She is less short of breath. Strength is improving. No fevers. No cough. Appetite improving. Kidney function stable. Functional Status: Reports: Pain Controlled, Tolerating Diet - Review of Systems General: Reports: Weakness Pulmonary: Denies: Shortness of Breath Cardiovascular: Denies: Chest Pain - Patient Data Vitals - Most Recent: Last Vital Signs Temp 36.0 C L 12/23/19 03:00 Pulse 60 12/23/19 09:29 Resp 20 12/23/19 09:00 BP 155/64 H 12/23/19 09:29 Pulse Ox 96 12/23/19 09:00 Weight - Most Recent: 77.111 kg I&O - Last 24 Hours: Intake & Output 12/22/19 12/23/19 12/23/19 22:59 06:59 14:59 Intake Total 660 Output Total 750 1500 Balance -90 -1500 Lab Results Last 24 Hours: Laboratory Results - last 24 hr 12/23/19 12/23/19 Range/Units 04:45 04:45 PT 22.4 H (9.5-12.0) sec INR 2.17 H (0.80-1.20) Sodium 143 (140-148) mmol/L Potassium 3.9 (3.6-5.2) mmol/L Chloride 104 (100-108) mmol/L Carbon Dioxide 33 H (21-32) mmol/L Anion Gap 9.9 (5.0-14.0) mmol/L BUN 15 (7-18) mg/dL Creatinine 0.6 (0.6-1.0) mg/dL Est Cr Clr Drug Dosing 56.37 mL/min Estimated GFR (MDRD) > 60 (>60) Glucose 102 (74-106) mg/dL Calcium 8.1 L (8.5-10.1) mg/dL Mark Results Last 24 Hours: Microbiology 12/20/19 14:42 Urine Culture - Final Urine, Catheterized NO GROWTH AFTER 2 DAYS Med Orders - Current: Current Medications Acetaminophen (Tylenol Extra Strength) 1,000 mg PO TID [facility] Last Admin: 12/23/19 09:30 Dose: 1,000 mg Albuterol (Proventil Neb Soln) 2.5 mg NEB Q4H PRN PRN Reason: Shortness Of Breath/wheezing Last Admin: 12/23/19 03:36 Dose: 2.5 mg Aspirin (Aspirin) 81 mg PO DAILY [facility] Last Admin: 12/23/19 09:27 Dose: 81 mg Diltiazem HCl (Cardizem Cd) 240 mg PO DAILY [facility] Last Admin: 12/23/19 09:29 Dose: 240 mg Lactobacillus Rhamnosus (Culturelle) 1 cap PO BID [facility] Last Admin: 12/23/19 09:29 Dose: 1 cap Lorazepam (Ativan) 0.5 mg IVPUSH Q4H PRN PRN Reason: Nausea/Vomiting Lorazepam (Ativan) 0.5 mg PO Q2H PRN PRN Reason: Anxiety Last Admin: 12/22/19 20:01 Dose: 0.5 mg Magnesium Hydroxide (Milk Of Magnesia) 30 ml PO Q12H PRN PRN Reason: Constipation Melatonin (Melatonin) 9 mg PO BEDTIME [facility] Last Admin: 12/22/19 20:53 Dose: 9 mg Metoprolol Succinate (Toprol Xl) 100 mg PO BID [facility] Last Admin: 12/23/19 09:27 Dose: 100 mg Morphine Sulfate (Ms Contin) 15 mg PO BID [facility] Last Admin: 12/23/19 09:33 Dose: 15 mg Morphine Sulfate (Morphine) 15 mg PO Q2H PRN PRN Reason: Pain Last Admin: 12/22/19 23:46 Dose: 15 mg Ondansetron HCl (Zofran Odt) 4 mg PO Q6H PRN PRN Reason: Nausea able to take PO Ondansetron HCl (Zofran) 4 mg IV Q6H PRN PRN Reason: Nausea/Vomiting Potassium Chloride (Klor-Con M20) 40 meq PO DAILY [facility] Last Admin: 12/23/19 09:30 Dose: 40 meq Senna/Docusate Sodium (Senna Plus) 1 tab PO BID PRN PRN Reason: Constipation Sertraline HCl (Zoloft) 100 mg PO DAILY [facility] Last Admin: 12/23/19 09:28 Dose: 100 mg Sodium Chloride (Saline Flush) 10 ml FLUSH ASDIRECTED PRN PRN Reason: Keep Vein Open Last Admin: 12/20/19 10:16 Dose: 10 ml Sotalol HCl (Betapace) 80 mg PO BID [facility] Last Admin: 12/23/19 09:28 Dose: 80 mg Warfarin Sodium (Coumadin) 1 mg PO SuTuThSa@1300 [facility] Last Admin: 12/21/19 13:36 Dose: 1 mg Warfarin Sodium (Coumadin) 1.5 mg PO MoWeFr@1300 [facility] Last Admin: 12/22/19 13:56 Dose: 1.5 mg Discontinued Medications Bumetanide (Bumex) 2 mg IVPUSH ONETIME ONE Stop: 12/21/19 20:01 Last Admin: 12/21/19 21:00 Dose: 2 mg Bumetanide (Bumex) 2 mg IVPUSH Q12H [facility] Stop: 12/22/19 22:01 Last Admin: 12/22/19 21:49 Dose: 2 mg Diltiazem HCl (Cardizem Cd) 240 mg PO ONETIME ONE Stop: 12/20/19 10:37 Last Admin: 12/20/19 10:51 Dose: 240 mg Diltiazem HCl (Cardizem Cd) 240 mg PO DAILY [facility] Last Admin: 12/21/19 08:12 Dose: 240 mg Diltiazem HCl (Diltiazem) 10 mg IVPUSH ONETIME ONE Stop: 12/21/19 08:29 Last Admin: 12/21/19 09:29 Dose: 10 mg Furosemide (Lasix) 40 mg IVPUSH ONETIME ONE Stop: 12/20/19 10:32 Last Admin: 12/20/19 10:39 Dose: 40 mg Furosemide (Lasix) 40 mg IVPUSH ONETIME ONE Stop: 12/20/19 18:46 Last Admin: 12/20/19 18:12 Dose: 40 mg Furosemide (Lasix) 40 mg IVPUSH NOW ONE Stop: 12/21/19 08:30 Last Admin: 12/21/19 09:32 Dose: 40 mg Diltiazem HCl 100 mg/ Sodium (Chloride) 100 mls @ 5 mls/hr IV TITRATE [facility]; Protocol Last Admin: 12/22/19 02:31 Dose: 10 mg/hr, 10 mls/hr Lorazepam (Ativan) 0.5 mg PO Q4H PRN PRN Reason: Anxiety Last Admin: 12/20/19 21:47 Dose: 0.5 mg Metoprolol Tartrate (Lopressor) 50 mg PO ONETIME ONE Stop: 12/20/19 10:07 Last Admin: 12/20/19 10:16 Dose: 50 mg Metoprolol Tartrate (Lopressor) 50 mg PO ONETIME ONE Stop: 12/20/19 13:01 Last Admin: 12/20/19 13:19 Dose: Not Given Morphine Sulfate (Morphine) 15 mg PO Q4H PRN PRN Reason: Pain Last Admin: 12/20/19 12:22 Dose: 15 mg Ondansetron HCl (Zofran) 4 mg IVPUSH ONETIME ONE Stop: 12/20/19 10:06 Last Admin: 12/20/19 10:15 Dose: 4 mg Potassium Chloride (Klor-Con M20) 40 meq PO ONETIME ONE Stop: 12/20/19 17:01 Last Admin: 12/20/19 17:02 Dose: 40 meq Sotalol HCl (Betapace) 80 mg PO BID [facility] Last Admin: 12/20/19 10:51 Dose: 80 mg Warfarin Sodium (Coumadin) 1.5 mg PO ONETIME ONE Stop: 12/20/19 10:38 Last Admin: 12/20/19 10:52 Dose: 1.5 mg - Exam Quality Assessment: Supplemental Oxygen General: Alert, Oriented, No Acute Distress Lungs: Normal Respiratory Effort, Crackles (rare left lung base) Cardiovascular: Regular Rate, Regular Rhythm, Murmurs GI/Abdominal Exam: Soft, No Distention Extremities: No Pedal Edema. No: Increased Warmth Skin: Warm, Dry Psy/Mental Status: Alert, Normal Affect Sepsis Event Note - Evaluation Sepsis Screening Result: No Definite Risk - Focused Exam Vital Signs: Vital Signs Temp Pulse Pulse Resp BP BP Pulse Ox 12/23/19 09:29 60 155/64 H 12/23/19 09:28 63 155/63 H 12/23/19 09:27 64 155/64 H 12/23/19 09:00 63 20 155/64 H 96 12/23/19 07:00 60 14 151/51 H 60 L 12/23/19 05:00 60 20 131/62 96 12/23/19 03:00 36.0 C L 60 10 L 145/63 H 99 12/23/19 01:00 60 17 144/62 H 92 L 12/22/19 23:00 35.9 C L 60 17 127/58 L 96 Pulse Ox 12/23/19 09:29 12/23/19 09:28 12/23/19 09:27 12/23/19 09:00 12/23/19 07:00 97 12/23/19 05:00 12/23/19 03:00 12/23/19 01:00 12/22/19 23:00 Date Exam was Performed: 12/23/19 Time Exam was Performed: 13:28 - Problem List & Annotations (1) Acute on chronic systolic (congestive) heart failure SNOMED Code(s): 157955991, 008422420 Code(s): I50.23 - ACUTE ON CHRONIC SYSTOLIC (CONGESTIVE) HEART FAILURE Status: Acute Current Visit: Yes (2) Atrial fibrillation with rapid ventricular response SNOMED Code(s): 350866993023352 Code(s): I48.91 - UNSPECIFIED ATRIAL FIBRILLATION Status: Acute Current Visit: Yes (3) CAD (coronary artery disease) SNOMED Code(s): 16776812 Code(s): I25.10 - ATHSCL HEART DISEASE OF [place] CORONARY ARTERY W/O ANG PCTRS Status: Chronic Current Visit: No Qualifiers: Coronary Disease-Associated Artery/Lesion type: [place] artery [place] vs. transplanted heart: [place] heart Associated angina: without angina Qualified Code(s): I25.10 - Atherosclerotic heart disease of [place] coronary artery without angina pectoris (4) Pacemaker SNOMED Code(s): 623066018 Code(s): Z95.0 - PRESENCE OF CARDIAC PACEMAKER Status: Chronic Current Visit: No - Problem List Review Problem List Initiated/Reviewed/Updated: Yes - My Orders Last 24 Hours: My Active Orders 12/22/19 09:30 Diltiazem [Cardizem CD] 240 mg PO DAILY 12/22/19 13:00 Warfarin [Coumadin] 1.5 mg PO MoWeFr@1300 12/23/19 10:06 DC Álvarez Catheter [Urinary Catheter Removal] [RC] Per Unit Routine Discontinue Telemetry Monitoring [Cardiac Monitoring Discontinue] [RC] Click to Edit 12/23/19 10:15 Bumetanide [Bumex] 2 mg PO DAILY 12/24/19 05:00 BASIC METABOLIC PANEL,BMP [CHEM] Timed INR,PT,PROTHROMBIN TIME [COAG] Timed - Plan Plan:: ASSESSMENT AND PLAN - Acute on chronic systolic congestive heart failure-volume status seems to be appropriate today. Supplemental oxygen requirement down to baseline. -Transition to once daily oral bumetanide -Remove Álvarez catheter -Medical management including beta-criss -Daily weights -Supplement oxygen as needed Atrial fibrillation with rapid ventricular response-well controlled with oral diltiazem and metoprolol -Continue sotalol -Increase metoprolol dosing to 100 mg and change to extended release metoprolol succinate -Continue oral diltiazem -Discontinue cardiac monitoring -Continue warfarin for anticoagulation Status post pacemaker placement Palliative care-only wants to consider de-escalation of medical management and possible hospice admission -Continue morphine and lorazepam as needed for comfort -Hospice consult Maintenance issues - - DVT prophylaxis -warfarin - GI prophylaxis -not indicated - Nutrition -low-sodium - Álvarez catheter -will be removed today Disposition -I would anticipate discharge back to the alf if she remains stable with transition to oral diuretics Miquel Prabhakar MD
[2019-12-23] MEDS: Bumetanide 1 MG Tab PO SCH (12:21)
[2019-12-23] MEDS: Morphine 15 MG Tab PO PRN (16:37)
[2019-12-23] MEDS: LORazepam 0.5 MG Tab PO PRN (21:38)
[2019-12-23] MEDS: Melatonin 3 MG Tab PO SCH (21:39)
[2019-12-24] MEDS: Morphine 15 MG Tab PO PRN ×4 (04:33→21:24)
[2019-12-24] MEDS: Aspirin 81 MG Tab.Chew PO SCH (09:44)
[2019-12-24] MEDS: Potassium Chloride 20 MEQ Tab.ER PO SCH (09:44)
[2019-12-24] MEDS: Bumetanide 1 MG Tab PO SCH (09:45)
[2019-12-24] MEDS: Metoprolol Succinate 50 MG Tab.ER PO SCH ×2 (09:45→21:16)
[2019-12-24] MEDS: Diltiazem 120 MG Cap.CD PO SCH (09:45)
[2019-12-24] MEDS: Morphine 15 MG Tab.ER PO SCH ×2 (09:45→21:23)
[2019-12-24] MEDS: Sotalol 80 MG Tab PO SCH ×2 (09:46→21:16)
[2019-12-24] MEDS: Lactobacillus Rhamnosus GG (Probiotic) Cap PO SCH ×2 (09:46→21:16)
[2019-12-24] MEDS: Acetaminophen 500 MG Tab PO SCH ×3 (09:51→21:17)
[2019-12-24] MEDS: Sertraline 50 MG Tab PO SCH (09:51)
--- NOTE | 2019-12-24 10:38 | PCM.PN ---
- General Info Date of Service: 12/24/19 Subjective Update: No acute events overnight. Shortness of breath is at baseline. No chest pain or pressure. Sleeping well. Appetite good. Strength slowly improving. No fevers. Volume status appropriate. Kidney function and INR stable. Functional Status: Reports: Pain Controlled, Tolerating Diet - Review of Systems General: Reports: Weakness Pulmonary: Denies: Shortness of Breath - Patient Data Vitals - Most Recent: Last Vital Signs Temp 36.0 C L 12/24/19 10:29 Pulse 67 12/24/19 10:29 Resp 16 12/24/19 10:29 BP 109/44 L 12/24/19 10:29 Pulse Ox 96 12/24/19 10:29 Weight - Most Recent: 77.111 kg I&O - Last 24 Hours: Intake & Output 12/23/19 12/24/19 12/24/19 22:59 06:59 14:59 Intake Total 240 240 Output Total 200 Balance 240 240 -200 Lab Results Last 24 Hours: Laboratory Results - last 24 hr 12/24/19 12/24/19 Range/Units 04:00 04:00 PT 22.0 H (9.5-12.0) sec INR 2.13 H (0.80-1.20) Sodium 140 (140-148) mmol/L Potassium 4.3 (3.6-5.2) mmol/L Chloride 103 (100-108) mmol/L Carbon Dioxide 33 H (21-32) mmol/L Anion Gap 8.3 (5.0-14.0) mmol/L BUN 15 (7-18) mg/dL Creatinine 0.6 (0.6-1.0) mg/dL Est Cr Clr Drug Dosing 56.37 mL/min Estimated GFR (MDRD) > 60 (>60) Glucose 98 (74-106) mg/dL Calcium 8.7 (8.5-10.1) mg/dL Med Orders - Current: Current Medications Acetaminophen (Tylenol Extra Strength) 1,000 mg PO TID [facility] Last Admin: 12/24/19 09:51 Dose: 1,000 mg Albuterol (Proventil Neb Soln) 2.5 mg NEB Q4H PRN PRN Reason: Shortness Of Breath/wheezing Last Admin: 12/23/19 03:36 Dose: 2.5 mg Aspirin (Aspirin) 81 mg PO DAILY [facility] Last Admin: 12/24/19 09:44 Dose: 81 mg Bumetanide (Bumex) 2 mg PO DAILY [facility] Last Admin: 12/24/19 09:45 Dose: 2 mg Diltiazem HCl (Cardizem Cd) 240 mg PO DAILY [facility] Last Admin: 12/24/19 09:45 Dose: 240 mg Lactobacillus Rhamnosus (Culturelle) 1 cap PO BID [facility] Last Admin: 12/24/19 09:46 Dose: 1 cap Lorazepam (Ativan) 0.5 mg PO Q2H PRN PRN Reason: Anxiety Last Admin: 12/23/19 21:38 Dose: 0.5 mg Magnesium Hydroxide (Milk Of Magnesia) 30 ml PO Q12H PRN PRN Reason: Constipation Melatonin (Melatonin) 9 mg PO BEDTIME [facility] Last Admin: 12/23/19 21:39 Dose: 9 mg Metoprolol Succinate (Toprol Xl) 100 mg PO BID [facility] Last Admin: 12/24/19 09:45 Dose: 100 mg Morphine Sulfate (Ms Contin) 15 mg PO BID [facility] Last Admin: 12/24/19 09:45 Dose: 15 mg Morphine Sulfate (Morphine) 15 mg PO Q2H PRN PRN Reason: Pain Last Admin: 12/24/19 09:51 Dose: 15 mg Ondansetron HCl (Zofran Odt) 4 mg PO Q6H PRN PRN Reason: Nausea able to take PO Ondansetron HCl (Zofran) 4 mg IV Q6H PRN PRN Reason: Nausea/Vomiting Potassium Chloride (Klor-Con M20) 40 meq PO DAILY [facility] Last Admin: 12/24/19 09:44 Dose: 40 meq Senna/Docusate Sodium (Senna Plus) 1 tab PO BID PRN PRN Reason: Constipation Sertraline HCl (Zoloft) 100 mg PO DAILY [facility] Last Admin: 12/24/19 09:51 Dose: 100 mg Sodium Chloride (Saline Flush) 10 ml FLUSH ASDIRECTED PRN PRN Reason: Keep Vein Open Last Admin: 12/20/19 10:16 Dose: 10 ml Sotalol HCl (Betapace) 80 mg PO BID [facility] Last Admin: 12/24/19 09:46 Dose: 80 mg Warfarin Sodium (Coumadin) 1 mg PO SuTuThSa@1300 [facility] Last Admin: 12/23/19 12:23 Dose: 1 mg Warfarin Sodium (Coumadin) 1.5 mg PO MoWeFr@1300 [facility] Last Admin: 12/22/19 13:56 Dose: 1.5 mg Discontinued Medications Bumetanide (Bumex) 2 mg IVPUSH ONETIME ONE Stop: 12/21/19 20:01 Last Admin: 12/21/19 21:00 Dose: 2 mg Bumetanide (Bumex) 2 mg IVPUSH Q12H [facility] Stop: 12/22/19 22:01 Last Admin: 12/22/19 21:49 Dose: 2 mg Diltiazem HCl (Cardizem Cd) 240 mg PO ONETIME ONE Stop: 12/20/19 10:37 Last Admin: 12/20/19 10:51 Dose: 240 mg Diltiazem HCl (Cardizem Cd) 240 mg PO DAILY [facility] Last Admin: 12/21/19 08:12 Dose: 240 mg Diltiazem HCl (Diltiazem) 10 mg IVPUSH ONETIME ONE Stop: 12/21/19 08:29 Last Admin: 12/21/19 09:29 Dose: 10 mg Furosemide (Lasix) 40 mg IVPUSH ONETIME ONE Stop: 12/20/19 10:32 Last Admin: 12/20/19 10:39 Dose: 40 mg Furosemide (Lasix) 40 mg IVPUSH ONETIME ONE Stop: 12/20/19 18:46 Last Admin: 12/20/19 18:12 Dose: 40 mg Furosemide (Lasix) 40 mg IVPUSH NOW ONE Stop: 12/21/19 08:30 Last Admin: 12/21/19 09:32 Dose: 40 mg Diltiazem HCl 100 mg/ Sodium (Chloride) 100 mls @ 5 mls/hr IV TITRATE [facility]; Protocol Last Admin: 12/22/19 02:31 Dose: 10 mg/hr, 10 mls/hr Lorazepam (Ativan) 0.5 mg PO Q4H PRN PRN Reason: Anxiety Last Admin: 12/20/19 21:47 Dose: 0.5 mg Lorazepam (Ativan) 0.5 mg IVPUSH Q4H PRN PRN Reason: Nausea/Vomiting Metoprolol Tartrate (Lopressor) 50 mg PO ONETIME ONE Stop: 12/20/19 10:07 Last Admin: 12/20/19 10:16 Dose: 50 mg Metoprolol Tartrate (Lopressor) 50 mg PO ONETIME ONE Stop: 12/20/19 13:01 Last Admin: 12/20/19 13:19 Dose: Not Given Morphine Sulfate (Morphine) 15 mg PO Q4H PRN PRN Reason: Pain Last Admin: 12/20/19 12:22 Dose: 15 mg Ondansetron HCl (Zofran) 4 mg IVPUSH ONETIME ONE Stop: 12/20/19 10:06 Last Admin: 12/20/19 10:15 Dose: 4 mg Potassium Chloride (Klor-Con M20) 40 meq PO ONETIME ONE Stop: 12/20/19 17:01 Last Admin: 12/20/19 17:02 Dose: 40 meq Sotalol HCl (Betapace) 80 mg PO BID [facility] Last Admin: 12/20/19 10:51 Dose: 80 mg Warfarin Sodium (Coumadin) 1.5 mg PO ONETIME ONE Stop: 12/20/19 10:38 Last Admin: 12/20/19 10:52 Dose: 1.5 mg - Exam Quality Assessment: Supplemental Oxygen General: Alert, Oriented, Cooperative, No Acute Distress Lungs: Clear to Auscultation, Normal Respiratory Effort Cardiovascular: Regular Rate, Regular Rhythm GI/Abdominal Exam: Soft, No Distention Extremities: No Pedal Edema Psy/Mental Status: Alert, Normal Affect Sepsis Event Note - Evaluation Sepsis Screening Result: No Definite Risk - Focused Exam Vital Signs: Vital Signs Temp Pulse Pulse Resp BP BP Pulse Ox 12/24/19 10:29 36.0 C L 67 16 109/44 L 96 12/24/19 09:46 61 137/53 L 12/24/19 09:45 61 137/53 L 12/24/19 09:43 61 137/53 L 95 12/24/19 07:04 36.2 C 64 16 129/56 L 96 12/24/19 07:00 12/24/19 04:29 36.6 C 64 18 131/55 L 94 L 12/23/19 23:00 16 Pulse Ox 12/24/19 10:29 12/24/19 09:46 12/24/19 09:45 12/24/19 09:43 12/24/19 07:04 03/15/20 07:00 96 12/24/19 04:29 12/23/19 23:00 Date Exam was Performed: 12/24/19 Time Exam was Performed: 12:57 - Problem List & Annotations (1) Acute on chronic systolic (congestive) heart failure SNOMED Code(s): 186886520, 691366050 Code(s): I50.23 - ACUTE ON CHRONIC SYSTOLIC (CONGESTIVE) HEART FAILURE Status: Acute Current Visit: Yes (2) Atrial fibrillation with rapid ventricular response SNOMED Code(s): 721151737163333 Code(s): I48.91 - UNSPECIFIED ATRIAL FIBRILLATION Status: Acute Current Visit: Yes (3) CAD (coronary artery disease) SNOMED Code(s): 36062297 Code(s): I25.10 - ATHSCL HEART DISEASE OF [place] CORONARY ARTERY W/O ANG PCTRS Status: Chronic Current Visit: No Qualifiers: Coronary Disease-Associated Artery/Lesion type: [place] artery [place] vs. transplanted heart: [place] heart Associated angina: without angina Qualified Code(s): I25.10 - Atherosclerotic heart disease of [place] coronary artery without angina pectoris (4) Pacemaker SNOMED Code(s): 061107965 Code(s): Z95.0 - PRESENCE OF CARDIAC PACEMAKER Status: Chronic Current Visit: No - Problem List Review Problem List Initiated/Reviewed/Updated: Yes - My Orders Last 24 Hours: My Active Orders 12/23/19 10:15 Bumetanide [Bumex] 2 mg PO DAILY 12/23/19 10:37 Transfer Patient (Change bed) [ADT] Routine - Plan Plan:: ASSESSMENT AND PLAN - Acute on chronic systolic congestive heart failure-volume status seems to be appropriate today. Supplemental oxygen requirement down to baseline. -Continue once daily oral bumetanide -Medical management including beta-criss -Daily weights -Supplement oxygen as needed Atrial fibrillation with rapid ventricular response-well controlled with oral diltiazem and metoprolol -Continue sotalol -Increase metoprolol dosing to 100 mg and change to extended release metoprolol succinate -Continue oral diltiazem -Continue warfarin for anticoagulation Status post pacemaker placement Palliative care-only wants to consider de-escalation of medical management and possible hospice admission -Continue morphine and lorazepam as needed for comfort -Hospice consult Maintenance issues - - DVT prophylaxis -warfarin - GI prophylaxis -not indicated - Nutrition -low-sodium Disposition -I would anticipate discharge back to the group home tomorrow Miquel Prabhakar MD
--- NOTE | 2019-12-24 13:46 | PCM.DCSUM1 ---
Discharge Summary - Hospital Course Brief History: 89-year-old female with history of systolic congestive heart failure, chronic atrial fibrillation and recent pneumonia who presented with acute worsening of her shortness of breath. She was admitted for management of a combination of acute on chronic congestive heart failure and atrial fibrillation with rapid ventricular response leading to acute on chronic hypoxic respiratory failure. Diagnosis: Stroke: No - Discharge Data Discharge Date: 12/24/19 Discharge Disposition: DC/Tfer to SNF 03 Condition: Fair - Referral to Home Health Primary Care Physician: PCP None - Discharge Diagnosis/Problem(s) (1) Acute on chronic systolic (congestive) heart failure SNOMED Code(s): 037846638, 860631683 ICD Code: I50.23 - ACUTE ON CHRONIC SYSTOLIC (CONGESTIVE) HEART FAILURE Status: Acute Current Visit: Yes (2) Atrial fibrillation with rapid ventricular response SNOMED Code(s): 034719318955820 ICD Code: I48.91 - UNSPECIFIED ATRIAL FIBRILLATION Status: Acute Current Visit: Yes (3) CAD (coronary artery disease) SNOMED Code(s): 54867413 ICD Code: I25.10 - ATHSCL HEART DISEASE OF [place] CORONARY ARTERY W/O ANG PCTRS Status: Chronic Current Visit: No Qualifiers: Coronary Disease-Associated Artery/Lesion type: [place] artery [place] vs. transplanted heart: [place] heart Associated angina: without angina Qualified Code(s): I25.10 - Atherosclerotic heart disease of [place] coronary artery without angina pectoris (4) Pacemaker SNOMED Code(s): 924497516 ICD Code: Z95.0 - PRESENCE OF CARDIAC PACEMAKER Status: Chronic Current Visit: No (5) Chronic pain syndrome SNOMED Code(s): 060902228 ICD Code: G89.4 - CHRONIC PAIN SYNDROME Status: Chronic Current Visit: Yes - Patient Summary/Data Hospital Course: Calli presented to the emergency room with acute worsening of shortness of breath. In the emergency room she was noted to have worse hypoxia than usual and was requiring 5 to 6 L of supplemental oxygen. Work-up in the emergency room was consistent with an acute exacerbation of her congestive heart failure with pulmonary edema. She also had atrial fibrillation with a rapid ventricular response. There is no evidence for infection at the time of presentation. She did receive furosemide in the emergency room and was admitted to the intensive care unit for management of both heart failure and her rapid atrial fibrillation. For the atrial fibrillation we changed her metoprolol from short acting to long-acting and increase the dose by double her home dose. This had been effective during previous hospital stays. For the heart failure we continued furosemide and a Álvarez catheter was placed to closely monitor her intake and output. Over the next 24 hours she did have some improvement in her respiratory status. She had ongoing evidence for volume overload so we did continue the diuresis but her supplemental oxygen requirement was decreasing. Her atrial fibrillation had improved but still remains suboptimally controlled. With the suboptimal control after the beta- criss change she was transitioned to IV diltiazem in addition to the increased dose of the long-acting beta-criss. She responded well to this medication change in return to her usual sinus paced rhythm. We were able to wean her off of the IV diltiazem and transition back to p.o. diltiazem. She has remained stable with the calcium channel criss and beta-criss regimen. Over the course of the hospital stay we were able to provide adequate diuresis and return her to euvolemia. We have transitioned from IV to oral diuretics with good response and stable weight and clinical status. There have been no significant electrolyte issues and her kidney function has been stable. I believe she is ready for discharge back to the [facility] at this time. Several medication changes were made and are noted in the medication section. She is stable and safe for discharge at this time. During the hospital stay we did have several conversations about level of care after hospital discharge. At this time the patient is contemplating a transition to hospice. For now she is going to continue with her rehab but if she does not make significant progress she will likely transition to a hospice care approach. She has met with hospice. She has discussed this with her family and everyone seems to be on board when she is ready to make that transition. - Patient Instructions Diet: Low Sodium (2 gram sodium ) Activity: As Tolerated Showering/Bathing: May Shower Notify Provider of: Fever, Increased Pain Other/Special Instructions: 1. You were in the hospital for management of congestive heart failure as well as poorly controlled atrial fibrillation with a rapid ventricular response. Your condition has improved with medication changes including increasing the beta-criss and adjusting the diuretics. The medication changes are outlined as below. Please check the patient's weight on Wednesday, Wednesday and Wednesday for the next 4 weeks. Any weight gain more than 4 pounds per week should be related to the primary MD. --Start taking metoprolol succinate 100 mg twice daily. This replaces your old prescription for metoprolol tartrate. --Start taking bumetanide 2 mg once daily. This replaces your old prescription for furosemide. 2. Continue your other home medications as previously prescribed. 3. Referral to PT and OT for strengthening. The patient should be encouraged to participate but given her advanced age and medical problems she may not be able to participate to the full extent so please allow her to use her discretion. 4. Code status - DNR/DNI. 5. Please check a BMP on or about December 27 to recheck kidney function and potassium levels with diuretic changes. - Discharge Plan *PRESCRIPTION DRUG MONITORING PROGRAM REVIEWED*: Not Applicable *COPY OF PRESCRIPTION DRUG MONITORING REPORT IN PATIENT CONNOR: Not Applicable Prescriptions/Med Rec: Bumetanide 2 mg PO DAILY #30 tablet LORazepam [Lorazepam] 0.5 mg PO Q4H PRN #45 tablet PRN Reason: Anxiety Metoprolol Succinate 100 mg PO BID #60 tab.er.24h Morphine [MS Contin] 15 mg PO BID #60 tab.er Morphine Sulfate 15 mg PO Q4H PRN #90 tablet PRN Reason: Pain Home Medications: Home Meds Aspirin [Children's Aspirin] 81 mg PO DAILY 02/14/15 [History] Diltiazem HCl [Diltiazem 24Hr Cd] 240 mg PO DAILY #30 cap.er.24h 07/08/18 [Rx] Albuterol [Proventil HFA] 2 puff INH Q4H PRN #1 inhaler 09/09/18 [Rx] Magnesium Oxide 400 mg PO BID #60 tablet 09/09/18 [Rx] Potassium Chloride [Klor-Con M20] 20 meq PO DAILY #30 tab.er 09/09/18 [Rx] Sotalol [Betapace] 80 mg PO BID #60 tablet 09/09/18 [Rx] Sertraline [Zoloft] 100 mg PO DAILY 10/11/18 [History] Acetaminophen [Tylenol Extra Strength] 1,000 mg PO TID #180 tablet 10/14/18 [Rx] Warfarin [Coumadin] 1.5 mg PO MOWEFR 12/07/18 [History] Lactobacillus Rhamnosus GG [Culturelle] 1 cap PO BID #60 cap 11/28/19 [Rx] Warfarin [Coumadin] 1 mg PO ASDIRECTED #100 11/28/19 [Rx] Bumetanide 2 mg PO DAILY #30 tablet 12/24/19 [Rx] LORazepam [Lorazepam] 0.5 mg PO Q4H PRN #45 tablet 12/24/19 [Rx] Metoprolol Succinate 100 mg PO BID #60 tab.er.24h 12/24/19 [Rx] Morphine Sulfate 15 mg PO Q4H PRN #90 tablet 12/24/19 [Rx] Morphine [MS Contin] 15 mg PO BID #60 tab.er 12/24/19 [Rx] Oxygen Therapy Mode: Nasal Cannula Oxygen Flow Rate (L/min): 3 Patient Handouts: Atrial Fibrillation Referrals: Jose Rogel MD [Physician] - (1-2 weeks - f/u hospital stay for CHF and Afib ) - Discharge Summary/Plan Comment DC Time >30 min.: Yes (40 -complex [facility] discharge) - Patient Data Vitals - Most Recent: Last Vital Signs Temp 36.0 C L 12/24/19 10:29 Pulse 67 12/24/19 10:29 Resp 16 12/24/19 10:29 BP 109/44 L 12/24/19 10:29 Pulse Ox 96 12/24/19 10:29 Weight - Most Recent: 77.111 kg I&O - Last 24 hours: Intake & Output 12/23/19 12/24/19 12/24/19 22:59 06:59 14:59 Intake Total 240 240 Output Total 200 Balance 240 240 -200 Lab Results - Last 24 hrs: Laboratory Results - last 24 hr 12/24/19 12/24/19 Range/Units 04:00 04:00 PT 22.0 H (9.5-12.0) sec INR 2.13 H (0.80-1.20) Sodium 140 (140-148) mmol/L Potassium 4.3 (3.6-5.2) mmol/L Chloride 103 (100-108) mmol/L Carbon Dioxide 33 H (21-32) mmol/L Anion Gap 8.3 (5.0-14.0) mmol/L BUN 15 (7-18) mg/dL Creatinine 0.6 (0.6-1.0) mg/dL Est Cr Clr Drug Dosing 56.37 mL/min Estimated GFR (MDRD) > 60 (>60) Glucose 98 (74-106) mg/dL Calcium 8.7 (8.5-10.1) mg/dL Med Orders - Current: Current Medications Acetaminophen (Tylenol Extra Strength) 1,000 mg PO TID [facility] Last Admin: 12/24/19 09:51 Dose: 1,000 mg Albuterol (Proventil Neb Soln) 2.5 mg NEB Q4H PRN PRN Reason: Shortness Of Breath/wheezing Last Admin: 12/23/19 03:36 Dose: 2.5 mg Aspirin (Aspirin) 81 mg PO DAILY [facility] Last Admin: 12/24/19 09:44 Dose: 81 mg Bumetanide (Bumex) 2 mg PO DAILY [facility] Last Admin: 12/24/19 09:45 Dose: 2 mg Diltiazem HCl (Cardizem Cd) 240 mg PO DAILY [facility] Last Admin: 12/24/19 09:45 Dose: 240 mg Lactobacillus Rhamnosus (Culturelle) 1 cap PO BID [facility] Last Admin: 12/24/19 09:46 Dose: 1 cap Lorazepam (Ativan) 0.5 mg PO Q2H PRN PRN Reason: Anxiety Last Admin: 12/23/19 21:38 Dose: 0.5 mg Magnesium Hydroxide (Milk Of Magnesia) 30 ml PO Q12H PRN PRN Reason: Constipation Melatonin (Melatonin) 9 mg PO BEDTIME [facility] Last Admin: 12/23/19 21:39 Dose: 9 mg Metoprolol Succinate (Toprol Xl) 100 mg PO BID [facility] Last Admin: 12/24/19 09:45 Dose: 100 mg Morphine Sulfate (Ms Contin) 15 mg PO BID [facility] Last Admin: 12/24/19 09:45 Dose: 15 mg Morphine Sulfate (Morphine) 15 mg PO Q2H PRN PRN Reason: Pain Last Admin: 12/24/19 09:51 Dose: 15 mg Ondansetron HCl (Zofran Odt) 4 mg PO Q6H PRN PRN Reason: Nausea able to take PO Ondansetron HCl (Zofran) 4 mg IV Q6H PRN PRN Reason: Nausea/Vomiting Potassium Chloride (Klor-Con M20) 40 meq PO DAILY [facility] Last Admin: 12/24/19 09:44 Dose: 40 meq Senna/Docusate Sodium (Senna Plus) 1 tab PO BID PRN PRN Reason: Constipation Sertraline HCl (Zoloft) 100 mg PO DAILY [facility] Last Admin: 12/24/19 09:51 Dose: 100 mg Sodium Chloride (Saline Flush) 10 ml FLUSH ASDIRECTED PRN PRN Reason: Keep Vein Open Last Admin: 12/20/19 10:16 Dose: 10 ml Sotalol HCl (Betapace) 80 mg PO BID [facility] Last Admin: 12/24/19 09:46 Dose: 80 mg Warfarin Sodium (Coumadin) 1 mg PO SuTuThSa@1300 [facility] Last Admin: 12/23/19 12:23 Dose: 1 mg Warfarin Sodium (Coumadin) 1.5 mg PO MoWeFr@1300 [facility] Last Admin: 12/22/19 13:56 Dose: 1.5 mg Discontinued Medications Bumetanide (Bumex) 2 mg IVPUSH ONETIME ONE Stop: 12/21/19 20:01 Last Admin: 12/21/19 21:00 Dose: 2 mg Bumetanide (Bumex) 2 mg IVPUSH Q12H [facility] Stop: 12/22/19 22:01 Last Admin: 12/22/19 21:49 Dose: 2 mg Diltiazem HCl (Cardizem Cd) 240 mg PO ONETIME ONE Stop: 12/20/19 10:37 Last Admin: 12/20/19 10:51 Dose: 240 mg Diltiazem HCl (Cardizem Cd) 240 mg PO DAILY [facility] Last Admin: 12/21/19 08:12 Dose: 240 mg Diltiazem HCl (Diltiazem) 10 mg IVPUSH ONETIME ONE Stop: 12/21/19 08:29 Last Admin: 12/21/19 09:29 Dose: 10 mg Furosemide (Lasix) 40 mg IVPUSH ONETIME ONE Stop: 12/20/19 10:32 Last Admin: 12/20/19 10:39 Dose: 40 mg Furosemide (Lasix) 40 mg IVPUSH ONETIME ONE Stop: 12/20/19 18:46 Last Admin: 12/20/19 18:12 Dose: 40 mg Furosemide (Lasix) 40 mg IVPUSH NOW ONE Stop: 12/21/19 08:30 Last Admin: 12/21/19 09:32 Dose: 40 mg Diltiazem HCl 100 mg/ Sodium (Chloride) 100 mls @ 5 mls/hr IV TITRATE MUKUL; Protocol Last Admin: 12/22/19 02:31 Dose: 10 mg/hr, 10 mls/hr Lorazepam (Ativan) 0.5 mg PO Q4H PRN PRN Reason: Anxiety Last Admin: 12/20/19 21:47 Dose: 0.5 mg Lorazepam (Ativan) 0.5 mg IVPUSH Q4H PRN PRN Reason: Nausea/Vomiting Metoprolol Tartrate (Lopressor) 50 mg PO ONETIME ONE Stop: 12/20/19 10:07 Last Admin: 12/20/19 10:16 Dose: 50 mg Metoprolol Tartrate (Lopressor) 50 mg PO ONETIME ONE Stop: 12/20/19 13:01 Last Admin: 12/20/19 13:19 Dose: Not Given Morphine Sulfate (Morphine) 15 mg PO Q4H PRN PRN Reason: Pain Last Admin: 12/20/19 12:22 Dose: 15 mg Ondansetron HCl (Zofran) 4 mg IVPUSH ONETIME ONE Stop: 12/20/19 10:06 Last Admin: 12/20/19 10:15 Dose: 4 mg Potassium Chloride (Klor-Con M20) 40 meq PO ONETIME ONE Stop: 12/20/19 17:01 Last Admin: 12/20/19 17:02 Dose: 40 meq Sotalol HCl (Betapace) 80 mg PO BID [facility] Last Admin: 12/20/19 10:51 Dose: 80 mg Warfarin Sodium (Coumadin) 1.5 mg PO ONETIME ONE Stop: 12/20/19 10:38 Last Admin: 12/20/19 10:52 Dose: 1.5 mg
[2019-12-24] MEDS: Melatonin 3 MG Tab PO SCH (21:16)
[2019-12-25 05:38] VITALS: BP 116/50
[2019-12-25] MEDS: Diltiazem 120 MG Cap.CD PO SCH (08:13)
[2019-12-25] MEDS: Bumetanide 1 MG Tab PO SCH (08:13)
[2019-12-25] MEDS: Sotalol 80 MG Tab PO SCH (08:13)
[2019-12-25] MEDS: Lactobacillus Rhamnosus GG (Probiotic) Cap PO SCH (08:14)
[2019-12-25] MEDS: Metoprolol Succinate 50 MG Tab.ER PO SCH (08:14)
[2019-12-25] MEDS: Aspirin 81 MG Tab.Chew PO SCH (08:14)
[2019-12-25] MEDS: Potassium Chloride 20 MEQ Tab.ER PO SCH (08:14)
[2019-12-25] MEDS: Acetaminophen 500 MG Tab PO SCH (08:14)
[2019-12-25 08:15] VITALS: PULSE 80
[2019-12-25] MEDS: Sertraline 50 MG Tab PO SCH (08:15)
[2019-12-25] MEDS: LORazepam 0.5 MG Tab PO PRN (08:18)
[2019-12-25] MEDS: Morphine 15 MG Tab PO PRN (08:18)
[2019-12-25] MEDS: Morphine 15 MG Tab.ER PO SCH (08:19)
== END 2019-12-25 10:18 | DRG 291 ==
LOC: JP.ED 09:32 → JP.ICU 11:17 → JP.MS 12-23 14:33
PROVIDERS: ADMIT Internal Medicine; ATTEND Internal Medicine
PROC: 0T9B70Z Drainage of Bladder with Drainage Device, Via Natural or Artificial Opening (ICD-10-PCS; principal; 2019-12-21)
DX: J81.0 Acute pulmonary edema (principal); R11.2 Nausea with vomiting, unspecified; I50.23 Acute on chronic systolic (congestive) heart failure; I48.91 Unspecified atrial fibrillation; J96.21 Acute and chronic respiratory failure with hypoxia; I48.20 Chronic atrial fibrillation, unspecified; Z66 Do not resuscitate; G89.4 Chronic pain syndrome; H91.90 Unspecified hearing loss, unspecified ear; I25.10 Atherosclerotic heart disease of native coronary artery without angina pectoris; G89.29 Other chronic pain; I10 Essential (primary) hypertension; E78.00 Pure hypercholesterolemia, unspecified; G47.30 Sleep apnea, unspecified; Z95.5 Presence of coronary angioplasty implant and graft; M54.9 Dorsalgia, unspecified; Z88.6 Allergy status to analgesic agent; F41.9 Anxiety disorder, unspecified; F32.9 Major depressive disorder, single episode, unspecified; Z90.89 Acquired absence of other organs; Z90.49 Acquired absence of other specified parts of digestive tract; Z90.710 Acquired absence of both cervix and uterus; Z90.79 Acquired absence of other genital organ(s); Z88.1 Allergy status to other antibiotic agents; Z88.0 Allergy status to penicillin; Z88.8 Allergy status to other drugs, medicaments and biological substances; Z79.82 Long term (current) use of aspirin; Z79.51 Long term (current) use of inhaled steroids; Z79.01 Long term (current) use of anticoagulants; Z79.899 Other long term (current) drug therapy; Z95.0 Presence of cardiac pacemaker; Z90.721 Acquired absence of ovaries, unilateral; Z87.891 Personal history of nicotine dependence; Z87.01 Personal history of pneumonia (recurrent)
CPT/HCPCS: 36415; 71045 ×2; 80048; 81001; 83880; 84484; 85027; 85610; 87804 ×2; 96374; 96375; 99284; 99285; A9270 ×4; J1940; J2405; 83735; 85025; 87086; 93306; 94640; J3490; J7050